=== PATIENT | male | born 1965 | race Caucasian/White ===

== ENCOUNTER 2019-03-13 02:05 | Outpatient (CLI) | payer MEDICAID, SELFPAY ==
--- NOTE | 2019-03-13 11:55 | DI.NM_ITS ---
APPROVED REPORT Exam: Exercise Treadmill Patient Location: Out-Patient Room/Bed: Stress Nurse: Lamar Mesa RN BMI: 29.53 Baseline Rhythm: Sinus Rhythm Indications: In January 2018 patient had an episode of ???sharp??? midsternal chest pain that radiat ed to left neck and palpitations. He reports he has had ???a lot of palpitations??? and SOB over the last year. Medical History Medical History: Atrial Fibrillation, Paroxysmal Atrial Fibrillation, Dyspnea on Exertion, Sleep Apne a, Cardiomyopathy, GERD, Carcinoid tumor of lung. Cardiac Medications: Atorvastatin, Apixaban, Toprol XL, Allergies: No known drug allergies Cardiac Risk Factors: FHX of CAD, HTN, Hyperlipidemia, COPD Previous Cardiac Procedures: None Pretest Chest Pain Characteristics: None Exercise History: Sedentary Physical Disabilities: Currently being treated for Right foot Cellulitis pain Lung Sounds: Clear to auscultation and Diminished Heart Sounds: Regular Stress Test Details Test: Exercise stress converted to pharmacologic stress due to failure to obtain a diagnostic stress test. Reason for pharmacologic stress test: physical limitation. Nuclear Acquisition: Rest Tc-99m/Stress Tc-99m 1 day Rest Isotope: Tc-99m Sestamibi. Dose: 12.0 Date: 03/13/2019 Injection Time: 1045 Stress Isotope: Tc-99m Sestamibi. Dose: 37.1 Date: 03/13/2019 Injection Time: 1310 HR Max Heart Rate (APMHR): 165 bpm Resting HR Supine: 66 bpm Target HR (85% APMHR): 140 bpm Resting HR Standin bpm Max HR Achieved: 104 bpm % of APMHR: 63 HR response to stress: Normal HR response to stress BP Resting BP Supine: 128/88 mmHg Resting BP Standin/82 mmHg Max BP: 148/82 mmHg BP response to stress: Normal blood pressure response to stress. ECG Resting ECG: Sinus Rhythm Clinical Reason for Termination: Right Foot Pain Stress Symptoms: None Exercise duration: 2 min40 sec Highest Stage Achieved: Stage 1: 1.7 mph at 10% grade. Stress ECG Conclusion 1. This was an exercise stress test converted to pharmacological stress test due to right foot pain. 2. There was no evidence of ischemia on the ECG portion of this exam. Protocol Used: Eduardo Protocol Stress Test Summary STAGE Time (mins) Speed (mph) Grade (%) HR BP SYMPTOMS METS Supine 66 128/88 Standing 67 124/82 1 3 1.7 10 102 148/82 4.6 2 6 2.5 12 7 3 9 3.4 14 10.2 4 12 4.2 16 12.9 5 15 5.0 18 17.2 1 Minute Post Lexiscan Injection 83 140/70 3 Minute Post Lexiscan Injection 78 128/84 6 Minute Post Lexiscan Injection 74 130/90 MPI Conclusion Patient's ejection fraction augmented normally without any wall motion abnormalities. There is no evidence of ischemia on the imaging portion of this exam This represents a normal SPECT stress test. Radiologist Interpretation Radiologist Interpretation by: Juan Carlos Madden MD Interpretation Date/Time: 03/14/2019 13:08:44
[2019-03-13] MEDS: Regadenoson 0.4 MG/5 ML SYR IVP (13:06)
== END 2019-03-13 02:25 ==
PROVIDERS: PCP Family Medicine; Visit Provider Internal Medicine Interventional Cardiology
DX: R07.9 Chest pain, unspecified (principal); R06.02 Shortness of breath; R00.2 Palpitations; I48.91 Unspecified atrial fibrillation; I42.9 Cardiomyopathy, unspecified; K21.9 Gastro-esophageal reflux disease without esophagitis; Z82.49 Family history of ischemic heart disease and other diseases of the circulatory system
CPT/HCPCS: 78452; 93017; J2785

== ENCOUNTER 2019-11-11 05:21 | Outpatient (CLI) | payer OTHER, SELFPAY | END 2019-11-11 05:41 | PROVIDERS: PCP Family Medicine; Visit Provider Family Medicine | DX: J45.901 Unspecified asthma with (acute) exacerbation (principal) | CPT/HCPCS: 94618 ==

== ENCOUNTER 2020-03-13 21:15 | Observation (INO) | payer MEDICAID, SELFPAY ==
[2020-03-13] VITALS (37 sets, daily range): BP systolic 78–123; BP diastolic 56–96; PULSE 75–173; RESP 11–20; TEMP 36.6; O2SAT 90–97
--- NOTE | 2020-03-13 21:00 | RT.EKG_ITS ---
APPROVED REPORT Exam: Resting ECG Patient Location: E HR:159 bpm ECG Measurements Heart Rate 159 AXIS IN [id number] P [id number] QRSd 84 QRS 50 QT 317 T -59 QTc 517 Conclusion Atrial fibrillation...V-rate 119-179, irreg A-activity Low voltage, extremity leads...all extremity leads <0.5mV Repolarization abnormality, prob rate related...ST dep, T neg, tachycardia Prolonged QT interval...QTc >500mS I have reviewed and interpreted ECG and agree with software generated interpretation.
--- NOTE | 2020-03-13 21:15 | W.ED.GENAD ---
Discharge Plan Disposition Patient Disposition: [facility] INPATIENT Condition: Fair Discharge Details Clinical Impression: Atrial fibrillation with RVR Primary Care Provider: Frederic Espinoza ED Provider: Sanju Cole Rio Nido Meds and New Rx's Prescriptions: No Action metoprolol succinate 200 mg tablet extended release 24 hr 200 mg PO DAILY RF: 0 Eliquis 5 mg tablet 5 mg PO BID RF: 0 atorvastatin 40 mg tablet 40 mg PO DAILY RF: 0 famotidine 20 mg tablet 20 mg PO DAILY RF: 0 levalbuterol tartrate [Xopenex HFA] 45 mcg/actuation Hfa Aerosol Inhaler 2 puff INHALATION Q6H PRN PRNRF: 0 Medical Decision Making Patient presenting by ambulance with rapid A. fib. Chest pain prior but now. Recent ablation in January. Normal stress test a year ago. IV in place and he was supposed to Toprol so we will give Lopressor. We will also give his oral dose of Toprol XL. Check laboratory studies. His EKG is rapid A. fib with rate related ST changes but also prolonged QT. We will need to look at mag and potassium specifically as she admits to being a daily drinker. 22:50 -patient received 2 doses of IV Lopressor as well as his oral metoprolol. At time seen to have a pulse that was below 100 no district claims manager showed that he still had A. fib in the 150 range. Thought it was potentially related to T waves being read as QRS. Repeat EKG done. Continues to show A. fib at 150. Rate related changes have resolved. Chemistries are okay. Potassium a little low and mag low normal. These are replaced orally. He did have some hypotension with IV doses of Lopressor. Received bolus of LR. Blood pressure now normal. Will give another dose of IV Lopressor for total of 3 5 mg doses. If remains in rapid A. fib will proceed with Cardizem. 00:45 -after 3 doses of Lopressor as well as his oral dose of Toprol-XL still remains in A. fib at rate of 150 average. Patient given 15 mg of diltiazem IV push. Eventually slowed to an atrial flutter that stayed in the 80s for a short period of time but then would bounce between 90 and 120. Case discussed with hospitalist. Patient started on Cardizem drip at 5 mg/h. Repeat bolus of LR at 500 mL given. Repeat troponin being drawn. Patient admitted to ICU in hopes that with rate control he converts back into sinus rhythm. Medical Records Medical records reviewed: Yes I reviewed the patient's medical records. Lab Data Lab results reviewed: Yes I reviewed the patient's lab results. ECG Data Attestation: I personally reviewed and interpreted this ECG (s) as follows: Interpretation: see EKG HPI General Mode of arrival: EMS. Date/Time Provider Initiated Documentation: 03/13/20 21:29. Limitations to Documentation: no limitations. Information obtained by: patient, EMS, RN notes reviewed and old records reviewed. HPI Narrative: Patient brought in by ambulance for evaluation of chest pain and rapid heart rate. Patient had been pulled over by police and was found to be intoxicated. However, patient has history of atrial fibrillation. He had not taken his Toprol for day and a half. He was actually driving to his girlfriend's house to get his medication to take it. He recently underwent ablation about 2 months ago. He was seen by cardiology this month. They are waiting until the 3-month period necessary to recover from the ablation before they decide whether further intervention is required. At this point chest pain which radiated to his left jaw has resolved. His breathing is baseline, he is status post partial lobectomy in the past and has chronic dyspnea which at this point is unchanged. He denies illness. He denies fever, cough, abdominal pain, vomiting or diarrhea. He does admit to alcohol consumption on a daily basis. He was found to have heart rate from 150-170 in atrial fib on EMS monitor. IV established prior to arrival but no meds given due to short transport time. Related Data Home Medications Medication Instructions Recorded Confirmed apixaban 5 mg tablet 5 mg PO BID 03/10/20 03/13/20 atorvastatin 40 mg tablet 40 mg PO DAILY 03/10/20 03/13/20 famotidine 20 mg tablet 20 mg PO DAILY 03/10/20 03/13/20 metoprolol succinate 200 mg 200 mg PO DAILY 03/10/20 03/13/20 tablet,extended release 24 hr levalbuterol tartrate [Xopenex HFA] 2 puff INHALATION Q6H PRN PRN 03/13/20 03/13/20 Allergies Allergy/AdvReac Type Severity Reaction Status Date / Time No Known Allergies Allergy Unverified 03/13/20 22:15 Review of Systems Narrative: As documented in HPI otherwise negative as below. Const: no fever, chills, weakness Resp: no cough, pleuritic pain CV: no diaphoresis, edema, syncope GI: no abdominal pain, nausea, vomiting, diarrhea Neuro: no headache, numbness, focal weakness, confusion PFSH Medical History GERD (gastroesophageal reflux disease) Hypercholesterolemia Paroxysmal atrial fibrillation Surgical History S/P ablation of atrial fibrillation S/P cholecystectomy S/P hernia repair S/P partial lobectomy of lung Social History Smoking/Tobacco Use Status: Former Tobacco Use Smoking risk assessment performed?: Yes Alcohol Intake: current Alcohol Intake frequency: 3 or more drinks per day Alcohol type: beer and hard liquor Drug use: Occasionally Substance use type: marijuana Do you feel safe at home: Yes Do you feel safe in your relationship?: Yes Exam Narrative Exam Narrative: Const: WDWN male in NAD. HEENT: NC/AT. Normal facial exam. Eyes: Normal conjunctiva and sclera. Neck: Supple. Trachea midline. Lungs: Normal respiratory effort. Lungs are clear. Cor: Irr/Irr, tachy, without murmur. Good radial pulses. GI: Soft. NT/ND. No guarding or rebound. Neuro: A+O x 3. Normal speech, mentation, gait. Cranial nerves II - XII grossly intact. No gross motor or sensory deficit. Ext: No C/C/E. No calf tenderness. Skin: Warm and dry without rash. Critical Care Time Critical Care Time Critical Care Time: Yes Total Critical Care Time: 45 Attestation: Upon my evaluation, this patient had a high probability of imminent or life-threatening deterioration, which required my direct attention, intervention, and personal management. I have personally provided 45 minutes of critical care time exclusive of time spent on separately billable procedures. Time includes review of laboratory data, radiology results, discussion with consultants, and monitoring for potential decompensation. Interventions were performed as documented above.
[2020-03-13] MEDS: Metoprolol 5 MG/5 ML VIAL (21:33)
[2020-03-13] MEDS: Lactated Ringers 1,000 ML 1000 ML IV (21:40)
[2020-03-13 21:44] LABS: Abs Immature Grans 0.01 10^3/uL (0.0-0.06); Absolute Basophil Count 0.03 10^3/uL (0.0-0.2); Absolute Eosinophil Count 0.08 10^3/uL (0.0-0.7); Absolute Monocyte Count 0.65 10^3/uL (0.1-0.8); Absolute Neutrophil Count 2.78 10^3/uL (1.2-6.7); Basophils % 0.5; Eosinophils % 1.4; HCT 45.2 % (40.0-50.0); HGB 15.1 g/dL (13.5-17.5); Immature Grans % 0.2; Lymphocytes % 38.3; MCH 30.5 pg (27.0-33.0); MCHC 33.4 % (32.0-36.0); MCV 91.3 fL (80-95); MPV 10.5 fL (8.0-11.0); Monocytes % 11.3; Neutrophils % 48.3; Nucleated RBC 0 %; Platelet Count 178 10^3/uL (130-400); RBC 4.95 10^6/uL (4.36-5.78); RDW-SD 50.4 fL; WBC 5.75 10^3/uL (4.4-10.8)
[2020-03-13] MEDS: Metoprolol 5 MG/5 ML VIAL IVP ×2 (21:50→22:52)
[2020-03-13 21:59] LABS: ALT 76 U/L (16-63); AST 63 U/L (15-37); Albumin 3.6 g/dL (3.4-5.0); Alkaline Phosphatase 112 U/L (46-116); Anion Gap 10.6 mmol/L (3-11); BUN 4 mg/dL (7-18); Bilirubin, Total 0.4 mg/dL (0.2-1.0); CO2 27.4 mmol/L (21.0-32.0); CREATININE 0.88 mg/dL (0.70-1.30); Calcium 8.6 mg/dL (8.5-10.1); Chloride 98 mmol/L (98-107); Glucose 99 mg/dL (74-106); Magnesium 1.8 mg/dL (1.8-2.4); Potassium 3.4 mmol/L (3.5-5.1); Sodium 136 mmol/L (136-145); Total Protein 8.2 g/dL (6.4-8.2)
[2020-03-13 22:01] LABS: Troponin I < 0.05 ng/mL (<0.06)
[2020-03-13] MEDS: Metoprolol CR 100 MG TABCR 200 MG PO (22:23)
[2020-03-13] MEDS: Potassium Chloride 20 MEQ TABCR 40 MEQ PO (22:24)
[2020-03-13] MEDS: Magnesium Oxide 400 MG TAB 800 MG PO (22:24)
--- NOTE | 2020-03-13 22:30 | RT.EKG_ITS ---
APPROVED REPORT Exam: Resting ECG Patient Location: E HR:152 bpm ECG Measurements Heart Rate 152 AXIS DC [id number] P [id number] QRSd 80 QRS 33 QT 308 T -30 QTc 491 Conclusion Atrial fibrillation...? atrial activity Low voltage, extremity leads...all extremity leads <0.5mV Rate Related Changes now Resolved QT now normal
[2020-03-13] MEDS: dilTIAZem 25 MG/5 ML VIAL 15 MG IVP (23:30)
--- NOTE | 2020-03-13 23:30 | RT.EKG_ITS ---
APPROVED REPORT Exam: Resting ECG Patient Location: E HR:82 bpm ECG Measurements Heart Rate 82 AXIS VA 213 P 259 QRSd 89 QRS 40 QT 403 T 25 QTc 472 Conclusion Sinus or ectopic atrial rhythm...P axis (-45,135) Prolonged VA interval...VA >210, V-rate 50- 90 Nonspecific T abnormalities, lateral leads...T <-0.10mV, I aVL V5 V6 Rate Controlled A-flutter No Acute ST Changes
[2020-03-13] MEDS: Lactated Ringers 1,000 ML 150 ML IV (23:35)
[2020-03-14] VITALS (123 sets, daily range): BP systolic 81–148; BP diastolic 45–123; PULSE 57–171; RESP 12–33; TEMP 36.8–37.2; O2SAT 89–98
[2020-03-14] MEDS: Lactated Ringers 500 ML IV (01:10)
[2020-03-14] MEDS: dilTIAZem 125 MG in Normal Saline 100 ML IV (01:10)
[2020-03-14 01:18] LABS: Troponin I < 0.05 ng/mL (<0.06)
--- NOTE | 2020-03-14 02:28 | W.PM.HP.N ---
Date of service: 03/14/20 Time of Service: 02:28 Assessment and Plan Assessment and plan (1) Atrial fibrillation with RVR: Status: Acute Assessment and plan: S/P ablation. Cardiology f/u on 03/10/[address] Mccollum. Pt still within the 3 month blanking period where AF may continue to come and go. Admit to ICU for close monitoring Cont IV hydration; NS Electrolyte replacement. Diltiazem drip; adjust as necessary and BP permitting. Eliquis for AC. (2) Alcohol abuse: Status: Chronic Assessment and plan: CIWA protocol with prn Ativan for mild to mod scoring. Encouraged cessation. Emphasized that Etoh can destabilize electrical activity of the heart and may be interfering with resolution of his AF. (3) Hypercholesterolemia: Status: Chronic Assessment and plan: Cont atorvastatin. (4) GERD (gastroesophageal reflux disease): Status: Chronic Assessment and plan: Cont famotadine. History of Present Illness History of Present Illness Chief Complaint: rapid heart rate and chest pain Narrative: This is a 55 yo male with a PMH of paroxysmal afib s/p recent ablation, GERD, aspiration pneumonia, HLD, alcohol abuse. He had not taken his Toprol for his afib on the day of admission; the medication was at his girlfriends house. He was driving to her house to get the medication and was stopped by the police and found to be intoxicated. He endorses drinking 3-4 beers daily. He noted his heart to be racing and had sharp chest pain that radiated to the left jaw. It had resolved upon arrival. He has mild baseline dyspnea s/p partial lobectomy; no current worsening. No F/C, cough/sputum. His presenting HR was in the 150-170 range; atrial fibrillation. He was given 2 doses of 5 mg IV lopressor and his oral daily metoprolol dose. K was 3.4, magnesium 1.8. He was given oral potassium and magnesium. He received a bolus of IV lactated ringers d/t SBP down to the 80's after receiving lopressor. An additional dose of lopressor was given and he remained in afib with RVR. Diltiazem 15mg IV administered followed by a diltiazem drip at 5mg/hr. His HR did decrease and ranged between 90-120 for a period of time. He was given another 500ml bolus of LR. Upon arrival in the ICU his HR was in the 140-160's range. He had no CP. Troponin was negative x 2. Review of Systems All systems reviewed & are unremarkable except as noted in HPI and below PFSH Medical History GERD (gastroesophageal reflux disease) Hypercholesterolemia Paroxysmal atrial fibrillation Surgical History S/P ablation of atrial fibrillation S/P cholecystectomy S/P hernia repair S/P partial lobectomy of lung Social History Smoking/Tobacco Use Status: Former Tobacco Use Smoking risk assessment performed?: Yes Alcohol Intake: current Alcohol Intake frequency: 3 or more drinks per day Alcohol type: beer and hard liquor Drug use: Occasionally Substance use type: marijuana Do you feel safe at home: Yes Do you feel safe in your relationship?: Yes Meds Home Medications and Allergies Home Medications Medication Instructions Recorded Confirmed Type apixaban 5 mg tablet 5 mg PO BID 03/10/20 03/13/20 History atorvastatin 40 mg tablet 40 mg PO DAILY 03/10/20 03/13/20 History famotidine 20 mg tablet 20 mg PO DAILY 03/10/20 03/13/20 History metoprolol succinate 200 mg 200 mg PO DAILY 03/10/20 03/13/20 History tablet,extended release 24 hr levalbuterol tartrate [Xopenex HFA] 2 puff INHALATION Q6H PRN PRN 03/13/20 03/13/20 History Allergies Allergy/AdvReac Type Severity Reaction Status Date / Time No Known Allergies Allergy Unverified 03/13/20 22:15 Exam Narrative Exam Narrative: Pt lying in bed and conversant. Const General: cooperative and no acute distress Nutritional Appearance: overweight Orientation: alert and oriented x3 HENMT Head: normocephalic and atraumatic Neck Neck: full ROM and no JVD Resp Effort & Inspection: normal respiratory effort Auscultation: clear to auscultation bilaterally Cardio Other: Irreg Irreg. Tachycardia. GI Palpation: soft and nontender Auscultation: normal bowel sounds Skin General skin exam: no rashes or lesions noted Neuro General: moves all extremities and no focal motor deficits Cranial Nerves: hearing normal and sense of smell not altered Cognition: normal cognition Speech: speech normal Extrem General: no pedal edema and no calf tenderness Psych Appearance: grossly normal Speech and Movement: speech and movement normal Affect: normal affect Results Labs Result diagrams: 03/13/20 21:30 03/13/20 21:30 Labs: Laboratory Results - last 24 hr 03/13/20 03/13/20 03/14/20 21:30 21:30 00:40 WBC 5.75 RBC 4.95 Hgb 15.1 Hct 45.2 MCV 91.3 MCH 30.5 MCHC 33.4 RDW 15.0 H Plt Count 178 MPV 10.5 Immature Gran % 0.2 Neutrophils % 48.3 Lymphocytes % 38.3 Monocytes % 11.3 Eosinophils % 1.4 Basophils % 0.5 Nucleated RBC % 0 Absolute Neutrophils 2.78 Absolute Lymphocytes 2.20 Absolute Monocytes 0.65 Absolute Eosinophils 0.08 Absolute Basophils 0.03 Sodium 136 Potassium 3.4 L Chloride 98 Carbon Dioxide 27.4 Anion Gap 10.6 BUN 4 L Creatinine 0.88 Estimated GFR/1.73 m2 >= 60.00 Glucose 99 Calcium 8.6 Magnesium 1.8 Total Bilirubin 0.4 AST 63 H ALT 76 H Alkaline Phosphatase 112 Troponin I < 0.05 < 0.05 Total Protein 8.2 Albumin 3.6 Last Vital Signs Temp 36.6 C 03/13/20 21:16 Pulse 132 H 03/14/20 02:18 Resp 21 03/14/20 01:46 BP 93/68 L 03/14/20 01:46 Pulse Ox 93 03/14/20 01:46 COVID-19 Screening Have you, or household traveled for leisure in last 14 days?: No Had IN PERSON contact w/suspected or confirmed C-19 person: No
[2020-03-14] MEDS: Normal Saline 1,000 ML 150 ML IV ×2 (02:36→09:48)
[2020-03-14 07:09] LABS: Anion Gap 10.6 mmol/L (3-11); BUN 4 mg/dL (7-18); CO2 23.4 mmol/L (21.0-32.0); CREATININE 0.65 mg/dL (0.70-1.30); Calcium 8.2 mg/dL (8.5-10.1); Chloride 104 mmol/L (98-107); Glucose 73 mg/dL (74-106); Potassium 4.3 mmol/L (3.5-5.1); Sodium 138 mmol/L (136-145)
[2020-03-14] MEDS: Folic Acid 1 MG TAB PO (07:50)
[2020-03-14] MEDS: Metoprolol CR 100 MG TABCR 200 MG PO (07:50)
[2020-03-14] MEDS: Multivitamin TAB 1 TAB PO (07:51)
[2020-03-14] MEDS: Apixaban 5 MG TAB PO ×2 (07:51→19:48)
[2020-03-14] MEDS: Famotidine 20 MG TAB PO (07:51)
[2020-03-14] MEDS: Thiamine 100 MG TAB PO (07:51)
[2020-03-14] MEDS: Atorvastatin 40 MG TAB PO (07:51)
[2020-03-14] MEDS: dilTIAZem 25 MG/5 ML VIAL 10 MG IVP (09:34)
--- NOTE | 2020-03-14 10:20 | PGE_ITS ---
Date of Service Date of service: 03/14/20 Time of Service: 10:20 Assessment and Plan Assessment and plan (1) Atrial fibrillation with RVR: Status: Acute Assessment and plan: S/P ablation. Cardiology f/u on 03/10/[address] Mccollum. Pt still within the 3 month blanking period where AF may continue to come and go. Continue diltiazem drip with titration upwards to 20 mg/h. Additional IV boluses were given. Continue Toprol-XL 200 mg daily. If his blood pressure allows we may need to titrate Toprol dose upwards to as much as 400 mg a day. However I think I will add some oral diltiazem to his current dose of Toprol-XL. I will try to get copies of his last echocardiogram from [facility] otherwise if I can get these studies I will order echocardiogram for tomorrow. We will also treat his acute alcohol withdrawal with program doses of benzodiazepines including oxazepam. (2) Alcohol abuse: Status: Chronic Assessment and plan: CIWA protocol with prn Ativan for mild to mod scoring. Add program doses of oxazepam 15 mg p.o. 4 times daily Encouraged cessation. Emphasized that Etoh can destabilize electrical activity of the heart and may be interfering with resolution of his AF. Subjective Subjective Interval history since last seen: 33-year-old male with a history of alcohol abuse and paroxysmal atrial fibrillation status post ablation about a month ago who is maintained on Toprol-XL 200 mg daily along with apixaban 5 mg twice daily. Patient presented emergency department with atrial fibrillation with rapid ventricular rate after having missed his Toprol-XL dose yesterday. He received a DUI when he was picked up while driving intoxicated on his way to his girlfriend's house to get his Toprol-XL. Despite repeated doses of IV Lopressor and IV diltiazem he remained in rapid atrial fibrillation was started on it diltiazem drip. Currently he remains free of any chest pain denies any acute dyspnea fever chills cough or sputum production. He has had no known exposure to COVID-19. No loss of sense of taste or smell. He is currently on a diltiazem drip at 10 mg an hour which we just increased to 15 mg an hour as required additional IV boluses of diltiazem. He was hypokalemic at 3.4 but that is since been corrected. Troponin high levels were within normal limits x2 sets. He admits if he goes without his alcohol he will get a little anxious and shaky but has had no history of alcohol withdrawal seizures. He is currently not hallucinating or confabulating. He does have a slight tremor. Because of his use of Eliquis this precludes use of phenobarbital since phenobarbital is a strong CYP 3 A4 inducer and can lower the effects of his Eliquis. Instead I Svitlana start him on program doses of oxazepam and he can receive as needed doses of Valium as needed. Exam Narrative Exam Narrative: Middle-age male sitting up in bed in no acute distress. He has slight tremor in his hands. He is alert and oriented person place time circumstance. Lungs are clear to auscultation. Heart irregular regular but tachycardic without murmur rub Abdomen soft nontender but obese. Extremities with some tremors in both hands but no asterixis and no peripheral edema in his legs. Objective Last Vital Signs Temp 36.8 C 03/14/20 09:14 Pulse 165 H 03/14/20 09:34 Resp 18 03/14/20 09:14 BP 129/98 H 03/14/20 09:34 Pulse Ox 95 03/14/20 09:14 Laboratory Results - last 24 hr 03/13/20 03/13/20 03/14/20 21:30 21:30 00:25 WBC 5.75 RBC 4.95 Hgb 15.1 Hct 45.2 MCV 91.3 MCH 30.5 MCHC 33.4 RDW 15.0 H Plt Count 178 MPV 10.5 Immature Gran % 0.2 Neutrophils % 48.3 Lymphocytes % 38.3 Monocytes % 11.3 Eosinophils % 1.4 Basophils % 0.5 Nucleated RBC % 0 Absolute Neutrophils 2.78 Absolute Lymphocytes 2.20 Absolute Monocytes 0.65 Absolute Eosinophils 0.08 Absolute Basophils 0.03 Sodium 136 Potassium 3.4 L Chloride 98 Carbon Dioxide 27.4 Anion Gap 10.6 BUN 4 L Creatinine 0.88 Estimated GFR/1.73 m2 >= 60.00 Glucose 99 Calcium 8.6 Magnesium 1.8 Total Bilirubin 0.4 AST 63 H ALT 76 H Alkaline Phosphatase 112 Troponin I < 0.05 Total Protein 8.2 Albumin 3.6 SARS-CoV-2 (PCR) Cancelled Nasopharyn COVID-19 PCR Cancelled Ref Test Perform Site Cancelled 03/14/20 03/14/20 00:40 06:20 WBC RBC Hgb Hct MCV MCH MCHC RDW Plt Count MPV Immature Gran % Neutrophils % Lymphocytes % Monocytes % Eosinophils % Basophils % Nucleated RBC % Absolute Neutrophils Absolute Lymphocytes Absolute Monocytes Absolute Eosinophils Absolute Basophils Sodium 138 Potassium 4.3 D Chloride 104 Carbon Dioxide 23.4 Anion Gap 10.6 BUN 4 L Creatinine 0.65 L Estimated GFR/1.73 m2 >= 60.00 Glucose 73 L Calcium 8.2 L Magnesium Total Bilirubin AST ALT Alkaline Phosphatase Troponin I < 0.05 Total Protein Albumin SARS-CoV-2 (PCR) Nasopharyn COVID-19 PCR Ref Test Perform Site
--- NOTE | 2020-03-14 10:20 | PHA.REVIEW ---
Pharmacy Admission Review - Admission Clinical Review (Last Reviewed 03/14/20 @ 02:39 by Melvin Esquivel MD) Atrial fibrillation with RVR (Acute) No Known Allergies Allergy (Unverified 03/13/20 22:15) Height 5 ft 9 in Weight 89.4 kg - Renal Dosing Renal Dosing: BUN 4 mg/dL (7-18) L 03/14/20 06:20 Creatinine 0.65 mg/dL (0.70-1.30) L 03/14/20 06:20 Medications needing adjustments: Reviewed (eCrCl >100ml/min) - Anticoagulation Anticoagulation: Hgb 15.1 g/dL (13.5-17.5) 03/13/20 21:30 Hct 45.2 % (40.0-50.0) 03/13/20 21:30 Plt Count 178 10^3/uL (130-400) 03/13/20 21:30 Creatinine 0.65 mg/dL (0.70-1.30) L 03/14/20 06:20 Therapeutic Anticoagulation: Reviewed Medications: Apixaban - Opiate Usage Evaluate Pain Scale/Pains Meds: N/A - Relevant Labs Sodium 138 mmol/L (136-145) 03/14/20 06:20 Potassium 4.3 mmol/L (3.5-5.1) D 03/14/20 06:20 Chloride 104 mmol/L (98-107) 03/14/20 06:20 Magnesium 1.8 mg/dL (1.8-2.4) 03/13/20 21:30 Electrolytes, C-Reactive P, ESR: Reviewed - DM Control DM Control: Glucose 73 mg/dL (74-106) L 03/14/20 06:20 Insulin Dosing: N/A - Heart Failure/NH Heart Failure/NH: Troponin I < 0.05 ng/mL (<0.06) 03/14/20 00:40 EF%, MIGUEL's, B-Blockers, Diuretics: Reviewed - BP Control BP Control: Blood Pressure [Left Arm] 129/97 Blood Pressure [Left Arm] 129/97 Blood Pressure 129/98 Blood Pressure 99/75 Blood Pressure 82/66 Blood Pressure 90/76 Blood Pressure 107/69 Blood Pressure 148/123 Blood Pressure 129/97 Blood Pressure 93/68 Blood Pressure 87/62 Blood Pressure 97/45 Blood Pressure 87/60 Blood Pressure 81/50 Blood Pressure 90/53 Blood Pressure 81/50 Blood Pressure 89/53 Blood Pressure 95/61 Blood Pressure 96/64 Blood Pressure 89/62 Blood Pressure 78/56 Blood Pressure 88/70 Blood Pressure 88/70 Blood Pressure 90/72 Blood Pressure 88/61 Blood Pressure 111/60 Blood Pressure 111/60 Blood Pressure 123/96 If elevated: Reviewed List meds needing interventions: diltiazem gtt increased this AM, 2x boluses given and PO started - Qtc Review If Elevated: Reviewed (QTc 472 last reported in [facility] 03/13 @ 2230) - IV to PO Switch IV Medications: Reviewed - Home Meds Home Med List reviewed: Reviewed Relevent Home Meds Not ordered & why?: Trelegy Inhaler (LAMA+LABA+ICS) -- wasn't on med rec done on admission, just added; atorvastatin dose appears to be only 20mg per external rx record - Current meds Current Medication Order Review: Reviewed - Comments Comments/Follow Ups: goal is to wean off dilt gtt today, PO has been started in addition to 200mg metoprolol which also may need to be titrated up if BP allows; due to DDI with eliquis and phenobarb, BZDs were chosen for etoh withdrawal instead
[2020-03-14] MEDS: dilTIAZem 25 MG/5 ML VIAL 15 MG IVP (10:24)
--- NOTE | 2020-03-14 10:45 | RT.EKG_ITS ---
APPROVED REPORT Exam: Resting ECG Patient Location: I HR:65 bpm ECG Measurements Heart Rate 65 AXIS NH 148 P 18 QRSd 78 QRS 52 QT 391 T 58 QTc 408 Conclusion Sinus rhythm...normal P axis, V-rate 60- 99 Low voltage, extremity leads...all extremity leads <0.5mV
[2020-03-14] MEDS: dilTIAZem 30 MG TAB 60 MG PO (10:51)
[2020-03-14] MEDS: dilTIAZem 125 MG in Normal Saline 100 ML 15 MG IV (11:42)
[2020-03-14] MEDS: dilTIAZem 60 MG TAB PO ×2 (13:18→19:48)
[2020-03-14 21:07] LABS: COVID-19 RT-PCR UVMMC Result Negative (Negative)
[2020-03-15] VITALS (19 sets, daily range): BP systolic 107–147; BP diastolic 68–103; PULSE 56–147; RESP 12–26; TEMP 37.2; O2SAT 94–96
[2020-03-15] MEDS: Normal Saline Flush 10 ML SYR IVP (08:31)
[2020-03-15] MEDS: Folic Acid 1 MG TAB PO (08:32)
[2020-03-15] MEDS: Famotidine 20 MG TAB PO (08:33)
[2020-03-15] MEDS: dilTIAZem 60 MG TAB PO (08:33)
[2020-03-15] MEDS: Atorvastatin 40 MG TAB PO (08:41)
[2020-03-15] MEDS: Thiamine 100 MG TAB PO (08:41)
[2020-03-15] MEDS: Apixaban 5 MG TAB PO (08:41)
[2020-03-15] MEDS: Metoprolol CR 100 MG TABCR 200 MG PO (08:42)
[2020-03-15] MEDS: Multivitamin TAB 1 TAB PO (08:42)
[2020-03-15] MEDS: dilTIAZem 25 MG/5 ML VIAL 15 MG IVP (08:56)
[2020-03-15] MEDS: dilTIAZem 30 MG TAB PO (09:48)
--- NOTE | 2020-03-15 10:15 | RT.EKG_ITS ---
APPROVED REPORT Exam: Resting ECG Patient Location: I HR:61 bpm ECG Measurements Heart Rate 61 AXIS [place] 165 P 54 QRSd 80 QRS 49 QT 413 T 53 QTc 416 Conclusion Sinus rhythm...normal P axis, V-rate 60- 99 Normal Electrocardiogram
[2020-03-15] MEDS: Acetaminophen 325 MG TAB 650 MG PO (10:36)
--- NOTE | 2020-03-15 14:45 | PDOC.CMIN ---
- If Service Date Differs Date of service: 03/15/20 Time of Service: 15:12 Care Management Initial Assess REASON FOR HOSPITALIZATION:: Rapid Afib/Aflutter PAST MEDICAL HISTORY/PAST SURGICAL HISTORY:: GERD, hypercholesterolemia, paroxysmal afib, ablation of afib, alcohol use disorder, cholcystectomy, hernia repair, partial lobectomy of lung PREVIOUS FUNCTIONAL STATUS/SOCIAL/FAMILY SUPPORTS:: Christopher resides alone in [place], [place]. His son, Kaz resides nearby in [place]. Reportedly, he is independent at baseline, struggles with alcohol use disorder. CURRENT FUNCTIONAL STATUS:: Adamant about discharge, threatened AMA; Dr. Martines prepared discharge and secured follow up appointments. Has patient been provided with info about the portal/API?: No Did the patient sign up for the portal?: No CODE STATUS:: Full Code INSURANCE COVERAGE / FINANCIAL ISSUES:: [facility] PRIMARY CARE PHYSICIAN:: Dr. Espinoza POTENTIAL DISCHARGE NEEDS:: Follow up appointments. PATIENT/FAMILY EDUCATION NEEDS:: Review of discharge instructions, discuss Ask Me Three, patient adamant regarding discharge as soon as possible. ANTICIPATED BARRIERS TO DISCHARGE:: None identified. TRANSPORTATION:: Via private vehicle with family. PLAN:: Adamant about discharge, threatened AMA; Dr. Martines prepared discharge and secured follow up appointments.
--- NOTE | 2020-03-15 15:12 | PDOC.CMDIS ---
LACE Index Scoring Tool - Questions: Length of Stay (in days): 1 Acuity (Admit via E.D.?): Yes Comorbidities: Any Tumor E.D. Visits: 1 - Answers: Total Score: 7 Risk of Readmission: Low Risk Care Management Discharge Reason for Hospitalization: Rapid Afib/Aflutter Discharge Plan: Adamant about discharge, threatened AMA; Dr. Martines prepared discharge and secured follow up appointments. Patient/Family Education Needs: Review discharge instructions, discuss Ask Me Three.
--- NOTE | 2020-03-17 08:55 | DSE_ITS ---
Date of service: 03/15/20 Time of Service: 14:00 DS: Diagnosis Discharge Diagnosis (1) Atrial fibrillation with RVR: Status: Resolved (2) Alcohol abuse: Status: Chronic Discharge Plan Disposition Patient Disposition: HOME Condition: Improving Discharge Details Reason For Visit: RAPID A FIB/FLUTTER Admit Date/Time: 03/14/20 00:41 Admit Provider: Melvin Esquivel Attending Provider: Melvin Esquivel Primary Care Provider: Frederic Espinoza Hospital Course Hospital Course: 55-year-old male with history of paroxysmal atrial fibrillation status post ablation in January 2020 who reportedly had missed a day of his Toprol-XL. He has a history of alcohol use drinking several beers a day and actually was on his way to his girlfriend's home to shredder picker his Toprol-XL when he was pulled over by [facility] police for intoxication. He was brought to the emergency department where he was found to be in rapid atrial fibrillation with ventricular rate in the 150s to 170s. He did not respond to IV Lopressor and subsequently received boluses of IV diltiazem and was started on diltiazem drip. He was admitted to the intensive care unit where he was monitored overnight and was given increasing doses of IV of diltiazem up to 20 mg/h and he was resumed on his Toprol XL 10 mg daily. He converted to sinus rhythm and remained in normal sinus rhythm overnight. Serial troponin I levels were monitored and came back less than 0.05 within normal limits. His admission labs showed a low potassium of 3.4 which was easily corrected with oral supplementation. After he converted he was put on Cardizem 60 mg every 8 hours. On the morning of discharge however he transiently went back into a rapid atrial fibrillation in the 140s which responded to a 15 mg bolus of IV diltiazem. He was given additional 30 mg of Cardizem for a total of 90 mg of immediate acting Cardizem. Patient is threatening to leave AGAINST MEDICAL ADVICE before I could call his scientist engineer. I was able to convince the patient to wait until I spoke with Dr. Mccollum. I explained to Dr. Mcneal that I plan to put him on long-acting Cardizem CD 240 mg at night and keep him on the Toprol XL 200 mg in the day. I am also to put the patient on a Zio patch to assess maintenance of sinus rhythm as an outpatient. I did express my concerns for the patient he may be going through alcohol withdrawal but he denies that he is has ever had significant alcohol withdrawal problems. He does admit he may get some tremulousness but is never had full-blown DTs. His CIWA score is only 4 and as the patient is fully competent to make his own decisions he understands the concerns I have about his atrial fibrillation and his alcoholism but nevertheless he is insisting he is needs to leave the hospital to shredder picker his vehicle which was impounded because of his DUI I will go ahead and discharge him. Patient will continue his Eliquis 5 mg twice a day as he has been doing he was started on diltiazem XR 240 mg at night along with Toprol-XL 200 mg in the morning. Respiratory therapy met with him and applied a Zio patch and went over how to document any symptoms and how to return the patch for respiratory therapy to have the device read. He is discharged home in improved condition and remains in sinus rhythm at the time of discharge. Home Meds and New Rx's Prescriptions: New diltiazem HCl [DILT-XR] 240 mg capsule,ext.rel 24h degradable 240 mg PO DAILY Qty: 30 RF: 1 Continued metoprolol succinate 200 mg tablet extended release 24 hr 200 mg PO DAILY RF: 0 Eliquis 5 mg tablet 5 mg PO BID RF: 0 famotidine 20 mg tablet 20 mg PO DAILY RF: 0 levalbuterol tartrate [Xopenex HFA] 45 mcg/actuation Hfa Aerosol Inhaler 2 puff INHALATION Q6H PRN PRNRF: 0 sildenafil 100 mg tablet 100 mg PO PRN PRNRF: 0 Trelegy Ellipta 100-62.5-25 mcg blister with device 1 inh INHALATION DAILY RF: 0 atorvastatin 20 mg tablet 20 mg PO DAILY RF: 0 Discharge Instructions Instructions: A-fib (Atrial Fibrillation) (DC) Additional Instructions: Continue taking your Toprol-XL 200 mg in the morning and start on your diltiazem CD 240 mg beginning tonight. Referrals: Frederic Espinoza [Primary Care Provider] - (Call Dr. Espinoza's office for follow-up office visit in the next 2 weeks.) Guero Mccollum MD [ CONSULTING PHYSICIAN] - 04/07/20 1:00 pm Activity:: Activity as Tolerated Equipment/Supplies:: No Equipment Needed Diet:: Normal Diet Discharge Orders Discharge Orders: Discharge Order (Routine); Ordered 03/15/20 Ordered By: Nir Martines Other Ambulatory Orders: ELISABETH SNYDERO PATCH (Routine) Timeframe: 1 Day Facility: [facility] - Location: Respiratory Therapy Ordered By: Nir Martines Discharge Data Discharge Date/Time-TO BE ENTERED AT DEPARTURE: 03/15/20 14:10 DS: Summary Status at Discharge Functional status at discharge: independent ambulation Overall status at discharge: patient is back to baseline Mental Status: mental status grossly normal Speech and Movement: speech and movement normal Mood: irritable mood Affect: irritable affect Time Spent with Patient providing and/or coordinating discharge services: Greater than 30 minutes Specific discharge activities: Calls to the patient's scientist engineer Dr. Mccollum, arrangement of discharge medications and discharge instructions and follow-up cardiac monitoring Exam Narrative Exam Narrative: Middle-age male sitting up in bed in no acute distress. He has slight tremor in his hands. He is alert and oriented person place time circumstance. Lungs are clear to auscultation. Heart irregular regular but tachycardic without murmur rub Abdomen soft nontender but obese. Extremities with some tremors in both hands but no asterixis and no peripheral edema in his legs. Psych Mental Status: mental status grossly normal Speech and Movement: speech and movement normal Mood: irritable mood Affect: irritable affect DS: Data Vitals/I&O Vitals and I&O: Vital Signs Temperature 37.2 C 03/15/20 07:45 Temperature Source Temporal Artery Scan 03/15/20 07:45 Pulse 56 L 03/15/20 13:01 Pulse 56 L 03/15/20 13:01 Respiratory Rate 16 03/15/20 13:01 Respiratory Effort Non-Labored 03/15/20 07:45 Respiratory Depth Normal 03/15/20 07:45 Respiratory Pattern Normal 03/15/20 07:45 Blood Pressure 113/71 03/15/20 13:01 Blood Pressure Mean 81 03/15/20 13:01 Blood Pressure Position Supine 03/15/20 04:12 Pulse Oximetry 94 03/15/20 08:20 Oxygen Delivery Method Room Air 03/15/20 07:45 Oxygen Flow Rate 0 01/11/21 07:45 Pain Level 0 03/15/20 14:20 Comment 03/13/20 21:55 [facility] Medical History GERD (gastroesophageal reflux disease) Hypercholesterolemia Paroxysmal atrial fibrillation Surgical History S/P ablation of atrial fibrillation S/P cholecystectomy S/P hernia repair S/P partial lobectomy of lung Social History Smoking/Tobacco Use Status: Former Tobacco Use Smoking risk assessment performed?: Yes Alcohol Intake: current Alcohol Intake frequency: 3 or more drinks per day Alcohol type: beer and hard liquor Drug use: Occasionally Substance use type: marijuana Do you feel safe at home: Yes Do you feel safe in your relationship?: Yes
--- NOTE | 2020-03-30 15:09 | ZIOP_ITS ---
Date of service: 03/30/20 Time of Service: 15:09 14 Day Clinical Program Manager Referring Provider:: alexandra Indications:: afib Note: This is a 14-day monitor ordered for the indication of atrial fibrillation. ?The patient was in normal sinus rhythm for the majority of the recording with an average heart rate of 72 bpm. ?There were rare PACs and rare PVCs. ?There were 157 brief episodes of supraventricular tachycardia with the longest lasting 6 beats. ?There were no episodes of atrial fibrillation, no pauses greater than 3 seconds and no evidence of high degree heart block. ?There was 1 patient triggered event associated with knee pain that was normal sinus rhythm
== END 2020-03-15 14:10 | disposition home or self-care (01) ==
LOC: ER 03-14 01:55 → ICU 03-15 08:59
PROVIDERS: Registered Nurse Emergency; Admitting Provider Family Medicine; Emergency Provider Emergency Medicine; PCP Family Medicine; Visit Provider Family Medicine
DX: I48.0 Paroxysmal atrial fibrillation (principal); E87.6 Hypokalemia; F10.10 Alcohol abuse, uncomplicated; E78.00 Pure hypercholesterolemia, unspecified; K21.9 Gastro-esophageal reflux disease without esophagitis; Z90.2 Acquired absence of lung [part of]; Z79.01 Long term (current) use of anticoagulants
CPT/HCPCS: 36415; 80048; 80053; 93005; 93246; 96361; 96365; 96375; 96376; 99223; 99239; 99291; 99356; U0003; 83735; 84484; 85025; 93010; 99217; 99220; 99354; G0378

== ENCOUNTER 2022-07-24 02:38 | Outpatient (CLI) | payer MEDICARE, MEDICAID, SELFPAY ==
[2022-07-24] MEDS: Inhaler, Assist Device 1 EACH MC (14:10)
[2022-07-24] MEDS: Albuterol HFA 18 GM 200 PUFF INH IH (14:10)
--- NOTE | 2022-07-25 11:35 | W.PFT ---
Date of service: 07/24/22 Time of Service: 13:06 Pulmonary Function Test Result Indications: COPD Interpretation Spirometry: There is severe airflow limitation. There is no significant bronchodilator response. Lung Volumes: There is air trapping Diffusion Capacity: The diffusion is reduced Airway Pressure: Increased airways resistance Impression Severe aiflow obstruction with air trapping and a reduced diffusion. Note: When compared to 01/15/19, lung function is stable, if not slightly improved. Clinical Correlation therefore is recommended.
== END 2022-07-24 02:39 | disposition home or self-care (01) ==
LOC: RT 02:38
PROVIDERS: PCP Physician Assistant Medical; Visit Provider Student in an Organized Health Care Education/Training Program
DX: J44.9 Chronic obstructive pulmonary disease, unspecified (principal)
CPT/HCPCS: 94060; 94726; 94729

== ENCOUNTER 2022-08-03 03:07 | Outpatient (CLI) | payer MEDICARE, MEDICAID, SELFPAY ==
--- NOTE | 2022-08-03 13:51 | DI.CT_ITS ---
Exam(s) CT CHEST WO EXAM: CT CHEST WO CLINICAL HISTORY: S/P LOBECTOMY OF LUNG,LARGE CELL ENDOCRINE CA,Z90.2,C7A.8. TECHNIQUE: Multi planar reconstructions were performed. CONTRAST MATERIAL: None COMPARISON: CT CT CHEST LOW DOSE CA SCREENING from 06/16/2021 FINDINGS: CHEST: LUNGS: Compared to prior outside CT scan of 06/16/2021 there has decreased right hemithoracic volume again noted from lobectomy. Some scarring is again noted. However, there is a new nodular density i n the right upper lobe which measures 9 x 8 mm (series 2/image 48). In addition just below this is a nother new spiculated 7 x 6 millimeter nodular density (series 2/image 57). No other new additional lung nodules evident on the right side. There are no new left lung nodules. No infiltrates. There are no pleural effusions on either side. No new findings in the trachea and mainstem bronchi. MEDIASTINUM: No new hilar nor mediastinal adenopathy. CARDIAC: Heart size is normal. There is no pericardial effusion.Diameter of the ascending thoracic a yoni is again noted to be enlarged, measuring 4 cm. VISUALIZED UPPER ABDOMEN:Lowermost images reveal a Paddock steatosis. Cholecystectomy. Right renal calculus. No adrenal masses.. OSSEOUS: No significant osseous lesions.No acute fractures.. IMPRESSION: 1. Compared to the prior outside CT scan of June 2021 there is again noted evidence of right hemitho racic surgery/lobectomy. 2. There 2 new nodular densities in the right lung, these measuring 9 x 8 mm and 7 x 6 mm. These 2 findings are suspicious. 3. No new left lung findings. No pleural effusions. No new intrathoracic adenopathy. RADIATION DOSE DELIVERED: 81.41mGy.cm Total DLP DATA REPOSITORY: All CT scans at this facility are submitted to the National Radiology Data Registry (NRDR) Dose Index Registry (DIR) with the [employer] (ACR). RADIATION OPTIMIZATION: All CT scans at this facility use at least one of these dose optimization te chniques: automated exposure control; mA and/or kV adjustment per patient size (includes targeted exa ms where dose is matched to clinical indication); or iterative reconstruction.
== END 2022-08-03 03:27 ==
LOC: DI 03:11
PROVIDERS: PCP Physician Assistant Medical; Visit Provider Student in an Organized Health Care Education/Training Program
DX: C7A.8 Other malignant neuroendocrine tumors (principal); Z90.2 Acquired absence of lung [part of]; R91.8 Other nonspecific abnormal finding of lung field
CPT/HCPCS: 71250

== ENCOUNTER 2022-09-17 17:54 | Observation (INO) | payer MEDICARE, MEDICAID, SELFPAY ==
[2022-09-17] VITALS (49 sets, daily range): BP systolic 90–116; BP diastolic 52–78; PULSE 74–95; RESP 12–27; TEMP 37.2; O2SAT 90–98
--- NOTE | 2022-09-17 17:45 | RT.EKG_ITS ---
APPROVED REPORT Exam: Resting ECG Reason for Exam: presyncope, posterior leads please Patient Location: E HR:86 bpm ECG Measurements Heart Rate 86 AXIS MT 163 P 58 QRSd 88 QRS 78 QT 391 T 73 QTc 469 Conclusion Sinus rhythm...normal P axis, V-rate 60- 99 Low voltage, extremity leads...all extremity leads <0.5mV Nonspecific repol abnormality, diffuse leads...ST dep, T flat/neg, ant/lat/inf No change from earlier today, has lyte abnl, no CP, nl trop
--- NOTE | 2022-09-17 17:45 | RT.EKG_ITS ---
APPROVED REPORT Exam: Resting ECG Reason for Exam: dizzy Patient Location: E HR:79 bpm ECG Measurements Heart Rate [address] 162 P 73 QRSd 92 QRS 84 QT 426 T 43 QTc 489 Conclusion Sinus rhythm...normal P axis, V-rate 60- 99 ST dep anterior leads...ST <-0.10mV, V2-V4
--- NOTE | 2022-09-17 18:02 | DI.CT_ITS ---
Exam(s) CT CHEST/ABD/PEL W EXAM: CT CHEST/ABD/PEL W CLINICAL HISTORY: abdominal pain, vomiting, htn. TECHNIQUE: Imaging Protocol: Axial computed tomography images with coronal and sagittal reformatted images were created and reviewed CONTRAST MATERIAL: Intravenous: Omnipaque 350 Contrast volume:100 ml Oral: no COMPARISON: CT CT CHEST WO from 08/03/2022 FINDINGS: CHEST: Tracheobronchial tree: Patent where visualized. Pulmonary parenchyma: Status post right lower lobectomy. Facet changes. Roughly stable areas of spi culation in the right upper lobe which are noted to be spot suspicious on the prior exam. Pleura: No effusion or pneumothorax. Lymph nodes: Within normal limits. Aorta: Thoracic portion non-dilated. Heart: Normal size. No pericardial effusion. Bones: Right posterior rib deformities. Unremarkable for age. No lytic or blastic lesions.No compre ssion fractures. ABDOMEN: Liver: Severe fatty infiltration. No measurable mass. Gallbladder and biliary tract: No radiodense calculus or dilation. Status post cholecystectomy. Pancreas: Normal density, no abnormal calcifications or inflammatory process. Spleen: Normal. Kidneys: Normal size, contour and axis. Nonobstructing stone mid right kidney. Pole left renal cysts . No suspicious masses seen. Adrenal glands: No masses seen. Aorta: Abdominal portion non-dilated. Lymph nodes: Within normal limits. Soft tissues: Small fatty containing right inguinal hernia. PELVIS: Bladder: Symmetric distention, no gross wall thickening. Bowel: No obstruction or bowel wall thickening. Little stool. Appendix normal. Minimal diverticul osis. Peritoneal cavity: No ascites, collection or mesenteric inflammatory response. Bones: Unremarkable for age.. Reproductive organs: Within normal limits. IMPRESSION: Status post right lower lobectomy. Stable areas of spiculation in the right upper lobe which are doreen picious for neoplasm. No acute abnormality in the abdomen or pelvis.. RADIATION DOSE DELIVERED: 1,331.7mGy.cm Total DLP DATA REPOSITORY: All CT scans at this facility are submitted to the National Radiology Data Registry (NRDR) Dose Index Registry (DIR) with the [employer] (ACR). RADIATION OPTIMIZATION: All CT scans at this facility use at least one of these dose optimization te chniques: automated exposure control; mA and/or kV adjustment per patient size (includes targeted exa ms where dose is matched to clinical indication); or iterative reconstruction.
[2022-09-17] MEDS: Metoclopramide 10 MG/2 ML VIAL IVP (18:16)
[2022-09-17] MEDS: Lactated Ringers 1,000 ML 1000 ML IV ×3 (18:16→21:00)
[2022-09-17 18:54] LABS: Abs Immature Grans 0.05 10^3/uL (0.0-0.06); Absolute Basophil Count 0.03 10^3/uL (0.0-0.2); Absolute Eosinophil Count 0.06 10^3/uL (0.0-0.7); Absolute Lymphocyte Count 1.37 10^3/uL (1.2-3.4); Absolute Monocyte Count 1.01 10^3/uL (0.1-0.8); Absolute Neutrophil Count 4.12 10^3/uL (1.2-6.7); Basophils % 0.5; Eosinophils % 0.9; HGB 13.7 g/dL (13.5-17.5); Immature Grans % 0.8; Lymphocytes % 20.6; MCH 32.5 pg (27.0-33.0); MCHC 36.1 % (32.0-36.0); MCV 90 fL (80-95); MPV 11.2 fL (8.0-11.0); Monocytes % 15.2; Nucleated RBC 0.6 % (0.0-0.3); Platelet Count 222 10^3/uL (130-400); RBC 4.21 10^6/uL (4.36-5.78); RDW 12.7 % (11.8-14.1); RDW-SD 42.1 fL; WBC 6.64 10^3/uL (4.4-10.8)
[2022-09-17 19:09] LABS: ALT 26 U/L (16-63); AST 44 U/L (15-37); Alkaline Phosphatase 119 U/L (46-116); Anion Gap 11.3 mmol/L (3-11); BUN 6 mg/dL (7-18); Bilirubin, Total 1.2 mg/dL (0.2-1.0); CO2 26.7 mmol/L (21.0-32.0); CREATININE 0.9 mg/dL (0.70-1.30); Calcium 8.4 mg/dL (8.5-10.1); Chloride 88 mmol/L (98-107); Glucose 103 mg/dL (74-106); Magnesium 1.2 mg/dL (1.8-2.4); Sodium 126 mmol/L (136-145); Total Protein 7.8 g/dL (6.4-8.2); Troponin I < 50 ng/L (<or=60)
[2022-09-17 19:14] LABS: Lipase > 375 U/L (16-77)
[2022-09-17 19:15] LABS: Potassium 2.8 mmol/L (3.5-5.1)
--- NOTE | 2022-09-17 19:15 | DI.CT_ITS ---
Exam(s) CT HEAD WO EXAM: CT HEAD WO CLINICAL HISTORY: dizziness, hx of ca. TECHNIQUE: Imaging Protocol: Axial computed tomography images with coronal and sagittal reformatted images were created and reviewed COMPARISON: CT CT CHEST WO CONTRAST from 06/14/[address] CHEST LOW DOSE CA SCREENING from 06/16/2021 FINDINGS: Ventricles and Extra axial spaces: Normal in size and morphology for the patient's age. Hemorrhage: None. Cerebral parenchyma: Mild atrophy. No evidence of acute infarct or mass. Midline shift: None. Brainstem/Cerebellum: Normal. Calvarium: Normal. 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 S mall amount of left frontal mucous retention. Soft Tissues: Unremarkable. IMPRESSION: No acute intracranial process. RADIATION DOSE DELIVERED: 742.29mGy.cm Total DLP DATA REPOSITORY: All CT scans at this facility are submitted to the National Radiology Data Registry (NRDR) Dose Index Registry (DIR) with the [employer] (ACR). RADIATION OPTIMIZATION: All CT scans at this facility use at least one of these dose optimization te chniques: automated exposure control; mA and/or kV adjustment per patient size (includes targeted exa ms where dose is matched to clinical indication); or iterative reconstruction.
[2022-09-17] MEDS: Omnipaque 350 MG/ML 100 ML BTL IJ (19:20)
[2022-09-17] MEDS: Normal Saline - Diluent 50 ML VIAL IJ (19:21)
--- NOTE | 2022-09-17 19:36 | ED.GENADUL_ITS ---
Discharge Plan Disposition Patient Disposition: Admit to [facility] Condition: Stable Discharge Details Chief Complaint: Dizzy/Sync Clinical Impression: Pancreatitis, Acute hyponatremia, Hypomagnesemia, Acute hypokalemia Admit Date/Time: 09/17/22 21:12 Admit Provider: Frederic Ashford Attending Provider: Frederic Ashford Primary Care Provider: Delfin Patiño ED Provider: Dilcia Cabrera Medical Decision Making 49-year-old gentleman with multiple comorbidities presents with weakness Alert and oriented, poor historian, cranial nerves II through XII intact, appears weak and pale Lungs clear to auscultation, cardiac rate rhythm regular, oropharynx patent, uvula midline, moist mucous membranes No peripheral edema, mild epigastric tenderness, no rebound or guarding, no CVA tenderness Patient with acute pancreatitis, nausea vomiting, electrolyte abnormality, hypo magnesemia, hypokalemia, EKG with QTc prolongation, received IV magnesium 2 g, IV potassium 20 mEq and 40 mEq p.o. Telemetry monitoring, acutely hypotensive, given 2 L of LR, normotensive on reassessment Mentation unchanged, CT head was ordered secondary to report of dizziness, does not show evidence of acute abnormality CT chest abdomen pelvis was ordered which does not show evidence of significant acute abnormality Patient will need admission to the hospital secondary to acute pancreatitis in the presence of nausea, vomiting, electrolyte abnormality including hyponatremia Case discussed with Dr. Ashford who will admit patient HPI General Date/Time Provider Initiated Documentation: 09/17/22 17:58 . HPI Narrative: This 57-year-old male presents with 3 days of worsening lightheadedness, difficulty standing today per patient. Denies any falls or injuries. States has had nausea and vomiting. Denies any chest pain or shortness of breath. States that his symptoms have gradually worsened. Denies any urinary complaints but states he is only urinated once today. Denies any abdominal pain today but has had intermittent abdominal discomfort. When he stands feels like he might pass out per patient. Related Data Home Medications Medication Instructions Recorded Confirmed apixaban 5 mg tablet (Eliquis) 5 mg PO BID 03/10/20 09/17/22 famotidine 20 mg tablet 20 mg PO DAILY 03/10/20 09/17/22 metoprolol succinate 200 mg 200 mg PO DAILY 03/10/20 09/17/22 tablet,extended release 24 hr atorvastatin 20 mg tablet 20 mg PO DAILY 03/14/20 09/17/22 fluticasone fur. 100 mcg-umeclid 1 inh inhalation DAILY 03/14/20 09/17/22 62.5 mcg-vilant 25 mcg inhalat.powder (Trelegy Ellipta) sildenafil 100 mg tablet 100 mg PO PRN PRN 03/14/20 09/17/22 acetaminophen 500 mg tablet 1,000 mg PO Q6H PRN 02/15/21 09/17/22 (Tylenol Extra Strength) albuterol sulfate 90 mcg/actuation 2 puff inhalation Q4H PRN 02/15/21 09/17/22 aerosol inhaler (ProAir HFA) ondansetron 4 mg disintegrating 2 - 8 mg PO Q8H PRN 07/05/21 09/17/22 tablet meclizine 25 mg tablet 25 mg PO DIRECTED 04/28/22 09/17/22 azithromycin 250 mg tablet See Rx Instructions PO .COMPLEX #6 08/04/22 09/17/22 tabs prednisone 20 mg tablet 40 mg PO DAILY #10 tabs 08/04/22 09/17/22 omeprazole 40 mg capsule,delayed 40 mg PO DAILY 09/17/22 09/17/22 release Previous Rx's Medication Instructions Recorded azithromycin 250 mg tablet See Rx Instructions PO .COMPLEX #6 08/04/22 tabs prednisone 20 mg tablet 40 mg PO DAILY #10 tabs 08/04/22 Allergies Allergy/AdvReac Type Severity Reaction Status Date / Time No Known Allergies Allergy Verified 09/17/22 20:59 General Stated Complaint: Dizzy/Sync BAKARI: 2 PFSH All Active Problems (Updated 09/17/22 @ 22:45 by CL Francois) Acute hyponatremia (Acute) Hypomagnesemia (Acute) Acute hypokalemia (Acute) Pancreatitis (Chronic) Personal history of nicotine dependence (Acute) Right upper lobe pulmonary nodule (Acute) Status post lobectomy of lung (Acute) Large cell neuroendocrine carcinoma (Acute) Chronic obstructive lung disease (Chronic) Sensorineural hearing loss (SNHL) of both ears (Acute) Medical History Alcohol abuse Atrial fibrillation with RVR Atrial flutter Atypical chest pain Carcinoid tumor of lung Cellulitis Chest wall pain Contusion Cough Decreased hearing Depressive disorder Diverticulitis of sigmoid colon Elevated LFTs Emphysematous bleb of lung Foot pain GERD (gastroesophageal reflux disease) GERD without esophagitis Gout Hepatitis C antibody test positive Hypercholesterolemia Hypertensive disease Hyperuricemia Hyponatremia Impotence of organic origin Mixed hyperlipidemia Multiple joint pain Nicotine dependence Nicotine dependence, cigarettes, uncomplicated Obstructive sleep apnea Paroxysmal atrial fibrillation Pneumonia Reduced visual acuity RUQ pain Sighing respiration Supraventricular tachycardia Ventral incisional hernia Surgical History Hx of colonoscopy Hx of esophagogastroduodenoscopy S/P ablation of atrial fibrillation S/P cholecystectomy S/P hernia repair S/P partial lobectomy of lung Family History Mother Stroke Diabetes Father Cancer Social History Smoking/Tobacco Use Status: Former Tobacco Use tobacco type: cigarettes Quit Date: 03/05/14 Tobacco: How many years used: 34 Smoking risk assessment performed?: Yes Alcohol Intake: current Alcohol Intake frequency: a few times a week Alcohol type: beer and hard liquor Drug use: Occasionally Substance use type: marijuana Details: eats THC Household members: spouse Housing: house current occupation: disabled Pets and animals: Yes Pets and animals: cat(s) What is your relationship status?: Panel score (0-1 are the most socially isolated patients): 1 Do you feel safe at home: Yes Do you feel safe in your relationship?: Yes Course Vital Signs Vital signs: Vital Signs Temperature 37.2 C 09/17/22 17:50 Pulse 76 09/17/22 17:50 Respiratory Rate 16 09/17/22 17:50 Blood Pressure 100/77 09/17/22 17:50 Pulse Oximetry 97 09/17/22 17:50 Temperature 37.2 C 09/17/22 17:50 Temperature Source Tympanic 09/17/22 17:50 Pulse 86 09/17/22 19:01 Pulse 84 09/17/22 19:01 Respiratory Rate 18 09/17/22 19:01 Respiratory Effort Normal, Non-Labored 09/17/22 18:22 Respiratory Depth Normal 09/17/22 18:22 Blood Pressure 96/63 L 09/17/22 19:01 Blood Pressure Mean 70 09/17/22 19:01 Blood Pressure Position Sitting 09/17/22 17:50 Pulse Oximetry 94 09/17/22 19:01 Oxygen Delivery Method Room Air 09/17/22 17:50 Oxygen Flow Rate 0 09/17/22 17:50 Pain Level 0 09/17/22 17:50 Lab/Test Results Lab/Test Results: Laboratory Tests Range/Units 09/17/22 09/17/22 18:00 18:00 WBC (4.4-10.8) 10^3/uL 6.64 RBC (4.36-5.78) 10^6/uL 4.21 L Hgb (13.5-17.5) g/dL 13.7 Hct (40.0-50.0) % 38.0 L MCV (80-95) fL 90 MCH (27.0-33.0) pg 32.5 MCHC (32.0-36.0) % 36.1 H RDW (11.8-14.1) % 12.7 Plt Count (130-400) 10^3/uL 222 MPV (8.0-11.0) fL 11.2 H Immature Gran % 0.8 Neutrophils % 62.0 Lymphocytes % 20.6 Monocytes % 15.2 Eosinophils % 0.9 Basophils % 0.5 Nucleated RBC % (0.0-0.3) % 0.6 H Absolute Neutrophils (1.2-6.7) 10^3/uL 4.12 Absolute Lymphocytes (1.2-3.4) 10^3/uL 1.37 Absolute Monocytes (0.1-0.8) 10^3/uL 1.01 H Absolute Eosinophils (0.0-0.7) 10^3/uL 0.06 Absolute Basophils (0.0-0.2) 10^3/uL 0.03 Sodium (136-145) mmol/L 126 L Potassium (3.5-5.1) mmol/L 2.8 L* Chloride (98-107) mmol/L 88 L Carbon Dioxide (21.0-32.0) mmol/L 26.7 Anion Gap (3-11) mmol/L 11.3 H BUN (7-18) mg/dL 6 L Creatinine (0.70-1.30) mg/dL 0.9 Est GFR (CKD-EPI 2020) (mL/min/1.73m2) 99.00 Glucose (74-106) mg/dL 103 Calcium (8.5-10.1) mg/dL 8.4 L Magnesium (1.8-2.4) mg/dL 1.2 L Total Bilirubin (0.2-1.0) mg/dL 1.2 H AST (15-37) U/L 44 H ALT (16-63) U/L 26 Alkaline Phosphatase (46-116) U/L 119 H Troponin I (<or=60) ng/L < 50 Total Protein (6.4-8.2) g/dL 7.8 Albumin (3.4-5.0) g/dL 3.0 L Lipase (16-77) U/L > 375 H Critical Care Time Critical Care Time Attestation: Approximately 45 minutes of critical care time secondary to hypomagnesemia, hypokalemia, hyponatremia, acute pancreatitis, telemetry monitoring, electrolyte supplementation, IV fluid hydration secondary to hypotension, and admission to the hospital PAWSS Have you Been Recently Intoxicated or Drunk Within the Last 30 days?: No Have you Ever Experienced Previous Episodes of Alcohol Withdrawal?: No Have you ever Experienced Withdrawal Seizures?: No Have you ever Experienced Delirium Tremens(DT)s?: No Have you ever undergone Alcohol Rehabilitation Treatment (i.e, inpt ot outpatient treatment programs)?: No Have you ever Experienced Blackouts?: No Have you ever Combined Alcohol with other Downers within the last 90 days?: No Have you ever Combined Alcohol with any other Substance of Abuse during the last 90 days?: No Result: 0
[2022-09-17 19:49] LABS: Bilirubin Small (Negative); Blood Negative (Negative); Clarity Clear (Clear); Glucose Negative (Negative); Ketones 40 mg/dL (Negative); Leukocyte Esterase Negative (Negative); Nitrite Negative (Negative); pH 6.5 (5-8)
--- NOTE | 2022-09-17 19:51 | DI.VRAD_ITS ---
PROCEDURE INFORMATION: Exam: CT Head Without Contrast Exam date and time: 09/17/2022 7:27 PM Age: 57 years old Clinical indication: Patient HX: Dizziness, HX of CA TECHNIQUE: Imaging protocol: Computed tomography of the head without contrast. COMPARISON: CT CTA HEAD/NECK W/ AND/OR WO CONT 10/28/2021 2:40 PM FINDINGS: Brain: Mild volume loss No hemorrhage. Mild white matter disease. No mass effect. Cerebral ventricles: No ventriculomegaly. Paranasal sinuses: Visualized sinuses are unremarkable. No fluid levels. Mastoid air cells: Visualized mastoid air cells are well aerated. Bones/joints: Unremarkable. No acute fracture. Soft tissues: Unremarkable. IMPRESSION: No acute intracranial abnormality. Dictated and Authenticated by: Rupert Hall MD. Ordering:CONSTANTINE Ha MD
[2022-09-17] MEDS: MAGNESIUM SULFATE 2 GM/50 ML BAG IVPB (19:58)
[2022-09-17] MEDS: Potassium Chloride 20 MEQ TABCR 40 MEQ PO (19:59)
[2022-09-17] MEDS: POTASSIUM CHLORIDE 20 MEQ/100 ML BAG 50 MEQ IVPB (19:59)
--- NOTE | 2022-09-17 20:00 | DI.VRAD_ITS ---
PROCEDURE INFORMATION: Exam: CT Chest With Contrast; Diagnostic Exam date and time: 09/17/2022 7:40 PM Age: 57 years old Clinical indication: Abdominal pain; Other: Rll removal 2002; Prior surgery; Surgery date: 6+ months; Surgery type: Rll 2002, cholecystectomy, hernia repair TECHNIQUE: Imaging protocol: Diagnostic computed tomography of the chest with contrast. 3D rendering (Not supervised by radiologist): MIP and/or 3D reconstructed images were created by the technologist. COMPARISON: CT CHEST WO 08/03/2022 1:44 PM FINDINGS: Lungs: Chronic right-sided volume loss with scarring in the right upper lobe. Emphysema noted. Pulmonary nodules on the right with spiculated margin are grossly stable No consolidation. No masses. Pleural spaces: Unremarkable. No pneumothorax. No pleural effusion. Heart: Unremarkable. No cardiomegaly. No pericardial effusion. Lymph nodes: Unremarkable. No enlarged lymph nodes. Vasculature: Unremarkable. No aortic aneurysm. Bones/joints: Grossly stable. No acute fracture. Soft tissues: Unremarkable. IMPRESSION: Right lower lobe resection Grossly stable suspicious right-sided pulmonary nodules. Neoplasm not excluded PROCEDURE INFORMATION: Exam: CT Abdomen And Pelvis With Contrast Exam date and time: 09/17/2022 7:40 PM Age: 57 years old Clinical indication: Abdominal pain; Other: Rll removal 2002; Prior surgery; Surgery date: 6+ months; Surgery type: Rll 2002, cholecystectomy, hernia repair TECHNIQUE: Imaging protocol: Computed tomography of the abdomen and pelvis with contrast. 3D rendering (Not supervised by radiologist): MIP and/or 3D reconstructed images were created by the technologist. COMPARISON: CT CHEST WO 08/03/2022 1:44 PM FINDINGS: Liver: Severe fatty infiltration and mild hepatomegaly No mass. Gallbladder and bile ducts: Prior cholecystectomy. No ductal dilation. Pancreas: Normal. No ductal dilation. Spleen: Normal. No splenomegaly. Adrenal glands: Normal. No mass. Kidneys and ureters: Right renal calculi No hydronephrosis. Left renal cyst Stomach and bowel: Fluid levels versus liquid stool in the ascending and transverse colon. Colonic diverticulosis No obstruction. Question mild mucosal thickening. Appendix: No evidence of appendicitis. Intraperitoneal space: Unremarkable. No free air. No significant fluid collection. Vasculature: Unremarkable. No abdominal aortic aneurysm. Lymph nodes: Unremarkable. No enlarged lymph nodes. Urinary bladder: Unremarkable as visualized. Reproductive: Unremarkable as visualized. Bones/joints: Degenerative changes in the spine No acute fracture. Soft tissues: Unremarkable. IMPRESSION: Nonspecific nonobstructed bowel gas pattern. Correlate for mild enteritis Nonobstructing right renal calculi Dictated and Authenticated by: Rupert Hall MD. Ordering:CONSTANTINE Ha MD
--- NOTE | 2022-09-17 20:57 | HPE_ITS ---
Date of service: 09/17/22 Time of Service: 20:57 Assessment and Plan Assessment and plan (1) Pancreatitis: Status: Chronic Assessment and plan: Acute alcoholic pancreatitis ( despite absence of CT findings the clinical picture is compelling). Will leave NPO with IVF and prn analgesics and antiemetics. Alcohol: will monitor on CIWA with prn benzos K: replace and trend Mg: replace and trend PAF: continue beta shelly and DOAC GERD: coptinue PPI History of Present Illness History of Present Illness Chief Complaint: abd pain and nausea Narrative: 57 male with h/o alcohol abuse, states he drinks a half of a fifth of spirits daily; h/o cholycystectomy, GERD and PAF -- here with somewhere between 3-7 days of intermittent LUQ pain along with nausea; single episode of non-bloody vomiting. No diarrhea. Last drink yesterday. In ER findings of note for initial BP 90-100/sys and absence of fever; white count 6.3; K 2.8, Mg 1.2 and Lipase >375. CT abdomen s/p choly and no pancreatic findings, fatty liver and non- specific bowel gas pattern. Patient given Magnesium and Potassium replenishment. I was asked to evaluate for admission. Patient states he has never had issue with alcohol withdrawal save for mild tremulousness. Took his usual meds, including Lopressor, Eliquis and Prilosec this morning. States he is not having any pain at present. Review of Systems Narrative: per HPI PFSH All Active Problems (Updated 09/17/22 @ 21:08 by Frederic Ashford MD) Pancreatitis (Chronic) Personal history of nicotine dependence (Acute) Right upper lobe pulmonary nodule (Acute) Status post lobectomy of lung (Acute) Large cell neuroendocrine carcinoma (Acute) Chronic obstructive lung disease (Chronic) Sensorineural hearing loss (SNHL) of both ears (Acute) Medical History Alcohol abuse Atrial fibrillation with RVR Atrial flutter Atypical chest pain Carcinoid tumor of lung Cellulitis Chest wall pain Contusion Cough Decreased hearing Depressive disorder Diverticulitis of sigmoid colon Elevated LFTs Emphysematous bleb of lung Foot pain GERD (gastroesophageal reflux disease) GERD without esophagitis Gout Hepatitis C antibody test positive Hypercholesterolemia Hypertensive disease Hyperuricemia Hyponatremia Impotence of organic origin Mixed hyperlipidemia Multiple joint pain Nicotine dependence Nicotine dependence, cigarettes, uncomplicated Obstructive sleep apnea Paroxysmal atrial fibrillation Pneumonia Reduced visual acuity RUQ pain Sighing respiration Supraventricular tachycardia Ventral incisional hernia Surgical History Hx of colonoscopy Hx of esophagogastroduodenoscopy S/P ablation of atrial fibrillation S/P cholecystectomy S/P hernia repair S/P partial lobectomy of lung Family History Mother Stroke Diabetes Father Cancer Social History Smoking/Tobacco Use Status: Former Tobacco Use tobacco type: cigarettes Quit Date: 03/05/14 Tobacco: How many years used: 34 Smoking risk assessment performed?: Yes Alcohol Intake: current Alcohol Intake frequency: a few times a week Alcohol type: beer and hard liquor Drug use: Occasionally Substance use type: marijuana Details: eats THC Household members: spouse Housing: house current occupation: disabled Pets and animals: Yes Pets and animals: cat(s) What is your relationship status?: Panel score (0-1 are the most socially isolated patients): 1 Do you feel safe at home: Yes Do you feel safe in your relationship?: Yes Meds Allergies and Home Medications Allergies Allergy/AdvReac Type Severity Reaction Status Date / Time No Known Allergies Allergy Verified 09/17/22 20:59 Home Medications Medication Instructions Recorded Confirmed Type apixaban 5 mg tablet (Eliquis) 5 mg PO BID 03/10/20 09/17/22 History famotidine 20 mg tablet 20 mg PO DAILY 03/10/20 09/17/22 History metoprolol succinate 200 mg 200 mg PO DAILY 03/10/20 09/17/22 History tablet,extended release 24 hr atorvastatin 20 mg tablet 20 mg PO DAILY 03/14/20 09/17/22 History fluticasone fur. 100 mcg-umeclid 1 inh inhalation DAILY 03/14/20 09/17/22 History 62.5 mcg-vilant 25 mcg inhalat.powder (Trelegy Ellipta) sildenafil 100 mg tablet 100 mg PO PRN PRN 03/14/20 09/17/22 History acetaminophen 500 mg tablet 1,000 mg PO Q6H PRN 02/15/21 09/17/22 History (Tylenol Extra Strength) albuterol sulfate 90 mcg/actuation 2 puff inhalation Q4H PRN 02/15/21 09/17/22 History aerosol inhaler (ProAir HFA) ondansetron 4 mg disintegrating 2 - 8 mg PO Q8H PRN 07/05/21 09/17/22 History tablet meclizine 25 mg tablet 25 mg PO DIRECTED 04/28/22 09/17/22 History azithromycin 250 mg tablet See Rx Instructions PO .COMPLEX #6 08/04/22 09/17/22 Rx tabs prednisone 20 mg tablet 40 mg PO DAILY #10 tabs 08/04/22 09/17/22 Rx omeprazole 40 mg capsule,delayed 40 mg PO DAILY 09/17/22 09/17/22 History release Exam Narrative Exam Narrative: 96/63, 86, 37.2, 18, 94% RA. HEENT anicteric, neck supple; lungs diminished; heart distant/RRR; abdomen +BS, soft and NT; rectal deferred; extremities w/o edema; neuro Ox3, lucid, moves all 4s, minimal resting tremor Results Labs 09/17/22 18:00 09/17/22 18:00 Labs: Laboratory Results - last 24 hr 09/17/22 09/17/22 09/17/22 18:00 18:00 19:28 WBC 6.64 RBC 4.21 L Hgb 13.7 Hct 38.0 L MCV 90 MCH 32.5 MCHC 36.1 H RDW 12.7 Plt Count 222 MPV 11.2 H Immature Gran % 0.8 Neutrophils % 62.0 Lymphocytes % 20.6 Monocytes % 15.2 Eosinophils % 0.9 Basophils % 0.5 Nucleated RBC % 0.6 H Absolute Neutrophils 4.12 Absolute Lymphocytes 1.37 Absolute Monocytes 1.01 H Absolute Eosinophils 0.06 Absolute Basophils 0.03 Sodium 126 L Potassium 2.8 L* Chloride 88 L Carbon Dioxide 26.7 Anion Gap 11.3 H BUN 6 L Creatinine 0.9 Est GFR (CKD-EPI 2020) 99.00 Glucose 103 Calcium 8.4 L Magnesium 1.2 L Total Bilirubin 1.2 H AST 44 H ALT 26 Alkaline Phosphatase 119 H Troponin I < 50 Total Protein 7.8 Albumin 3.0 L Lipase > 375 H Urine Color Yellow Urine Clarity Clear Urine pH 6.5 Ur Specific [place] 1.010 Urine Protein Negative Urine Ketones 40 H Urine Blood Negative Urine Nitrite Negative Urine Bilirubin Small H Urine Urobilinogen 2.0 H Ur Leukocyte Esterase Negative Urine Glucose Negative Last Vital Signs Temp 37.2 C 09/17/22 17:50 Pulse 86 09/17/22 19:01 Resp 18 09/17/22 19:01 BP 96/63 L 09/17/22 19:01 Pulse Ox 94 09/17/22 19:01 PAWSS Have you Been Recently Intoxicated or Drunk Within the Last 30 days?: No Have you Ever Experienced Previous Episodes of Alcohol Withdrawal?: No Have you ever Experienced Withdrawal Seizures?: No Have you ever Experienced Delirium Tremens(DT)s?: No Have you ever undergone Alcohol Rehabilitation Treatment (i.e, inpt ot outpatient treatment programs)?: No Have you ever Experienced Blackouts?: No Have you ever Combined Alcohol with other Downers within the last 90 days?: No Have you ever Combined Alcohol with any other Substance of Abuse during the last 90 days?: No Result: 0 Time Spent Time spent with Patient: 40-54 minutes Time was spent: preparing to see the patient(eg.review tests), obtaining and/or reviewing separately otained hiistory, ordering medications,tests, procedures and indepentently interpreting results
[2022-09-17 21:34] LABS: Troponin I < 50 ng/L (<or=60)
[2022-09-17] MEDS: POTASSIUM CHLORIDE/0.9% NACL 1,000 ML 125 MEQ IV (22:30)
[2022-09-17 22:46] LABS: ETHANOL BLOOD < 3.0 mg/dL (<10)
[2022-09-18] MEDS: MAGNESIUM SULFATE 8.12 MEQ, MULTIVITAMIN 10 ML, THIAMINE 100 MG, FOLIC ACID 1 MG in Nor... 168.867 MG IV (00:05)
[2022-09-18] MEDS: Pantoprazole 40 MG VIAL IVP (06:34)
[2022-09-18 06:42] LABS: Anion Gap 6.3 mmol/L (3-11); BUN 3 mg/dL (7-18); CO2 26.7 mmol/L (21.0-32.0); CREATININE 0.6 mg/dL (0.70-1.30); Calcium 8.1 mg/dL (8.5-10.1); Chloride 98 mmol/L (98-107); Estimated GFR 111.89 (mL/min/1.73m2); Glucose 119 mg/dL (74-106); Magnesium 2.2 mg/dL (1.8-2.4); Potassium 3.4 mmol/L (3.5-5.1); Sodium 131 mmol/L (136-145)
[2022-09-18 07:13] VITALS: BP 92/64; PULSE 77; RESP 18; TEMP 37; O2SAT 95
[2022-09-18] MEDS: Metoprolol CR 100 MG TABCR 200 MG PO (07:49)
[2022-09-18] MEDS: Apixaban 5 MG TAB PO ×2 (07:49→19:47)
[2022-09-18] MEDS: Normal Saline Flush 10 ML SYR (07:59)
[2022-09-18] MEDS: POTASSIUM CHLORIDE/0.9% NACL 1,000 ML 125 MEQ IV (08:00)
[2022-09-18] MEDS: Potassium Chloride 10 MEQ CAPCR 20 MEQ PO ×3 (08:42→19:46)
--- NOTE | 2022-09-18 11:05 | PGE_ITS ---
Date of Service Date of service: 09/18/22 Time of Service: 11:05 Assessment and Plan Assessment and plan (1) Pancreatitis: Status: Chronic Assessment and plan: will advance his diet as tolerated. He does not require more iv fluids at this point. His sodium should correct now that he is off alcohol and we have rehydrated him w/ normal saline. (2) Acute hypokalemia: Status: Acute Assessment and plan: improved at 3.4 , up from 2.8, but not resolved. continue w/ oral replacement recheck (3) Hypomagnesemia: Status: Acute Assessment and plan: corrected to 2.2 up from 1.2; needs oral replacements, monitor (4) Acute hyponatremia: Status: Acute Assessment and plan: improving up to 131 from 126. iv saline dc'ed this morning. cont. monitor (5) Chronic obstructive lung disease: Status: Chronic Assessment and plan: asymptomatic. patient uses Trelegy, which was not reordered. He did not bring his Trelegy w/ him to the hospital. I spoke w/ pharmacist and we will put him on Symbicort and Spiriva; DuoNeb prn was already ordered but he is not bronchospastic. (6) Alcohol abuse: Assessment and plan: He states that he never goes through withdrawal. he has slight tremor, but is not diaphoretic, no hallucinations, he is not even tachycardic. I had considered prophylaxis w/ phenobarbital at the low dose 6 mg/kg for prevention of DT but he has never had DT's and phenobarbital and apixaban interact such phenobarbital will lower the AUC of his apixaban levels, this would increase his risks for embolic event. If he goes into withdrawal, I would use benzodiazepines. (7) Atrial flutter: Assessment and plan: currently in sinus rhythm. His atrial fib/atrial flutter is paroxysmal and related to his alcohol consumption nevertheless he is maintained on Torpol XL and apixaban Subjective Subjective Interval history since last seen: Mr. 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 He has been drinking up to half of a fifth of whiskey daily. He has been doing this since his August 16. Prior to that he had been only drinking socially w/ company (couple times per week). Today he is no longer nauseated, abdominal pain has improved, he has tolerated clear liquid diet. He also has PAF associated w/ his alcohol intake and he is maintained on Elquis. He also has remote DVT. Exam Narrative Exam Narrative: Christopher is sitting up in bed, alert and oriented Lungs: clear, but w/ diminsehed sounds at right base Heart: regular (telemetry demonstrates NSR) Abdomen: obes, slight distension, but soft, normal bowel sounds; nontender to palpation Extremities: No edema or cyanosis Objective Last Vital Signs Temp 37 C 09/18/22 07:13 Pulse 77 09/18/22 07:13 Resp 18 09/18/22 07:13 BP 92/64 L 09/18/22 07:13 Pulse Ox 95 09/18/22 07:13 Laboratory Results - last 24 hr 09/17/22 09/17/22 09/17/22 18:00 18:00 19:28 WBC 6.64 RBC 4.21 L Hgb 13.7 Hct 38.0 L MCV 90 MCH 32.5 MCHC 36.1 H RDW 12.7 Plt Count 222 MPV 11.2 H Immature Gran % 0.8 Neutrophils % 62.0 Lymphocytes % 20.6 Monocytes % 15.2 Eosinophils % 0.9 Basophils % 0.5 Nucleated RBC % 0.6 H Absolute Neutrophils 4.12 Absolute Lymphocytes 1.37 Absolute Monocytes 1.01 H Absolute Eosinophils 0.06 Absolute Basophils 0.03 Sodium 126 L Potassium 2.8 L* Chloride 88 L Carbon Dioxide 26.7 Anion Gap 11.3 H BUN 6 L Creatinine 0.9 Est GFR (CKD-EPI 2020) 99.00 Glucose 103 Calcium 8.4 L Magnesium 1.2 L Total Bilirubin 1.2 H AST 44 H ALT 26 Alkaline Phosphatase 119 H Troponin I < 50 Total Protein 7.8 Albumin 3.0 L Lipase > 375 H Urine Color Yellow Urine Clarity Clear Urine pH 6.5 Ur Specific Temperance 1.010 Urine Protein Negative Urine Ketones 40 H Urine Blood Negative Urine Nitrite Negative Urine Bilirubin Small H Urine Urobilinogen 2.0 H Ur Leukocyte Esterase Negative Urine Glucose Negative Ethyl Alcohol 09/17/22 09/17/22 09/18/22 21:10 21:10 06:16 WBC RBC Hgb Hct MCV MCH MCHC RDW Plt Count MPV Immature Gran % Neutrophils % Lymphocytes % Monocytes % Eosinophils % Basophils % Nucleated RBC % Absolute Neutrophils Absolute Lymphocytes Absolute Monocytes Absolute Eosinophils Absolute Basophils Sodium 131 L Potassium 3.4 L Chloride 98 Carbon Dioxide 26.7 Anion Gap 6.3 BUN 3 L Creatinine 0.6 L Est GFR (CKD-EPI 2020) 111.89 Glucose 119 H Calcium 8.1 L Magnesium 2.2 Total Bilirubin AST ALT Alkaline Phosphatase Troponin I < 50 Total Protein Albumin Lipase Urine Color Urine Clarity Urine pH Ur Specific Temperance Urine Protein Urine Ketones Urine Blood Urine Nitrite Urine Bilirubin Urine Urobilinogen Ur Leukocyte Esterase Urine Glucose Ethyl Alcohol < 3.0 PAWSS Have you Been Recently Intoxicated or Drunk Within the Last 30 days?: No Have you Ever Experienced Previous Episodes of Alcohol Withdrawal?: No Have you ever Experienced Withdrawal Seizures?: No Have you ever Experienced Delirium Tremens(DT)s?: No Have you ever undergone Alcohol Rehabilitation Treatment (i.e, inpt ot outpatient treatment programs)?: No Have you ever Experienced Blackouts?: No Have you ever Combined Alcohol with other Downers within the last 90 days?: No Have you ever Combined Alcohol with any other Substance of Abuse during the last 90 days?: No Result: 0 Time Spent with Patient Time Spent with Patient: 35-49 minutes Time was spent: preparing to see the patient(eg.review tests), obtaining and/or reviewing separately otained hiistory, ordering medications,tests, procedures, referring, communicating with other health medicare coordinator, indepentently interpreting results, counseling the patient and care coordination
[2022-09-18 11:10] VITALS: BP 107/68; PULSE 78; RESP 18; TEMP 37.7; O2SAT 97
[2022-09-18] MEDS: Magnesium Oxide 400 MG TAB PO ×2 (12:20→19:45)
[2022-09-18 12:25] LABS: Calculated LDL 42 mg/dL (<100); Cholesterol 73 mg/dL (<200); HDL Cholesterol 21 mg/dL (40-60); Triglyceride 50 mg/dL (<150)
--- NOTE | 2022-09-18 14:25 | PHA.REVIEW2 ---
Pharmacy Admission Review - Admission Clinical Review (Last Reviewed 09/17/22 @ 21:06 by Frederic Ashford MD) Acute hyponatremia (Acute) Hypomagnesemia (Acute) Acute hypokalemia (Acute) No Known Allergies Allergy (Verified 09/17/22 20:59) Resuscitation Status Full Code Height 5 ft 8 in Weight 90.718 kg - Renal Dosing Renal Dosing: BUN 3 mg/dL (7-18) L 09/18/22 06:16 Creatinine 0.6 mg/dL (0.70-1.30) L 09/18/22 06:16 Medications needing adjustments: Reviewed List of meds needing interventions: eCrCl 146 - Anticoagulation Anticoagulation: Hgb 13.7 g/dL (13.5-17.5) 09/17/22 18:00 Hct 38.0 % (40.0-50.0) L 09/17/22 18:00 Plt Count 222 10^3/uL (130-400) 09/17/22 18:00 Creatinine 0.6 mg/dL (0.70-1.30) L 09/18/22 06:16 Therapeutic Anticoagulation: Reviewed Medications: Apixaban - Opiate Usage Evaluate Pain Scale/Pains Meds: Reviewed (hydromorphone IVP prn) - Relevant Labs Sodium 131 mmol/L (136-145) L 09/18/22 06:16 Potassium 3.4 mmol/L (3.5-5.1) L 09/18/22 06:16 Chloride 98 mmol/L (98-107) 09/18/22 06:16 Magnesium 2.2 mg/dL (1.8-2.4) 09/18/22 06:16 Electrolytes, C-Reactive P, ESR: Reviewed (Mag - critically low on admission, replaced via IV and maintenance PO dose started; potassium PO ordered as well) - DM Control DM Control: Glucose 119 mg/dL (74-106) H 09/18/22 06:16 Hemoglobin A1c 6.0 % (<5.7) H 09/18/22 06:16 DM Control: N/A - Cardiac Review Cardiac Review: Troponin I < 50 ng/L (<or=60) 09/17/22 21:10 BP, HR, EF%: Reviewed - Qtc Review QTc: Reviewed (QTc 459 on admission) - IV to PO Switch IV Medications: Reviewed - Home Meds Home Med List reviewed: Reviewed Relevent Home Meds Not ordered & why?: atorvastatin, famotidine, meclizine; symbicort + spiriva ordered in place of trelegy - Current meds Current Medication Order Review: Reviewed - Comments Comments/Follow Ups: does not have a history of DTs so alcohol withdrawal protocol with phenobarbital was not ordered, does of prn lorazepam if needed for sx, if something more is needed for symptom management the provider will use benzodiazepines as phenobarb will interact with patient's apixiban
[2022-09-18 14:59] VITALS: BP 95/62; PULSE 73; RESP 16; TEMP 37.3; O2SAT 96
--- NOTE | 2022-09-18 15:34 | NUR.NOTE ---
Nursing Note: Accessed pt chart to determine the number of EKG orders. There was a duplicate and it was deleted.
--- NOTE | 2022-09-18 16:54 | INITIAL_ITS ---
Date of service: 09/18/22 Time of Service: 16:54 Care Management Initial Assmt Initial Assessment REASON FOR HOSPITALIZATION:: Pancreatitis PREVIOUS FUNCTIONAL STATUS/SOCIAL/FAMILY SUPPORTS:: Resides in [place], independent at baseline. Struggles with [place]; alcohol use. CURRENT FUNCTIONAL STATUS:: Up independently. ADVANCE DIRECTIVES:: None on file Has patient been provided with info about the portal/API?: Yes Did the patient sign up for the portal?: No CODE STATUS:: Full Code INSURANCE COVERAGE / FINANCIAL ISSUES:: P Medicare PRIMARY CARE PHYSICIAN:: Delfin Patiño POTENTIAL DISCHARGE NEEDS:: Follow up appointments PATIENT/FAMILY EDUCATION NEEDS:: Review discharge instructions, discuss Ask Me Three. ANTICIPATED BARRIERS TO DISCHARGE:: None identified at this time. TRANSPORTATION:: Via private vehicle PLAN:: Christopher will return home when ready per MD. No services anticipated at this time, CM continues to follow. PFSH All Active Problems (Updated 09/17/22 @ 22:45 by CL Francois) Acute hyponatremia (Acute) Hypomagnesemia (Acute) Acute hypokalemia (Acute) Pancreatitis (Chronic) Personal history of nicotine dependence (Acute) Right upper lobe pulmonary nodule (Acute) Status post lobectomy of lung (Acute) Large cell neuroendocrine carcinoma (Acute) Chronic obstructive lung disease (Chronic) Sensorineural hearing loss (SNHL) of both ears (Acute) Medical History Alcohol abuse Atrial fibrillation with RVR Atrial flutter Atypical chest pain Carcinoid tumor of lung Cellulitis Chest wall pain Contusion Cough Decreased hearing Depressive disorder Diverticulitis of sigmoid colon Elevated LFTs Emphysematous bleb of lung Foot pain GERD (gastroesophageal reflux disease) GERD without esophagitis Gout Hepatitis C antibody test positive Hypercholesterolemia Hypertensive disease Hyperuricemia Hyponatremia Impotence of organic origin Mixed hyperlipidemia Multiple joint pain Nicotine dependence Nicotine dependence, cigarettes, uncomplicated Obstructive sleep apnea Paroxysmal atrial fibrillation Pneumonia Reduced visual acuity RUQ pain Sighing respiration Supraventricular tachycardia Ventral incisional hernia Surgical History Hx of colonoscopy Hx of esophagogastroduodenoscopy S/P ablation of atrial fibrillation S/P cholecystectomy S/P hernia repair S/P partial lobectomy of lung Family History Mother Stroke Diabetes Father Cancer Social History Smoking/Tobacco Use Status: Former Tobacco Use tobacco type: cigarettes Quit Date: 03/05/14 Tobacco: How many years used: 34 Smoking risk assessment performed?: Yes Alcohol Intake: current Alcohol Intake frequency: a few times a week Alcohol type: beer and hard liquor Drug use: Occasionally Substance use type: marijuana Details: eats THC Household members: spouse Housing: house current occupation: disabled Pets and animals: Yes Pets and animals: cat(s) What is your relationship status?: Panel score (0-1 are the most socially isolated patients): 1 Do you feel safe at home: Yes Do you feel safe in your relationship?: Yes
[2022-09-18 19:36] VITALS: BP 91/61; PULSE 71; RESP 18; TEMP 37.3; O2SAT 96
[2022-09-18] MEDS: Budesonide/Formoterol 80/4.5 6.9 GM 60 PUFF INH IH (19:47)
[2022-09-18 22:28] VITALS: BP 100/62; PULSE 72; RESP 16; TEMP 37.6; O2SAT 96
[2022-09-19 03:13] VITALS: BP 98/62; PULSE 75; RESP 16; TEMP 36.5; O2SAT 100
[2022-09-19] MEDS: Pantoprazole 40 MG VIAL IVP (06:21)
[2022-09-19 06:22] LABS: Abs Immature Grans 0.03 10^3/uL (0.0-0.06); Absolute Basophil Count 0.03 10^3/uL (0.0-0.2); Absolute Eosinophil Count 0.13 10^3/uL (0.0-0.7); Absolute Lymphocyte Count 1.62 10^3/uL (1.2-3.4); Absolute Monocyte Count 0.84 10^3/uL (0.1-0.8); Absolute Neutrophil Count 2.95 10^3/uL (1.2-6.7); Basophils % 0.5; Eosinophils % 2.3; HCT 33.4 % (40.0-50.0); HGB 11.7 g/dL (13.5-17.5); Immature Grans % 0.5; Lymphocytes % 28.9; MCH 32.3 pg (27.0-33.0); MCV 92 fL (80-95); MPV 10.6 fL (8.0-11.0); Neutrophils % 52.8; Platelet Count 142 10^3/uL (130-400); RBC 3.62 10^6/uL (4.36-5.78); RDW 13.2 % (11.8-14.1); RDW-SD 44.5 fL
[2022-09-19 06:45] LABS: ALT 19 U/L (16-63); AST 35 U/L (15-37); Albumin 2.3 g/dL (3.4-5.0); Alkaline Phosphatase 96 U/L (46-116); Anion Gap 6.5 mmol/L (3-11); BUN 3 mg/dL (7-18); Bilirubin, Total 0.7 mg/dL (0.2-1.0); CO2 25.5 mmol/L (21.0-32.0); CREATININE 0.6 mg/dL (0.70-1.30); Calcium 8.3 mg/dL (8.5-10.1); Chloride 99 mmol/L (98-107); Estimated GFR 111.89 (mL/min/1.73m2); Glucose 97 mg/dL (74-106); Sodium 131 mmol/L (136-145); Total Protein 6.1 g/dL (6.4-8.2)
[2022-09-19 06:49] LABS: Lipase 351 U/L (16-77); Magnesium 1.6 mg/dL (1.8-2.4)
[2022-09-19] MEDS: Budesonide/Formoterol 80/4.5 6.9 GM 60 PUFF INH IH (07:46)
[2022-09-19 08:00] VITALS: BP 104/53; PULSE 75; RESP 20; TEMP 36.7; O2SAT 95
[2022-09-19] MEDS: Magnesium Oxide 400 MG TAB PO (08:03)
[2022-09-19] MEDS: Metoprolol CR 100 MG TABCR 200 MG PO (08:03)
[2022-09-19] MEDS: Apixaban 5 MG TAB PO (08:04)
[2022-09-19 08:34] LABS: Lab Add On Test DONE
[2022-09-19] MEDS: MAGNESIUM SULFATE 2 GM/50 ML BAG IVPB (09:27)
[2022-09-19] MEDS: HYDROmorphone 2 MG/ML SYR 0.5 MG IVP (09:41)
--- NOTE | 2022-09-19 11:41 | W.PM.DS.N ---
Date of service: 09/19/22 Time of Service: 11:41 DS: Diagnosis Discharge Diagnosis (1) Pancreatitis: Status: Chronic (2) Acute hypokalemia: Status: Acute (3) Hypomagnesemia: Status: Acute (4) Acute hyponatremia: Status: Acute (5) Chronic obstructive lung disease: Status: Chronic (6) Alcohol abuse: (7) Atrial flutter: Discharge Plan Disposition Patient Disposition: Home Condition: Improving Discharge Details Reason For Visit: Pancreatitis Admit Date/Time: 09/17/22 21:12 Admit Provider: Frederic Ashford Attending Provider: Frederic Ashford Primary Care Provider: Delfin Paitño Hospital Course Hospital Course: This is a 57-year-old male with a history of alcohol abuse who drinks 1/5 of alcohol daily presents to the emergency department with abdominal pain nausea and vomiting. Evaluation in the emergency department is consistent with acute pancreatitis he was admitted to the medical surgical unit for IV hydration and electrolyte replacement bowel rest and pain management. His symptoms improved with the treatment. Diet was advanced he remained hemodynamically stable. He had no sign of alcohol withdrawal while hospitalized alcohol abstinence discussed and resources provided. patient is safe for discharge to home and will be discharged with no services discharge discussed with DR Vega Home Meds and New Rx's Prescriptions: New Spiriva Respimat 2.5 mcg/actuation Mist 2 puff inhalation DAILY Qty: 4 0RF magnesium oxide 400 mg (241.3 mg magnesium) Tablet 400 mg PO BID Qty: 60 0RF Continued metoprolol succinate 200 mg tablet extended release 24 hr 200 mg PO DAILY Eliquis 5 mg tablet 5 mg PO BID acetaminophen [Tylenol Extra Strength] 500 mg tablet 1,000 mg PO Q6H PRN albuterol sulfate [ProAir HFA] 90 mcg/actuation HFA aerosol inhaler 2 puff inhalation Q4H PRN ondansetron 4 mg tablet,disintegrating 2 - 8 mg PO Q8H PRN meclizine 25 mg tablet 25 mg PO DIRECTED sildenafil 100 mg tablet 100 mg PO PRN PRN Patient Comments: Patient is no longer using. TAKE 1 TABLET BY MOUTH 30 MINUTES BEFORE SEX Trelegy Ellipta 100-62.5-25 mcg blister with device 1 inh INHALATION DAILY Patient Comments: INHALE 1 PUFF BY MOUTH ONCE DAILY atorvastatin 20 mg tablet 20 mg PO DAILY Patient Comments: TAKE 1 TABLET BY MOUTH EVERY DAY omeprazole 40 mg capsule,delayed release(DR/EC) 40 mg PO DAILY No Action famotidine 20 mg tablet 20 mg PO DAILY Patient Comments: no longer taking azithromycin 250 mg tablet See Rx Instructions PO .COMPLEX Qty: 6 0RF Patient Comments: Completed this prescription Rx Instructions: For 250 mg dose pack: take 500 mg today (day 1), then 250 mg for 4 days (days 2-5) PO prednisone 20 mg tablet 40 mg PO DAILY Qty: 10 0RF Patient Comments: no longer taking Discharge Instructions Instructions: Pancreatitis (DC) Stand Alone Forms: Nursing Discharge Form Referrals: Delfin Patiño [Primary Care Provider] - (Please call to make a follow up appointment for 1-2 weeks) Activity:: Activity as Tolerated Equipment/Supplies:: No Equipment Needed Diet:: As Tolerated Discharge Orders Discharge Orders: Discharge Order (Routine); Ordered 09/19/22 Ordered By: Korina Logan Discharge Data Discharge Date/Time-TO BE ENTERED AT DEPARTURE: 09/19/22 13:35 DS: Summary Time Spent with Patient providing and/or coordinating discharge services: Less than 30 minutes Status at Discharge Functional status at discharge: independent ambulation Overall status at discharge: patient is back to baseline Mental Status: mental status grossly normal Speech and Movement: speech and movement normal Mood: congruent mood Affect: normal affect Exam Const General: cooperative, comfortable and no acute distress Nutritional Appearance: overweight Orientation: alert, awake and oriented x3 HENMT Head: normal to inspection, normocephalic and atraumatic Mouth: oral mucosae normal Chest Chest: normal inspection of the chest Resp Effort & Inspection: normal respiratory effort Cardio Rate: regular rate Rhythm: regular rhythm GI Inspection: other (Round soft nontender) Psych Mental Status: mental status grossly normal Speech and Movement: speech and movement normal Mood: congruent mood Affect: normal affect DS: Data Vitals/I&O Vitals and I&O: Vital Signs Temperature 36.7 C 09/19/22 08:00 Temperature Source Tympanic 09/19/22 08:00 Pulse 75 09/19/22 08:00 Pulse Rhythm Regular 09/19/22 08:00 Pulse 87 09/17/22 22:05 Respiratory Rate 20 09/19/22 08:00 Respiratory Effort Normal, Non-Labored 09/19/22 08:00 Respiratory Depth Normal 09/19/22 08:00 Respiratory Pattern Normal 09/19/22 08:00 Blood Pressure 104/53 L 09/19/22 08:00 Blood Pressure Mean 71 09/17/22 22:05 Blood Pressure Position Sitting 09/17/22 17:50 Pulse Oximetry 95 09/19/22 08:00 Oxygen Delivery Method Room Air 09/19/22 08:00 Oxygen Flow Rate 0 09/19/22 08:00 Pain Level 6 09/19/22 09:41 Comment elbow pain; bp called over radio 09/18/22 14:59 Intake & Output 09/18/22 09/18/22 09/19/22 11:59 23:59 11:59 Intake Total 2475.7 / 3493.2 1017.5 / 3493.2 550 / 550 Output Total 300 / 300 Balance 2175.7 / 3193.2 1017.5 / 3193.2 550 / 550 Intake: IV 2225.7 / 2763.2 537.5 / 2763.2 70 / 70 Oral 250 / 730 480 / 730 480 / 480 Output: Urine 300 / 300 Other: Urine Color Yellow Urine Appearance Clear Clear Clear Comment pt reports he has voided at the toilet tonight. pt voided an unknown amount at toilet. Stool Size Moderate Moderate Stool Characteristics Soft Liquid Brown Brown Voiding Methods Urinal Toilet Data Completed and Pending Labs on day of discharge: Labs from last 24 hours 09/19/22 09/19/22 09/19/22 06:07 06:07 06:07 WBC 5.60 RBC 3.62 L Hgb 11.7 L D Hct 33.4 L MCV 92 MCH 32.3 MCHC 35.0 RDW 13.2 Plt Count 142 MPV 10.6 Immature Gran % 0.5 Neutrophils % 52.8 Lymphocytes % 28.9 Monocytes % 15.0 Eosinophils % 2.3 Basophils % 0.5 Nucleated RBC % 0.0 Absolute Neutrophils 2.95 Absolute Lymphocytes 1.62 Absolute Monocytes 0.84 H Absolute Eosinophils 0.13 Absolute Basophils 0.03 Sodium 131 L Potassium 4.0 Chloride 99 Carbon Dioxide 25.5 Anion Gap 6.5 BUN 3 L Creatinine 0.6 L Est GFR (CKD-EPI 2020) 111.89 Glucose 97 Hemoglobin A1c Calcium 8.3 L Magnesium 1.6 L Total Bilirubin 0.7 AST 35 ALT 19 Alkaline Phosphatase 96 Total Protein 6.1 L Albumin 2.3 L Triglycerides Total Cholesterol LDL Cholesterol, Calc HDL Cholesterol Lipase 351 H Add-On Test Request 09/18/22 09/18/22 09/18/22 06:16 06:16 06:16 WBC RBC Hgb Hct MCV MCH MCHC RDW Plt Count MPV Immature Gran % Neutrophils % Lymphocytes % Monocytes % Eosinophils % Basophils % Nucleated RBC % Absolute Neutrophils Absolute Lymphocytes Absolute Monocytes Absolute Eosinophils Absolute Basophils Sodium Potassium Chloride Carbon Dioxide Anion Gap BUN Creatinine Est GFR (CKD-EPI 2020) Glucose Hemoglobin A1c 6.0 H Calcium Magnesium Total Bilirubin AST ALT Alkaline Phosphatase Total Protein Albumin Triglycerides 50 Total Cholesterol 73 LDL Cholesterol, Calc 42 HDL Cholesterol 21 L Lipase Add-On Test Request DONE [facility] All Active Problems (Updated 09/17/22 @ 22:45 by CL Francois) Acute hyponatremia (Acute) Hypomagnesemia (Acute) Acute hypokalemia (Acute) Pancreatitis (Chronic) Personal history of nicotine dependence (Acute) Right upper lobe pulmonary nodule (Acute) Status post lobectomy of lung (Acute) Large cell neuroendocrine carcinoma (Acute) Chronic obstructive lung disease (Chronic) Sensorineural hearing loss (SNHL) of both ears (Acute) Medical History Alcohol abuse Atrial fibrillation with RVR Atrial flutter Atypical chest pain Carcinoid tumor of lung Cellulitis Chest wall pain Contusion Cough Decreased hearing Depressive disorder Diverticulitis of sigmoid colon Elevated LFTs Emphysematous bleb of lung Foot pain GERD (gastroesophageal reflux disease) GERD without esophagitis Gout Hepatitis C antibody test positive Hypercholesterolemia Hypertensive disease Hyperuricemia Hyponatremia Impotence of organic origin Mixed hyperlipidemia Multiple joint pain Nicotine dependence Nicotine dependence, cigarettes, uncomplicated Obstructive sleep apnea Paroxysmal atrial fibrillation Pneumonia Reduced visual acuity RUQ pain Sighing respiration Supraventricular tachycardia Ventral incisional hernia Surgical History Hx of colonoscopy Hx of esophagogastroduodenoscopy S/P ablation of atrial fibrillation S/P cholecystectomy S/P hernia repair S/P partial lobectomy of lung Family History Mother Stroke Diabetes Father Cancer Social History Smoking/Tobacco Use Status: Former Tobacco Use tobacco type: cigarettes Quit Date: 03/05/14 Tobacco: How many years used: 34 Smoking risk assessment performed?: Yes Alcohol Intake: current Alcohol Intake frequency: a few times a week Alcohol type: beer and hard liquor Drug use: Occasionally Substance use type: marijuana Details: eats THC Household members: spouse Housing: house current occupation: disabled Pets and animals: Yes Pets and animals: cat(s) What is your relationship status?: Panel score (0-1 are the most socially isolated patients): 1 Do you feel safe at home: Yes Do you feel safe in your relationship?: Yes Time Spent with Patient Time Spent with Patient: <45 minutes Time was spent: preparing to see the patient(eg.review tests) and counseling the patient
--- NOTE | 2022-09-19 16:05 | PDOC.CMDIS ---
Date of service: 09/19/22 Time of Service: 16:05 LACE Index Scoring Tool Questions: Length of Stay (in days): 2 Was the patient admitted via the E.D.?: Yes E.D. Visits: 0 Answers: Total Score: 5 Risk of Readmission: Low Risk Care Management Discharge Plan Reason for Hospitalization: Pancreatitis Discharge Plan: Christopher will return home when ready per MD with no new services. He will transport via private vehicle. Patient/Family Education Needs: Review discharge instructions, discuss Ask Me Three
== END 2022-09-19 13:35 | disposition home or self-care (01) ==
LOC: ER 21:25 → MS 22:12
PROVIDERS: Internal Medicine; Admitting Provider General Practice; Emergency Provider Physician Assistant; PCP Physician Assistant Medical; Visit Provider General Practice
DX: K85.20 Alcohol induced acute pancreatitis without necrosis or infection (principal); E83.42 Hypomagnesemia; E87.6 Hypokalemia; J44.9 Chronic obstructive pulmonary disease, unspecified; E87.1 Hypo-osmolality and hyponatremia; F10.10 Alcohol abuse, uncomplicated; I48.92 Unspecified atrial flutter; K21.9 Gastro-esophageal reflux disease without esophagitis; I48.0 Paroxysmal atrial fibrillation; K76.0 Fatty (change of) liver, not elsewhere classified; Z79.899 Other long term (current) drug therapy; Z79.01 Long term (current) use of anticoagulants; Z90.2 Acquired absence of lung [part of]; R91.1 Solitary pulmonary nodule; Z87.891 Personal history of nicotine dependence; E78.00 Pure hypercholesterolemia, unspecified; E78.2 Mixed hyperlipidemia; G47.33 Obstructive sleep apnea (adult) (pediatric); M10.9 Gout, unspecified; I47.1 Supraventricular tachycardia; F12.90 Cannabis use, unspecified, uncomplicated; Z85.110 Personal history of malignant carcinoid tumor of bronchus and lung; Z86.718 Personal history of other venous thrombosis and embolism
CPT/HCPCS: 36415; 74177; 80048; 80053; 80061; 83690; 93005; 94640; 96361; 96365; 96366; 96375; 99291; 70450; 71260; 80320; 81003; 83036; 83735; 84484; 85025; 93010; 94664; 99222; 99232; 99238; J1170; J2765; J3480; J3490

== ENCOUNTER → 2022-10-23 01:27 | Outpatient (CLI) | payer MEDICARE, MEDICAID, SELFPAY ==
--- NOTE | 2022-10-23 07:45 | DI.CT_ITS ---
Exam(s) CT CHEST WO EXAM: CT CHEST WO CLINICAL HISTORY: f/u newly found nodules,r91.8. TECHNIQUE: Imaging protocol: Axial computed tomography images were obtained and coronal and sagittal reformatted images were created and reviewed. COMPARISON: CT CT CHEST WO from 08/03/[address] CHEST/ABD/PEL W from 09/17/2022 FINDINGS: Tracheobronchial tree: Patent where visualized. Pulmonary parenchyma: There again seen findings of a right lobectomy. [id number] emphysematous changes are seen in the lungs. There has been no change in size of the areas of spiculation in the right lung. No new pulmonary nodules are seen. No focal consolidating infiltrates are present. Mediastinum and [place]: No dominant adenopathy or fluid collection. The esophagus is unremarkable.The l ymph nodes in the mediastinum are stable. Thyroid gland: Unremarkable. Pleura: No effusion or pneumothorax. Heart: The heart is not dilated. Mild coronary artery calcification. No pericardial effusion. Aorta: Thoracic aorta non-dilated. Atherosclerosis. Upper abdomen: Fatty infiltration of the liver. Status post cholecystectomy. Right nephrolithiasis . Lymph nodes: Within normal limits. Soft tissues: Bilateral gynecomastia. Bones:Within normal limits for the patient's age. Stable chronic right rib deformities. IMPRESSION: 1. Stable areas of spiculation seen in the right lung. Neoplasm cannot be excluded. 2. Status post right lobectomy. 3. [id number] centrilobular emphysema. RADIATION DOSE DELIVERED: 510.18mGy.cm Total DLP 510.18mGy.cm Total DLP DATA REPOSITORY: All CT scans at this facility are submitted to the National Radiology Data Registry (NRDR) Dose Index Registry (DIR) with the [employer] ([employer]). RADIATION OPTIMIZATION: All CT scans at this facility use at least one of these dose optimization te chniques: automated exposure control; mA and/or kV adjustment per patient size (includes targeted exa ms where dose is matched to clinical indication); or iterative reconstruction.
== END ==
PROVIDERS: PCP Physician Assistant Medical; Visit Provider Student in an Organized Health Care Education/Training Program
DX: R91.8 Other nonspecific abnormal finding of lung field (principal)
CPT/HCPCS: 71250

== ENCOUNTER 2022-12-02 14:39 | Inpatient (IN) | payer MEDICARE, MEDICAID, SELFPAY ==
[2022-12-02] VITALS (32 sets, daily range): BP systolic 116–127; BP diastolic 67–99; PULSE 90–131; RESP 14–22; TEMP 36.7; O2SAT 92–98
--- NOTE | 2022-12-02 16:30 | RT.EKG_ITS ---
APPROVED REPORT Exam: Resting ECG Reason for Exam: weakness Patient Location: E HR:102 bpm ECG Measurements Heart Rate 102 AXIS WI 142 P 75 QRSd 87 QRS 69 QT 368 T 222 QTc 492 Conclusion Sinus tachycardia...rate> 99 Atrial premature complex...SV complex w/ short R-R interval Sinus pause...long R-R interval, normal QRSd Repol abnrm suggests ischemia, diffuse leads...ST-T neg, ant/lat/inf sinus tachycardia, normal axis, normal intervals, anterior lateral st seg depressions and t wave inve rsions
--- NOTE | 2022-12-02 16:30 | DI.CT_ITS ---
Exam(s) CT HEAD WO EXAM: CT HEAD WO CLINICAL HISTORY: confusion. TECHNIQUE: Imaging Protocol: Axial computed tomography images with coronal and sagittal reformatted images were created and reviewed COMPARISON: CT CT HEAD WO from 09/17/2022 FINDINGS: There are no skull fractures. 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 This osteoma is again noted be c onfined to the frontal sinus and there is no intracranial extension. There is no evidence of intracranial hemorrhage, intracranial mass effect, or shift of midline struct ures. There are no extra-axial fluid collections. The ventricles are not enlarged or shifted and th ere is no blood within the ventricular system nor within the basal cisterns. Mild symmetrical atrophy noted. Also some mild periventricular hypodensity consistent with chronic s mall vessel disease. IMPRESSION: No acute intracranial findings on this noninfused CT scan of the brain. 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 RADIATION DOSE DELIVERED: 722.42mGy.cm Total DLP DATA REPOSITORY: All CT scans at this facility are submitted to the National Radiology Data Registry (NRDR) Dose Index Registry (DIR) with the [employer] ([employer]). RADIATION OPTIMIZATION: All CT scans at this facility use at least one of these dose optimization te chniques: automated exposure control; mA and/or kV adjustment per patient size (includes targeted exa ms where dose is matched to clinical indication); or iterative reconstruction.
[2022-12-02 16:57] LABS: BE (Venous) 6 mmol/L (-2-3); HCO3 (Venous) 30 mmol/L (23-28); O2 Sat (Venous) 82 %; TCO2 (Venous) 28 mmol/L (24-29); pCO2 (Venous) 42 mmHg (41-51); pH (Venous) 7.46 (7.31-7.41); pO2 (Venous) 46 mmHg
[2022-12-02 17:00] LABS: Lactate 1.9 mmol/L (0.6-1.4)
[2022-12-02 17:31] LABS: Abs Immature Grans 0.05 10^3/uL (0.0-0.06); Absolute Basophil Count 0.03 10^3/uL (0.0-0.2); Absolute Eosinophil Count 0.05 10^3/uL (0.0-0.7); Absolute Monocyte Count 1.03 10^3/uL (0.1-0.8); Absolute Neutrophil Count 5.13 10^3/uL (1.2-6.7); Basophils % 0.4; Eosinophils % 0.6; HCT 37.1 % (40.0-50.0); HGB 13.1 g/dL (13.5-17.5); Immature Grans % 0.6; Lymphocytes % 19.3; MCH 32.6 pg (27.0-33.0); MCHC 35.3 % (32.0-36.0); MCV 92 fL (80-95); MPV 10.5 fL (8.0-11.0); Monocytes % 13.2; Neutrophils % 65.9; Platelet Count 197 10^3/uL (130-400); RBC 4.02 10^6/uL (4.36-5.78); RDW 15.9 % (11.8-14.1); WBC 7.79 10^3/uL (4.4-10.8)
[2022-12-02] MEDS: LORazepam 2 MG/ML VIAL 1 MG IVP (17:39)
[2022-12-02] MEDS: Lactated Ringers 1,000 ML 1000 ML IV ×3 (17:40→21:12)
[2022-12-02 17:42] LABS: Ammonia 15 umol/L (11-32)
[2022-12-02 17:44] LABS: PHOSPHORUS 4.2 mg/dL (2.6-4.7)
[2022-12-02 17:46] LABS: ALT 19 U/L (16-63); AST 29 U/L (15-37); Albumin 3.1 g/dL (3.4-5.0); Alkaline Phosphatase 104 U/L (46-116); Anion Gap 12.5 mmol/L (3-11); BUN 8 mg/dL (7-18); Bilirubin, Total 0.8 mg/dL (0.2-1.0); CO2 28.5 mmol/L (21.0-32.0); CREATININE 0.8 mg/dL (0.70-1.30); Calcium 9.4 mg/dL (8.5-10.1); Chloride 92 mmol/L (98-107); Estimated GFR 102.58 (mL/min/1.73m2); Glucose 121 mg/dL (74-106); Sodium 133 mmol/L (136-145); Total Protein 7.8 g/dL (6.4-8.2)
[2022-12-02 17:48] LABS: Potassium 2.7 mmol/L (3.5-5.1)
[2022-12-02 17:55] LABS: Lipase 87 U/L (16-77); Magnesium 1.2 mg/dL (1.8-2.4); TSH (W/Ref FT4) 1.47 uIU/mL (0.36-3.74); Troponin I < 50 ng/L (<or=60)
[2022-12-02 17:56] LABS: ETHANOL BLOOD < 3.0 mg/dL (<10)
--- NOTE | 2022-12-02 18:20 | DI.RAD_ITS ---
Exam(s) XR CHEST 1V IN DI DEPT EXAM: XR CHEST 1V IN DI DEPT CLINICAL HISTORY: weakness. TECHNIQUE: 2D digital imaging was performed. COMPARISON: CT CT CHEST WO from 08/03/2022 FINDINGS: Single AP portable view. Heart size is upper normal. The mediastinum is not widened. No new left lung infiltrates nor pleural effusions subsegmental platelike atelectasis in the lateral left lung base is unchanged from CT scan of 08/03/2022. There is a nodular density in the right lung apex region. This was evident on CT scan. IMPRESSION: Platelike atelectasis in left lung base. Nodular infiltrate in the right lung apex. No pleural effusions evident. DATA REPOSITORY: RADIATION DOSE DELIVERED:
--- NOTE | 2022-12-02 18:35 | DI.VRAD_ITS ---
PROCEDURE INFORMATION: Exam: CT Head Without Contrast Exam date and time: 12/02/2022 6:05 PM Age: 57 years old Clinical indication: Altered mental status/memory loss TECHNIQUE: Imaging protocol: Computed tomography of the head without contrast. COMPARISON: CT HEAD WO 09/17/2022 7:27 PM FINDINGS: Brain: Prominence of cerebral sulci reflects cerebral atrophy. A few poorly marginated hypodensities scattered throughout the deep and periventricular white matter of both cerebral hemispheres suggest mild underlying microvascular ischemic changes. Brainstem and cerebellum are unremarkable and there is no evidence of acute transcortical infarction or recent intracranial hemorrhage. Cerebral ventricles: Dilatation of the 3rd and lateral ventricles is commensurate with the degree of cerebral atrophy. Paranasal sinuses: A 25 mm densely calcified mass is again seen in the medial left frontal sinus and mucosal disease is also again seen along the lateral margin of the left frontal sinus contiguous with presumed osteoma. Mastoid air cells: Grossly clear bilaterally. Bones/joints: Bony calvarium and skull base are intact and no acute fractures are detected. Soft tissues: Unremarkable. IMPRESSION: Cerebral atrophy and probable mild underlying microvascular ischemic changes with no evidence of acute transcortical infarction, recent intracranial hemorrhage or hydrocephalus. No acute intracranial process is detected. Dictated and Authenticated by: Jay Jay Humphrey MD. Ordering:CONSTANTINE Ha MD
--- NOTE | 2022-12-02 18:38 | DI.VRAD_ITS ---
PROCEDURE INFORMATION: Exam: XR Chest Exam date and time: 12/02/2022 6:13 PM Age: 57 years old Clinical indication: Other: Weakness TECHNIQUE: Imaging protocol: Radiologic exam of the chest. Views: 1 view. COMPARISON: CT CHEST WO 10/23/2022 1:08 PM FINDINGS: Lungs: Spiculated parenchymal densities are again seen in the right apex with no other mass or consolidation detected. Pleural spaces: Mild blunting of the right lateral costophrenic angle could represent minimal effusion versus pleural thickening with no left-sided pleural effusion detected. No evidence of pneumothorax. Heart/Mediastinum: Heart size is normal and vessel margins are sharply defined. Bones/joints: No acute osseous lesions are detected. IMPRESSION: Stable appearance of spiculated parenchymal densities seen near the right apex with no new parenchymal mass or consolidation detected. Dictated and Authenticated by: Jay Jay Humphrey MD. Ordering:CONSTANTINE Ha MD
--- NOTE | 2022-12-02 19:58 | W.PM.HP.N ---
Date of service: 12/02/22 Time of Service: 19:58 Assessment and Plan Assessment and plan (1) Altered mental status: Status: Acute Assessment and plan: -Serum alcohol negative. -Last drink was at 1AM the AM of admission date -he and his sister state he had been cutting back his intake significantly; trying to be good he stated. -CT head w/o acute findings. -Wernicke's encephalopathy? -Thiamine 500mg IV Q8h for 9 doses. -Banana bag initiated in the ED. (2) Alcohol use disorder: Status: Acute Assessment and plan: -Chronic, heavy use. -Serum Etoh negative. -Monitor for withdrawal with CIWA protocol. -phenobarbitol withdrawal protocol -Received a dose of lorazepam in ED for tongue faciculations and hallucinations that were reported by family the night before presentation. He has a chronic fine tremor. -otherwise, as above. (3) Hypomagnesemia: Status: Acute Assessment and plan: -Family reports poor food intake. -mg of 1.2 -iv and oral replacement -monitor. (4) Acute hypokalemia: Status: Acute Assessment and plan: -Poor po intake over the last appx 2 weeks per his family along with emesis. -K of 2.7 (similar to level at time of admission to [facility] in September 2022) -IV and oral replacement. (5) Pancreatitis: Status: Chronic Assessment and plan: -Mild lipase elevation -OK to try clear liquids. (6) Chronic obstructive lung disease: Status: Chronic Assessment and plan: -Cont home meds: Trelegy and Spiriva -prn albuterol nebs. 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 (8) S/P ablation of atrial fibrillation: Assessment and plan: Now in sinus rhythm Cont apixiban and metoprolol. (9) Status post lobectomy of lung: Status: Acute Assessment and plan: -As above (10) Personal history of nicotine dependence: Status: Acute Assessment and plan: -Nicoderm patch if desires. (11) GERD without esophagitis: Assessment and plan: -Cont PPI (12) Mixed hyperlipidemia: Assessment and plan: -Cont atorvastatin (13) Discharge planning issues: Status: Acute Assessment and plan: Full code Community resources for alcohol use disorder will be again provided. History of Present Illness History of Present Illness Chief Complaint: Nausea and vomiting, confusion Narrative: This is a 57 yo male with alcohol use disorder, h/o pancreatitis, COPD, large cell neuroendocrine carcioma of lung s/p lobectomy, sensoneural hearing loss. He presented with family who endorsed that he has not been eating or drinking well for appx 2 weeks and he has had intermittent nausea and vomiting. He has been drinking less alcohol per his and families report. In the ED his vital signs showed mild tachycardia, no fever, normotensive BP, RA saturations in the upper 90's. WBC coiunt normal. Hgb 13.1. platelets 197. Na 133. K 2.7. BUN 8. Creatinine 0.8. Mg 1.2. Neg troponin. CXR: Stable appearance of spiculated parenchymal densities seen near the right apex with no new parenchymal mass or consolidation detected. CT head: Cerebral atrophy and probable mild underlying microvascular ischemic changes with no evidence of acute transcortical infarction, recent intracranial hemorrhage or hydrocephalus. No acute intracranial process is detected. A banana bag was initiated. He was given 1 mg of ativan. Admitted for CIWA monitoring and treatment of likely early alcohol withdrawal , electrolyte replacements and high dose thiamin administration Review of Systems All systems reviewed & are unremarkable except as noted in HPI and below PFSH All Active Problems Discharge planning issues (Acute) Altered mental status (Acute) Alcohol use disorder (Acute) Acute hyponatremia (Acute) Hypomagnesemia (Acute) Acute hypokalemia (Acute) Pancreatitis (Chronic) Personal history of nicotine dependence (Acute) Right upper lobe pulmonary nodule (Acute) Status post lobectomy of lung (Acute) Large cell neuroendocrine carcinoma (Acute) Chronic obstructive lung disease (Chronic) Sensorineural hearing loss (SNHL) of both ears (Acute) Medical History Alcohol abuse Atrial fibrillation with RVR Atrial flutter Atypical chest pain Carcinoid tumor of lung Cellulitis Chest wall pain Contusion Cough Decreased hearing Depressive disorder Diverticulitis of sigmoid colon Elevated LFTs Emphysematous bleb of lung Foot pain GERD (gastroesophageal reflux disease) GERD without esophagitis Gout Hepatitis C antibody test positive Hypercholesterolemia Hypertensive disease Hyperuricemia Hyponatremia Impotence of organic origin Mixed hyperlipidemia Multiple joint pain Nicotine dependence Nicotine dependence, cigarettes, uncomplicated Obstructive sleep apnea Paroxysmal atrial fibrillation Pneumonia Reduced visual acuity RUQ pain Sighing respiration Supraventricular tachycardia Ventral incisional hernia Surgical History Hx of colonoscopy Hx of esophagogastroduodenoscopy S/P ablation of atrial fibrillation S/P cholecystectomy S/P hernia repair S/P partial lobectomy of lung Family History Mother Stroke Diabetes Father Cancer Social History Smoking/Tobacco Use Status: Former Tobacco Use tobacco type: cigarettes Quit Date: 03/05/14 Tobacco: How many years used: 34 Smoking risk assessment performed?: Yes Alcohol Intake: current Alcohol Intake frequency: a few times a week Alcohol type: beer and hard liquor Drug use: Occasionally Substance use type: marijuana Details: eats THC Household members: spouse Housing: house current occupation: disabled Pets and animals: Yes Pets and animals: cat(s) What is your relationship status?: Panel score (0-1 are the most socially isolated patients): 1 Do you feel safe at home: Yes Do you feel safe in your relationship?: Yes Meds Allergies and Home Medications Allergies Allergy/AdvReac Type Severity Reaction Status Date / Time No Known Allergies Allergy Verified 09/17/22 20:59 Home Medications Medication Instructions Recorded Confirmed Type apixaban 5 mg tablet (Eliquis) 5 mg PO BID 03/10/20 09/17/22 History famotidine 20 mg tablet 20 mg PO DAILY 03/10/20 09/17/22 History metoprolol succinate 200 mg 200 mg PO DAILY 03/10/20 09/17/22 History tablet,extended release 24 hr atorvastatin 20 mg tablet 20 mg PO DAILY 03/14/20 09/17/22 History fluticasone fur. 100 mcg-umeclid 1 inh inhalation DAILY 03/14/20 09/17/22 History 62.5 mcg-vilant 25 mcg inhalat.powder (Trelegy Ellipta) sildenafil 100 mg tablet 100 mg PO PRN PRN 03/14/20 09/17/22 History acetaminophen 500 mg tablet 1,000 mg PO Q6H PRN 02/15/21 09/17/22 History (Tylenol Extra Strength) albuterol sulfate 90 mcg/actuation 2 puff inhalation Q4H PRN 02/15/21 09/17/22 History aerosol inhaler (ProAir HFA) ondansetron 4 mg disintegrating 2 - 8 mg PO Q8H PRN 07/05/21 09/17/22 History tablet meclizine 25 mg tablet 25 mg PO DIRECTED 04/28/22 09/17/22 History azithromycin 250 mg tablet See Rx Instructions PO .COMPLEX #6 08/04/22 09/17/22 Rx tabs prednisone 20 mg tablet 40 mg PO DAILY #10 tabs 08/04/22 09/17/22 Rx omeprazole 40 mg capsule,delayed 40 mg PO DAILY 09/17/22 09/17/22 History release magnesium oxide 400 mg (241.3 mg 400 mg PO BID #60 tabs 09/19/22 Rx magnesium) tablet tiotropium bromide 2.5 2 puff inhalation DAILY #4 grams 09/19/22 Rx mcg/actuation mist for inhalation (Spiriva Respimat) Exam Narrative Exam Narrative: Lying supine in bed. Sister is present. Const General: cooperative, comfortable and no acute distress Orientation: alert and confused HENDC Head: normocephalic and atraumatic Mouth: oral mucosae normal Eyes General: appearance normal, both eyes and all related structures Sclera: sclerae normal Chest Chest: normal inspection of the chest Resp Effort & Inspection: normal respiratory effort Auscultation: clear to auscultation bilaterally and diminished lung sounds Cardio Rate: tachycardic (90's) Rhythm: regular rhythm GI Inspection: other (Round soft nontender) Palpation: nontender Auscultation: normal bowel sounds Skin Trauma: abrasion (shins, w/o overlying scabs or drainage. ) Neuro General: patient awake and no focal motor deficits Cranial Nerves: facial strength normal Cognition: abnormal cognition (confused. ) Extrem General: no pedal edema and no calf tenderness Psych Mood: congruent mood Affect: normal affect Thought Content: suicidality Insight: poor Judgment: poor Results Labs 12/02/22 17:22 12/02/22 17:22 Labs: Laboratory Results - last 24 hr 12/02/22 12/02/22 12/02/22 16:48 16:48 16:48 WBC Cancelled RBC Cancelled Hgb Cancelled Hct Cancelled MCV Cancelled MCH Cancelled MCHC Cancelled RDW Cancelled Plt Count Cancelled MPV Cancelled Immature Gran % Cancelled Neutrophils % Cancelled Band Neutrophils % Cancelled Lymphocytes % Cancelled Atypical Lymphs % Cancelled Monocytes % Cancelled Eosinophils % Cancelled Basophils % Cancelled Metamyelocytes % Cancelled Myelocytes % Cancelled Promyelocytes % Cancelled Other Cells % Cancelled Nucleated RBC % Cancelled Absolute Neutrophils Cancelled Absolute Lymphocytes Cancelled Absolute Monocytes Cancelled Absolute Eosinophils Cancelled Absolute Basophils Cancelled RBC Morphology Cancelled Polychromasia Cancelled Hypochromasia Cancelled Poikilocytosis Cancelled Basophilic Stippling Cancelled Anisocytosis Cancelled Microcytosis Cancelled Macrocytosis Cancelled Spherocytes Cancelled Tear Drop Cells Cancelled Ovalocytes Cancelled Stomatocytes Cancelled Harvey-Ottosen Bodies Cancelled Antione Cells/Echinocytes Cancelled Acanthocytes (Spur) Cancelled Schistocytes Cancelled VBG pH VBG pCO2 VBG pO2 VBG HCO3 VBG Total CO2 VBG O2 Saturation VBG Base Excess VBG Lactate 1.9 H Sodium Cancelled Potassium Cancelled Chloride Cancelled Carbon Dioxide Cancelled Anion Gap Cancelled BUN Cancelled Creatinine Cancelled Est GFR (CKD-EPI 2020) Cancelled Glucose Cancelled Calcium Cancelled Phosphorus Magnesium Total Bilirubin Cancelled AST Cancelled ALT Cancelled Alkaline Phosphatase Cancelled Ammonia Troponin I Total Protein Cancelled Albumin Cancelled Lipase TSH Ethyl Alcohol 12/02/22 12/02/22 12/02/22 16:48 17:22 17:22 WBC RBC Hgb Hct MCV MCH MCHC RDW Plt Count MPV Immature Gran % Neutrophils % Band Neutrophils % Lymphocytes % Atypical Lymphs % Monocytes % Eosinophils % Basophils % Metamyelocytes % Myelocytes % Promyelocytes % Other Cells % Nucleated RBC % Absolute Neutrophils Absolute Lymphocytes Absolute Monocytes Absolute Eosinophils Absolute Basophils RBC Morphology Polychromasia Hypochromasia Poikilocytosis Basophilic Stippling Anisocytosis Microcytosis Macrocytosis Spherocytes Tear Drop Cells Ovalocytes Stomatocytes Harvey-Ott[place] Bodies [place]oy Cells/Echinocytes Acanthocytes (Spur) Schistocytes VBG pH 7.46 H VBG pCO2 42 VBG pO2 46 VBG HCO3 30 H VBG Total CO2 28 VBG O2 Saturation 82 VBG Base Excess 6 H VBG Lactate Sodium Potassium Chloride Carbon Dioxide Anion Gap BUN Creatinine Est GFR (CKD-EPI 2020) Glucose Calcium Phosphorus Magnesium 1.2 L Total Bilirubin AST ALT Alkaline Phosphatase Ammonia 15 Troponin I < 50 Total Protein Albumin Lipase 87 H TSH 1.47 Ethyl Alcohol < 3.0 12/02/22 12/02/22 12/02/22 17:22 17:22 17:22 WBC 7.79 RBC 4.02 L Hgb 13.1 L Hct 37.1 L MCV 92 MCH 32.6 MCHC 35.3 RDW 15.9 H Plt Count 197 MPV 10.5 Immature Gran % 0.6 Neutrophils % 65.9 Band Neutrophils % Lymphocytes % 19.3 Atypical Lymphs % Monocytes % 13.2 Eosinophils % 0.6 Basophils % 0.4 Metamyelocytes % Myelocytes % Promyelocytes % Other Cells % Nucleated RBC % 0.0 Absolute Neutrophils 5.13 Absolute Lymphocytes 1.50 Absolute Monocytes 1.03 H Absolute Eosinophils 0.05 Absolute Basophils 0.03 RBC Morphology Polychromasia Hypochromasia Poikilocytosis Basophilic Stippling Anisocytosis Microcytosis Macrocytosis Spherocytes Tear Drop Cells Ovalocytes Stomatocytes Harvey-Ottosen Bodies Antione Cells/Echinocytes Acanthocytes (Spur) Schistocytes VBG pH VBG pCO2 VBG pO2 VBG HCO3 VBG Total CO2 VBG O2 Saturation VBG Base Excess VBG Lactate Sodium 133 L Potassium 2.7 L* Chloride 92 L Carbon Dioxide 28.5 Anion Gap 12.5 H BUN 8 Creatinine 0.8 Est GFR (CKD-EPI 2020) 102.58 Glucose 121 H Calcium 9.4 Phosphorus 4.2 Magnesium Total Bilirubin 0.8 AST 29 ALT 19 Alkaline Phosphatase 104 Ammonia Troponin I Total Protein 7.8 Albumin 3.1 L Lipase TSH Ethyl Alcohol Last Vital Signs Temp 36.7 C 12/02/22 14:49 Pulse 116 H 12/02/22 14:49 Resp 20 12/02/22 14:49 BP 117/67 12/02/22 14:49 Pulse Ox 97 12/02/22 14:49 PAWSS Have you Been Recently Intoxicated or Drunk Within the Last 30 days?: Yes Have you Ever Experienced Previous Episodes of Alcohol Withdrawal?: Yes Have you ever Experienced Withdrawal Seizures?: No Have you ever Experienced Delirium Tremens(DT)s?: No Have you ever undergone Alcohol Rehabilitation Treatment (i.e, inpt ot outpatient treatment programs)?: No Have you ever Experienced Blackouts?: Yes Have you ever Combined Alcohol with other Downers within the last 90 days?: No Have you ever Combined Alcohol with any other Substance of Abuse during the last 90 days?: No Positive Blood Alcohol level on Presentation? [PCS.BAL]: No Evidence of Increased Autonomic Activity (i.e. HR>120, tremor, sweating, agitation, nausea)?: No Result: 3 Time Spent Time spent with Patient: 40-54 minutes Time was spent: preparing to see the patient(eg.review tests), obtaining and/or reviewing separately otained hiistory, ordering medications,tests, procedures, referring, communicating with other health respiratory care assistant, indepentently interpreting results, counseling the patient and care coordination
[2022-12-02] MEDS: Potassium Chloride 20 MEQ TABCR 40 MEQ PO (20:02)
[2022-12-02 20:04] LABS: Troponin I < 50 ng/L (<or=60)
[2022-12-02 20:09] LABS: Source Nasal/Nares
[2022-12-02] MEDS: MAGNESIUM SULFATE 2 GM/50 ML BAG IVPB ×2 (20:17→22:57)
[2022-12-02] MEDS: POTASSIUM CHLORIDE 20 MEQ/100 ML BAG 50 MEQ IVPB (20:17)
[2022-12-02 20:38] LABS: COVID-19 PCR Negative (Negative)
--- NOTE | 2022-12-02 21:00 | NUR.NOTE ---
Nursing Note: This RN took over care of patient. Orders completed late d/t nurse not being available. PA aware of this at this time
[2022-12-02 21:01] LABS: Bilirubin Moderate (Negative); Blood Negative (Negative); Clarity Clear (Clear); Glucose Negative (Negative); Ketones 15 mg/dL (Negative); Leukocyte Esterase Negative (Negative); Nitrite Negative (Negative)
[2022-12-02 21:13] LABS: *AMPHETAMINES SCREEN URINE Negative (Negative); *BARBITURATES SCREEN URINE Negative (Negative); *BENZODIAZEPINES SCREEN URINE Negative (Negative); Cannabinoids THC Negative (Negative); Cocaine Screen,Urine Negative (Negative); METHADONE URINE SCREEN Negative (Negative); OPIATES URINE SCREEN Negative (Negative)
[2022-12-02 21:14] LABS: Tricyclic Antidepressants Negative (Negative)
[2022-12-02 21:15] LABS: Bacteria Negative HPF (Negative); C & S Indicated? No; Casts Negative LPF (Negative); Crystals Negative HPF (Negative); Epithelial Cells Rare HPF (Negative); Mucus Trace (Negative); RBC 0-2 HPF (0-2); WBC 0-2 HPF (0-5)
--- NOTE | 2022-12-02 22:31 | ED.GENADUL_ITS ---
Discharge Plan Disposition Patient Disposition: Admit to [facility] Condition: Serious Discharge Details Clinical Impression: Acute hypokalemia, Acute hyponatremia, Altered mental status, Alcohol use disorder Admit Date/Time: 12/02/22 19:42 Admit Provider: Melvin Esquviel Attending Provider: Melvin Esquivel Primary Care Provider: Frederic Espinoza ED Provider: Dilcia Cabrera Medical Decision Making This 57-year-old male with history of alcoholism, large cell neuroendocrine carcinoma, COPD, presents with weakness and confusion On exam he is alert and oriented x2, he is unaware of the year There is no visible sign of trauma, cranial nerves II through XII are intact, negative pronator drift, negative [id number], negative heel hedrick Nontender abdominal exam, no meningismus, no obvious rashes or lesions CBC does not show evidence of acute abnormality potassium of 2.7, sodium 133, mag of 1.2 glucose 121, lipase 87, urinalysis does not show evidence of significant acute abnormality, alcohol less than 3 Patient is a curious presentation, his CIWA score is an 8 but he is not agitated, hypertensive, he has very minimal tachycardia in the 10 2-1 08, he is not anxious, he is not having active hallucinations, the last hallucination was last evening, he is not exhibiting obvious evidence of delirium tremens, I wonder if this presentation is Warnicke's encephalopathy, CT head does not show evidence of acute abnormality per radiology interpretation my review, EKG is unchanged from prior, troponin is negative Magnesium IV was initiated 2 g secondary to 1.2, QTc is prolonged, will need telemetry monitoring, potassium is 2.7, IV potassium 20 mEq and p.o. 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 Lange, patient will need admission for acute encephalopathy and further evaluation and observation, chest x-ray per radiology interpretation and my review does not show evidence of acute abnormality HPI General Date/Time Provider Initiated Documentation: 12/02/22 16:12 . HPI Narrative: This 57-year-old male presents with family for weakness, past medical history of atrial fibrillation, alcoholism, chronic anticoagulation, neuroendocrine tumor. Reports some intermittent confusion and hallucinations. Patient states he has had some intermittent difficulty swallowing with nausea and vomiting but this is improved this week. He drinks alcohol daily, approximately 6 beers which is decreased from 12 beers daily over the course of the several months. He states he drink his normal amount of alcohol yesterday. He denies any known falls or injuries. His sister reportedly was concerned as his speech was slow and he seemed confused and was having hallucinations which has never happened before which is why they brought him here for evaluation. Patient denies any pain complaints. He states he feels generally weak. She denies any suicidal ideation or attempts to harm self. He denies any new medications. He denies fever or chills. Related Data Home Medications Medication Instructions Recorded Confirmed apixaban 5 mg tablet (Eliquis) 5 mg PO BID 03/10/20 12/02/22 famotidine 20 mg tablet 20 mg PO DAILY 03/10/20 09/17/22 metoprolol succinate 200 mg 200 mg PO DAILY 03/10/20 12/02/22 tablet,extended release 24 hr atorvastatin 20 mg tablet 20 mg PO DAILY 03/14/20 12/02/22 fluticasone fur. 100 mcg-umeclid 1 inh inhalation DAILY 03/14/20 09/17/22 62.5 mcg-vilant 25 mcg inhalat.powder (Trelegy Ellipta) sildenafil 100 mg tablet 100 mg PO PRN PRN 03/14/20 09/17/22 acetaminophen 500 mg tablet 1,000 mg PO Q6H PRN 02/15/21 12/02/22 (Tylenol Extra Strength) albuterol sulfate 90 mcg/actuation 2 puff inhalation Q4H PRN 02/15/21 12/02/22 aerosol inhaler (ProAir HFA) ondansetron 4 mg disintegrating 2 - 8 mg PO Q8H PRN 07/05/21 12/02/22 tablet meclizine 25 mg tablet 25 mg PO TID PRN 04/28/22 12/02/22 omeprazole 40 mg capsule,delayed 40 mg PO DAILY 09/17/22 12/02/22 release magnesium oxide 400 mg (241.3 mg 400 mg PO BID #60 tabs 09/19/22 12/02/22 magnesium) tablet tiotropium bromide 2.5 2 puff inhalation DAILY #4 grams 09/19/22 mcg/actuation mist for inhalation (Spiriva Respimat) Previous Rx's Medication Instructions Recorded magnesium oxide 400 mg (241.3 mg 400 mg PO BID #60 tabs 09/19/22 magnesium) tablet tiotropium bromide 2.5 2 puff inhalation DAILY #4 grams 09/19/22 mcg/actuation mist for inhalation (Spiriva Respimat) Allergies Allergy/AdvReac Type Severity Reaction Status Date / Time No Known Allergies Allergy Verified 09/17/22 20:59 General Stated Complaint: GenMedical BAKARI: 3 PFSH All Active Problems (Updated 12/02/22 @ 23:07 by CL Francois) Discharge planning issues (Acute) Altered mental status (Acute) Alcohol use disorder (Acute) Acute hyponatremia (Acute) Hypomagnesemia (Acute) Acute hypokalemia (Acute) Pancreatitis (Chronic) Personal history of nicotine dependence (Acute) Right upper lobe pulmonary nodule (Acute) Status post lobectomy of lung (Acute) Large cell neuroendocrine carcinoma (Acute) Chronic obstructive lung disease (Chronic) Sensorineural hearing loss (SNHL) of both ears (Acute) Medical History Alcohol abuse Atrial fibrillation with RVR Atrial flutter Atypical chest pain Carcinoid tumor of lung Cellulitis Chest wall pain Contusion Cough Decreased hearing Depressive disorder Diverticulitis of sigmoid colon Elevated LFTs Emphysematous bleb of lung Foot pain GERD (gastroesophageal reflux disease) GERD without esophagitis Gout Hepatitis C antibody test positive Hypercholesterolemia Hypertensive disease Hyperuricemia Hyponatremia Impotence of organic origin Mixed hyperlipidemia Multiple joint pain Nicotine dependence Nicotine dependence, cigarettes, uncomplicated Obstructive sleep apnea Paroxysmal atrial fibrillation Pneumonia Reduced visual acuity RUQ pain Sighing respiration Supraventricular tachycardia Ventral incisional hernia Surgical History Hx of colonoscopy Hx of esophagogastroduodenoscopy S/P ablation of atrial fibrillation S/P cholecystectomy S/P hernia repair S/P partial lobectomy of lung Family History Mother Stroke Diabetes Father Cancer Social History Smoking/Tobacco Use Status: Former Tobacco Use tobacco type: cigarettes Quit Date: 03/05/14 Tobacco: How many years used: 34 Smoking risk assessment performed?: Yes Alcohol Intake: current Alcohol Intake frequency: a few times a week Alcohol type: beer and hard liquor Drug use: Occasionally Substance use type: marijuana Details: eats THC Household members: spouse Housing: house current occupation: disabled Pets and animals: Yes Pets and animals: cat(s) What is your relationship status?: Panel score (0-1 are the most socially isolated patients): 1 Do you feel safe at home: Yes Do you feel safe in your relationship?: Yes Course Vital Signs Vital signs: Vital Signs Temperature 36.7 C 12/02/22 14:49 Pulse 116 H 12/02/22 14:49 Respiratory Rate 20 12/02/22 14:49 Blood Pressure 117/67 12/02/22 14:49 Pulse Oximetry 97 12/02/22 14:49 Temperature 36.7 C 12/02/22 21:45 Temperature Source Temporal Artery Scan 12/02/22 14:49 Pulse 100 H 12/02/22 21:45 Pulse Rhythm Regular 12/02/22 21:45 Pulse 102 H 12/02/22 21:10 Respiratory Rate 20 12/02/22 21:45 Respiratory Effort Normal 12/02/22 21:45 Respiratory Depth Normal 12/02/22 21:45 Respiratory Pattern Normal 12/02/22 21:45 Blood Pressure 127/85 12/02/22 21:45 Blood Pressure Mean 103 12/02/22 21:01 Blood Pressure Position Sitting 12/02/22 14:49 Pulse Oximetry 98 12/02/22 21:45 Oxygen Delivery Method Room Air 12/02/22 21:45 Oxygen Flow Rate 0 12/02/22 21:45 Pain Level 0 12/02/22 21:45 Lab/Test Results Lab/Test Results: Laboratory Tests Range/Units 12/02/22 12/02/22 12/02/22 16:48 16:48 16:48 WBC Cancelled RBC Cancelled Hgb Cancelled Hct Cancelled MCV Cancelled MCH Cancelled MCHC Cancelled RDW Cancelled Plt Count Cancelled MPV Cancelled Immature Gran % Cancelled Neutrophils % Cancelled Band Neutrophils % Cancelled Lymphocytes % Cancelled Atypical Lymphs % Cancelled Monocytes % Cancelled Eosinophils % Cancelled Basophils % Cancelled Metamyelocytes % Cancelled Myelocytes % Cancelled Promyelocytes % Cancelled Other Cells % Cancelled Nucleated RBC % Cancelled Absolute Neutrophils Cancelled Absolute Lymphocytes Cancelled Absolute Monocytes Cancelled Absolute Eosinophils Cancelled Absolute Basophils Cancelled RBC Morphology Cancelled Polychromasia Cancelled Hypochromasia Cancelled Poikilocytosis Cancelled Basophilic Stippling Cancelled Anisocytosis Cancelled Microcytosis Cancelled Macrocytosis Cancelled Spherocytes Cancelled Tear Drop Cells Cancelled Ovalocytes Cancelled Stomatocytes Cancelled [place] Bodies Cancelled Antione Cells/Echinocytes Cancelled Acanthocytes (Spur) Cancelled Schistocytes Cancelled VBG pH (7.31-7.41) VBG pCO2 (41-51) mmHg VBG pO2 mmHg VBG HCO3 (23-28) mmol/L VBG Total CO2 (24-29) mmol/L VBG O2 Saturation % VBG Base Excess (-2-3) mmol/L VBG Lactate (0.6-1.4) mmol/L 1.9 H Sodium Cancelled Potassium Cancelled Chloride Cancelled Carbon Dioxide Cancelled Anion Gap Cancelled BUN Cancelled Creatinine Cancelled Est GFR (CKD-EPI 2020) Cancelled Glucose Cancelled Calcium Cancelled Phosphorus (2.6-4.7) mg/dL Magnesium (1.8-2.4) mg/dL Total Bilirubin Cancelled AST Cancelled ALT Cancelled Alkaline Phosphatase Cancelled Ammonia (11-32) umol/L Troponin I (<or=60) ng/L Total Protein Cancelled Albumin Cancelled Lipase (16-77) U/L TSH (0.36-3.74) uIU/mL Ethyl Alcohol (<10) mg/dL Range/Units 12/02/22 12/02/22 12/02/22 16:48 17:22 17:22 WBC RBC Hgb Hct MCV MCH MCHC RDW Plt Count MPV Immature Gran % Neutrophils % Band Neutrophils % Lymphocytes % Atypical Lymphs % Monocytes % Eosinophils % Basophils % Metamyelocytes % Myelocytes % Promyelocytes % Other Cells % Nucleated RBC % Absolute Neutrophils Absolute Lymphocytes Absolute Monocytes Absolute Eosinophils Absolute Basophils RBC Morphology Polychromasia Hypochromasia Poikilocytosis Basophilic Stippling Anisocytosis Microcytosis Macrocytosis Spherocytes Tear Drop Cells Ovalocytes Stomatocytes [place] Bodies Antione Cells/Echinocytes Acanthocytes (Spur) Schistocytes VBG pH (7.31-7.41) 7.46 H VBG pCO2 (41-51) mmHg 42 VBG pO2 mmHg 46 VBG HCO3 (23-28) mmol/L 30 H VBG Total CO2 (24-29) mmol/L 28 VBG O2 Saturation % 82 VBG Base Excess (-2-3) mmol/L 6 H VBG Lactate (0.6-1.4) mmol/L Sodium Potassium Chloride Carbon Dioxide Anion Gap BUN Creatinine Est GFR (CKD-EPI 2020) Glucose Calcium Phosphorus (2.6-4.7) mg/dL Magnesium (1.8-2.4) mg/dL 1.2 L Total Bilirubin AST ALT Alkaline Phosphatase Ammonia (11-32) umol/L 15 Troponin I (<or=60) ng/L < 50 Total Protein Albumin Lipase (16-77) U/L 87 H TSH (0.36-3.74) uIU/mL 1.47 Ethyl Alcohol (<10) mg/dL < 3.0 Range/Units 12/02/22 12/02/22 12/02/22 17:22 17:22 17:22 WBC 7.79 RBC 4.02 L Hgb 13.1 L Hct 37.1 L MCV 92 MCH 32.6 MCHC 35.3 RDW 15.9 H Plt Count 197 MPV 10.5 Immature Gran % 0.6 Neutrophils % 65.9 Band Neutrophils % Lymphocytes % 19.3 Atypical Lymphs % Monocytes % 13.2 Eosinophils % 0.6 Basophils % 0.4 Metamyelocytes % Myelocytes % Promyelocytes % Other Cells % Nucleated RBC % 0.0 Absolute Neutrophils 5.13 Absolute Lymphocytes 1.50 Absolute Monocytes 1.03 H Absolute Eosinophils 0.05 Absolute Basophils 0.03 RBC Morphology Polychromasia Hypochromasia Poikilocytosis Basophilic Stippling Anisocytosis Microcytosis Macrocytosis Spherocytes Tear Drop Cells Ovalocytes Stomatocytes [place] Bodies Antione Cells/Echinocytes Acanthocytes (Spur) Schistocytes VBG pH (7.31-7.41) VBG pCO2 (41-51) mmHg VBG pO2 mmHg VBG HCO3 (23-28) mmol/L VBG Total CO2 (24-29) mmol/L VBG O2 Saturation % VBG Base Excess (-2-3) mmol/L VBG Lactate (0.6-1.4) mmol/L Sodium 133 L Potassium 2.7 L* Chloride 92 L Carbon Dioxide 28.5 Anion Gap 12.5 H BUN 8 Creatinine 0.8 Est GFR (CKD-EPI 2020) 102.58 Glucose 121 H Calcium 9.4 Phosphorus (2.6-4.7) mg/dL 4.2 Magnesium (1.8-2.4) mg/dL Total Bilirubin 0.8 AST 29 ALT 19 Alkaline Phosphatase 104 Ammonia (11-32) umol/L Troponin I (<or=60) ng/L Total Protein 7.8 Albumin 3.1 L Lipase (16-77) U/L TSH (0.36-3.74) uIU/mL Ethyl Alcohol (<10) mg/dL Range/Units 12/02/22 19:40 WBC RBC Hgb Hct MCV MCH MCHC RDW Plt Count MPV Immature Gran % Neutrophils % Band Neutrophils % Lymphocytes % Atypical Lymphs % Monocytes % Eosinophils % Basophils % Metamyelocytes % Myelocytes % Promyelocytes % Other Cells % Nucleated RBC % Absolute Neutrophils Absolute Lymphocytes Absolute Monocytes Absolute Eosinophils Absolute Basophils RBC Morphology Polychromasia Hypochromasia Poikilocytosis Basophilic Stippling Anisocytosis Microcytosis Macrocytosis Spherocytes Tear Drop Cells Ovalocytes Stomatocytes [place] Bodies [place] Cells/Echinocytes Acanthocytes (Spur) Schistocytes VBG pH (7.31-7.41) VBG pCO2 (41-51) mmHg VBG pO2 mmHg VBG HCO3 (23-28) mmol/L VBG Total CO2 (24-29) mmol/L VBG O2 Saturation % VBG Base Excess (-2-3) mmol/L VBG Lactate (0.6-1.4) mmol/L Sodium Potassium Chloride Carbon Dioxide Anion Gap BUN Creatinine Est GFR (CKD-EPI 2020) Glucose Calcium Phosphorus (2.6-4.7) mg/dL Magnesium (1.8-2.4) mg/dL Total Bilirubin AST ALT Alkaline Phosphatase Ammonia (11-32) umol/L Troponin I (<or=60) ng/L < 50 Total Protein Albumin Lipase (16-77) U/L TSH (0.36-3.74) uIU/mL Ethyl Alcohol (<10) mg/dL Critical Care Time Critical Care Time Attestation: Approximately 45 minutes of critical care time secondary to acute encephalop athy, hyperkalemia, hypomagnesemia, with IV supplementation, admission to the hospital, PAWSS Have you Been Recently Intoxicated or Drunk Within the Last 30 days?: Yes Have you Ever Experienced Previous Episodes of Alcohol Withdrawal?: Yes Have you ever Experienced Withdrawal Seizures?: No Have you ever Experienced Delirium Tremens(DT)s?: No Have you ever undergone Alcohol Rehabilitation Treatment (i.e, inpt ot outpatient treatment programs)?: No Have you ever Experienced Blackouts?: Yes Have you ever Combined Alcohol with other Downers within the last 90 days?: No Have you ever Combined Alcohol with any other Substance of Abuse during the last 90 days?: No Positive Blood Alcohol level on Presentation? [PCS.BAL]: No Evidence of Increased Autonomic Activity (i.e. HR>120, tremor, sweating, agitation, nausea)?: No Result: 3
--- NOTE | 2022-12-02 22:31 | TELEP.MEDR_ITS ---
Date of service: 12/02/22 [facility] All[facility] Allergies: No Known Allergies Allergy (Verified 09/17/22 20:59) Interview Person Interviewed: * Medication bottles used to complete interview Quality Quality of Interview/Accuracy of Medication List: Poor Sources Sources used to compile medication list: [facility] Medication List, SureScripts and Other Changes made to Home Medication List: ADDITIONS: * None DELETIONS: * Azithromycin (old Rx and no bottle) * Prednisone (old RX and no bottle) * Colchicine (empty bottle) CHANGES: * Meclizine 25mg po tid prn (changed to as prescribed directions) Additional Notes Additional Notes: * Patient usually takes care of own medications at home. Patient currently unable to help with med rec. Spoke with two family members about home meds, neither could assist other than providing prescription medication bottles for reference. Patients sister Aileen believes the patient has not had medications on 12/02/22 at home. * Medications listed that had a current prescription fill history: Famotidine 20mg prescribed as twice daily and Trelegy Ellipta inhaler inhale 1 puff daily. Medications listed without a current prescription fill history: Sildenafil and Spiriva respimat. Recommended Changes Recommended Changes(reason for recommendation): * None Attestation: The home medication list is now updated to the best of my knowledge and is ready to be reconciled by the provider. Please contact the [facility] Medication Reconciliation Pharmacist at for any questions.
--- NOTE | 2022-12-02 22:31 | TELEP.MEDREC ---
Date of service: 12/02/22 [facility]: [facility] Allergies Allergies: No Known Allergies Allergy (Verified 09/17/22 20:59) Interview Person Interviewed: Medication bottles used to complete interview Quality Quality of Interview/Accuracy of Medication List: Poor Sources Sources used to compile medication list: [facility] Medication List, SureScripts and Other Changes made to Home Medication List: ADDITIONS: None DELETIONS: Azithromycin (old Rx and no bottle) Prednisone (old RX and no bottle) Colchicine (empty bottle) CHANGES: Meclizine 25mg po tid prn (changed to as prescribed directions) Additional Notes Additional Notes: Patient usually takes care of own medications at home. Patient currently unable to help with med rec. Spoke with two family members about home meds, neither could assist other than providing prescription medication bottles for reference. Patients sister Aileen believes the patient has not had medications on 12/02/22 at home. Medications listed that had a current prescription fill history: Famotidine 20mg prescribed as twice daily and Trelegy Ellipta inhaler inhale 1 puff daily. Medications listed without a current prescription fill history: Sildenafil and Spiriva respimat. Recommended Changes Recommended Changes(reason for recommendation): None Attestation: The home medication list is now updated to the best of my knowledge and is ready to be reconciled by the provider. Please contact the [facility] Medication Reconciliation Pharmacist at for any questions.
[2022-12-02] MEDS: MAGNESIUM SULFATE 8.12 MEQ, MULTIVITAMIN 10 ML, THIAMINE 100 MG, FOLIC ACID 1 MG in Nor... 168.867 MG IV (22:57)
--- NOTE | 2022-12-02 23:38 | NUR.NOTE ---
Addendum entered by Tato Alan RN 12/02/22 23:59: pt refusing to put wallet in safe, risks explain by this rn, and per pt request was placed in his rancho pocket in this belongings bag instead. Original Note: Nursing Note: pt arrived to floor in stable condition, extremely confused. pt unable to answer questions appropriately. oriented x1. family,juliano, at bedside and able to answer some questions. Pt unable to tell me last drink. family stated less than 24 hours ago. Pt family also insisted on delivering pts wallet to pt, this wallet will be placed in the safe behind the desk per watermelon harvesting supervisor. pt is stable at this time, monitering ongoing.
[2022-12-03] VITALS (7 sets, daily range): BP systolic 96–107; BP diastolic 66–71; PULSE 87–106; RESP 18; TEMP 36.1–36.8; O2SAT 96–98
[2022-12-03] MEDS: THIAMINE 500 MG in Normal Saline 100 ML 200 MG IVPB ×4 (00:39→21:00)
[2022-12-03] MEDS: Magnesium Oxide 400 MG TAB PO ×3 (00:40→21:03)
[2022-12-03] MEDS: Apixaban 5 MG TAB PO ×2 (00:40→08:01)
--- NOTE | 2022-12-03 00:51 | NUR.NOTE ---
Nursing Note: patient is starting to get agitated, asking the same questions repeatedly, acting suspicious. This rn explained situation and what was going on and assured pt of their safety. Pt stated that he is unhappy with this and needs to leave now.
[2022-12-03] MEDS: PHENobarbital 130 MG in Normal Saline 50 ML 100 MG IVPB ×2 (02:04→05:33)
[2022-12-03 07:01] LABS: HCT 32.8 % (40.0-50.0); HGB 11.4 g/dL (13.5-17.5); MCH 32.5 pg (27.0-33.0); MCHC 34.8 % (32.0-36.0); MCV 93 fL (80-95); MPV 10.7 fL (8.0-11.0); Platelet Count 175 10^3/uL (130-400); RBC 3.51 10^6/uL (4.36-5.78); RDW 16.1 % (11.8-14.1); RDW-SD 54.8 fL; WBC 7.73 10^3/uL (4.4-10.8)
[2022-12-03 07:15] LABS: Anion Gap 9.7 mmol/L (3-11); BUN 6 mg/dL (7-18); CO2 26.3 mmol/L (21.0-32.0); CREATININE 0.5 mg/dL (0.70-1.30); Calcium 8.5 mg/dL (8.5-10.1); Chloride 101 mmol/L (98-107); Estimated GFR 118.23 (mL/min/1.73m2); Glucose 119 mg/dL (74-106); Magnesium 1.9 mg/dL (1.8-2.4); Sodium 137 mmol/L (136-145)
[2022-12-03 07:21] LABS: Potassium 2.9 mmol/L (3.5-5.1)
[2022-12-03] MEDS: Nicotine 14 MG/24 HR PATCH TD (08:01)
[2022-12-03] MEDS: Atorvastatin 20 MG TAB PO (08:01)
[2022-12-03] MEDS: Omeprazole 20 MG CAPCR 40 MG PO (08:02)
[2022-12-03] MEDS: Budesonide/Formoterol 160/4.5 6 GM 60 PUFF INH IH (08:17)
[2022-12-03] MEDS: Tiotropium Bromide-Respimat 10 PUFF INH 2 PUFF IH (08:18)
[2022-12-03] MEDS: Potassium Chloride 20 MEQ TABCR 40 MEQ PO (08:31)
[2022-12-03] MEDS: POTASSIUM CHLORIDE 20 MEQ/100 ML BAG 50 MEQ IVPB ×2 (08:31→10:56)
[2022-12-03] MEDS: PHENobarbital 130 MG/ML VIAL IVP ×3 (09:36→21:00)
--- NOTE | 2022-12-03 13:06 | PDOC.CMIN ---
Date of service: 12/03/22 Time of Service: 13:06 Care Management Initial Assmt Initial Assessment REASON FOR HOSPITALIZATION:: Acute Confusion, Alcohol use disorder PREVIOUS FUNCTIONAL STATUS/SOCIAL/FAMILY SUPPORTS:: Pt is unable to participate in this interview, per chart review Christopher resides alone in [place], [place]. His son, Kaz resides nearby in [place]. Reportedly, he is independent at baseline, struggles with alcohol use disorder. CURRENT FUNCTIONAL STATUS:: Christopher is being closely monitored and treated. He is currently being treated with PRN medications per [facility] protocol. ADVANCE DIRECTIVES:: None on file, CM will review with patient once cognition returns to baseline. Has patient been provided with info about the portal/API?: Yes Did the patient sign up for the portal?: No CODE STATUS:: Full Code INSURANCE COVERAGE / FINANCIAL ISSUES:: [employer] Medicare Replacement Medicaid of [place] CURRENT HOME/COMMUNITY SERVICES/EQUIPMENT:: N/A PRIMARY CARE PHYSICIAN:: Dr. Espinoza POTENTIAL DISCHARGE NEEDS:: Follow up appointments, discharge plan of care, ETOH treatment, Referral to [facility] recovery PATIENT/FAMILY EDUCATION NEEDS:: Review discharge instructions, limitations, medications and plan to follow up with community providers. Discuss ask me three and goals of self care. ANTICIPATED BARRIERS TO DISCHARGE:: None identified at this time TRANSPORTATION:: to be discussed PLAN:: Discharge plan is undetermined at this time. Patient is being closely monitored and treated per [facility] protocol. CM will follow. PFSH All Active Problems (Updated 12/02/22 @ 23:07 by CL Francois) Discharge planning issues (Acute) Altered mental status (Acute) Alcohol use disorder (Acute) Acute hyponatremia (Acute) Hypomagnesemia (Acute) Acute hypokalemia (Acute) Pancreatitis (Chronic) Personal history of nicotine dependence (Acute) Right upper lobe pulmonary nodule (Acute) Status post lobectomy of lung (Acute) Large cell neuroendocrine carcinoma (Acute) Chronic obstructive lung disease (Chronic) Sensorineural hearing loss (SNHL) of both ears (Acute) Medical History Alcohol abuse Atrial fibrillation with RVR Atrial flutter Atypical chest pain Carcinoid tumor of lung Cellulitis Chest wall pain Contusion Cough Decreased hearing Depressive disorder Diverticulitis of sigmoid colon Elevated LFTs Emphysematous bleb of lung Foot pain GERD (gastroesophageal reflux disease) GERD without esophagitis Gout Hepatitis C antibody test positive Hypercholesterolemia Hypertensive disease Hyperuricemia Hyponatremia Impotence of organic origin Mixed hyperlipidemia Multiple joint pain Nicotine dependence Nicotine dependence, cigarettes, uncomplicated Obstructive sleep apnea Paroxysmal atrial fibrillation Pneumonia Reduced visual acuity RUQ pain Sighing respiration Supraventricular tachycardia Ventral incisional hernia Surgical History Hx of colonoscopy Hx of esophagogastroduodenoscopy S/P ablation of atrial fibrillation S/P cholecystectomy S/P hernia repair S/P partial lobectomy of lung Family History Mother Stroke Diabetes Father Cancer Social History Smoking/Tobacco Use Status: Former Tobacco Use tobacco type: cigarettes Quit Date: 03/05/14 Tobacco: How many years used: 34 Smoking risk assessment performed?: Yes Alcohol Intake: current Alcohol Intake frequency: a few times a week Alcohol type: beer and hard liquor Drug use: Occasionally Substance use type: marijuana Details: eats THC Household members: spouse Housing: house current occupation: disabled Pets and animals: Yes Pets and animals: cat(s) What is your relationship status?: Panel score (0-1 are the most socially isolated patients): 1 Do you feel safe at home: Yes Do you feel safe in your relationship?: Yes
--- NOTE | 2022-12-03 15:53 | PGE_ITS ---
Date of Service Date of service: 12/03/22 Time of Service: 15:53 Assessment and Plan Assessment and plan (1) Alcohol withdrawal delirium: Status: Acute Assessment and plan: Continue monitoring on CIWA w/ prn phenobarbital, IV thiamine. Check B12/folate. Replete MVI. Check ammonia. (2) Pancreatitis: Status: Chronic Assessment and plan: Chronic pancreatitis. No sx currently: no abdominal pain/n/v. WIll trial soft bland diet tonight. (3) Alcohol use disorder: Status: Acute Assessment and plan: As above (4) Hypomagnesemia: Status: Resolved Assessment and plan: Recheck in am (5) Acute hypokalemia: Status: Acute Assessment and plan: Replete; recheck in am (6) Chronic obstructive lung disease: Status: Chronic Assessment and plan: Not in acute exacerbtion. Continue home Trelegy and Spiriva with prn albuterol nebs. 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 F/u as outpatient. (8) S/P ablation of atrial fibrillation: Assessment and plan: REmains in NSR. Continue apixiban and metoprolol. (9) Status post lobectomy of lung: Status: Chronic Assessment and plan: As above (10) Personal history of nicotine dependence: Status: Acute Assessment and plan: Continue nicotine replacement (11) GERD without esophagitis: Assessment and plan: Continue omeprazole (12) Mixed hyperlipidemia: Assessment and plan: Continue atorvastatin (13) Discharge planning issues: Status: Acute Assessment and plan: Full code Providing sobriety resources Not yet ready for discharge (14) DVT prophylaxis: Status: Acute Assessment and plan: On therapeutic apixaban Subjective Subjective Interval history since last seen: Mr Rodriguez states that he is hearing things that he didn't realize were happening to him. He is not giving me a clear answer as to what that means - if he is hallucinating or not. Denies visual hallucinations. Denies dizziness, CP, SOB, n/v. Would like to have more substantial food. Agrees to try soft foods. He is not sure where his teeth are. His mother is looking for them. Exam Narrative Exam Narrative: General: Pleasant middle-aged male, tremulous, A&Ox2, NAD, appears mildly anxious HEENT: EOMI, MMM Heart: RRR, mildly tachycardic Lungs: CTAB Abdomen: soft, nontender, nondisteded Extremities: +1 edema at B ankles Objective Last Vital Signs Temp 36.3 C L 12/03/22 15:23 Pulse 104 H 12/03/22 15:23 Resp 18 12/03/22 15:23 BP 96/66 L 12/03/22 15:23 Pulse Ox 96 12/03/22 15:23 Laboratory Results - last 24 hr 12/02/22 12/02/22 12/02/22 16:48 16:48 16:48 WBC Cancelled RBC Cancelled Hgb Cancelled Hct Cancelled MCV Cancelled MCH Cancelled MCHC Cancelled RDW Cancelled Plt Count Cancelled MPV Cancelled Immature Gran % Cancelled Neutrophils % Cancelled Band Neutrophils % Cancelled Lymphocytes % Cancelled Atypical Lymphs % Cancelled Monocytes % Cancelled Eosinophils % Cancelled Basophils % Cancelled Metamyelocytes % Cancelled Myelocytes % Cancelled Promyelocytes % Cancelled Other Cells % Cancelled Nucleated RBC % Cancelled Absolute Neutrophils Cancelled Absolute Lymphocytes Cancelled Absolute Monocytes Cancelled Absolute Eosinophils Cancelled Absolute Basophils Cancelled RBC Morphology Cancelled Polychromasia Cancelled Hypochromasia Cancelled Poikilocytosis Cancelled Basophilic Stippling Cancelled Anisocytosis Cancelled Microcytosis Cancelled Macrocytosis Cancelled Spherocytes Cancelled Tear Drop Cells Cancelled Ovalocytes Cancelled Stomatocytes Cancelled [place] Bodies Cancelled Antione Cells/Echinocytes Cancelled Acanthocytes (Spur) Cancelled Schistocytes Cancelled VBG pH VBG pCO2 VBG pO2 VBG HCO3 VBG Total CO2 VBG O2 Saturation VBG Base Excess VBG Lactate 1.9 H Sodium Cancelled Potassium Cancelled Chloride Cancelled Carbon Dioxide Cancelled Anion Gap Cancelled BUN Cancelled Creatinine Cancelled Est GFR (CKD-EPI 2020) Cancelled Glucose Cancelled Calcium Cancelled Phosphorus Magnesium Total Bilirubin Cancelled AST Cancelled ALT Cancelled Alkaline Phosphatase Cancelled Ammonia Troponin I Total Protein Cancelled Albumin Cancelled Lipase TSH Urine Color Urine Clarity Urine pH Ur Specific [place] Urine Protein Urine Ketones Urine Blood Urine Nitrite Urine Bilirubin Urine Urobilinogen Ur Leukocyte Esterase Urine RBC Urine WBC Ur Epithelial Cells Urine Crystals Urine Bacteria Urine Casts Urine Mucus Ur Culture Indicated? Urine Glucose Urine Opiates Screen Urine Methadone Screen Ur Barbiturates Screen Ur Tricyclics Screen Ur Amphetamines Screen U Benzodiazepines Scrn Urine Cocaine Screen Ur THC Screen Ethyl Alcohol COVID-19 Source SARS-CoV-2 (PCR) Add-On Test Request 12/02/22 12/02/22 12/02/22 16:48 17:22 17:22 WBC RBC Hgb Hct MCV MCH MCHC RDW Plt Count MPV Immature Gran % Neutrophils % Band Neutrophils % Lymphocytes % Atypical Lymphs % Monocytes % Eosinophils % Basophils % Metamyelocytes % Myelocytes % Promyelocytes % Other Cells % Nucleated RBC % Absolute Neutrophils Absolute Lymphocytes Absolute Monocytes Absolute Eosinophils Absolute Basophils RBC Morphology Polychromasia Hypochromasia Poikilocytosis Basophilic Stippling Anisocytosis Microcytosis Macrocytosis Spherocytes Tear Drop Cells Ovalocytes Stomatocytes [place] Bodies [place] Cells/Echinocytes Acanthocytes (Spur) Schistocytes VBG pH 7.46 H VBG pCO2 42 VBG pO2 46 VBG HCO3 30 H VBG Total CO2 28 VBG O2 Saturation 82 VBG Base Excess 6 H VBG Lactate Sodium Potassium Chloride Carbon Dioxide Anion Gap BUN Creatinine Est GFR (CKD-EPI 2020) Glucose Calcium Phosphorus Magnesium 1.2 L Total Bilirubin AST ALT Alkaline Phosphatase Ammonia 15 Troponin I < 50 Total Protein Albumin Lipase 87 H TSH 1.47 Urine Color Urine Clarity Urine pH Ur Specific [place] Urine Protein Urine Ketones Urine Blood Urine Nitrite Urine Bilirubin Urine Urobilinogen Ur Leukocyte Esterase Urine RBC Urine WBC Ur Epithelial Cells Urine Crystals Urine Bacteria Urine Casts Urine Mucus Ur Culture Indicated? Urine Glucose Urine Opiates Screen Urine Methadone Screen Ur Barbiturates Screen Ur Tricyclics Screen Ur Amphetamines Screen U Benzodiazepines Scrn Urine Cocaine Screen Ur THC Screen Ethyl Alcohol < 3.0 COVID-19 Source SARS-CoV-2 (PCR) Add-On Test Request 12/02/22 12/02/22 12/02/22 17:22 17:22 17:22 WBC 7.79 RBC 4.02 L Hgb 13.1 L Hct 37.1 L MCV 92 MCH 32.6 MCHC 35.3 RDW 15.9 H Plt Count 197 MPV 10.5 Immature Gran % 0.6 Neutrophils % 65.9 Band Neutrophils % Lymphocytes % 19.3 Atypical Lymphs % Monocytes % 13.2 Eosinophils % 0.6 Basophils % 0.4 Metamyelocytes % Myelocytes % Promyelocytes % Other Cells % Nucleated RBC % 0.0 Absolute Neutrophils 5.13 Absolute Lymphocytes 1.50 Absolute Monocytes 1.03 H Absolute Eosinophils 0.05 Absolute Basophils 0.03 RBC Morphology Polychromasia Hypochromasia Poikilocytosis Basophilic Stippling Anisocytosis Microcytosis Macrocytosis Spherocytes Tear Drop Cells Ovalocytes Stomatocytes [place] Bodies Antione Cells/Echinocytes Acanthocytes (Spur) Schistocytes VBG pH VBG pCO2 VBG pO2 VBG HCO3 VBG Total CO2 VBG O2 Saturation VBG Base Excess VBG Lactate Sodium 133 L Potassium 2.7 L* Chloride 92 L Carbon Dioxide 28.5 Anion Gap 12.5 H BUN 8 Creatinine 0.8 Est GFR (CKD-EPI 2020) 102.58 Glucose 121 H Calcium 9.4 Phosphorus 4.2 Magnesium Total Bilirubin 0.8 AST 29 ALT 19 Alkaline Phosphatase 104 Ammonia Troponin I Total Protein 7.8 Albumin 3.1 L Lipase TSH Urine Color Urine Clarity Urine pH Ur Specific [place] Urine Protein Urine Ketones Urine Blood Urine Nitrite Urine Bilirubin Urine Urobilinogen Ur Leukocyte Esterase Urine RBC Urine WBC Ur Epithelial Cells Urine Crystals Urine Bacteria Urine Casts Urine Mucus Ur Culture Indicated? Urine Glucose Urine Opiates Screen Urine Methadone Screen Ur Barbiturates Screen Ur Tricyclics Screen Ur Amphetamines Screen U Benzodiazepines Scrn Urine Cocaine Screen Ur THC Screen Ethyl Alcohol COVID-19 Source SARS-CoV-2 (PCR) Add-On Test Request 12/02/22 12/02/22 12/02/22 19:40 20:00 20:54 WBC RBC Hgb Hct MCV MCH MCHC RDW Plt Count MPV Immature Gran % Neutrophils % Band Neutrophils % Lymphocytes % Atypical Lymphs % Monocytes % Eosinophils % Basophils % Metamyelocytes % Myelocytes % Promyelocytes % Other Cells % Nucleated RBC % Absolute Neutrophils Absolute Lymphocytes Absolute Monocytes Absolute Eosinophils Absolute Basophils RBC Morphology Polychromasia Hypochromasia Poikilocytosis Basophilic Stippling Anisocytosis Microcytosis Macrocytosis Spherocytes Tear Drop Cells Ovalocytes Stomatocytes [place] Bodies [place] Cells/Echinocytes Acanthocytes (Spur) Schistocytes VBG pH VBG pCO2 VBG pO2 VBG HCO3 VBG Total CO2 VBG O2 Saturation VBG Base Excess VBG Lactate Sodium Potassium Chloride Carbon Dioxide Anion Gap BUN Creatinine Est GFR (CKD-EPI 2020) Glucose Calcium Phosphorus Magnesium Total Bilirubin AST ALT Alkaline Phosphatase Ammonia Troponin I < 50 Total Protein Albumin Lipase TSH Urine Color Urine Clarity Urine pH Ur Specific [place] Urine Protein Urine Ketones Urine Blood Urine Nitrite Urine Bilirubin Urine Urobilinogen Ur Leukocyte Esterase Urine RBC Urine WBC Ur Epithelial Cells Urine Crystals Urine Bacteria Urine Casts Urine Mucus Ur Culture Indicated? Urine Glucose Urine Opiates Screen Negative Urine Methadone Screen Negative Ur Barbiturates Screen Negative Ur Tricyclics Screen Negative Ur Amphetamines Screen Negative U Benzodiazepines Scrn Negative Urine Cocaine Screen Negative Ur THC Screen Negative Ethyl Alcohol COVID-19 Source Nasal/Nares SARS-CoV-2 (PCR) Negative Add-On Test Request 12/02/22 12/02/22 12/02/22 20:54 21:14 Unknown WBC RBC Hgb Hct MCV MCH MCHC RDW Plt Count MPV Immature Gran % Neutrophils % Band Neutrophils % Lymphocytes % Atypical Lymphs % Monocytes % Eosinophils % Basophils % Metamyelocytes % Myelocytes % Promyelocytes % Other Cells % Nucleated RBC % Absolute Neutrophils Absolute Lymphocytes Absolute Monocytes Absolute Eosinophils Absolute Basophils RBC Morphology Polychromasia Hypochromasia Poikilocytosis Basophilic Stippling Anisocytosis Microcytosis Macrocytosis Spherocytes Tear Drop Cells Ovalocytes Stomatocytes [place] Bodies [place] Cells/Echinocytes Acanthocytes (Spur) Schistocytes VBG pH VBG pCO2 VBG pO2 VBG HCO3 VBG Total CO2 VBG O2 Saturation VBG Base Excess VBG Lactate Sodium Potassium Chloride Carbon Dioxide Anion Gap BUN Creatinine Est GFR (CKD-EPI 2020) Glucose Calcium Phosphorus Magnesium Total Bilirubin AST ALT Alkaline Phosphatase Ammonia Troponin I Total Protein Albumin Lipase TSH Urine Color Yellow Urine Clarity Clear Urine pH 7.0 Ur Specific [place] 1.020 Urine Protein Trace H Urine Ketones 15 H Urine Blood Negative Urine Nitrite Negative Urine Bilirubin Moderate H Urine Urobilinogen 1.0 H Ur Leukocyte Esterase Negative Urine RBC 0-2 Urine WBC 0-2 Ur Epithelial Cells Rare Urine Crystals Negative Urine Bacteria Negative Urine Casts Negative Urine Mucus Trace Ur Culture Indicated? No Urine Glucose Negative Urine Opiates Screen Urine Methadone Screen Ur Barbiturates Screen Ur Tricyclics Screen Ur Amphetamines Screen U Benzodiazepines Scrn Urine Cocaine Screen Ur THC Screen Ethyl Alcohol COVID-19 Source Cancelled SARS-CoV-2 (PCR) Cancelled Add-On Test Request Cancelled 12/03/22 12/03/22 06:46 06:46 WBC 7.73 RBC 3.51 L Hgb 11.4 L Hct 32.8 L MCV 93 MCH 32.5 MCHC 34.8 RDW 16.1 H Plt Count 175 MPV 10.7 Immature Gran % Neutrophils % Band Neutrophils % Lymphocytes % Atypical Lymphs % Monocytes % Eosinophils % Basophils % Metamyelocytes % Myelocytes % Promyelocytes % Other Cells % Nucleated RBC % Absolute Neutrophils Absolute Lymphocytes Absolute Monocytes Absolute Eosinophils Absolute Basophils RBC Morphology Polychromasia Hypochromasia Poikilocytosis Basophilic Stippling Anisocytosis Microcytosis Macrocytosis Spherocytes Tear Drop Cells Ovalocytes Stomatocytes [place] Bodies Antione Cells/Echinocytes Acanthocytes (Spur) Schistocytes VBG pH VBG pCO2 VBG pO2 VBG HCO3 VBG Total CO2 VBG O2 Saturation VBG Base Excess VBG Lactate Sodium 137 Potassium 2.9 L Chloride 101 Carbon Dioxide 26.3 Anion Gap 9.7 BUN 6 L Creatinine 0.5 L Est GFR (CKD-EPI 2020) 118.23 Glucose 119 H Calcium 8.5 Phosphorus Magnesium 1.9 Total Bilirubin AST ALT Alkaline Phosphatase Ammonia Troponin I Total Protein Albumin Lipase TSH Urine Color Urine Clarity Urine pH Ur Specific [place] Urine Protein Urine Ketones Urine Blood Urine Nitrite Urine Bilirubin Urine Urobilinogen Ur Leukocyte Esterase Urine RBC Urine WBC Ur Epithelial Cells Urine Crystals Urine Bacteria Urine Casts Urine Mucus Ur Culture Indicated? Urine Glucose Urine Opiates Screen Urine Methadone Screen Ur Barbiturates Screen Ur Tricyclics Screen Ur Amphetamines Screen U Benzodiazepines Scrn Urine Cocaine Screen Ur THC Screen Ethyl Alcohol COVID-19 Source SARS-CoV-2 (PCR) Add-On Test Request PAWSS Have you Been Recently Intoxicated or Drunk Within the Last 30 days?: Unable to Obtain Have you Ever Experienced Previous Episodes of Alcohol Withdrawal?: Unable to Obtain Have you ever Experienced Withdrawal Seizures?: Unable to Obtain Have you ever Experienced Delirium Tremens(DT)s?: Unable to Obtain Have you ever undergone Alcohol Rehabilitation Treatment (i.e, inpt ot outpatient treatment programs)?: Unable to Obtain Have you ever Experienced Blackouts?: Unable to Obtain Have you ever Combined Alcohol with other Downers within the last 90 days?: Unable to Obtain Have you ever Combined Alcohol with any other Substance of Abuse during the last 90 days?: Unable to Obtain Positive Blood Alcohol level on Presentation? [PCS.BAL]: Unable to Obtain Evidence of Increased Autonomic Activity (i.e. HR>120, tremor, sweating, agitation, nausea)?: Unable to Obtain Time Spent with Patient Time Spent with Patient: 25-34 minutes Time was spent: preparing to see the patient(eg.review tests), obtaining and/or reviewing separately otained hiistory, ordering medications,tests, procedures, referring, communicating with other health youth care specialist, indepentently interpreting results, counseling the patient and care coordination
--- NOTE | 2022-12-03 16:02 | NUR.NOTE ---
Nursing Note: This automatic typewriter inspector was notified that the was requesting a dose of phenobarbital for pt in room 225. This nurse has been scoring the pt between 3 and 4 on the CIWA scale throughout the shift. The pt stated early in the shift that the medication was making him feel weird and that he did not like it. due to low CIWA scoring and soft BP of 96/66 this medication had only been administered once during the shift. when asked if the pt felt he wanted the medication, he states I will have it if the says I should. This nurse advises against a PRN dose of phenobartital at this time, but will administer due to request of pt. This nurse expressed to the pt his rights to accept or refuse medication.
[2022-12-04 04:00] VITALS: BP 108/71; PULSE 84; RESP 18; TEMP 36.6; O2SAT 96
[2022-12-04] MEDS: THIAMINE 500 MG in Normal Saline 100 ML 200 MG IVPB ×3 (05:55→20:24)
[2022-12-04 07:16] LABS: Abs Immature Grans 0.04 10^3/uL (0.0-0.06); Absolute Basophil Count 0.04 10^3/uL (0.0-0.2); Absolute Eosinophil Count 0.14 10^3/uL (0.0-0.7); Absolute Lymphocyte Count 2.12 10^3/uL (1.2-3.4); Absolute Monocyte Count 0.79 10^3/uL (0.1-0.8); Absolute Neutrophil Count 4.42 10^3/uL (1.2-6.7); Basophils % 0.5; Eosinophils % 1.9; HCT 31.6 % (40.0-50.0); HGB 11.1 g/dL (13.5-17.5); Immature Grans % 0.5; Lymphocytes % 28.1; MCH 33.7 pg (27.0-33.0); MCHC 35.1 % (32.0-36.0); MCV 96 fL (80-95); Monocytes % 10.5; Neutrophils % 58.5; RBC 3.29 10^6/uL (4.36-5.78); RDW 16.1 % (11.8-14.1); RDW-SD 57.1 fL; WBC 7.55 10^3/uL (4.4-10.8)
[2022-12-04 07:31] LABS: Ammonia 39 umol/L (11-32)
[2022-12-04 07:42] LABS: Diff Comment PLT Morph Reviewed; RBC Morphology Normal
[2022-12-04 07:52] LABS: Anion Gap 8.7 mmol/L (3-11); BUN 4 mg/dL (7-18); CO2 24.3 mmol/L (21.0-32.0); CREATININE 0.6 mg/dL (0.70-1.30); Calcium 8.3 mg/dL (8.5-10.1); Chloride 100 mmol/L (98-107); Estimated GFR 111.89 (mL/min/1.73m2); Glucose 91 mg/dL (74-106); Magnesium 1.5 mg/dL (1.8-2.4); Potassium 3.4 mmol/L (3.5-5.1); Sodium 133 mmol/L (136-145)
[2022-12-04] MEDS: Folic Acid 1 MG TAB PO (07:55)
[2022-12-04] MEDS: Omeprazole 20 MG CAPCR 40 MG PO (07:55)
[2022-12-04] MEDS: Multivitamin TAB 1 TAB PO (07:55)
[2022-12-04] MEDS: Atorvastatin 20 MG TAB PO (07:55)
[2022-12-04] MEDS: Nicotine 14 MG/24 HR PATCH TD (07:55)
[2022-12-04] MEDS: Magnesium Oxide 400 MG TAB PO (07:55)
[2022-12-04] MEDS: Metoprolol CR 100 MG TABCR 200 MG PO (07:55)
[2022-12-04] MEDS: Apixaban 5 MG TAB PO ×2 (07:56→20:20)
[2022-12-04 07:58] VITALS: BP 109/67; PULSE 98; RESP 18; TEMP 36.5; O2SAT 98
[2022-12-04] MEDS: Budesonide/Formoterol 160/4.5 6 GM 60 PUFF INH IH ×2 (08:01→19:59)
[2022-12-04] MEDS: Tiotropium Bromide-Respimat 10 PUFF INH 2 PUFF IH (08:02)
[2022-12-04 08:25] LABS: Folate 2.3 ng/mL (8.6-20.0); Vitamin B12 434 pg/mL (193-986)
[2022-12-04] MEDS: Potassium Chloride 20 MEQ TABCR 40 MEQ PO ×2 (09:11→20:20)
[2022-12-04] MEDS: MAGNESIUM SULFATE 4 GM/100 ML BAG IVPB (09:12)
--- NOTE | 2022-12-04 09:53 | PGE_ITS ---
Date of Service Date of service: 12/04/22 Time of Service: 09:53 Assessment and Plan Assessment and plan (1) Alcohol withdrawal delirium: Status: Acute Assessment and plan: The patient scoring minimally on the CIWA scale; will continue phenobarbital We will Continue monitoring on CIWA w/ prn phenobarbital, IV thiamine. Folate level is 2.3; will continue folic acid MVI was repleted Amonia level 39 this AM. Patient is not presenting signs and symptoms of encephalopathy no lactulose at this time (2) Alcohol use disorder: Status: Acute Assessment and plan: Continue as above (3) Pancreatitis: Status: Chronic Assessment and plan: The patient has a history of chronic pancreatitis, no asymptoms, no abdominal pain, nausea, vomiting or diarrhea. Diet is well tolerated and we will continue. (4) Hypomagnesemia: Status: Resolved Assessment and plan: Magnesium repleted We will recheck in AM (5) Acute hypokalemia: Status: Acute Assessment and plan: K repleted BMP in AM (6) Chronic obstructive lung disease: Status: Chronic Assessment and plan: No exacerbation noticed. We will continue home Trelegy and Spiriva with prn albuterol nebs. (7) Large cell neuroendocrine carcinoma: Status: Resolved Assessment and plan: History of lobectomy. F/u as outpatient. (8) Status post lobectomy of lung: Status: Chronic Assessment and plan: As above (9) S/P ablation of atrial fibrillation: Assessment and plan: Remains in NSR , on telemetry We will continue apixiban and metoprolol. (10) Personal history of nicotine dependence: Status: Acute Assessment and plan: Nicotine replacement ordered (11) GERD without esophagitis: Assessment and plan: Omeprazole ordered (12) Mixed hyperlipidemia: Assessment and plan: We will continue Atorvastatin (13) DVT prophylaxis: Status: Acute Assessment and plan: We will continue therapeutic Apixaban (14) Discharge planning issues: Status: Acute Assessment and plan: Full code CM is aware that the patient is not ready for discharge. He remains confused in time and has additional confusion in space; will be providing sobriety resources when ready. Plan discussed with Dr. Vega Subjective Subjective Patient reports: no new complaints, tolerating liquids well, tolerating a regular diet, voiding w/o difficulty and bowel movement; denies diarrhea, nausea, vomiting, shortness of breath or afebrile Interval history since last seen: The patient reports sleeping well and being pain free. Exam Const General: cooperative and no acute distress Nutritional Appearance: average body habitus Orientation: alert, awake, oriented to person, oriented to place and confused HENMT Head: normal to inspection and normocephalic Eyes General: appearance normal, both eyes and all related structures Neck Neck: normal visual inspection Resp Effort & Inspection: normal respiratory effort and able to speak in complete sentences Auscultation: clear to auscultation bilaterally Cardio Jugular venous pressure: no JVD Heart Sounds: S1 normal and S2 normal Pulses: brachial pulses present and dorsalis pedis present Other: S3 heard GI Inspection: normal to inspection and no abdominal wall ecchymosis Palpation: soft Auscultation: normal bowel sounds General: No CVA tenderness Skin General skin exam: no rashes or lesions noted Lesions: no lesions Neuro General: patient alert, patient awake and oriented Patient Orientation: Person Cognition: normal cognition Speech: speech normal Motor: muscle tone normal throughout Sensory Exam: no sensory deficits noted Extrem General: normal to inspection Psych Appearance: disheveled Speech and Movement: speech and movement normal Mood: congruent mood and anxious mood Attitude: cooperative Insight: poor Judgment: poor Objective Last Vital Signs Temp 36.5 C 12/04/22 07:58 Pulse 98 H 12/04/22 07:58 Resp 18 12/04/22 07:58 BP 109/67 12/04/22 07:58 Pulse Ox 98 12/04/22 07:58 Laboratory Results - last 24 hr 12/02/22 12/04/22 12/04/22 21:14 07:05 07:05 WBC 7.55 RBC 3.29 L Hgb 11.1 L Hct 31.6 L MCV 96 H MCH 33.7 H MCHC 35.1 RDW 16.1 H Plt Count MPV Immature Gran % 0.5 Neutrophils % 58.5 Lymphocytes % 28.1 Monocytes % 10.5 Eosinophils % 1.9 Basophils % 0.5 Nucleated RBC % 0.0 Absolute Neutrophils 4.42 Absolute Lymphocytes 2.12 Absolute Monocytes 0.79 Absolute Eosinophils 0.14 Absolute Basophils 0.04 RBC Morphology Normal Sodium 133 L Potassium 3.4 L Chloride 100 Carbon Dioxide 24.3 Anion Gap 8.7 BUN 4 L Creatinine 0.6 L Est GFR (CKD-EPI 2020) 111.89 Glucose 91 Calcium 8.3 L Magnesium 1.5 L Ammonia Vitamin B12 Folate COVID-19 Source Cancelled SARS-CoV-2 (PCR) Cancelled 12/04/22 12/04/22 07:05 07:05 WBC RBC Hgb Hct MCV MCH MCHC RDW Plt Count MPV Immature Gran % Neutrophils % Lymphocytes % Monocytes % Eosinophils % Basophils % Nucleated RBC % Absolute Neutrophils Absolute Lymphocytes Absolute Monocytes Absolute Eosinophils Absolute Basophils RBC Morphology Sodium Potassium Chloride Carbon Dioxide Anion Gap BUN Creatinine Est GFR (CKD-EPI 2020) Glucose Calcium Magnesium Ammonia 39 H Vitamin B12 434 Folate 2.3 L COVID-19 Source SARS-CoV-2 (PCR) PAWSS Have you Been Recently Intoxicated or Drunk Within the Last 30 days?: Unable to Obtain Have you Ever Experienced Previous Episodes of Alcohol Withdrawal?: Unable to Obtain Have you ever Experienced Withdrawal Seizures?: Unable to Obtain Have you ever Experienced Delirium Tremens(DT)s?: Unable to Obtain Have you ever undergone Alcohol Rehabilitation Treatment (i.e, inpt ot ou tpatient treatment programs)?: Unable to Obtain Have you ever Experienced Blackouts?: Unable to Obtain Have you ever Combined Alcohol with other Downers within the last 90 days?: Unable to Obtain Have you ever Combined Alcohol with any other Substance of Abuse during the last 90 days?: Unable to Obtain Positive Blood Alcohol level on Presentation? [PCS.BAL]: Unable to Obtain Evidence of Increased Autonomic Activity (i.e. HR>120, tremor, sweating, agitation, nausea)?: Unable to Obtain Time Spent with Patient Time Spent with Patient: >50 minutes Time was spent: preparing to see the patient(eg.review tests), obtaining and/or reviewing separately otained hiistory, ordering medications,tests, procedures, referring, communicating with other health healthcare applications analyst, indepentently interpreting results, counseling the patient and care coordination
[2022-12-04 11:42] VITALS: BP 94/64; PULSE 72; RESP 17; TEMP 36.4; O2SAT 97
[2022-12-04] MEDS: Magnesium Chloride 64 MG TABCR PO ×2 (14:20→20:20)
--- NOTE | 2022-12-04 15:06 | PDOC.CMPRO ---
Date of service: 12/04/22 Time of Service: 15:06 Care Management Progress Note Progress Note Text Progress Note Text: S/O: Christopher continue to requires hospitalization, he is covid + and on precautions. CM spoke with him via phone and he is planning on going home when he is medically ready for discharge. He has a vehicle in the parking lot and is planning to drive himself. Christopher shares that he frequents the local food shelves and has food benefits. He lives with his and has stable housing, a car and denies any community needs at this time. Christopher shares that he has cut down on his ETOH use but would be agreeable to talking with someone from [facility]. He is still scoring on CIWA, CM will outreach to [facility] tomorrow, he has covid so he is planning on talking with someone via phone. A: 57 year old male admitted to [facility] on P: Christopher is planning to discharge home when he is medically ready. He has a vehicle in the parking lot and planning to drive himself. He will follow up with community providers and his discharge plan of care as instructed. No new services are anticipated at this time. CM will follow.
[2022-12-04 15:43] VITALS: BP 96/65; PULSE 71; RESP 18; TEMP 36; O2SAT 99
[2022-12-04] MEDS: PHENobarbital 130 MG/ML VIAL IVP (20:21)
[2022-12-04 23:07] VITALS: BP 95/69; PULSE 68; RESP 18; TEMP 36.6; O2SAT 98
[2022-12-05] MEDS: PHENobarbital 130 MG/ML VIAL IVP (01:17)
[2022-12-05] MEDS: THIAMINE 500 MG in Normal Saline 100 ML 200 MG IVPB ×2 (05:33→14:07)
[2022-12-05 06:41] LABS: Abs Immature Grans 0.03 10^3/uL (0.0-0.06); Absolute Basophil Count 0.03 10^3/uL (0.0-0.2); Absolute Eosinophil Count 0.19 10^3/uL (0.0-0.7); Absolute Lymphocyte Count 2.16 10^3/uL (1.2-3.4); Absolute Monocyte Count 0.86 10^3/uL (0.1-0.8); Absolute Neutrophil Count 5.02 10^3/uL (1.2-6.7); Basophils % 0.4; Eosinophils % 2.3; HCT 36.2 % (40.0-50.0); HGB 12.2 g/dL (13.5-17.5); Immature Grans % 0.4; Lymphocytes % 26.1; MCH 33.2 pg (27.0-33.0); MCHC 33.7 % (32.0-36.0); MCV 98 fL (80-95); Monocytes % 10.4; Neutrophils % 60.4; Nucleated RBC 0.2 % (0.0-0.3); RBC 3.68 10^6/uL (4.36-5.78); RDW 16.2 % (11.8-14.1); RDW-SD 59.1 fL; WBC 8.29 10^3/uL (4.4-10.8)
[2022-12-05 06:42] LABS: Ammonia 34 umol/L (11-32)
[2022-12-05 07:11] LABS: Anion Gap 5.9 mmol/L (3-11); BUN 3 mg/dL (7-18); CO2 26.1 mmol/L (21.0-32.0); CREATININE 0.7 mg/dL (0.70-1.30); Calcium 8.9 mg/dL (8.5-10.1); Chloride 101 mmol/L (98-107); Glucose 83 mg/dL (74-106); Sodium 133 mmol/L (136-145)
[2022-12-05 07:12] LABS: Potassium 4.9 mmol/L (3.5-5.1)
[2022-12-05 07:16] LABS: Diff Comment Diff Reviewed; RBC Morphology Normal
[2022-12-05] MEDS: Budesonide/Formoterol 160/4.5 6 GM 60 PUFF INH IH ×2 (07:51→19:10)
[2022-12-05] MEDS: Tiotropium Bromide-Respimat 10 PUFF INH 2 PUFF IH (07:51)
[2022-12-05] MEDS: Folic Acid 1 MG TAB PO (08:05)
[2022-12-05] MEDS: Metoprolol CR 100 MG TABCR 200 MG PO (08:05)
[2022-12-05] MEDS: Magnesium Chloride 64 MG TABCR PO ×2 (08:05→20:30)
[2022-12-05] MEDS: Potassium Chloride 20 MEQ TABCR 40 MEQ PO (08:06)
[2022-12-05] MEDS: Nicotine 14 MG/24 HR PATCH TD (08:06)
[2022-12-05] MEDS: Atorvastatin 20 MG TAB PO (08:06)
[2022-12-05] MEDS: Omeprazole 20 MG CAPCR 40 MG PO (08:06)
[2022-12-05] MEDS: Multivitamin TAB 1 TAB PO (08:06)
[2022-12-05] MEDS: Apixaban 5 MG TAB PO ×2 (08:06→20:31)
[2022-12-05 08:35] VITALS: BP 103/71; PULSE 73; RESP 18; TEMP 36.2; O2SAT 97
--- NOTE | 2022-12-05 09:30 | PGE_ITS ---
Date of Service Date of service: 12/05/22 Time of Service: 09:30 Assessment and Plan Assessment and plan (1) Alcohol withdrawal delirium: Status: Acute Assessment and plan: The score on the CIWA scale has increase to 7, overnight, it was up to 16. Pharmacy consulted on phenobarbital soft limit vs hard limit. We will continue phenobarbital as ordered while carefully monitoring the hard limit; the level is around 18. We will Continue monitoring on CIWA w/ prn phenobarbital, IV thiamine done UA was ordered and was negative. Folate level is 2.3; will continue folic acid; pharmacy consulted on increasing dosage- it does not seem necessary MVI was repleted earlier during the stay Amonia level 34 this AM. Patient is confused and agitated, will start lactulose This PM BP 84/66 reported by RN,LR 250 ml bolus ordered. BP rechecked 95/62, HR 69, prior to bolus. Lactate ordered is 2.6, will recheck in 3 hours from prior( 21:00). Considering more intravenous fluid. (2) Alcohol use disorder: Status: Acute Assessment and plan: Continue as above (3) Pancreatitis: Status: Chronic Assessment and plan: The patient has a history of chronic pancreatitis.He remains asymptomatic without n abdominal pain, nausea, vomiting or diarrhea. Diet is well tolerated and we will continue, will encourage a variety of oral fluids. (4) Hypomagnesemia: Status: Resolved Assessment and plan: Magnesium 2.0 We will recheck in AM if potassium is low (5) Acute hypokalemia: Status: Resolved Assessment and plan: K was 4.9 BMP in AM (6) Chronic obstructive lung disease: Status: Chronic Assessment and plan: No exacerbation noticed, the patient remains stable. We will continue current regimen: home Trelegy and Spiriva with prn albuterol nebs. (7) Large cell neuroendocrine carcinoma: Status: Resolved Assessment and plan: History of lobectomy. F/u as outpatient. 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 (10) Personal history of nicotine dependence: Status: Acute Assessment and plan: Nicotine replacement ordered (11) GERD without esophagitis: Assessment and plan: Omeprazole ordered (12) Mixed hyperlipidemia: Assessment and plan: We will continue Atorvastatin (13) Discharge planning issues: Status: Acute Assessment and plan: Full code CM is aware that the patient is not ready for discharge. He remains confused in time and has additional confusion in space; will be providing sobriety resources when ready.Family discussion with son Kaz regarding transfer to [facility].We discuss plan and medical necessity for transfer. They were expressing doubt about the fact that the patient was going through alcohol withdrawal. They agree to wait for the clinical picture on day 6 from admission, on the 12/06/2022. Consideration given to repeat head CT and neurology consult. (14) DVT prophylaxis: Status: Acute Assessment and plan: We will continue therapeutic Apixaban Subjective Subjective Patient reports: tolerating liquids well, tolerating a regular diet, voiding w/o difficulty, bowel movement and other (The patient is less cooperative this morning during the interview. No new complaints, but increased resistance and confusion seen.); denies diarrhea, nausea, vomiting, shortness of breath or afebrile Interval history since last seen: The patient reports sleeping well and being pain free. Exam Const General: uncooperative and no acute distress HENMT Head: normal to inspection Neck Neck: normal visual inspection Resp Effort & Inspection: normal respiratory effort, able to speak in complete sentences, no audible wheezes and no cough Auscultation: clear to auscultation bilaterally Cardio Jugular venous pressure: no JVD Rhythm: regular rhythm Heart Sounds: S1 normal and S2 normal Pulses: brachial pulses present and dorsalis pedis present GI Inspection: no abdominal wall ecchymosis, no edema and distended Palpation: soft and nontender Auscultation: normal bowel sounds General: No CVA tenderness Skin General skin exam: no rashes or lesions noted Neuro General: patient alert, patient awake and oriented Patient Orientation: Person and Confused Speech: speech normal Motor: muscle tone normal throughout (Refused part of the exam) and No asterixis Extrem General: normal to inspection and no pedal edema Right lower extremity: normal to inspection Psych Appearance: disheveled Mental Status: other (increased confusion) Mood: other (increased confusion) Affect: labile affect Attitude: not cooperative Thought Process: abnormal Thought Content: compulsions Insight: poor Objective Last Vital Signs Temp 36.2 C L 12/05/22 08:35 Pulse 73 12/05/22 08:35 Resp 18 12/05/22 08:35 BP 103/71 12/05/22 08:35 Pulse Ox 97 12/05/22 08:35 Laboratory Results - last 24 hr 12/05/22 12/05/22 12/05/22 06:23 06:23 06:23 WBC 8.29 RBC 3.68 L Hgb 12.2 L Hct 36.2 L MCV 98 H MCH 33.2 H MCHC 33.7 RDW 16.2 H Plt Count MPV Immature Gran % 0.4 Neutrophils % 60.4 Lymphocytes % 26.1 Monocytes % 10.4 Eosinophils % 2.3 Basophils % 0.4 Nucleated RBC % 0.2 Absolute Neutrophils 5.02 Absolute Lymphocytes 2.16 Absolute Monocytes 0.86 H Absolute Eosinophils 0.19 Absolute Basophils 0.03 RBC Morphology Normal Sodium 133 L Potassium 4.9 D Chloride 101 Carbon Dioxide 26.1 Anion Gap 5.9 BUN 3 L Creatinine 0.7 Est GFR (CKD-EPI 2020) 106.80 Glucose 83 Calcium 8.9 Magnesium 2.0 Ammonia 34 H PAWSS Have you Been Recently Intoxicated or Drunk Within the Last 30 days?: Unable to Obtain Have you Ever Experienced Previous Episodes of Alcohol Withdrawal?: Unable to Obtain Have you ever Experienced Withdrawal Seizures?: Unable to Obtain Have you ever Experienced Delirium Tremens(DT)s?: Unable to Obtain Have you ever undergone Alcohol Rehabilitation Treatment (i.e, inpt ot outpatient treatment programs)?: Unable to Obtain Have you ever Experienced Blackouts?: Unable to Obtain Have you ever Combined Alcohol with other Downers within the last 90 days?: Unable to Obtain Have you ever Combined Alcohol with any other Substance of Abuse during the last 90 days?: Unable to Obtain Positive Blood Alcohol level on Presentation? [PCS.BAL]: Unable to Obtain Evidence of Increased Autonomic Activity (i.e. HR>120, tremor, sweating, agitation, nausea)?: Unable to Obtain Time Spent with Patient Time Spent with Patient: 35-49 minutes Time was spent: preparing to see the patient(eg.review tests), obtaining and/or reviewing separately otained hiistory, ordering medications,tests, procedures, referring, communicating with other health career services director, indepentently interpreting results, counseling the patient and care coordination
[2022-12-05 11:27] LABS: BE (Venous) 0 mmol/L (-2-3); HCO3 (Venous) 25 mmol/L (23-28); O2 Sat (Venous) 76 %; TCO2 (Venous) 23 mmol/L (24-29); pCO2 (Venous) 43 mmHg (41-51); pH (Venous) 7.38 (7.31-7.41); pO2 (Venous) 42 mmHg
[2022-12-05 11:45] LABS: PHENOBARBITAL 18.7 ug/mL (15.0-40.0)
[2022-12-05 14:07] LABS: Bilirubin Negative (Negative); Blood Negative (Negative); Clarity Sl Cloudy (Clear); Glucose Negative (Negative); Ketones Negative (Negative); Leukocyte Esterase Negative (Negative); Nitrite Negative (Negative); Urobilinogen 0.2 mg/dL (Up to 0.2)
[2022-12-05 16:23] VITALS: BP 84/66; PULSE 68; RESP 18; TEMP 36.4; O2SAT 99
[2022-12-05 17:16] VITALS: BP 95/62; PULSE 69
[2022-12-05] MEDS: Lactated Ringers 250 ML IV (17:21)
--- NOTE | 2022-12-05 17:30 | CMPROGNOTE_ITS ---
Date of service: 12/05/22 Time of Service: 17:31 Care Management Progress Note Progress Note Text Progress Note Text: S/O: Christopher continues to be confused and per nursing staff is at times aggressive. He remains on CIWA protocol. Christopher will meet with a [facility] Calender Let Off Operator when his mental status has improved. Christopher is eating lunch when CM comes to meet with him. His son, Kaz, is present in the room and he asks to meet with CM individually. Kaz reports his father has been drinking alcohol in excess for 25+ years but states he has never known him to be confused like he is. He says his dad has been living in [place] in a house that he shared with his now , Penelope (dod August 16, 2022). He reportedly was found on the floor by family members and brought to the hospital due to altered mental status. A: Christopher is a 57 year old male admitted to [facility] on 12/02/22 for Altered mental status, Alcohol use disorder, Hyponatremia. P: Christopher will likely discharge home with no services when medically ready per medical provider. He will follow up with his PCP and plan of care as instructed. He will be transported home by family via private vehicle when ready. CM will continue to follow.
[2022-12-05 17:56] LABS: Lactate 2.3 mmol/L (0.6-1.4)
[2022-12-05 18:25] VITALS: BP 104/70; PULSE 69
[2022-12-05 19:59] VITALS: BP 107/76; PULSE 70; RESP 18; TEMP 36.6; O2SAT 96
[2022-12-05] MEDS: Lactulose 20 GM/30 ML CUP PO (20:31)
[2022-12-05 21:17] LABS: Lactate 2.2 mmol/L (0.6-1.4)
[2022-12-05 23:45] VITALS: BP 102/70; PULSE 73; RESP 18; TEMP 36.4; O2SAT 96
[2022-12-06] VITALS (7 sets, daily range): BP systolic 88–110; BP diastolic 55–82; PULSE 66–82; RESP 16–20; TEMP 36–36.8; O2SAT 94–100
--- NOTE | 2022-12-06 | DI.US_ITS ---
Exam(s) US ABDOMEN LIMITED EXAM: US ABDOMEN LIMITED CLINICAL HISTORY: heapatic encephalopathy TECHNIQUE: Ultrasound abdomen performed using standard protocol. COMPARISON: CT CT CHEST/ABD/PEL W from 09/17/2022 FINDINGS: There is no ascites evident. LIVER: Liver is hyperechoic consistent with steatosis, seen on prior CT scan. There are no discrete focal hepatic lesions. Liver size is upper normal. GALLBLADDER/BILIARY: Gallbladder is surgically absent. The common hepatic duct isnot dilated, measuring 4-5mm at the level of matilda hepatis. PANCREAS: There is no evidence of pancreatic mass nor dilatation of the pancreatic duct. RIGHT KIDNEY:No evidence of solid mass, calculus, nor hydronephrosis. No cortical cysts evident. IMPRESSION: 1. Gallbladder surgically absent. The biliary tree is not dilated. 2. Hepatic steatosis noted. No discrete focal hepatic lesions. 3. No other right upper quadrant ultrasound findings and there is no ascites evident. DATA REPOSITORY:
[2022-12-06 07:34] LABS: HCT 33.4 % (40.0-50.0); HGB 11.5 g/dL (13.5-17.5); MCH 32.8 pg (27.0-33.0); MCHC 34.4 % (32.0-36.0); MCV 95 fL (80-95); MPV 11.2 fL (8.0-11.0); Platelet Count 240 10^3/uL (130-400); RBC 3.51 10^6/uL (4.36-5.78); RDW 16.5 % (11.8-14.1); WBC 8.02 10^3/uL (4.4-10.8)
[2022-12-06 07:47] LABS: PTT Activated 28.3 sec (21.5-31.9); Prothrombin Time 10.4 sec (9.3-11.0)
[2022-12-06 07:51] LABS: Anion Gap 8.3 mmol/L (3-11); BUN 4 mg/dL (7-18); CO2 23.7 mmol/L (21.0-32.0); CREATININE 0.6 mg/dL (0.70-1.30); Calcium 9.6 mg/dL (8.5-10.1); Chloride 100 mmol/L (98-107); Estimated GFR 111.89 (mL/min/1.73m2); Glucose 99 mg/dL (74-106); Potassium 4.4 mmol/L (3.5-5.1); Sodium 132 mmol/L (136-145)
[2022-12-06 07:59] LABS: ALT 17 U/L (16-63); AST 24 U/L (15-37); Albumin 2.7 g/dL (3.4-5.0); Alkaline Phosphatase 97 U/L (46-116); Bilirubin, Direct 0.2 mg/dL (0.0-0.2); Bilirubin, Total 0.4 mg/dL (0.2-1.0); Total Protein 6.9 g/dL (6.4-8.2)
[2022-12-06 08:11] LABS: Ammonia 21 umol/L (11-32)
[2022-12-06] MEDS: Nicotine 14 MG/24 HR PATCH TD (08:21)
[2022-12-06] MEDS: Magnesium Chloride 64 MG TABCR PO ×2 (08:21→19:37)
[2022-12-06] MEDS: Omeprazole 20 MG CAPCR 40 MG PO (08:22)
[2022-12-06] MEDS: Apixaban 5 MG TAB PO ×2 (08:22→19:37)
[2022-12-06] MEDS: Atorvastatin 20 MG TAB PO (08:22)
[2022-12-06] MEDS: Lactulose 20 GM/30 ML CUP PO ×2 (08:22→19:37)
[2022-12-06] MEDS: Multivitamin TAB 1 TAB PO (08:22)
[2022-12-06] MEDS: Folic Acid 1 MG TAB PO (08:22)
[2022-12-06 08:23] LABS: Lab Add On Test DONE
[2022-12-06] MEDS: Budesonide/Formoterol 160/4.5 6 GM 60 PUFF INH IH ×2 (08:53→19:10)
[2022-12-06] MEDS: Tiotropium Bromide-Respimat 10 PUFF INH 2 PUFF IH (08:53)
[2022-12-06 08:55] LABS: Procalcitonin < 0.1 ng/mL
--- NOTE | 2022-12-06 10:16 | W.PM.PROGNOT ---
Date of Service Date of service: 12/06/22 Time of Service: 10:16 Assessment and Plan Assessment and plan (1) Alcohol withdrawal delirium: Status: Acute Assessment and plan: The patient scoring on the CIWA scale score 4-5.The patient is calmer and display less confusion. Spoke to pharmacy consulted on phenobarbital soft limit vs hard limit' remains the same as 12/05 AM as patient has not received the medicine yesterday We will continue phenobarbital as ordered while carefully monitoring the hard limit; the level was 18.7 on 12/05 We will continue monitoring on CIWA w/ prn phenobarbital, High dose IV thiamine completed , additional doses of 250 mg IV for 5 days for Wernicke concerns Folate level is 2.3; will continue folic acid; pharmacy consultedon 12/05 about need to increase dosage- it did not seem necessary MVI was repleted earlier during the stay. Dr. Vega ordered vitamin B12 therapy on 12/06 for level of 434 Amonia level 24 this AM from 39 and 34. Lessened confusion as per exam and subjective data, oral lactulose still in progress Lactate ordered on 12/05 in the context of BP 84/66 to 95/62 ( LR 250 ml bolus ordered at the time), level was 2.6, rechecked after 3 hours and level was 2.2. Vital signs are stable today. Consideration for additional fluid discussed with Dr. Vega. (2) Alcohol use disorder: Status: Acute Assessment and plan: Continue as above (3) Pancreatitis: Status: Chronic Assessment and plan: The patient has a history of chronic pancreatitis.He remains asymptomatic without n abdominal pain, nausea, vomiting or diarrhea. Diet is well tolerated and we will continue, will encourage a variety of oral fluids. (4) Hypomagnesemia: Status: Resolved Assessment and plan: Magnesium 1.5, repletion completed. We will recheck in AM (5) Acute hypokalemia: Status: Acute Assessment and plan: K was 4.0 will keep monitoring BMP in AM (6) Chronic obstructive lung disease: Status: Chronic Assessment and plan: No exacerbation signs and symptoms noticed, the patient remains stable We will continue current regimen: home Trelegy and Spiriva with prn albuterol nebs. 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 (9) Personal history of nicotine dependence: Status: Acute Assessment and plan: Nicotine replacement in progress (10) GERD without esophagitis: Assessment and plan: Continue Omeprazole (11) Mixed hyperlipidemia: Assessment and plan: We will continue Atorvastatin (12) Discharge planning issues: Status: Acute Assessment and plan: Full code CM is aware that the patient is not ready for discharge. He remains confused in time and has additional confusion in space; will be providing sobriety resources when ready.Family discussion with chemo Mccurdy today again this AM with Dr. Vega leading the discussion on improved CIWA scores, thiamine IV therapy. Consideration given for further investigation and neurology consult if symptoms of confusion which are most likely due to ETOH were not resolving but the patient is improving today. Plan discussed with Dr. Vega (13) DVT prophylaxis: Status: Acute Assessment and plan: We will continue therapeutic Apixaban Subjective Subjective Interval history since last seen: Discussion with the son Kaz Rodriguez at 10AM wit Dr. Vega.Discussed CIWA at 4-5 was maxed at 16 on 12/05 around 1AM, Wernickke treatment with thiamine, on going.Sister met in patient's room, and requested private conversation in which she explained that the patient's spouse had recently and that the body had to remain in his possession for 48 hours due to financial constraints and that the patient has blocked memory that pertains to this period. Sister reassured that the CM teams would ensure the necessary mental helath follow-up when the patient is medically cleared. When the patient was seen, no chest pain, headache, nausea, vomiting or diarrhea or dysuria were reported. The patient mentioned leaving with his BUTTING SAW OPERATOR but became almost tearful when stating that he had not seen her for a couple of days He denies chills, nightsweats and reports sleeping poorly due to spontaneous awakening and nursing care.The patient reports tiredness, and feet pain and weakness when ambulating. Exam Const General: cooperative, comfortable and no acute distress Nutritional Appearance: average body habitus Orientation: alert, awake, oriented to person, oriented to place, oriented to time (Knows it is December 2022, no exact date) and other (Uncertain about how he came to not see his recently ) HENME Head: normal to inspection, no palpable skull fracture and normocephalic Mouth: oral mucosae normal and moist mucous membranes Eyes Alignment and Position: alignment normal and position normal Neck Neck: normal visual inspection and no lymphadenopathy Resp Effort & Inspection: normal respiratory effort, able to speak in complete sentences, no audible wheezes and no cough Auscultation: clear to auscultation bilaterally Cardio Jugular venous pressure: no JVD Rhythm: regular rhythm Heart Sounds: S1 normal, S2 normal and other (telemetry SR 75 at 14:30) Pulses: brachial pulses present and dorsalis pedis present GI Inspection: no abdominal wall ecchymosis, no edema and non-distended Palpation: soft and nontender Auscultation: normal bowel sounds General: No CVA tenderness Skin General skin exam: no rashes or lesions noted Lesions: no lesions Other: skin turgor adequate Neuro General: patient alert, patient awake and oriented Patient Orientation: Person and Confused Speech: speech normal Motor: muscle tone normal throughout and abnormal movements noted Extrem General: normal to inspection and no pedal edema Right lower extremity: edema (foot trace) Details: pitting Left lower extremity: edema (foot and lower leg) Details: pitting and 1+ Psych Appearance: grossly normal Mental Status: mental status grossly normal Speech and Movement: speech and movement normal (minimally delayed) Affect: labile affect Attitude: not cooperative Thought Process: abnormal Thought Content: compulsions Insight: poor Objective Last Vital Signs Temp 36.5 C 12/06/22 08:20 Pulse 66 12/06/22 08:20 Resp 18 12/06/22 08:20 BP 107/82 12/06/22 08:20 Pulse Ox 95 12/06/22 08:20 Laboratory Results - last 24 hr 12/05/22 12/05/22 12/05/22 11:20 11:20 13:45 WBC RBC Hgb Hct MCV MCH MCHC RDW Plt Count MPV PT INR APTT VBG pH 7.38 VBG pCO2 43 VBG pO2 42 VBG HCO3 25 VBG Total CO2 23 L VBG O2 Saturation 76 VBG Base Excess 0 VBG Lactate Sodium Potassium Chloride Carbon Dioxide Anion Gap BUN Creatinine Est GFR (CKD-EPI 2020) Glucose Calcium Total Bilirubin Conjugated Bilirubin AST ALT Alkaline Phosphatase Ammonia Total Protein Albumin Procalcitonin Urine Color Yellow Urine Clarity Sl Cloudy Urine pH 7.0 Ur Specific [place] 1.020 Urine Protein Negative Urine Ketones Negative Urine Blood Negative Urine Nitrite Negative Urine Bilirubin Negative Urine Urobilinogen 0.2 Ur Leukocyte Esterase Negative Urine Glucose Negative Phenobarbital 18.7 Add-On Test Request 12/05/22 12/05/22 12/06/22 17:42 21:08 07:10 WBC RBC Hgb Hct MCV MCH MCHC RDW Plt Count MPV PT INR APTT VBG pH VBG pCO2 VBG pO2 VBG HCO3 VBG Total CO2 VBG O2 Saturation VBG Base Excess VBG Lactate 2.3 H* 2.2 H* Sodium 132 L Potassium 4.4 Chloride 100 Carbon Dioxide 23.7 Anion Gap 8.3 BUN 4 L Creatinine 0.6 L Est GFR (CKD-EPI 2020) 111.89 Glucose 99 Calcium 9.6 Total Bilirubin Conjugated Bilirubin AST ALT Alkaline Phosphatase Ammonia Total Protein Albumin Procalcitonin Urine Color Urine Clarity Urine pH Ur Specific [place] Urine Protein Urine Ketones Urine Blood Urine Nitrite Urine Bilirubin Urine Urobilinogen Ur Leukocyte Esterase Urine Glucose Phenobarbital Add-On Test Request 12/06/22 12/06/22 12/06/22 07:10 07:10 07:10 WBC 8.02 RBC 3.51 L Hgb 11.5 L Hct 33.4 L MCV 95 MCH 32.8 MCHC 34.4 RDW 16.5 H Plt Count 240 MPV 11.2 H PT INR APTT VBG pH VBG pCO2 VBG pO2 VBG HCO3 VBG Total CO2 VBG O2 Saturation VBG Base Excess VBG Lactate Sodium Potassium Chloride Carbon Dioxide Anion Gap BUN Creatinine Est GFR (CKD-EPI 2020) Glucose Calcium Total Bilirubin 0.4 Conjugated Bilirubin 0.2 AST 24 ALT 17 Alkaline Phosphatase 97 Ammonia 21 Total Protein 6.9 Albumin 2.7 L Procalcitonin Urine Color Urine Clarity Urine pH Ur Specific [place] Urine Protein Urine Ketones Urine Blood Urine Nitrite Urine Bilirubin Urine Urobilinogen Ur Leukocyte Esterase Urine Glucose Phenobarbital Add-On Test Request 12/06/22 12/06/22 12/06/22 07:10 07:10 07:10 WBC RBC Hgb Hct MCV MCH MCHC RDW Plt Count MPV PT 10.4 INR 1.0 APTT 28.3 VBG pH VBG pCO2 VBG pO2 VBG HCO3 VBG Total CO2 VBG O2 Saturation VBG Base Excess VBG Lactate Sodium Potassium Chloride Carbon Dioxide Anion Gap BUN Creatinine Est GFR (CKD-EPI 2020) Glucose Calcium Total Bilirubin Conjugated Bilirubin AST ALT Alkaline Phosphatase Ammonia Total Protein Albumin Procalcitonin < 0.1 Urine Color Urine Clarity Urine pH Ur Specific [place] Urine Protein Urine Ketones Urine Blood Urine Nitrite Urine Bilirubin Urine Urobilinogen Ur Leukocyte Esterase Urine Glucose Phenobarbital Add-On Test Request DONE PAWSS Have you Been Recently Intoxicated or Drunk Within the Last 30 days?: Unable to Obtain Have you Ever Experienced Previous Episodes of Alcohol Withdrawal?: Unable to Obtain Have you ever Experienced Withdrawal Seizures?: Unable to Obtain Have you ever Experienced Delirium Tremens(DT)s?: Unable to Obtain Have you ever undergone Alcohol Rehabilitation Treatment (i.e, inpt ot outpatient treatment programs)?: Unable to Obtain Have you ever Experienced Blackouts?: Unable to Obtain Have you ever Combined Alcohol with other Downers within the last 90 days?: Unable to Obtain Have you ever Combined Alcohol with any other Substance of Abuse during the last 90 days?: Unable to Obtain Positive Blood Alcohol level on Presentation? [PCS.BAL]: Unable to Obtain Evidence of Increased Autonomic Activity (i.e. HR>120, tremor, sweating, agitation, nausea)?: Unable to Obtain Time Spent with Patient Time Spent with Patient: >50 minutes Time was spent: preparing to see the patient(eg.review tests), obtaining and/or reviewing separately otained hiistory, ordering medications,tests, procedures, referring, communicating with other health patient care secretary, indepentently interpreting results, counseling the patient and care coordination
[2022-12-06 11:01] LABS: Magnesium 1.7 mg/dL (1.8-2.4)
[2022-12-06] MEDS: Normal Saline Flush 10 ML SYR (11:21)
--- NOTE | 2022-12-06 16:23 | CMPROGNOTE_ITS ---
Date of service: 12/06/22 Time of Service: 16:23 Care Management Progress Note Progress Note Text Progress Note Text: S/O:? Christopher continues to be confused and per provider is calmer and less confused today. He remains on CIWA protocol.? Christopher will meet with a [facility] Solar Applications Development Engineer when his mental status has improved.? His sister Aileen visited today and feels that his mental status is a little better, but she is still concerned with his ability to recover. CM spoke with Aileen alone and she reports that Christopher's Penelope of a heart attack, in their home, a few months ago. Since then he hasn't been taking care of himself or his house.Aileen shared that this event was especially traumatic for Christopher because EMS came and didn't take her body. They did help him put her in the back of his truck where she remained for a few days until he could figure out what to do about the burial and come up with $4000. Aileen shares that she has a good relationship with Christopher and her is his best friend. They live in [place], [place] and don't see him frequently. Aileen is willing to let Christopher come stay with her after discharge, if needed. CM will follow. A:? Christopher is a 57 year old male admitted to [facility] on? 12/02/22 for Altered mental status, Alcohol use disorder, Hyponatremia. P: ? Christopher will likely discharge home with no services when medically ready per medical provider.? He will follow up with his PCP and plan of care as instruct ed.? He will be transported home by family via private vehicle when ready.? CM will continue to follow.
[2022-12-06] MEDS: MAGNESIUM SULFATE 4 GM/100 ML BAG IVPB (17:10)
[2022-12-07] VITALS (7 sets, daily range): BP systolic 98–116; BP diastolic 60–82; PULSE 72–97; RESP 16–20; TEMP 36.4–37.4; O2SAT 93–98
[2022-12-07 06:59] LABS: Abs Immature Grans 0.04 10^3/uL (0.0-0.06); Absolute Basophil Count 0.03 10^3/uL (0.0-0.2); Absolute Eosinophil Count 0.12 10^3/uL (0.0-0.7); Absolute Lymphocyte Count 1.86 10^3/uL (1.2-3.4); Absolute Monocyte Count 0.63 10^3/uL (0.1-0.8); Absolute Neutrophil Count 4.94 10^3/uL (1.2-6.7); Basophils % 0.4; Eosinophils % 1.6; HCT 32.8 % (40.0-50.0); Immature Grans % 0.5; Lymphocytes % 24.4; MCH 32.3 pg (27.0-33.0); MCHC 33.5 % (32.0-36.0); MCV 96 fL (80-95); Monocytes % 8.3; Neutrophils % 64.8; Platelet Count 237 10^3/uL (130-400); RBC 3.41 10^6/uL (4.36-5.78); RDW 16.7 % (11.8-14.1); WBC 7.62 10^3/uL (4.4-10.8)
[2022-12-07 07:10] LABS: Ammonia 24 umol/L (11-32)
[2022-12-07 07:16] LABS: ALT 17 U/L (16-63); AST 24 U/L (15-37); Albumin 2.6 g/dL (3.4-5.0); Alkaline Phosphatase 100 U/L (46-116); Anion Gap 9.3 mmol/L (3-11); BUN 2 mg/dL (7-18); Bilirubin, Direct 0.1 mg/dL (0.0-0.2); Bilirubin, Total 0.3 mg/dL (0.2-1.0); CO2 24.7 mmol/L (21.0-32.0); CREATININE 0.6 mg/dL (0.70-1.30); Calcium 8.9 mg/dL (8.5-10.1); Chloride 98 mmol/L (98-107); Estimated GFR 111.89 (mL/min/1.73m2); Glucose 97 mg/dL (74-106); Magnesium 2.2 mg/dL (1.8-2.4); Sodium 132 mmol/L (136-145); Total Protein 6.7 g/dL (6.4-8.2)
[2022-12-07] MEDS: Tiotropium Bromide-Respimat 10 PUFF INH 2 PUFF IH (07:55)
[2022-12-07] MEDS: Budesonide/Formoterol 160/4.5 6 GM 60 PUFF INH IH ×2 (07:56→19:14)
[2022-12-07] MEDS: Apixaban 5 MG TAB PO ×2 (09:36→20:47)
[2022-12-07] MEDS: Atorvastatin 20 MG TAB PO (09:36)
[2022-12-07] MEDS: Nicotine 14 MG/24 HR PATCH TD (09:36)
[2022-12-07] MEDS: Cyanocobalamin 500 MCG TAB 1000 MCG PO (09:36)
[2022-12-07] MEDS: Folic Acid 1 MG TAB PO (09:37)
[2022-12-07] MEDS: Lactulose 20 GM/30 ML CUP PO ×2 (09:37→20:47)
[2022-12-07] MEDS: Multivitamin TAB 1 TAB PO (09:38)
[2022-12-07] MEDS: Omeprazole 20 MG CAPCR 40 MG PO (09:38)
[2022-12-07] MEDS: Magnesium Chloride 64 MG TABCR PO ×2 (09:38→20:47)
[2022-12-07] MEDS: Metoprolol CR 100 MG TABCR 200 MG PO (09:46)
--- NOTE | 2022-12-07 09:57 | PGE_ITS ---
Date of Service Date of service: 12/07/22 Time of Service: 09:57 Assessment and Plan Assessment and plan (1) Alcohol withdrawal delirium: Status: Acute Assessment and plan: The patient scoring on the CIWA scale score 3-5.The patient is calmer and display less confusion. Phenobarbital soft limit vs hard limit' remains the same as of 12/05 AM, no other dose received We will continue phenobarbital as ordered while carefully monitoring the hard limit; the level was 18.7 on 12/05 We will continue monitoring on CIWA w/ prn phenobarbital, IV thiamine for additional doses of 250 mg IV 4 days left Folate level is 2.3; will continue folic acid supplementation; pharmacy consulted on 12/05 about need to increase dosage- it did not seem necessary MVI was repleted earlier during the stay. Dr. Vega ordered vitamin B12 therapy on 12/06 for level of 434, on oral supplementation daily Amonia level 24 on 12/06 from 39 and 34. Lessened confusion as per exam and subjective data, oral lactulose still in progress Lactate ordered on 12/05 in the context of BP 84/66 to 95/62 ( LR 250 ml bolus ordered at the time), level was 2.6, rechecked after 3 hours and level was 2.2. Vital signs are stable today. Consideration for additional fluid discussed with Dr. Vega. (2) Alcohol use disorder: Status: Acute Assessment and plan: Continue as above (3) Pancreatitis: Status: Chronic Assessment and plan: The patient has a history of chronic pancreatitis.He remains asymptomatic without n abdominal pain, nausea, vomiting or diarrhea. Diet is well tolerated and we will continue, will encourage a variety of oral fluids. (4) Hypomagnesemia: Status: Resolved Assessment and plan: Magnesium 1.5, repletion completed. We will recheck in AM (5) Acute hypokalemia: Status: Acute Assessment and plan: K was 4.0 will keep monitoring BMP in AM (6) Chronic obstructive lung disease: Status: Chronic Assessment and plan: No exacerbation signs and symptoms noticed, the patient remains stable We will continue current regimen: home Trelegy and Spiriva with prn albuterol nebs. (7) Status post lobectomy of lung: Status: Chronic Assessment and plan: As above (8) S/P ablation of atrial fibrillation: Assessment and plan: Remains in NSR hr 72 this afternoon on telemetry We will continue apixaban and metoprolol. Due to BPs in the mid 80's to low 100's at times and patient not receiving toprol XL, the total daily dose will be divided in 4 doses to be given with SBP>=90 and HR>60 The patient also had an episode of a short burst of SVT and increased PVC's rate when Toprol held for SBP 88 (9) Personal history of nicotine dependence: Status: Acute Assessment and plan: Nicotine replacement in progress (10) GERD without esophagitis: Assessment and plan: Continue Omeprazole (11) Mixed hyperlipidemia: Assessment and plan: We will continue Atorvastatin (12) Discharge planning issues: Status: Acute Assessment and plan: Full code CM is aware that the patient is not ready for discharge, and will proceed in starting mechanic recovery process and other mental health tools needed as the patient could not verbalize that his had . Plan discussed with Dr. Vega (13) DVT prophylaxis: Status: Acute Assessment and plan: We will continue therapeutic Apixaban Subjective Subjective Patient reports: no new complaints, feels better, tolerating liquids well, tolerating a regular diet, voiding w/o difficulty, bowel movement and other (feet are sore with ambulation); denies diarrhea, nausea, vomiting, shortness of breath, afebrile or fever Exam Const General: cooperative and no acute distress Nutritional Appearance: average body habitus Orientation: alert, oriented x3, oriented to person, oriented to place and oriented to time (December 2022) [facility] Head: normal to inspection and normocephalic Eyes General: appearance normal, both eyes and all related structures Neck Neck: normal visual inspection and no lymphadenopathy Resp Effort & Inspection: normal respiratory effort and able to speak in complete sentences Auscultation: clear to auscultation bilaterally and diminished lung sounds bilaterally (clear) Cardio Jugular venous pressure: no JVD Rate: regular rate Heart Sounds: S1 normal and S2 normal GI Inspection: normal to inspection and no edema Palpation: soft and nontender General: No CVA tenderness Skin General skin exam: no rashes or lesions noted Neuro General: patient alert, patient oriented x3, oriented Patient Orientation: Person, Place and Time (December 2022) and no focal motor deficits Extrem General: normal to inspection and full ROM Objective Last Vital Signs Temp 36.4 C L 12/07/22 07:20 Pulse 97 H 12/07/22 07:20 Resp 16 12/07/22 07:20 BP 104/68 12/07/22 07:20 Pulse Ox 95 12/07/22 07:20 Laboratory Results - last 24 hr 12/06/22 12/06/22 12/07/22 07:10 07:10 06:45 WBC RBC Hgb Hct MCV MCH MCHC RDW Plt Count MPV Immature Gran % Neutrophils % Lymphocytes % Monocytes % Eosinophils % Basophils % Nucleated RBC % Absolute Neutrophils Absolute Lymphocytes Absolute Monocytes Absolute Eosinophils Absolute Basophils Sodium 132 L Potassium 4.0 Chloride 98 Carbon Dioxide 24.7 Anion Gap 9.3 BUN 2 L Creatinine 0.6 L Est GFR (CKD-EPI 2020) 111.89 Glucose 97 Calcium 8.9 Magnesium 1.7 L 2.2 Total Bilirubin 0.3 Conjugated Bilirubin 0.1 AST 24 ALT 17 Alkaline Phosphatase 100 Ammonia C-Reactive Protein 0.90 H Total Protein 6.7 Albumin 2.6 L Add-On Test Request DONE-SEE COMMENT 12/07/22 12/07/22 06:45 06:45 WBC 7.62 RBC 3.41 L Hgb 11.0 L Hct 32.8 L MCV 96 H MCH 32.3 MCHC 33.5 RDW 16.7 H Plt Count 237 MPV 11.0 Immature Gran % 0.5 Neutrophils % 64.8 Lymphocytes % 24.4 Monocytes % 8.3 Eosinophils % 1.6 Basophils % 0.4 Nucleated RBC % 0.0 Absolute Neutrophils 4.94 Absolute Lymphocytes 1.86 Absolute Monocytes 0.63 Absolute Eosinophils 0.12 Absolute Basophils 0.03 Sodium Potassium Chloride Carbon Dioxide Anion Gap BUN Creatinine Est GFR (CKD-EPI 2020) Glucose Calcium Magnesium Total Bilirubin Conjugated Bilirubin AST ALT Alkaline Phosphatase Ammonia 24 C-Reactive Protein Total Protein Albumin Add-On Test Request PAWSS Have you Been Recently Intoxicated or Drunk Within the Last 30 days?: Unable to Obtain Have you Ever Experienced Previous Episodes of Alcohol Withdrawal?: Unable to Obtain Have you ever Experienced Withdrawal Seizures?: Unable to Obtain Have you ever Experienced Delirium Tremens(DT)s?: Unable to Obtain Have you ever undergone Alcohol Rehabilitation Treatment (i.e, inpt ot outpatient treatment programs)?: Unable to Obtain Have you ever Experienced Blackouts?: Unable to Obtain Have you ever Combined Alcohol with other Downers within the last 90 days?: Unable to Obtain Have you ever Combined Alcohol with any other Substance of Abuse during the last 90 days?: Unable to Obtain Positive Blood Alcohol level on Presentation? [PCS.BAL]: Unable to Obtain Evidence of Increased Autonomic Activity (i.e. HR>120, tremor, sweating, agitation, nausea)?: Unable to Obtain Time Spent with Patient Time Spent with Patient: 35-49 minutes Time was spent: preparing to see the patient(eg.review tests), obtaining and/or reviewing separately otained hiistory, ordering medications,tests, procedures, referring, communicating with other health technical healthcare consultant, indepentently interpreting results, counseling the patient and care coordination
[2022-12-07 11:43] LABS: Source Nasal/Nares
[2022-12-07 12:15] LABS: COVID-19 PCR Negative (Negative)
--- NOTE | 2022-12-07 14:34 | CMPROGNOTE_ITS ---
Date of service: 12/07/22 Time of Service: 14:34 Care Management Progress Note Progress Note Text Progress Note Text: S/O:? Christopher was sleeping and did not awake easily to meet with ROCÍO. His labs are being closely monitored and he remains on CIWA, per protocol. Today, he is scoring 3-5 on CIWA and cleared by provider to meet with a sobriety assistant basketball coach. CM contacted [facility] and a assistant basketball coach will see patient this afternoon. CM had a nice conversation with pts sister yesterday and learned that she is concerned about Christopher and traumatic events after his 's . She lives in [place], [place] and is willing to let Christopher come stay with her after discharge, i f needed. CM will follow. A:? Christopher is a 57 year old male admitted to [facility] on? 12/02/22 for Altered mental status, Alcohol use disorder, Hyponatremia. P: ? Christopher will likely discharge home with no services when medically ready per medical provider.?Recommend outpatient follow up with [facility]. He will follow up with his PCP and plan of care as instructed.? He will be transported home by family via private vehicle when ready.? CM will continue to follow.
[2022-12-08] VITALS (7 sets, daily range): BP systolic 84–106; BP diastolic 56–78; PULSE 68–74; RESP 16–18; TEMP 36–37.2; O2SAT 92–98
[2022-12-08 06:35] LABS: HCT 32.4 % (40.0-50.0); HGB 11.1 g/dL (13.5-17.5); MCH 33.2 pg (27.0-33.0); MCHC 34.3 % (32.0-36.0); MCV 97 fL (80-95); MPV 12.1 fL (8.0-11.0); Platelet Count 256 10^3/uL (130-400); RBC 3.34 10^6/uL (4.36-5.78); RDW-SD 59.9 fL; WBC 8.03 10^3/uL (4.4-10.8)
[2022-12-08 06:59] LABS: Anion Gap 8.6 mmol/L (3-11); BUN 7 mg/dL (7-18); C-Reactive Protein 0.93 mg/dL (0.0-0.3); CO2 24.4 mmol/L (21.0-32.0); CREATININE 0.6 mg/dL (0.70-1.30); Calcium 9.2 mg/dL (8.5-10.1); Chloride 99 mmol/L (98-107); Estimated GFR 111.89 (mL/min/1.73m2); Glucose 92 mg/dL (74-106); Sodium 132 mmol/L (136-145)
[2022-12-08] MEDS: Lactulose 20 GM/30 ML CUP PO ×2 (07:51→20:03)
[2022-12-08] MEDS: Nicotine 14 MG/24 HR PATCH TD (07:51)
[2022-12-08] MEDS: Cyanocobalamin 500 MCG TAB 1000 MCG PO (07:52)
[2022-12-08] MEDS: Omeprazole 20 MG CAPCR 40 MG PO (07:54)
[2022-12-08] MEDS: Multivitamin TAB 1 TAB PO (07:55)
[2022-12-08] MEDS: Apixaban 5 MG TAB PO ×2 (07:56→20:03)
[2022-12-08] MEDS: Atorvastatin 20 MG TAB PO (07:56)
[2022-12-08] MEDS: Folic Acid 1 MG TAB PO (07:57)
[2022-12-08] MEDS: Magnesium Chloride 64 MG TABCR PO ×2 (07:59→20:03)
[2022-12-08] MEDS: Tiotropium Bromide-Respimat 10 PUFF INH 2 PUFF IH (08:25)
[2022-12-08] MEDS: Budesonide/Formoterol 160/4.5 6 GM 60 PUFF INH IH ×2 (08:25→19:47)
--- NOTE | 2022-12-08 09:47 | IN_ITS ---
PT Notes Visit Reasons: acute confusional state, alcohol use disorder, leslie Inpatient Physical Therapy Evaluation Date: 12/08/22 Referring Doctor: Frederic Espinoza PT Orders: PT CONSULT: safety consult for D/C Precautions: fall, standard Patient Profile/Admitting Diagnosis: Patient admitted 12/02/22 for medical management of alcohol withdrawal and pancreatitis. Has been on CIDC protocol. PT consult requested for evaluation of mobility prior to discharge. Social History/Home Situation: Patient lives alone in a private split level home, with several steps to enter. He uses a single loftstrand crtuch at baseline due to right knee pain and instability. Denies history of falls. Equipment Owned/DME: single loftstrand crutch Subjective: Christopher is just returning to bed from washing up with nursing. He states that walking to the bathroom was quite tiring. Admits to feeling weaker than usual. Agreeable to PT consult. Objective: General Observation: Seated at EOB on initiation of session. No lines. Mental Status: Alert throughout session. Initially reports no use of AD historically, and when questioned about loftstrand crutch in his room, he reports that he uses that for all ambulation. Pain: denies ROM: Right Upper Extremity: Shoulder flexion 150*. Elbow and wrist motion WFL. Left Upper Extremity: Shoulder flexion 150*. Elbow and wrist motion WFL. Right Lower Extremity: Grossly WFL Left Lower Extremity: Grossly WFL Strength: Right Upper Extremity: Shoulder flexion 4/5. Biceps 4/5. Triceps 4-/5. Shoulder IR 4/5. Shoulder ER 3+/5. Left Upper Extremity: Shoulder flexion 4/5. Biceps 4/5. Triceps 4-/5. Shoulder IR 4/5. Shoulder ER 3+/5. Right Lower Extremity: Hip flexion 4-/5. Quads 4-/5. Ankle DF 5/5 Left Lower Extremity: Hip flexion 4+/5. Quads 4+/5. Ankle DF 5/5 Bed Mobility/Transfers: Bed mobility not assessed. Patient reports ability to get in/out of bed unassisted. Sit-stand: SBA Stand-sit: SBA Gait: Ambulates 25' with FWW, CGA. Walker height adjusted for improved posturing during ambulation. Balance: Static Sitting: Normal Dynamic Sitting: Normal Static Standing: Good Dynamic Standing: Fair 4-Position Balance Test: Small EFFIE: 10 seconds Partial Tandem: 10 seconds Full Tandem: 0 seconds Single Leg Stance: 0 seconds Special Tests: Mobility Limitations Standardized Measure [facility] [place] AM-PAC 6 clicks Basic Mobility Inpatient Short Form: Raw Score: 21 CMS Score: 29% impairment Informed Consent/Education: Patient instructed in purpose of PT consult and plan of care. Assessment: Patient is a 57 year old male referred to physical therapy services for safety consult prior to discharge. Patient presents with acute on chronic mobility impairments, and requires use of AD for ambulation during today's bobbi luation. He does use loftstrand crutch at baseline to address right knee pain and instability. Requires PT intervention to address strength and balance impairment and allow for anticipated transition back to use of crutch. If discharge is imminent, will require FWW issued for safe mobility, with recommendation of HH PT for further strengthening and balance retraining. Will continue PT intervention in acute care setting to maximize safety and mobility prior to discharge. He currently demonstrates the following impairment level findings: 1. decreased RLE strength 2. decreased alance 3. gait impairments 4. decreased activity tolerance Impairments are contributing to the following functional limitations: 1. Requires use of FWW for household distance ambulation 2. increased fall risk due to strength and balance impairment Patient is assessed as Moderate [id number] complexity based on the following: History: Patient is a 57 year old male evaluated in acute care setting. Presenting with acute on chronic mobility impairments, with evolving medical status. Examination: functional limitations as noted above Presentation: evolving Decision Making: moderate complexity Goals: Goals X1 week 1. Supine-Sit : supervision 2. Sit-Supine : supervision 3. Sit-Stand : supervision 4. Stand-Sit : supervision 5. Bed-Chair : supervision with single crutch 6. Chair-Bed : supervision with single crutch 7. Gait : supervision with single crutch x 50' 8. Stairs : SBA with crutch and unilateral rail Plan of Care/Treatment Plan: 1-2x/day, 7 days/week x 1 week. Plan of care has been reviewed with the QA SOFTWARE TEST ENGINEER providing the service under Physical Therapy direction. Initiate Physical Therapy intervention for strengthening, bed mobility, transfers, gait, stairs, balance training, use of assistive device. DISCHARGE RECOMMENDATIONS: Home with services : PT TREATMENT CODE/TIME: [id number] ([id number]) Rachel Melgoza, PT, DPT [facility] All Active Problems (Updated 12/03/22 @ 16:02 by Selena Vega MD) DVT prophylaxis (Acute) Alcohol withdrawal delirium (Acute) Discharge planning issues (Acute) Altered mental status (Acute) Alcohol use disorder (Acute) Acute hyponatremia (Acute) Acute hypokalemia (Acute) Pancreatitis (Chronic) Personal history of nicotine dependence (Acute) Right upper lobe pulmonary nodule (Acute) Status post lobectomy of lung (Chronic) Chronic obstructive lung disease (Chronic) Sensorineural hearing loss (SNHL) of both ears (Acute) Medical History Alcohol abuse Atrial fibrillation with RVR Atrial flutter Atypical chest pain Carcinoid tumor of lung Cellulitis Chest wall pain Contusion Cough Decreased hearing Depressive disorder Diverticulitis of sigmoid colon Elevated LFTs Emphysematous bleb of lung Foot pain GERD (gastroesophageal reflux disease) GERD without esophagitis Gout Hepatitis C antibody test positive Hypercholesterolemia Hypertensive disease Hyperuricemia Hyponatremia Impotence of organic origin Mixed hyperlipidemia Multiple joint pain Nicotine dependence Nicotine dependence, cigarettes, uncomplicated Obstructive sleep apnea Paroxysmal atrial fibrillation Pneumonia Reduced visual acuity RUQ pain Sighing respiration Supraventricular tachycardia Ventral incisional hernia Surgical History Hx of colonoscopy Hx of esophagogastroduodenoscopy S/P ablation of atrial fibrillation S/P cholecystectomy S/P hernia repair S/P partial lobectomy of lung
--- NOTE | 2022-12-08 10:09 | W.PM.PROGNOT ---
Date of Service Date of service: 12/08/22 Time of Service: 10:09 Assessment and Plan Assessment and plan (1) Alcohol withdrawal delirium: Status: Acute Assessment and plan: The patient scoring on the CIWA scale scores remain 3-5, less confusion. Phenobarbital soft limit vs hard limit' remains the same as of 12/05 AM, no other dose received. We will continue phenobarbital as ordered while carefully monitoring the hard limit; the level was 18.7 on 12/05 We will continue monitoring on CIWA w/ prn phenobarbital, IV thiamine for additional doses of 250 mg IV 3 days left Folate level was 2.3 initially; will continue folic acid supplementation; pharmacy consulted on 12/05 about need to increase dosage- it did not seem necessary MVI was repleted earlier during the stay. Dr. Vega ordered vitamin B12 therapy on 12/06 for level of 434, on oral supplementation daily Lactate ordered on 12/05 in the context of BP 84/66 to 95/62 ( LR 250 ml bolus ordered at the time), level was 2.6, rechecked after 3 hours and level was 2.2. UA negative on 12/05. Consideration for additional fluid discussed with Dr. Vega, and LR one liter over 10 hours ordered, as fluid balance was -2000 on 12/07 and remains negative at this time. (2) Alcohol use disorder: Status: Acute Assessment and plan: Continue as above (3) Hepatic encephalopathy: Status: Acute Assessment and plan: Amonia level 24 on 12/06 from 39 and 34. Lessened confusion as per exam and subjective data, oral lactulose still in progress Amonia was 24 no further trending unless clinical picture for hepatic encephalopathy worsens Liver US is showing:Hepatic steatosis noted.? No discrete focal hepatic lesions. (4) Pancreatitis: Status: Chronic Assessment and plan: The patient has a history of chronic pancreatitis.He remains asymptomatic without abdominal pain, nausea, vomiting or diarrhea. Diet is well tolerated and we will continue, will encourage a variety of oral fluids. (5) Hypomagnesemia: Status: Resolved Assessment and plan: Magnesium 2.0 We will recheck in AM (6) Acute hypokalemia: Status: Acute Assessment and plan: K was 4.0 will keep monitoring BMP in AM (7) Chronic obstructive lung disease: Status: Chronic Assessment and plan: No exacerbation signs and symptoms noticed, the patient remains stable We will continue current regimen: home Trelegy and Spiriva with prn albuterol nebs. (8) Status post lobectomy of lung: Status: Chronic Assessment and plan: As above (9) S/P ablation of atrial fibrillation: Assessment and plan: Remains in NSR HR 71 this AM on telemetry We will continue apixaban and metoprolol. BPs 84/56 to 102/64; metoprolol tartrate withheld at 6AM The patient was not receiving toprol XL, the total daily dose divided in 4 doses on 12/07 to be given with SBP>=90 and HR>60 We will reduce the dose to metoprolol tartrate 37.5 mg oral every 6 hours The patient also had an episode of a short burst of SVT and increased PVC's rate when Toprol held for SBP 88 on 12/06-12/07 night.No further arrhythmias reported (10) Personal history of nicotine dependence: Status: Acute Assessment and plan: Nicotine replacement in progress (11) GERD without esophagitis: Assessment and plan: Continue Omeprazole (12) Mixed hyperlipidemia: Assessment and plan: We will continue Atorvastatin (13) Discharge planning issues: Status: Acute Assessment and plan: Full code CM is aware that the patient is not ready for discharge, and will proceed in starting oil recovery operator process and other mental health tools needed as the patient could not verbalize that his had . The patient' sister mentioned taking the patient at discharge time to allow for better recovery. She resides in [place], [place]. Questions regarding [facility] at discharge forwarded to CM, as patient would benefit from counseling due too recent of spouse and ETOH withdrawal. Plan discussed with Dr. Vega (14) DVT prophylaxis: Status: Acute Assessment and plan: We will continue therapeutic Apixaban Subjective Subjective Patient reports: no new complaints, feels better, still having pain (feet/ soles pain with ambulation), tolerating liquids well, tolerating a regular diet, voiding w/o difficulty, bowel movement and other (feet are sore with ambulation); denies diarrhea, nausea, vomiting, shortness of breath, afebrile or fever Objective Last Vital Signs Temp 37.2 C 12/08/22 07:40 Pulse 72 12/08/22 07:40 Resp 18 12/08/22 07:40 BP 84/56 L 12/08/22 07:40 Pulse Ox 92 12/08/22 07:40 Laboratory Results - last 24 hr 12/07/22 12/08/22 12/08/22 11:35 05:35 05:35 WBC 8.03 RBC 3.34 L Hgb 11.1 L Hct 32.4 L MCV 97 H MCH 33.2 H MCHC 34.3 RDW 17.0 H Plt Count 256 MPV 12.1 H Sodium 132 L Potassium 4.0 Chloride 99 Carbon Dioxide 24.4 Anion Gap 8.6 BUN 7 Creatinine 0.6 L Est GFR (CKD-EPI 2020) 111.89 Glucose 92 Calcium 9.2 Magnesium 2.0 C-Reactive Protein 0.93 H COVID-19 Source Nasal/Nares SARS-CoV-2 (PCR) Negative PAWSS Have you Been Recently Intoxicated or Drunk Within the Last 30 days?: Unable to Obtain Have you Ever Experienced Previous Episodes of Alcohol Withdrawal?: Unable to Obtain Have you ever Experienced Withdrawal Seizures?: Unable to Obtain Have you ever Experienced Delirium Tremens(DT)s?: Unable to Obtain Have you ever undergone Alcohol Rehabilitation Treatment (i.e, inpt ot outpatient treatment programs)?: Unable to Obtain Have you ever Experienced Blackouts?: Unable to Obtain Have you ever Combined Alcohol with other Downers within the last 90 days?: Unable to Obtain Have you ever Combined Alcohol with any other Substance of Abuse during the last 90 days?: Unable to Obtain Positive Blood Alcohol level on Presentation? [PCS.BAL]: Unable to Obtain Evidence of Increased Autonomic Activity (i.e. HR>120, tremor, sweating, agitation, nausea)?: Unable to Obtain Time Spent with Patient Time Spent with Patient: >50 minutes Time was spent: preparing to see the patient(eg.review tests), ordering medications,tests, procedures, referring, communicating with other health patient care secretary, indepentently interpreting results, counseling the patient and care coordination
[2022-12-08] MEDS: Metoprolol 50 MG TAB PO (12:14)
--- NOTE | 2022-12-08 12:43 | PDOC.CMPRO ---
Date of service: 12/08/22 Time of Service: 12:43 Care Management Progress Note Progress Note Text Progress Note Text: S/O:? Christopher is sitting on the edge of his bed, face timing his brother. His Mother, sister and aunt are in his room. He is pleasant and easy to engage in conversation. Per provider, he is still scoring on CIWA, mentation is improved, not back to baseline. PT recommendation: HH PT on discharge. Christopher was evaluated by [facility] Prasad yesterday afternoon, community follow up is recommended. Christopher will either discharge home with New PT services or to his sister's home in [place], [place]. Her Ulises is his best friend, and she feels Christopher could use extra support due to the passing of his a few months ago and because his home is in disarray. Christopher is willing to discharge to his sisters home but has not formally made a decision. CM will follow. A:? Christopher is a 57 year old male admitted to [facility] on? 12/02/22 for Altered mental status, Alcohol use disorder, Hyponatremia. P: Christopher will either discharge home with New PT services or to his sister's home in [place], [place]. His sister is willing to transport him to outpatient PT if he decides to stay with her in [place]. ?[facility] referral on discharge is recommended. Christopher will follow up with his PCP and plan of care as instructed.? He will be transported via private vehicle when ready.? CM will continue to follow.
[2022-12-08] MEDS: Acetaminophen 325 MG TAB PO (13:42)
[2022-12-08] MEDS: Lactated Ringers 1,000 ML 100 ML IV (13:42)
--- NOTE | 2022-12-08 14:17 | PT.INTREAT ---
Date of service: 12/08/22 Time of Service: 13:31 PT Notes Visit Reasons: acute confusional state, alcohol use disorder, leslie Inpatient Physical Therapy Treatment Note [facility] Date: 12/08/22 PRECAUTIONS: Fall, standard, activity as tolerated SUBJECTIVE: Patient reports pain in feet. HERNANDO Byrne aware. OBJECTIVE: Patient seated EOB with 3 family members visiting. Agreeable to therapy. ? PAIN: Yes, substantial in both feet. VITALS: monitored by nursing staff. ? ? ? BED MOBILITY/TRANSFERS? Rolling L/R: not assessed Supine-sit: not assessed ? Sit-supine: not assessed ? Sit-stand: CGA ? Stand-sit: CGA ? Bed-Chair: CGA ? Chair-bed: CGA Gait Training ([id number]): Direct one-on-one instruction and skilled instruction in: [x] employing an assistive device [] modified weight-bearing status [] movement sequencing [] turning and movement with proper form [x] Provided verbal cues for equipment management and technique [] Provided instruction in gait pattern [] Patient education regarding pacing and breathing techniques to maximize activity tolerance? GAIT? Assistive Device: Single forearm crutch? Weight bearing: WBAT Assist: CGA initially out of an abundance of caution, SBA after approximately 20 feet? Distance:? 50 feet ? Deviation: patient demonstrates very slow susan, extremely short step length, reduced step height, antalgic gait pattern. Patient is bent forward significantly. This therapist raises patient's crutch height 3, after which patient stands much straighter and reports feeling more comfortable. Patient's balance with crutch is reasonably good. Patient reports feeling more comfortable with crutch vs FWW.? ASSESSMENT:? Patient tolerates therapy well despite foot pain, which patient reports does not increase with ambulation but rather stays about the same. HERNANDO Byrne is present at the end of therapy with tylenol. PLAN: Continue global strengthening per plan of care until patient is medically cleared for discharge. TREATMENT CODE/TIME: 15 minutes beginning at 13:31
[2022-12-08] MEDS: Metoprolol 25 MG TAB 37.5 MG PO (18:04)
[2022-12-09] VITALS (9 sets, daily range): BP systolic 97–107; BP diastolic 60–78; PULSE 65–78; RESP 14–18; TEMP 36.3–37; O2SAT 94–98
[2022-12-09] MEDS: Metoprolol 25 MG TAB 37.5 MG PO ×3 (00:23→12:25)
[2022-12-09] MEDS: Acetaminophen 325 MG TAB PO ×3 (02:25→16:43)
[2022-12-09 06:38] LABS: HCT 31.2 % (40.0-50.0); HGB 10.4 g/dL (13.5-17.5); MCH 32.4 pg (27.0-33.0); MCHC 33.3 % (32.0-36.0); MCV 97 fL (80-95); MPV 11.9 fL (8.0-11.0); Platelet Count 251 10^3/uL (130-400); RBC 3.21 10^6/uL (4.36-5.78); RDW 16.3 % (11.8-14.1); RDW-SD 58.3 fL
[2022-12-09 06:57] LABS: Anion Gap 7.2 mmol/L (3-11); BUN 6 mg/dL (7-18); CO2 24.8 mmol/L (21.0-32.0); CREATININE 0.6 mg/dL (0.70-1.30); Calcium 9.1 mg/dL (8.5-10.1); Chloride 100 mmol/L (98-107); Estimated GFR 111.89 (mL/min/1.73m2); Glucose 86 mg/dL (74-106); Potassium 3.7 mmol/L (3.5-5.1); Sodium 132 mmol/L (136-145)
[2022-12-09 06:59] LABS: Magnesium 1.7 mg/dL (1.8-2.4)
[2022-12-09] MEDS: Omeprazole 20 MG CAPCR 40 MG PO (07:29)
[2022-12-09] MEDS: Multivitamin TAB 1 TAB PO (07:29)
[2022-12-09] MEDS: Apixaban 5 MG TAB PO ×2 (07:29→21:02)
[2022-12-09] MEDS: Magnesium Chloride 64 MG TABCR PO ×2 (07:29→21:03)
[2022-12-09] MEDS: Folic Acid 1 MG TAB PO (07:30)
[2022-12-09] MEDS: Atorvastatin 20 MG TAB PO (07:30)
[2022-12-09] MEDS: Cyanocobalamin 500 MCG TAB 1000 MCG PO (07:30)
[2022-12-09] MEDS: Nicotine 14 MG/24 HR PATCH TD (07:30)
[2022-12-09] MEDS: Lactulose 20 GM/30 ML CUP PO ×2 (07:31→21:03)
[2022-12-09] MEDS: Budesonide/Formoterol 160/4.5 6 GM 60 PUFF INH IH ×2 (08:03→19:55)
[2022-12-09] MEDS: Tiotropium Bromide-Respimat 10 PUFF INH 2 PUFF IH (08:03)
--- NOTE | 2022-12-09 09:49 | W.PM.PROGNOT ---
Date of Service Date of service: 12/09/22 Time of Service: 09:50 Assessment and Plan Assessment and plan (1) Alcohol withdrawal delirium: Status: Acute Assessment and plan: The patient scoring on the CIWA scale scores remain 3-5, less confusion. Phenobarbital soft limit vs hard limit' remains the same as of 12/05 AM, no other dose received. We will continue phenobarbital as ordered while carefully monitoring the hard limit; the level was 18.7 on 12/05 We will continue monitoring on CIWA w/ prn phenobarbital, IV thiamine for additional doses of 250 mg IV 3 days left Folate level was 2.3 initially; will continue folic acid supplementation MVI was repleted, vitamin B12 therapy on 12/06 for level of 434, on oral supplementation daily Lactate ordered on 12/05 in the context of BP 84/66 to 95/62 ( LR 250 ml bolus ordered at the time), level was 2.6, rechecked after 3 hours and level was 2.2. UA negative on 12/05. Consideration for additional fluid discussed with Dr. Vega, and LR one liter over 10 hours ordered, as fluid balance was -2000 on 12/07 and remains negative at this time. Vital signs are stable today, patient is tolerating PO hydration well. (2) Alcohol use disorder: Status: Acute Assessment and plan: Continue as above (3) Hepatic encephalopathy: Status: Acute Assessment and plan: Amonia level 24 on 12/06 from 39 and 34. Lessened confusion as per exam and subjective data, oral lactulose still in progress Amonia was 24 no further trending unless clinical picture for hepatic encephalopathy worsens Liver US is showing:Hepatic steatosis noted.? No discrete focal hepatic lesions. Albumin was 2.6; oral protein replacement added to regimen (4) Pancreatitis: Status: Chronic Assessment and plan: The patient has a history of chronic pancreatitis.He remains asymptomatic without abdominal pain, nausea, vomiting or diarrhea. Diet is well tolerated and we will continue, will encourage a variety of oral fluids. (5) Hypomagnesemia: Status: Resolved Assessment and plan: Magnesium 1.7, repleted We will recheck in AM (6) Acute hypokalemia: Status: Acute Assessment and plan: K was 3.7 will keep monitoring BMP in AM (7) Chronic obstructive lung disease: Status: Chronic Assessment and plan: No exacerbation signs and symptoms noticed, the patient remains stable We will continue current regimen: home Trelegy and Spiriva with prn albuterol nebs. 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 BPs 98/65 to 105/70; metoprolol tartrate withheld at 6AM The patient was not receiving toprol XL, the total daily dose divided in 4 doses on 12/07 to be given with SBP>=90 and HR>60 We will maintain the reduced the dose to metoprolol tartrate 37.5 mg oral every 6 hours today if the patient tolerates will convert to 150 of oral metoprolol succinate daily. The patient also had an episode of a short burst of SVT and increased PVC's rate when Toprol held for SBP 88 on 12/06-12/07 night.No further arrhythmias reported today. (10) Personal history of nicotine dependence: Status: Acute Assessment and plan: Nicotine replacement in progress (11) GERD without esophagitis: Assessment and plan: Continue Omeprazole (12) Mixed hyperlipidemia: Assessment and plan: We will continue Atorvastatin (13) Discharge planning issues: Status: Acute Assessment and plan: Full code CM is aware that the patient is not ready for discharge, and will proceed in starting gymnastics coach or instructor process and other mental health tools needed as the patient could not verbalize that his had . The patient' sister mentioned taking the patient at discharge time to allow for better recovery. She resides in [place], [place]. Questions regarding [facility] at discharge forwarded to CM, as patient would benefit from counseling due too recent of spouse and ETOH withdrawal. Plan discussed with Dr. Martines. (14) DVT prophylaxis: Status: Acute Assessment and plan: We will continue therapeutic Apixaban Subjective Subjective Patient reports: no new complaints, feels better, still having pain (feet/ soles pain with ambulation), pain is less, tolerating liquids well, tolerating a regular diet, voiding w/o difficulty, bowel movement, afebrile and other (Reports that his life partner Penelope is alive and they just ); denies diarrhea, nausea, vomiting, shortness of breath or fever Exam Const General: cooperative, comfortable and no acute distress Nutritional Appearance: average body habitus [facility] Head: normal to inspection Eyes General: appearance normal, both eyes and all related structures Neck Neck: normal visual inspection Resp Effort & Inspection: normal respiratory effort, able to speak in complete sentences and not labored Auscultation: diminished lung sounds on the right in the lower lung tovar Cardio Rhythm: regular rhythm and other (SR 70 this AM on telemetry) Heart Sounds: S1 normal and S2 normal GI Inspection: normal to inspection and no edema Palpation: soft and nontender Auscultation: normal bowel sounds General: No CVA tenderness Skin General skin exam: no rashes or lesions noted Neuro General: patient alert, oriented Patient Orientation: Person, Place and Time (December, in days by> 2, no year), no meningeal signs and no focal motor deficits Extrem General: normal to inspection Right lower extremity: foot (dry skin) Details: tenderness (sole when ambulating) Left lower extremity: foot (dry skin) Details: tenderness (sole with ambulation) Psych Appearance: grossly normal Mental Status: mental status grossly normal Speech and Movement: speech and movement normal Mood: congruent mood (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) Affect: sad Attitude: cooperative Thought Process: circumstantial Thought Content: no hallucinations and suicidality Insight: fair Judgment: fair Objective Last Vital Signs Temp 36.6 C 12/09/22 07:22 Pulse 68 12/09/22 07:22 Resp 16 12/09/22 07:22 BP 102/78 12/09/22 07:22 Pulse Ox 96 12/09/22 07:22 Laboratory Results - last 24 hr 12/09/22 12/09/22 12/09/22 05:34 05:34 05:34 WBC 7.80 RBC 3.21 L Hgb 10.4 L Hct 31.2 L MCV 97 H MCH 32.4 MCHC 33.3 RDW 16.3 H Plt Count 251 MPV 11.9 H Sodium 132 L Potassium 3.7 Chloride 100 Carbon Dioxide 24.8 Anion Gap 7.2 BUN 6 L Creatinine 0.6 L Est GFR (CKD-EPI 2020) 111.89 Glucose 86 Calcium 9.1 Magnesium 1.7 L PAWSS Have you Been Recently Intoxicated or Drunk Within the Last 30 days?: Unable to Obtain Have you Ever Experienced Previous Episodes of Alcohol Withdrawal?: Unable to Obtain Have you ever Experienced Withdrawal Seizures?: Unable to Obtain Have you ever Experienced Delirium Tremens(DT)s?: Unable to Obtain Have you ever undergone Alcohol Rehabilitation Treatment (i.e, inpt ot outpatient treatment programs)?: Unable to Obtain Have you ever Experienced Blackouts?: Unable to Obtain Have you ever Combined Alcohol with other Downers within the last 90 days?: Unable to Obtain Have you ever Combined Alcohol with any other Substance of Abuse during the last 90 days?: Unable to Obtain Positive Blood Alcohol level on Presentation? [PCS.BAL]: Unable to Obtain Evidence of Increased Autonomic Activity (i.e. HR>120, tremor, sweating, agitation, nausea)?: Unable to Obtain Time Spent with Patient Time Spent with Patient: 35-49 minutes Time was spent: preparing to see the patient(eg.review tests), ordering medications,tests, procedures, referring, communicating with other health career developer, indepentently interpreting results, counseling the patient and care coordination
[2022-12-09] MEDS: MAGNESIUM SULFATE 2 GM/50 ML BAG IVPB (11:26)
--- NOTE | 2022-12-09 11:31 | PT.INTREAT ---
Date of service: 12/09/22 Time of Service: 09:05 PT Notes Visit Reasons: acute confusional state, alcohol use disorder, leslie Inpatient Physical Therapy Treatment Note [facility] Date: 12/09/2022 PRECAUTIONS: Fall, standard, activity as tolerated SUBJECTIVE: Reports continued pain in feet. Was to be given Tylenol after session as per discussion with nursing. Indicated the pain is not intensified with walking. ?OBJECTIVE: ?PAIN: Continued pain in both feet. ?VITALS: PRECAUTIONS: Fall, standard, activity as tolerated ??OBJECTIVE:? Therapeutic Activities ([id number])? ?Direct one-on-one instruction in dynamic activities to improve functional performance. ?? ?BED MOBILITY/TRANSFERS?Up walking back to bed with nursing when I arrived to room.?Sit-stand: CGA ?Stand-sit: CGA ?Bed-Chair: CGA ?Chair-bed: CGA ? GAIT?Assistive Device: Single forearm crutch?Weight bearing: WBAT ?Assist: SBA and verbal cueing for safety ?Distance:? 50ft x 2 ?Deviation: Very slow susan, extremely short step length, reduced step height, antalgic gait pattern. Patient is bent forward significantly. ?Stairs: Able to go up / down 3 - 4 inch and 2 - 6 inch steps with CGA of one, utilizing 1 handrail and forearm crutch. Indicated he does have several steps in his split level home that he has to go up and down. Stairs do have 2 handrails. ASSESSMENT:? Patient tolerates therapy, well despite foot pain. Plan: Continue to focus on improved functional mobility for improved ADLs and return to home setting. ?TREATMENT CODE/TIME: [id number], 9:05 to 9:30 am
--- NOTE | 2022-12-09 12:03 | PT.INTREAT ---
PT Notes Visit Reasons: acute confusional state, alcohol use disorder, leslie Inpatient Physical Therapy Treatment Note [facility] Date: [] PRECAUTIONS:[] SUBJECTIVE: [] OBJECTIVE: []? PAIN: [] VITALS: ? Pre-Treatment: [] ? Post-Treatment: []? Therapeutic Activities ([id number][]): Direct one-on-one instruction in dynamic activities to improve functional performance. ? BED MOBILITY/TRANSFERS? Rolling L/R: [] Supine-sit: []? Sit-supine: [] ? Sit-stand: []? Stand-sit: [] ? Bed-Chair: [] ? Chair-bed: [] Provided skilled cues and instruction on performance and technique throughout. Gait Training ([id number][]): Direct one-on-one instruction and skilled instruction in: [] employing an assistive device [] modified weight-bearing status [] movement sequencing [] turning and movement with proper form [] Provided verbal cues for equipment management and technique [] Provided instruction in gait pattern [] Patient education regarding pacing and breathing techniques to maximize activity tolerance? GAIT? Assistive Device: []? Weight bearing: [] Assist: [] ? Distance:? [] ? Deviation: [] ? STAIRS:[] ? Therapeutic Exercises ([id number][]): Direct one-on-one instruction in therapeutic exercises to develop strength, endurance, range of motion and flexibility. ? Exercises [] ?Ambulation ? Assistive Device: []? Weight bearing: [] Assist: [] ? Distance:? [] ? Deviation: [] ? Provided skilled instruction in proper exercise performance Provided skilled manual cues to facilitate proper muscle recruitment and/or form: [] Neuromuscular Re-education ([id number][]): Activities that facilitate re-education of movement balance, posture, coordination, and proprioception or kinesthetic sense, requiring skilled tactile and verbal cues ? Exercises/techniques: [] ASSESSMENT:? [] PLAN: [] TREATMENT CODE/TIME: []
[2022-12-09] MEDS: Protein Nutritional Supplement 16 GM 1 OUNCE PACKET PO (21:03)
[2022-12-10 00:43] VITALS: BP 98/76
[2022-12-10] MEDS: Acetaminophen 325 MG TAB PO ×4 (01:08→22:58)
[2022-12-10 05:58] VITALS: BP 100/72
[2022-12-10 07:30] VITALS: BP 115/74; PULSE 96; RESP 18; TEMP 37; O2SAT 100
[2022-12-10] MEDS: Apixaban 5 MG TAB PO ×2 (07:43→20:10)
[2022-12-10] MEDS: Lactulose 20 GM/30 ML CUP PO ×2 (07:43→20:18)
[2022-12-10] MEDS: Atorvastatin 20 MG TAB PO (07:44)
[2022-12-10] MEDS: Folic Acid 1 MG TAB PO (07:44)
[2022-12-10] MEDS: Omeprazole 20 MG CAPCR 40 MG PO (07:44)
[2022-12-10] MEDS: Magnesium Chloride 64 MG TABCR PO ×2 (07:45→20:10)
[2022-12-10] MEDS: Multivitamin TAB 1 TAB PO (07:46)
[2022-12-10] MEDS: Protein Nutritional Supplement 16 GM 1 OUNCE PACKET PO ×3 (07:47→20:19)
[2022-12-10] MEDS: Nicotine 14 MG/24 HR PATCH TD (07:47)
[2022-12-10] MEDS: Tiotropium Bromide-Respimat 10 PUFF INH 2 PUFF IH (07:53)
[2022-12-10] MEDS: Budesonide/Formoterol 160/4.5 6 GM 60 PUFF INH IH ×2 (07:54→19:11)
[2022-12-10] MEDS: Cyanocobalamin 500 MCG TAB 1000 MCG PO (07:57)
[2022-12-10 08:07] LABS: HCT 37.6 % (40.0-50.0); HGB 12.5 g/dL (13.5-17.5); MCH 32.5 pg (27.0-33.0); MCHC 33.2 % (32.0-36.0); MCV 98 fL (80-95); MPV 10.9 fL (8.0-11.0); Platelet Count 277 10^3/uL (130-400); RBC 3.85 10^6/uL (4.36-5.78); RDW 16.2 % (11.8-14.1); RDW-SD 58.4 fL; WBC 7.37 10^3/uL (4.4-10.8)
[2022-12-10 08:24] LABS: Anion Gap 10.3 mmol/L (3-11); BUN 8 mg/dL (7-18); CO2 24.7 mmol/L (21.0-32.0); CREATININE 0.7 mg/dL (0.70-1.30); Calcium 9.6 mg/dL (8.5-10.1); Chloride 101 mmol/L (98-107); Glucose 93 mg/dL (74-106); Potassium 3.9 mmol/L (3.5-5.1); Sodium 136 mmol/L (136-145)
--- NOTE | 2022-12-10 09:50 | W.PM.PROGNOT ---
Date of Service Date of service: 12/10/22 Time of Service: 09:50 Assessment and Plan Assessment and plan (1) Alcohol withdrawal delirium: Status: Acute Assessment and plan: The patient scoring on the CIWA scale scores remain 3-5, less confusion. Phenobarbital soft limit vs hard limit' remains the same as of 12/05 AM, no other dose received. We will continue phenobarbital as ordered while carefully monitoring the hard limit; the level was 18.7 on 12/05 We will continue monitoring on CIWA w/ prn phenobarbital, IV thiamine for additional doses of 250 mg IV 2 days left Folate level was 2.3 initially; will continue folic acid supplementation MVI was repleted, vitamin B12 therapy on 12/06 for level of 434, on oral supplementation daily Lactate ordered on 12/05 in the context of BP 84/66 to 95/62 ( LR 250 ml bolus ordered at the time), level was 2.6, rechecked after 3 hours and level was 2.2. UA negative on 12/05. Consideration for additional fluid discussed with Dr. Vega, and LR one liter over 10 hours ordered, as fluid balance was -2000 on 12/07 and remains negative at this time. Vital signs are stable today, patient is tolerating PO hydration well and will encourage. (2) Alcohol use disorder: Status: Acute Assessment and plan: Continue as above (3) Hepatic encephalopathy: Status: Acute Assessment and plan: Ammonia level 24 on 12/06 from 39 and 34. Lessened confusion as per exam and subjective data, oral lactulose still in progress Ammonia level in AM Liver US is showing:Hepatic steatosis noted.? No discrete focal hepatic lesions. Albumin was 2.6; oral protein replacement added to regimen (4) Pancreatitis: Status: Chronic Assessment and plan: The patient has a history of chronic pancreatitis.He remains asymptomatic without abdominal pain, nausea, vomiting or diarrhea. Diet is well tolerated and we will continue, will encourage a variety of oral fluids. (5) Hypomagnesemia: Status: Resolved Assessment and plan: Magnesium 2.0 We will recheck in AM (6) Pain: Status: Acute Assessment and plan: Complaints of pain to bottom of the feet and toes when ambulating Aqua-K warm emigdio therapy started on 12/09, PRN Acetaminophen will be converted to scheduled doses, to be evaluated in AM Residual pain to toes while in bed seems to be relieved by ROM. patient will not initiated on his own, counseling and education provided Diclofenac gel also ordered today Uric acid level ordered (7) Skin rash: Status: Acute Assessment and plan: Skin rash to mid face around the nose, describe as pruritic, no new medicine ordered. We will order hydrocortisone cream Uric acid level ordered (8) Acute hypokalemia: Status: Acute Assessment and plan: K was within normal limits will keep monitoring BMP in AM (9) Chronic obstructive lung disease: Status: Chronic Assessment and plan: No exacerbation signs and symptoms noticed, the patient remains stable We will continue current regimen: home Trelegy and Spiriva with prn albuterol nebs. (10) Status post lobectomy of lung: Status: Chronic Assessment and plan: As above (11) S/P ablation of atrial fibrillation: Assessment and plan: Remains in NSR HR 88 this AM on telemetry We will continue apixaban and metoprolol. BP is table this morning; metoprolol tartrate withheld at midnight and 6AM for BP respectively ( 100/72 and 98/76 w HR 96) As we want to prevent arrhythmias parameters were set for for SBP>90 and HR > 60 on 12/09. Toprol parameters will be set for SBP =>95 and HR> 55 Reduction in metoprolol tartrate was well tolerated and we will convert to toprol XL 150 mg oral daily starting today. The patient also had an episode of a short burst of SVT and increased PVC's rate when Toprol held for SBP 88 on 12/06-12/07 night.No further arrhythmias reported as of 12/10 We will continue telemetry and discontinue in AM if stable. (12) Personal history of nicotine dependence: Status: Acute Assessment and plan: Nicotine replacement in progress (13) GERD without esophagitis: Assessment and plan: Continue Omeprazole (14) DVT prophylaxis: Status: Acute Assessment and plan: We will continue therapeutic Apixaban (15) Mixed hyperlipidemia: Assessment and plan: We will continue Atorvastatin (16) Discharge planning issues: Status: Acute Assessment and plan: Full code CM is aware that the patient is not ready for discharge, and will proceed in starting manager recovery process and other mental health tools needed as the patient could not verbalize that his had . The patient' sister mentioned taking the patient at discharge time to allow for better recovery. She resides in [place], [place]. Questions regarding [facility] at discharge forwarded to CM, as patient would benefit from counseling due too recent of spouse and ETOH withdrawal. Patient could go home as soon as 12/11 with community care as per arrangements. Plan discussed with Dr. Martines. Subjective Subjective Patient reports: no new complaints (except for face around nose being itchy), feels better (but c/o bilateral toes, heat therapy in place, pain relieved by ROM with toes.), still having pain (toes both feet), pain is less (mild pain to toes lessened by passive ROM), tolerating liquids well, tolerating a regular diet, voiding w/o difficulty, bowel movement, afebrile and other (Reports that he might have been to [place] beside Alessia and Chrissy but uncertain. Reports no life partner.); denies diarrhea, nausea, vomiting, shortness of breath or fever Exam Const General: cooperative, no acute distress and other (pain to toes on both feet, eased with ROM) Nutritional Appearance: average body habitus Orientation: alert, oriented to person, oriented to place and confused (Wavering time orientation, not new, no year or day, remembers it is December) [facility] Head: normal to inspection Face and sinus: erythema bilaterally (around the nose, skin is flushed, pruritic , flaky) forehead Eyes General: appearance normal, both eyes and all related structures Neck Neck: normal visual inspection and no lymphadenopathy Resp Effort & Inspection: normal respiratory effort, able to speak in complete sentences and not labored Auscultation: clear to auscultation bilaterally Cardio Jugular venous pressure: no JVD Rhythm: regular rhythm and other (SR this AM on telemetry) Heart Sounds: S1 normal and S2 normal Pulses: radial pulses present and dorsalis pedis present GI Inspection: normal to inspection and no edema Palpation: soft and nontender Auscultation: normal bowel sounds General: No CVA tenderness Skin Lesions: no lesions Rashes: rashes noted (mid face , karla nasal area) Neuro General: patient alert, oriented Patient Orientation: Person, Place and Time (December, off in days by> 2, no year), no meningeal signs and no focal motor deficits Extrem General: normal to inspection Right lower extremity: foot (dry skin) Details: tenderness (sole when ambulating) Left lower extremity: foot (dry skin) Details: tenderness (sole with ambulation) Psych Appearance: grossly normal Mental Status: mental status grossly normal (But anxious when not remembering details) Speech and Movement: speech and movement normal Mood: congruent mood (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) Affect: sad (But increased interactions during discussion ) Attitude: cooperative Thought Process: circumstantial Thought Content: no compulsions, no hallucinations, suicidality and other (lapse in memory persist to a lesser extent) Insight: fair Judgment: fair Objective Last Vital Signs Temp 37 C 12/10/22 07:30 Pulse 96 H 12/10/22 07:30 Resp 18 12/10/22 07:30 BP 115/74 12/10/22 07:30 Pulse Ox 100 12/10/22 07:30 Laboratory Results - last 24 hr 12/10/22 12/10/22 07:46 07:46 WBC 7.37 RBC 3.85 L Hgb 12.5 L D Hct 37.6 L MCV 98 H MCH 32.5 MCHC 33.2 RDW 16.2 H Plt Count 277 MPV 10.9 Sodium 136 Potassium 3.9 Chloride 101 Carbon Dioxide 24.7 Anion Gap 10.3 BUN 8 Creatinine 0.7 Est GFR (CKD-EPI 2020) 106.80 Glucose 93 Calcium 9.6 Magnesium 2.0 PAWSS Have you Been Recently Intoxicated or Drunk Within the Last 30 days?: Unable to Obtain Have you Ever Experienced Previous Episodes of Alcohol Withdrawal?: Unable to Obtain Have you ever Experienced Withdrawal Seizures?: Unable to Obtain Have you ever Experienced Delirium Tremens(DT)s?: Unable to Obtain Have you ever undergone Alcohol Rehabilitation Treatment (i.e, inpt ot outpatient treatment programs)?: Unable to Obtain Have you ever Experienced Blackouts?: Unable to Obtain Have you ever Combined Alcohol with other Downers within the last 90 days?: Unable to Obtain Have you ever Combined Alcohol with any other Substance of Abuse during the last 90 days?: Unable to Obtain Positive Blood Alcohol level on Presentation? [PCS.BAL]: Unable to Obtain Evidence of Increased Autonomic Activity (i.e. HR>120, tremor, sweating, agitation, nausea)?: Unable to Obtain Time Spent with Patient Time Spent with Patient: 25-34 minutes Time was spent: preparing to see the patient(eg.review tests), ordering medications,tests, procedures, referring, communicating with other health healthcare economics manager, indepentently interpreting results, counseling the patient and care coordination
[2022-12-10 11:27] LABS: Lab Add On Test COMPLETED
[2022-12-10 11:36] LABS: Uric Acid 5.7 mg/dL (3.5-7.2)
[2022-12-10] MEDS: Diclofenac 1% Gel 100 GM TUBE TP ×2 (11:59→16:10)
[2022-12-10 12:00] VITALS: BP 100/73; PULSE 94; RESP 18; TEMP 37; O2SAT 95
[2022-12-10] MEDS: Metoprolol CR 50 MG TABCR 150 MG PO (12:06)
--- NOTE | 2022-12-10 14:06 | PT.INTREAT ---
Date of service: 12/10/22 Time of Service: 11:10 PT Notes Visit Reasons: acute confusional state, alcohol use disorder, leslie Inpatient Physical Therapy Treatment Note [facility] Date: 12/10/2022 PRECAUTIONS: Fall, standard, activity as tolerated SUBJECTIVE: Upon entering room today patient was complaining his toes hurting while in bed. Indicated it was extreme pain. Did speak to patient's sister and brother in-law regarding Christopher's activity with PT and difficulty with ambulation today due to increased pain. Informed them that Christopher had walked to/from PT dept and up/ down 5 steps yesterday. They would like services for hygiene purposes upon discharge. They did express interest in getting Christopher to out patient PT when ready to work on increasing strength and mobility. Indicated they would make sure he gets to PT office. OBJECTIVE: ? PAIN: Extreme pain in toes and plantar surface of feet, reporting 8 out of 10 pain. Upon examination was not noted to have increased redness or and open sores. ?? Therapeutic Activities ([id number] - 10 minutes): Direct one-on-one instruction in dynamic activities to improve functional performance. ? BED MOBILITY/TRANSFERS? Rolling L/R: Able to roll to right with SBA Supine-sit: SBA? Sit-stand: SBA? Stand-sit: SBA? Provided skilled cues and instruction on performance and technique throughout. ? GAIT? Assistive Device: FWW ? Weight bearing: Full Assist: CGA due to complaints of feet being too sore to walk on today ? Distance:? Only ambulated in room for 15ft due to foot pain complaints ? Deviation: Forward flexed with significant weight on bilateral arms.? STAIRS:Held on stairs today due to increased foot pain.? Therapeutic Exercises ([id number]): Direct one-on-one instruction in therapeutic exercises to develop strength, endurance, range of motion and flexibility. ? Exercises: Ankle pumps x 10 reps Seated marching x 10 reps LAQs x 10 reps Attempted gentle active calf stretching x 3 reps while in sitting, pulling toes up toward face, due to complaints of calfs feeling really tight. ? Provided skilled instruction in proper exercise performance Provided skilled manual cues to facilitate proper muscle recruitment and/or form ASSESSMENT:? Tolerated ambulated poorly due to complaints of increased pain in bilateral feet. PLAN: Continue to work on functional mobility for return to home, focus on ambulation on flat surfaces / stairs and strengthening. TREATMENT CODE/TIME: [id number] x 1, 11:10 to 11:30 (20')
[2022-12-10] MEDS: Folic Acid 1 MG TAB 4 MG PO (14:25)
[2022-12-10 18:20] VITALS: BP 125/71; PULSE 70; RESP 18; TEMP 36.8; O2SAT 100
[2022-12-10 22:58] VITALS: BP 113/76; PULSE 68; RESP 18; TEMP 36.7; O2SAT 96
[2022-12-10] MEDS: Gabapentin 300 MG CAP PO (22:58)
[2022-12-11] MEDS: Acetaminophen 325 MG TAB PO ×3 (03:45→15:39)
[2022-12-11 05:57] VITALS: BP 99/64; PULSE 66; RESP 17; TEMP 36.4; O2SAT 93
[2022-12-11 07:24] LABS: Abs Immature Grans 0.03 10^3/uL (0.0-0.06); Absolute Basophil Count 0.04 10^3/uL (0.0-0.2); Absolute Eosinophil Count 0.13 10^3/uL (0.0-0.7); Absolute Lymphocyte Count 1.86 10^3/uL (1.2-3.4); Absolute Monocyte Count 0.58 10^3/uL (0.1-0.8); Absolute Neutrophil Count 3.14 10^3/uL (1.2-6.7); Basophils % 0.7; Eosinophils % 2.2; HCT 31.8 % (40.0-50.0); HGB 10.6 g/dL (13.5-17.5); Immature Grans % 0.5; Lymphocytes % 32.2; MCH 32.2 pg (27.0-33.0); MCHC 33.3 % (32.0-36.0); MCV 97 fL (80-95); MPV 10.9 fL (8.0-11.0); Neutrophils % 54.4; Platelet Count 253 10^3/uL (130-400); RBC 3.29 10^6/uL (4.36-5.78); RDW 16.2 % (11.8-14.1); WBC 5.78 10^3/uL (4.4-10.8)
[2022-12-11 07:29] VITALS: BP 97/64; PULSE 68; RESP 16; TEMP 36.5; O2SAT 93
[2022-12-11 07:32] LABS: Ammonia 17 umol/L (11-32)
[2022-12-11 07:38] LABS: BUN 9 mg/dL (7-18); CREATININE 0.5 mg/dL (0.70-1.30); Calcium 9.2 mg/dL (8.5-10.1); Chloride 102 mmol/L (98-107); Estimated GFR 118.23 (mL/min/1.73m2); Glucose 92 mg/dL (74-106); Potassium 3.7 mmol/L (3.5-5.1); Sodium 134 mmol/L (136-145)
[2022-12-11] MEDS: Omeprazole 20 MG CAPCR 40 MG PO (08:07)
[2022-12-11] MEDS: Magnesium Chloride 64 MG TABCR PO ×2 (08:08→20:52)
[2022-12-11] MEDS: Multivitamin TAB 1 TAB PO (08:08)
[2022-12-11] MEDS: Atorvastatin 20 MG TAB PO (08:08)
[2022-12-11] MEDS: Apixaban 5 MG TAB PO ×2 (08:10→20:51)
[2022-12-11] MEDS: Folic Acid 1 MG TAB 5 MG PO (08:10)
[2022-12-11] MEDS: Cyanocobalamin 500 MCG TAB 1000 MCG PO (08:10)
[2022-12-11] MEDS: Lactulose 20 GM/30 ML CUP PO ×2 (08:13→20:51)
[2022-12-11] MEDS: Nicotine 14 MG/24 HR PATCH TD (08:13)
[2022-12-11 08:52] LABS: Magnesium 1.8 mg/dL (1.8-2.4)
[2022-12-11] MEDS: Budesonide/Formoterol 160/4.5 6 GM 60 PUFF INH IH ×2 (08:55→19:22)
[2022-12-11] MEDS: Tiotropium Bromide-Respimat 10 PUFF INH 2 PUFF IH (08:58)
--- NOTE | 2022-12-11 09:08 | OTIE_ITS ---
Occupational Therapy Notes Inpatient Occupational Therapy Evaluation Date: 12/11/22 Referring Doctor:Deana Inman OT Orders: Non Urgent Precautions: Fall, Standard, Full PATIENT PROFILE/ADMITTING DIAGNOSIS: Pt is a 57 year old male who presented to the ED on 12/02/22 wt a clinical impression of ?Acute hypokalemia, Acute hyponatremia, Altered mental status, Alcohol use disorder. He was admitted to [facility] for further observation. Past Medical History: All Active Problems? Discharge planning issues (Acute) Altered mental status (Acute) Alcohol use disorder (Acute) Acute hyponatremia (Acute) Hypomagnesemia (Acute) Acute hypokalemia (Acute) Pancreatitis (Chronic) Personal history of nicotine dependence (Acute) Right upper lobe pulmonary nodule (Acute) Status post lobectomy of lung (Acute) Large cell neuroendocrine carcinoma (Acute) Chronic obstructive lung disease (Chronic) Sensorineural hearing loss (SNHL) of both ears (Acute) Medical History? Alcohol abuse Atrial fibrillation with RVR Atrial flutter Atypical chest pain Carcinoid tumor of lung Cellulitis Chest wall pain Contusion Cough Decreased hearing Depressive disorder Diverticulitis of sigmoid colon Elevated LFTs Emphysematous bleb of lung Foot pain GERD (gastroesophageal reflux disease) GERD without esophagitis Gout Hepatitis C antibody test positive Hypercholesterolemia Hypertensive disease Hyperuricemia Hyponatremia Impotence of organic origin Mixed hyperlipidemia Multiple joint pain Nicotine dependence Nicotine dependence, cigarettes, uncomplicated Obstructive sleep apnea Paroxysmal atrial fibrillation Pneumonia Reduced visual acuity RUQ pain Sighing respiration Supraventricular tachycardia Ventral incisional hernia Surgical History? Hx of colonoscopy Hx of esophagogastroduodenoscopy S/P ablation of atrial fibrillation S/P cholecystectomy S/P hernia repair S/P partial lobectomy of lung Social History/Home Situation: Pt states that he lives alone in a private home in [facility]. He notes that he has 4 steps to enter his home and ~10 steps inside. He was (I) with his ADL/IADL routines. He has difficulty at times with donning and doffing his socks. He notes that he can perform his eating demands and bathing routines with increased (I). He does have a tub shower which he states he has difficulty with transferring in and out of. Functionally he states that his balance comes and goes. Equipment owned/DME: Cane, grab bar SUBJECTIVE: Pt was sitting in chair when OT arrived. He is agreeable to consult and reports that he does not live locally but that he lives in [facility]. He is planning to return to there when he is medically cleared per MD. OBJECTIVE: General Observation: Pleasant, IV in (L) UE Mental Status: A&Ox3 Pain: c/o pain in (B) LE ROM: RUE AROM WFL L UE AROM WFL STRENGTH: RUE 4+/5 throughout LUE 5/5 throughout FUNCTIONAL MOBILITY/ADLS: EATING seated in chair (I) with hand to mouth, forward sitting position with rounded shoulders, no issues with chewing or swallowing. BALANCE: Static sitting Normal Dynamic Sitting Normal SPECIAL TESTS: Daily Activity Limitations Standardized Measure [facility] AM -PAC ?6 clicks? Daily Activity Inpatient Short Form: Raw score: 22 Standardized score: 47.10 CMS score: 25.80% INFORMED CONSENT/EDUCATION: Pt instructed in purpose of OT Consult and plan of care. ASSESSMENT: Patient is a 57-year-old male referred to occupational therapy services with diagnosis of skin rash, pain, hepatic encephalopathy, alcohol widthdrawal delirium, altered mental status, acute hyponatremia, hypomagnesemia, acute hypokalemia, pancreatitis. Patient presents with clinical signs and symptoms consistent with dx, as demonstrated by the following impairment level findings/functional limitations: Impairments in ADL/IADL And leisure activities, decreased functional activity tolerance, decreased standing mobility, decreased functional mobility required for ADL performance. AMPA score 22 Patient is assessed as a Low 83862 complexity based on the following: History: see above Examination: see functional limitations as noted above Presentation: evolving Decision Making: AMPA score 22 GOALS Goals x1 week 1. Transfers with cane (I) to bathroom to stand at sink 2. Dressing seated in chair (I) UE and mod (I) LE 3. Bathing standing at sink (I) face, and (B) UE, seated (I) LE 4. Toileting on toilet (I) 5. Eating seated in chair (I) PLAN OF CARE/TREATMENT PLAN: 1x/day, 3-5 days/ week x 1week Initiate Occupational Therapy Services for bathing, dressing, grooming, toileting, eating, transfer training. DISCHARGE RECOMMENDATIONS PT/OT TREATMENT TIME/MINUTES/CODES 79480, 12997, 20 minutes Jojo Munguia OTR/[facility] [place], [place]
--- NOTE | 2022-12-11 09:32 | PGE_ITS ---
Date of Service Date of service: 12/11/22 Time of Service: 09:15 Assessment and Plan Assessment and plan (1) Alcohol withdrawal delirium: Status: Acute Assessment and plan: The patient scoring on the CIWA scale scores remain 3-5, less confusion. Phenobarbital soft limit vs hard limit' remains the same as of 12/05 AM, no other dose received. We will continue phenobarbital as ordered while carefully monitoring the hard limit; the level was 18.7 on 12/05 We will continue monitoring on CIWA w/ prn phenobarbital, The patient had received high dose thiamine Wernicke treatment had been initiated with IV thiamine. IV thiamine 250 mg TID added, will end on 12/12 then the patient will receive thiamine oral 100mg TID for another 7 days and then daily. Consideration given to the development of Korsakoff encephalopathy with continuous alcohol drinking while experiencing Wernicke encephalopathy; Considering nurology consult and or diagnositic MRI if needed as per consult Folate level was 2.3 initially; will continue folic acid supplementation but a dose increased to 5 mg oral daily MVI was repleted, vitamin B12 therapy on 12/06 for level of 434 with history of chronic pancreatitis and ETOH abuse, on oral supplementation daily Lactate ordered on 12/05 in the context of BP 84/66 to 95/62 ( LR 250 ml bolus ordered at the time), level was 2.6, rechecked after 3 hours and level was 2.2. UA negative on 12/05. Consideration for additional fluid discussed with Dr. Vega, and LR one liter over 10 hours ordered, as fluid balance was -2000 on 12/07 and remains negative at this time. The patient is tolerating PO hydration well and will encourage. (2) Alcohol use disorder: Status: Acute Assessment and plan: Continue as above (3) Hepatic encephalopathy: Status: Acute Assessment and plan: Ammonia level 24 on 12/06 from 39 and 34. Lessened confusion as per exam and subjective data, oral lactulose still in progress Ammonia level in AM Liver US is showing:Hepatic steatosis noted.? No discrete focal hepatic lesions. Albumin was 2.6; We will continue oral protein replacement (4) Pancreatitis: Status: Chronic Assessment and plan: The patient has a history of chronic pancreatitis.He still remains asymptomatic without abdominal pain, nausea, vomiting or diarrhea. Diet is well tolerated and we will continue, will encourage a variety of oral fluids. (5) Hypomagnesemia: Status: Resolved Assessment and plan: Magnesium 1.8 We will recheck in AM (6) Pain: Status: Acute Assessment and plan: Complaints of pain to bottom of the feet and mostly toes most likely rising from neuropathy We will continue the Aqua-K warm emigdio therapy started on 12/09, Will continue scheduled Acetaminophen Residual pain to toes while in bed seems to be relieved by ROM. patient will not initiated on his own, counseling and education provided today again We will continue Diclofenac gel application Uric acid level ordered and was normal Neurontin X 1 dose added to regimen by night hospitalist. Discussion regarding the need for LFT's when considering the addtion of Lyrica (FDA approved for neuropathy)to the regimen if pain management was not achieved started with Dr. Martines on 12/10. We will also consider the addition of duloxetine 20-30 mg daily versus pregabalin versus gabapentin. Gabapentin would be most likely to be used in the context of ETOH neuropathy and combination with duloxetine is not excluded in cases of DM neuropathy. We will order Gabapentin 100mg PO TID to start after consulting with pharmacist [place]. LFT's added to AM labs resulted in normal values (7) Skin rash: Status: Acute Assessment and plan: Skin rash to mid face around the nose, describe as pruritic, no new medicine ordered. We will continue hydrocortisone cream, improving rash; Thiamine IV in progress Uric acid level is normal (8) Acute hypokalemia: Status: Acute Assessment and plan: K was within normal limits will keep monitoring BMP in AM (9) Chronic obstructive lung disease: Status: Chronic Assessment and plan: No exacerbation signs and symptoms noticed, the patient remains stable We will continue current regimen: home Trelegy and Spiriva with prn albuterol nebs. (10) Status post lobectomy of lung: Status: Chronic Assessment and plan: As above (11) S/P ablation of atrial fibrillation: Assessment and plan: Remains in NSR HR 88 this AM on telemetry We will continue apixaban and metoprolol. BP is table this morning; metoprolol tartrate withheld at midnight and 6AM for BP respectively ( 100/72 and 98/76 w HR 96) As we want to prevent arrhythmias parameters were set for for SBP>90 and HR > 60 on 12/09. Toprol parameters will be set for SBP =>95 and HR> 55 Reduction in metoprolol tartrate was well tolerated and we will convert to toprol XL 150 mg oral daily, will continue, BP 102/69 HR 99 at 0915 today, Rx was held for SBP 97, will be administered The patient also had an episode of a short burst of SVT and increased PVC's rate when Toprol held for SBP 88 on 12/06-12/07 night.No further arrhythmias reported as of 12/10 Telemetry discontinued. (12) Personal history of nicotine dependence: Status: Acute Assessment and plan: Nicotine replacement in progress (13) GERD without esophagitis: Assessment and plan: Continue Omeprazole (14) DVT prophylaxis: Status: Acute Assessment and plan: We will continue therapeutic Apixaban (15) Mixed hyperlipidemia: Assessment and plan: We will continue Atorvastatin (16) Discharge planning issues: Status: Acute Assessment and plan: Full code CM is aware that the patient is not ready for discharge, and will proceed in starting academic coach process and other mental health tools needed as the patient could not verbalize that his had . The patient' sister mentioned taking the patient at discharge time to allow for better recovery. She resides in [place], [place]. Questions regarding [facility] at discharge forwarded to CM, as patient would benefit from counseling due too recent of spouse and ETOH withdrawal.Family requesting in house psychiatrist, informed that this was not a possibility. Delay in discharge due to sustained confusion.The patient is not progressing as well as anticipated will consult neurology. When medically clear the patient will be discharged (sister or home) with community care as per CM arrangements. Plan discussed with Dr. Martines. Subjective Subjective Patient reports: no new complaints, feels better, still having pain (toes both feet 4/10 while sitting in chair ), pain is less (mild pain to toes lessened by passive ROM), tolerating liquids well, tolerating a regular diet, voiding w/o difficulty, bowel movement (12/10), afebrile and other; denies diarrhea, nausea, vomiting, shortness of breath or fever Exam Const General: cooperative, no acute distress and other (knows is age and day with the year, but unable to state current year) Nutritional Appearance: average body habitus Orientation: alert, oriented to person, oriented to place (Knows it is the hospital in [facility], no name) and confused Limitations: other limitations (Still exhibit difficulty remembering details, PROJECT MANAGEMENT DIRECTOR leaving situation) HENMT Head: normal to inspection Face and sinus: erythema (to face: decreased) Eyes General: appearance normal, both eyes and all related structures Neck Neck: normal visual inspection and no lymphadenopathy Resp Effort & Inspection: normal respiratory effort, able to speak in complete sentences and not labored Auscultation: clear to auscultation bilaterally Cardio Jugular venous pressure: no JVD Rhythm: regular rhythm Heart Sounds: S1 normal and S2 normal Pulses: radial pulses present and dorsalis pedis present GI Inspection: normal to inspection and distended Palpation: soft and nontender Auscultation: normal bowel sounds and hyperactive bowel sounds General: No CVA tenderness Skin Lesions: no lesions Rashes: rashes noted (resolving; w/o pruritus) Neuro General: patient alert, oriented Patient Orientation: Person, Place and Time (December, off by 1 day, no year), no meningeal signs and no focal motor deficits Cranial Nerves: sense of smell intact, PERRL, accommodation normal, EOM intact bilaterally, no nystagmus, facial strength normal, tongue midline, gag reflex normal, able to rotate head bilaterally and able to elevate shoulders bilaterally Speech: speech normal Gait: not ataxic Extrem General: normal to inspection Right lower extremity: foot (ROM intact) Details: tenderness (cap refill<3 sec) Left lower extremity: foot (ROM intact ) Details: tenderness (cap refill < 3sec) Psych Appearance: grossly normal Mental Status: mental status grossly normal (But anxious when not remembering details) Speech and Movement: speech and movement normal Mood: congruent mood (becomes anxious when taking about his life PROJECT MANAGEMENT DIRECTOR) Affect: sad (But increased interactions during discussion ) Attitude: cooperative Thought Process: circumstantial Thought Content: no compulsions, no hallucinations, suicidality and other (lapse in memory persist to a lesser extent) Insight: fair Judgment: fair Objective Last Vital Signs Temp 36.5 C 12/11/22 07:29 Pulse 68 12/11/22 07:29 Resp 16 12/11/22 07:29 BP 97/64 L 12/11/22 07:29 Pulse Ox 93 12/11/22 07:29 Laboratory Results - last 24 hr 12/10/22 12/10/22 12/11/22 07:46 07:46 07:05 WBC RBC Hgb Hct MCV MCH MCHC RDW Plt Count MPV Immature Gran % Neutrophils % Lymphocytes % Monocytes % Eosinophils % Basophils % Nucleated RBC % Absolute Neutrophils Absolute Lymphocytes Absolute Monocytes Absolute Eosinophils Absolute Basophils Sodium 134 L Potassium 3.7 Chloride 102 Carbon Dioxide 24.0 Anion Gap 8.0 BUN 9 Creatinine 0.5 L Est GFR (CKD-EPI 2020) 118.23 Glucose 92 Uric Acid 5.7 Calcium 9.2 Magnesium Ammonia Add-On Test Request COMPLETED 12/11/22 12/11/22 12/11/22 07:05 07:05 07:05 WBC 5.78 RBC 3.29 L Hgb 10.6 L Hct 31.8 L MCV 97 H MCH 32.2 MCHC 33.3 RDW 16.2 H Plt Count 253 MPV 10.9 Immature Gran % 0.5 Neutrophils % 54.4 Lymphocytes % 32.2 Monocytes % 10.0 Eosinophils % 2.2 Basophils % 0.7 Nucleated RBC % 0.0 Absolute Neutrophils 3.14 Absolute Lymphocytes 1.86 Absolute Monocytes 0.58 Absolute Eosinophils 0.13 Absolute Basophils 0.04 Sodium Potassium Chloride Carbon Dioxide Anion Gap BUN Creatinine Est GFR (CKD-EPI 2020) Glucose Uric Acid Calcium Magnesium 1.8 Ammonia 17 Add-On Test Request PAWSS Have you Been Recently Intoxicated or Drunk Within the Last 30 days?: Unable to Obtain Have you Ever Experienced Previous Episodes of Alcohol Withdrawal?: Unable to Obtain Have you ever Experienced Withdrawal Seizures?: Unable to Obtain Have you ever Experienced Delirium Tremens(DT)s?: Unable to Obtain Have you ever undergone Alcohol Rehabilitation Treatment (i.e, inpt ot outpati ent treatment programs)?: Unable to Obtain Have you ever Experienced Blackouts?: Unable to Obtain Have you ever Combined Alcohol with other Downers within the last 90 days?: Unable to Obtain Have you ever Combined Alcohol with any other Substance of Abuse during the last 90 days?: Unable to Obtain Positive Blood Alcohol level on Presentation? [PCS.BAL]: Unable to Obtain Evidence of Increased Autonomic Activity (i.e. HR>120, tremor, sweating, agitation, nausea)?: Unable to Obtain Time Spent with Patient Time Spent with Patient: >50 minutes Time was spent: preparing to see the patient(eg.review tests), ordering medications,tests, procedures, referring, communicating with other health primary care physician, indepentently interpreting results, counseling the patient and care coordination
[2022-12-11 09:58] LABS: Lab Add On Test DONE
[2022-12-11 10:20] LABS: ALT 18 U/L (16-63); AST 24 U/L (15-37); Albumin 2.6 g/dL (3.4-5.0); Alkaline Phosphatase 100 U/L (46-116); Bilirubin, Direct 0.1 mg/dL (0.0-0.2); Bilirubin, Total 0.3 mg/dL (0.2-1.0); Total Protein 6.7 g/dL (6.4-8.2)
--- NOTE | 2022-12-11 10:53 | CMPROGNOTE_ITS ---
Date of service: 12/11/22 Time of Service: 10:53 Care Management Progress Note Progress Note Text Progress Note Text: S/O:? Christopher is sitting in a chair,? talking with his sister via phone. Christopher will either discharge home with New PT services or to his sister's home in [place], [place]. Her Ulises is his best friend, and she feels Christopher could use extra support due to the passing of his a few months ago and because his home is in disarray. Christopher is agreeable to staying at his sister's home but has not formally made a decision. Neurology consult is being concidered. CM will follow. A:? Christopher is a 57 year old male admitted to [facility] on? 12/02/22 for Altered mental status, Alcohol use disorder, Hyponatremia. P:? Christopher will either discharge home with New PT services or to his sister's home in [place], [place]. His sister is willing to transport him to outpatient PT if he decides to stay with her in [place]. ?[facility] referral on discharge is recommended. Christopher will follow up with his PCP and plan of care as instructed.? He will be transported via private vehicle when ready.? CM will continue to follow.
[2022-12-11] MEDS: Diclofenac 1% Gel 100 GM TUBE TP ×4 (11:11→20:51)
[2022-12-11] MEDS: Hydrocortisone 1% CR 30 GM TUBE TP ×2 (11:13→20:51)
--- NOTE | 2022-12-11 11:21 | PT.INTREAT ---
Date of service: 12/11/22 Time of Service: 10:55 PT Notes Visit Reasons: acute confusional state, alcohol use disorder, leslie Inpatient Physical Therapy Treatment Note [facility] Date: 12/11/22 PRECAUTIONS: Fall, standard, activity as tolerated. SUBJECTIVE: Patient c/o pain in bilateral feet. TECHNICAL SUPPORT INTERN Deana present, states that patient has neuropathy. AFTERNOON: Patient states his feet are killing him. HERNANDO Corado present, states patient already received voltaren gel and it should work immediately. OBJECTIVE: Patient supine in bed, agreeable to therapy. Reports that his bed is wet, possibly due to IV leaking. HERNANDO Corado confirms IV is leaking, detaches IV for remainder of therapy. HERNANDO Corado applies voltaren gel to bilateral feet. AFTERNOON: patient sitting up in recliner, agreeable to therapy but asks to not go walking. ? PAIN: Yes, bilateral feet. VITALS: monitored by nursing staff. ? ? BED MOBILITY/TRANSFERS? Rolling L/R: SBA Supine-sit: modified independent with slightly elevated HOB (<30 degrees) and side rails.? Sit-supine: not assessed ? Sit-stand: SBA ? Stand-sit: SBA? Bed-Chair: CGA? Chair-bed: CGA ?Therapeutic Exercises ([id number]): Direct one-on-one instruction in therapeutic exercises to develop strength, endurance, range of motion and flexibility. ? Exercises: 2x10 seated marching 2x10 LAQ's 2x10 toe raises 2x10 hip ab/adduction 1x10 over/unders Provided skilled instruction in proper exercise performance. Provided skilled manual cues to facilitate proper muscle recruitment and/or form. Gait Training ([id number]): Direct one-on-one instruction and skilled instruction in: [x] employing an assistive device [] modified weight-bearing status [x] movement sequencing [x] turning and movement with proper form [x] Provided verbal cues for equipment management and technique [x] Provided instruction in gait pattern [] Patient education regarding pacing and breathing techniques to maximize activity tolerance? GAIT? Assistive Device: Starts out with forearm crutch in left hand, however is attempting to cruise furniture and wall, so recommended switching to FWW. Patient was agreeable. ?Weight bearing: full Assist: CGA ? Distance:? 225 feet ? Deviation: Patient is leaning heavily on walker. Gait symmetrical with good foot clearance. Balance unremarkable once switched to FWW. Balance with forearm crutch was questionable due to needing support with contralateral hand, which patient did not need on Sunday or Sunday. ? ASSESSMENT:? Patient appears to be in more pain today than this therapist saw on Sunday. Tolerates therapy well despite increased pain. Patient opted to sit up in bedside chair at end of therapy, HERNANDO Corado promises to bring in a recliner for increased patient comfort. AFTERNOON: Patient tolerates therapy well, although still c/o bilateral pain in feet PLAN: Continue global strengthening per plan of care until patient is medically cleared for discharge. TREATMENT CODE/TIME: 21 minutes beginning at 10:55 and 19 minutes beginning at 15:49 for a total of 40 minutes.
[2022-12-11 11:23] VITALS: BP 103/72; PULSE 80; RESP 18; TEMP 36.6; O2SAT 97
[2022-12-11] MEDS: Metoprolol CR 50 MG TABCR 150 MG PO (12:28)
[2022-12-11] MEDS: Normal Saline Flush 10 ML SYR IVP (12:47)
[2022-12-11 15:14] VITALS: BP 98/72; PULSE 78; RESP 18; TEMP 36.9; O2SAT 98
[2022-12-11] MEDS: Gabapentin 100 MG CAP PO ×2 (15:39→20:51)
[2022-12-11] MEDS: Protein Nutritional Supplement 16 GM 1 OUNCE PACKET PO (15:50)
[2022-12-11 19:43] VITALS: BP 98/63; PULSE 67; RESP 16; TEMP 36.1; O2SAT 98
[2022-12-11 23:35] VITALS: BP 104/70; PULSE 68; RESP 18; TEMP 36.8; O2SAT 94
--- NOTE | 2022-12-12 | DI.MRI_ITS ---
Exam(s) MR BRAIN WO EXAM: MR BRAIN WO CLINICAL HISTORY: altered mental status TECHNIQUE: Multiplanar multisequence MRI of the brain was performed. COMPARISON: CT CT HEAD WO from 12/02/2022 FINDINGS: The examination is limited due to patient motion artifact. VENTRICLES AND EXTRA AXIAL SPACES: Normal in size and morphology for the patient's age. MIDLINE SHIFT: None. CEREBRAL PARENCHYMA: No focus of restricted diffusion to suggest acute infarct. No space-occupying le luis identified. There are few scattered hyperintense foci in the white matter on the FLAIR and T2 we ighted images likely reflecting early small vessel ischemic disease. HEMORRHAGE: None. BRAINSTEM/CEREBELLUM: Normal. CALVARIUM: Normal. VISUALIZED PARANASAL SINUSES/MASTOIDS:Clear. ANIAK OF ABDULLAHI: Normal flow void. PITUITARY GLAND: Unremarkable. OTHER FINDINGS: None. IMPRESSION: 1. No evidence of an acute infarct. 2. No acute intracranial process. DATA REPOSITORY:
[2022-12-12 02:57] VITALS: BP 105/70; PULSE 73; RESP 18; TEMP 37.3; O2SAT 97
[2022-12-12 07:07] LABS: Abs Immature Grans 0.02 10^3/uL (0.0-0.06); Absolute Basophil Count 0.03 10^3/uL (0.0-0.2); Absolute Eosinophil Count 0.12 10^3/uL (0.0-0.7); Absolute Lymphocyte Count 1.87 10^3/uL (1.2-3.4); Absolute Monocyte Count 0.65 10^3/uL (0.1-0.8); Basophils % 0.4; Eosinophils % 1.6; HCT 32.1 % (40.0-50.0); HGB 10.9 g/dL (13.5-17.5); Immature Grans % 0.3; Lymphocytes % 24.6; MCH 33.2 pg (27.0-33.0); MCV 98 fL (80-95); MPV 11.6 fL (8.0-11.0); Monocytes % 8.6; Neutrophils % 64.5; Platelet Count 265 10^3/uL (130-400); RBC 3.28 10^6/uL (4.36-5.78); RDW 16.3 % (11.8-14.1); RDW-SD 58.4 fL; WBC 7.59 10^3/uL (4.4-10.8)
[2022-12-12 07:24] LABS: Anion Gap 10.1 mmol/L (3-11); BUN 10 mg/dL (7-18); CO2 23.9 mmol/L (21.0-32.0); CREATININE 0.5 mg/dL (0.70-1.30); Calcium 9.2 mg/dL (8.5-10.1); Chloride 103 mmol/L (98-107); Estimated GFR 118.23 (mL/min/1.73m2); Glucose 97 mg/dL (74-106); Magnesium 1.7 mg/dL (1.8-2.4); Potassium 3.6 mmol/L (3.5-5.1); Sodium 137 mmol/L (136-145)
[2022-12-12 07:31] VITALS: BP 104/78; PULSE 77; RESP 18; TEMP 37.5; O2SAT 94
[2022-12-12] MEDS: Magnesium Chloride 64 MG TABCR PO ×2 (07:47→21:04)
[2022-12-12] MEDS: Gabapentin 100 MG CAP PO ×3 (07:47→21:04)
[2022-12-12] MEDS: Multivitamin TAB 1 TAB PO (07:48)
[2022-12-12] MEDS: Atorvastatin 20 MG TAB PO (07:48)
[2022-12-12] MEDS: Omeprazole 20 MG CAPCR 40 MG PO (07:48)
[2022-12-12] MEDS: Cyanocobalamin 500 MCG TAB 1000 MCG PO (07:49)
[2022-12-12] MEDS: Apixaban 5 MG TAB PO ×2 (07:49→21:03)
[2022-12-12] MEDS: Folic Acid 1 MG TAB 5 MG PO (07:49)
[2022-12-12] MEDS: Thiamine 100 MG TAB PO ×3 (07:50→21:03)
[2022-12-12] MEDS: Lactulose 20 GM/30 ML CUP PO ×2 (07:50→21:03)
[2022-12-12] MEDS: Metoprolol CR 50 MG TABCR 150 MG PO (07:50)
[2022-12-12] MEDS: Protein Nutritional Supplement 16 GM 1 OUNCE PACKET PO ×3 (07:50→21:04)
[2022-12-12] MEDS: Hydrocortisone 1% CR 30 GM TUBE TP ×2 (07:51→21:04)
[2022-12-12] MEDS: Nicotine 14 MG/24 HR PATCH TD (07:51)
[2022-12-12] MEDS: Diclofenac 1% Gel 100 GM TUBE TP ×4 (07:52→21:04)
[2022-12-12] MEDS: Budesonide/Formoterol 160/4.5 6 GM 60 PUFF INH IH ×2 (08:02→19:09)
[2022-12-12] MEDS: Tiotropium Bromide-Respimat 10 PUFF INH 2 PUFF IH (08:02)
--- NOTE | 2022-12-12 09:38 | PDOC.CMPRO ---
Date of service: 12/12/22 Time of Service: 09:39 Care Management Progress Note Progress Note Text Progress Note Text: S/O:? Christopher A:? Christopher is a 57 year old male admitted to [facility] on? 12/02/22 for Altered mental status, Alcohol use disorder, Hyponatremia. P:? Christopher will either discharge home with New PT services or to his sister's home in [place], [place]. His sister is willing to transport him to outpatient PT if he decides to stay with her in [place]. ?[facility] referral on discharge is recommended. Christopher will follow up with his PCP and plan of care as instructed.? He will be transported via private vehicle when ready.? CM will continue to follow.
[2022-12-12] MEDS: Acetaminophen 325 MG TAB PO ×3 (10:12→21:03)
[2022-12-12 11:10] VITALS: BP 102/69; PULSE 73; RESP 18; TEMP 37; O2SAT 98
[2022-12-12] MEDS: diazePAM 5 MG TAB PO (13:00)
--- NOTE | 2022-12-12 13:45 | W.PM.PROGNOT ---
Date of Service Date of service: 12/12/22 Time of Service: 13:45 Assessment and Plan Assessment and plan (1) Alcohol withdrawal delirium: Status: Acute Assessment and plan: no further withdrawal but remains delirious and not at baseline. neurology consult pending on TID thiamine dosing MRI brain pending. (2) Alcohol use disorder: Status: Acute Assessment and plan: Continue as above (3) Hepatic encephalopathy: Status: Acute Assessment and plan: continue oral lactulose, ammonia stable. Liver US is showing:Hepatic steatosis noted.? No discrete focal hepatic lesions. Albumin was 2.6; We will continue oral protein replacement (4) Pain: Status: Acute Assessment and plan: Complaints of pain to bottom of the feet and mostly toes most likely rising from neuropathy We will continue the Aqua-K warm emigdio therapy started on 12/09, Will continue scheduled Acetaminophen Residual pain to toes while in bed seems to be relieved by ROM. patient will not initiated on his own, counseling and education provided today again We will continue Diclofenac gel application Uric acid level ordered and was normal Neurontin X 1 dose added to regimen by night hospitalist. Discussion regarding the need for LFT's when considering the addtion of Lyrica (FDA approved for neuropathy)to the regimen if pain management was not achieved started with Dr. Martines on 12/10. We will also consider the addition of duloxetine 20-30 mg daily versus pregabalin versus gabapentin. Gabapentin would be most likely to be used in the context of ETOH neuropathy and combination with duloxetine is not excluded in cases of DM neuropathy. We will order Gabapentin 100mg PO TID to start after consulting with pharmacist Crystal Plata. LFT's added to AM labs resulted in normal values (5) Skin rash: Status: Acute Assessment and plan: Skin rash to mid face around the nose, describe as pruritic, no new medicine ordered. We will continue hydrocortisone cream, improving rash; Thiamine IV in progress Uric acid level is normal (6) Acute hypokalemia: Status: Resolved Assessment and plan: K normalized BMP in AM (7) Chronic obstructive lung disease: Status: Chronic Assessment and plan: No exacerbation signs and symptoms noticed, the patient remains stable We will continue current regimen: home Trelegy and Spiriva with prn albuterol nebs. (8) Status post lobectomy of lung: Status: Chronic Assessment and plan: As above (9) S/P ablation of atrial fibrillation: Assessment and plan: rate remains controlled continue apixaban and metoprolol. (10) Personal history of nicotine dependence: Status: Acute Assessment and plan: Nicotine replacement in progress (11) GERD without esophagitis: Assessment and plan: Continue Omeprazole (12) DVT prophylaxis: Status: Acute Assessment and plan: We will continue therapeutic Apixaban (13) Mixed hyperlipidemia: Assessment and plan: We will continue Atorvastatin (14) Discharge planning issues: Status: Acute Assessment and plan: Full code case management following for discharge planning. may benefit from counseling due too recent of spouse and ETOH abuse. When medically clear the patient will be discharged (sister or home) with community care as per arrangements. Plan discussed with Dr. Martines. Subjective Subjective Patient reports: no new complaints Objective Last Vital Signs Temp 37 C 12/12/22 11:10 Pulse 73 12/12/22 11:10 Resp 18 12/12/22 11:10 BP 102/69 12/12/22 11:10 Pulse Ox 98 12/12/22 11:10 Laboratory Results - last 24 hr 12/12/22 12/12/22 06:20 06:20 WBC 7.59 RBC 3.28 L Hgb 10.9 L Hct 32.1 L MCV 98 H MCH 33.2 H MCHC 34.0 RDW 16.3 H Plt Count 265 MPV 11.6 H Immature Gran % 0.3 Neutrophils % 64.5 Lymphocytes % 24.6 Monocytes % 8.6 Eosinophils % 1.6 Basophils % 0.4 Nucleated RBC % 0.0 Absolute Neutrophils 4.90 Absolute Lymphocytes 1.87 Absolute Monocytes 0.65 Absolute Eosinophils 0.12 Absolute Basophils 0.03 Sodium 137 Potassium 3.6 Chloride 103 Carbon Dioxide 23.9 Anion Gap 10.1 BUN 10 Creatinine 0.5 L Est GFR (CKD-EPI 2020) 118.23 Glucose 97 Calcium 9.2 Magnesium 1.7 L PAWSS Have you Been Recently Intoxicated or Drunk Within the Last 30 days?: Unable to Obtain Have you Ever Experienced Previous Episodes of Alcohol Withdrawal?: Unable to Obtain Have you ever Experienced Withdrawal Seizures?: Unable to Obtain Have you ever Experienced Delirium Tremens(DT)s?: Unable to Obtain Have you ever undergone Alcohol Rehabilitation Treatment (i.e, inpt ot outpatient treatment programs)?: Unable to Obtain Have you ever Experienced Blackouts?: Unable to Obtain Have you ever Combined Alcohol with other Downers within the last 90 days?: Unable to Obtain Have you ever Combined Alcohol with any other Substance of Abuse during the last 90 days?: Unable to Obtain Positive Blood Alcohol level on Presentation? [PCS.BAL]: Unable to Obtain Evidence of Increased Autonomic Activity (i.e. HR>120, tremor, sweating, agitation, nausea)?: Unable to Obtain Time Spent with Patient Time Spent with Patient: 25-34 minutes Time was spent: preparing to see the patient(eg.review tests), obtaining and/or reviewing separately otained hiistory, ordering medications,tests, procedures, referring, communicating with other health rn progressive care unit, indepentently interpreting results, counseling the patient (with sister) and care coordination
--- NOTE | 2022-12-12 15:18 | PDOC.CMPRO ---
Date of service: 12/12/22 Time of Service: 15:19 Care Management Progress Note Progress Note Text Progress Note Text: S/O:? Christopher was sitting in a chair when CM met with him. He stated he was groggy as he had not slept well last night. He informed CM that it is very noisy in the hospital at night. CM asked Christopher if his plan was to go and stay with his sister when discharged. He stated he thought he would be doing so. CM commented on the fact that he is good friends with her and he observed that he is good friends with his sister too. Christopher's room was quiet as the TV was not on and he was not using any electronic devices. He explained to CM that he likes it quiet. CM offered Christopher a word search puzzle book which he accepted.Clinically Christopher is doing better. His CIWA scores have been between 3-4 and his vital signs and bloodwork are WNL. Christopher also had an MRI of the brain today which failed to reveal any abnormalities. A:? Christopher is a 57 year old male admitted to [facility] on? 12/02/22 for Altered mental status, Alcohol use disorder, Hyponatremia. P:? Christopher will either discharge home with New PT services or to his sister's home in [place], [place]. His sister is willing to transport him to outpatient PT if he decides to stay with her in [place]. ?[facility] referral on discharge is recommended. Christopher will follow up with his PCP and plan of care as instructed.? He will be transported via private vehicle when ready.? CM will continue to follow and support discharge planning concerns..
--- NOTE | 2022-12-12 16:09 | PTTR_ITS ---
Date of service: 12/12/22 Time of Service: 15:50 PT Notes Visit Reasons: acute confusional state, alcohol use disorder, leslie Inpatient Physical Therapy Treatment Note [facility] Date: 12/12/22 PRECAUTIONS: Fall, standard, activity as tolerated SUBJECTIVE: Patient reports his feet are killing him. This therapist asks if he enjoyed his visit this morning (patient was unavailable this a.m. per INFORMATION TECHNOLOGY ARCHITECT Mac due to having visitors that drove several hours to see him) but patient responds with paranoia about staff giving him medicine to knock him out and then sending him for academic testing. States that he thinks this therapist is going to see the head manasa to get him kicked out of the facility. OBJECTIVE: Patient sitting up in recliner with feet down, slippers on, agreeable to therapy. Requests to use the walker. ? PAIN: Yes, significant, bilateral feet. VITALS: monitored by nursing staff ?? ? BED MOBILITY/TRANSFERS? Rolling L/R: not assessed Supine-sit: not assessed ? Sit-supine: not assessed ? Sit-stand: SBA ? Stand-sit: SBA ? Bed-Chair: SBA ? Chair-bed: SBA Provided skilled cues and instruction on performance and technique throughout. ? Therapeutic Exercises ([id number]): Direct one-on-one instruction in therapeutic exercises to develop strength, endurance, range of motion and flexibility. ?Ambulation ? Assistive Device: FWW ? Weight bearing: full Assist: SBA ? Distance:? 220 feet ? Deviation: Patient is much slower today than yesterday, wide EFFIE, stooped forward posture. ? Provided skilled instruction in proper exercise performance Provided skilled manual cues to facilitate proper muscle recruitment and/or form. ASSESSMENT:? Patient is confused and agitated at end of treatment. Patient has decided that this therapist is going to try to get him kicked out of facility due to not even getting dressed (patient is wearing a hospital gown). PLAN: Continue global strengthening per plan of care until patient is medically cleared for discharge. TREATMENT CODE/TIME: 15 minutes beginning at 14:54
[2022-12-12] MEDS: Normal Saline Flush 10 ML SYR IVP (16:19)
--- NOTE | 2022-12-12 16:22 | W.NEUROCONSU ---
Date of service: 12/12/22 Time of Service: 16:22 Assessment and Plan Assessment and plan (1) Altered mental status: Status: Acute (2) Wernicke-Korsakoff syndrome: Status: Acute Assessment and plan: Mr. Rodriguez presents with ongoing AMS s/p ETOH withdrawal with prominent confabulation along with perseveration, impulsiveness, and some disinhibition. 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 I discussed this with his sister. He should continue thiamine supplementation as well as abstaining from ETOH use. Agree with placement/long-term care. Recommend ST for cognitive rehab as an outpatient. He should follow-up in neurology clinic post-dishcarge. History of Present Illness History of Present Illness Chief Complaint: AMS Narrative: Handedness: right. HPI: Mr. 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 Mr. Rodriguez was admitted on 12/02/22 for weakness and confusion of unclear duration complicated by ?ETOH withdrawal for which he was placed on CIWA protocol. His last dose of PHB was on 12/05/22 and despite no longer having withdrawal symptoms, he continues to have altered mental status. On my interview with him today, he is noted to be somewhat disinhibited and impulsive. He confabulates at times and has trouble with perseveration. I was able to speak with his sister Aileen on the phone. 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 It seems that he re- at that time. That had an adult son who lived live them off and on. Unfortunately, Mr. Rodriguez's suddenly in August 2022. It's really a terrible story such that despite EMS responding, her body was left with him for 2 days after which he loaded her in his truck to take her to the home??? Family report no memory issues prior to the week before admission, but I wonder if he was having issues at that time already given unusual and seemingly traumatic circumstances for which he did not seek help. After his 's passing he was subsequently living alone. In September 2022, Mr. Rodriguez was admitted to [facility] for pancreatitis. Following that stay, his mother visited him but he apparently would not let her into his house. It's not clear what has happened over the next 2-3 months until admission but 1 week prior he reported to family he was feeling ill, difficulty keeping water and PO down. Aileen notes that she visited his house after admission and found it covered in trash with empty ETOH bottles and other trash on the floors and everywhere. This is quite atypical for him. Mr. Rodriguez has 1 grown son, Kaz, who is currently busy building a house, recently . He is involved in [employer] life. Mr. Rodriguez today could not tell me where he lived. Eventually told me he lived in [place] but his address in the system says [place]. He did know he was in a hospital and was able to identify he was at [facility] after reading it on the board. 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 Kept asking the FAMILY AND DIVORCE LEGAL ASSISTANT in the room who he worked for and when I asked him why he was asking her - he reported that she worked at the same place as him. He could not recall that he was / and when I asked him about his wedding ring, he told me that he was x 3months and that he hadn't taken his ring off as he can't let go. He reported that he has 3 kids as of now. But couldn't clarify what he meant on this. He has undergone the work-up as below. He was treated with IV thiamine 500mg TID x 3 days, 250mg TID x 3 days, and then recently switched to PO 100mg TID. He has also marilia started on folate 5mg daily, B12 1000mcg daily, and MVI. He otherwise has been complaining of bilateral foot pain. He notes pain present x 3 days in the balls of his feet, described as sharp, and worse when sitting/resting. Though he has been declining PT.ambulation due to pain. PCP notes indicate chronic pain secondary to prior gout attack. Nursing also reporting diagnosis of plantar fasciitis??? He has been started on gabapentin 100mg TID and Volataren gel prn. Work-up: -CTH (12/02/22): cerebral atrophy. I reviewed these images personally and this is my personal interpretation. -MRI brain w/o (12/12/22): No acute findings. Generalized atrophy more than expected for age. I reviewed these images personally and this is my personal interpretation. -B12 (12/04/22): 434 -TSH (12/02/22): 1.47 -Ammonia (12/11/22): 17 (peaked at 39) -Na (12/11/22): 134 -folate (12/04/22): 2.3 -PHB (12/05/22): 18.7 Review of Systems Unobtainable due to mental status PFSH All Active Problems (Updated 12/12/22 @ 21:28 by Lolita Rogers MD) Wernicke-Korsakoff syndrome (Acute) Skin rash (Acute) Pain (Acute) Hepatic encephalopathy (Acute) DVT prophylaxis (Acute) Alcohol withdrawal delirium (Acute) Discharge planning issues (Acute) Altered mental status (Acute) Alcohol use disorder (Acute) Acute hyponatremia (Acute) Pancreatitis (Chronic) Personal history of nicotine dependence (Acute) Right upper lobe pulmonary nodule (Acute) Status post lobectomy of lung (Chronic) Chronic obstructive lung disease (Chronic) Sensorineural hearing loss (SNHL) of both ears (Acute) Medical History Alcohol abuse Atrial fibrillation with RVR Atrial flutter Atypical chest pain Carcinoid tumor of lung Cellulitis Chest wall pain Contusion Cough Decreased hearing Depressive disorder Diverticulitis of sigmoid colon Elevated LFTs Emphysematous bleb of lung Foot pain GERD (gastroesophageal reflux disease) GERD without esophagitis Gout Hepatitis C antibody test positive Hypercholesterolemia Hypertensive disease Hyperuricemia Hyponatremia Impotence of organic origin Mixed hyperlipidemia Multiple joint pain Nicotine dependence Nicotine dependence, cigarettes, uncomplicated Obstructive sleep apnea Paroxysmal atrial fibrillation Pneumonia Reduced visual acuity RUQ pain Sighing respiration Supraventricular tachycardia Ventral incisional hernia Surgical History Hx of colonoscopy Hx of esophagogastroduodenoscopy S/P ablation of atrial fibrillation S/P cholecystectomy S/P hernia repair S/P partial lobectomy of lung Family History Mother Stroke Diabetes Father Cancer Social History Smoking/Tobacco Use Status: Former Tobacco Use tobacco type: cigarettes Quit Date: 03/05/14 Tobacco: How many years used: 34 Smoking risk assessment performed?: Yes Alcohol Intake: current Alcohol Intake frequency: a few times a week Alcohol type: beer and hard liquor Drug use: Occasionally Substance use type: marijuana Details: eats THC Household members: spouse Housing: house current occupation: disabled Pets and animals: Yes Pets and animals: cat(s) What is your relationship status?: Panel score (0-1 are the most socially isolated patients): 1 Do you feel safe at home: Yes Do you feel safe in your relationship?: Yes Visit Medication and Allergies Active Medications Generic Name Dose Route Start Last Admin Trade Name Freq PRN Reason Stop Dose Admin Acetaminophen 0 mg 12/10/22 16:00 12/12/22 16:14 Acetaminophen 325 Mg Tab PO 325 mg Q6H CASSIE Administration Albuterol Sulfate 2.5 mg 12/02/22 19:54 Albuterol 2.5 Mg/3 Ml Inh Soln Vial UPD Q4H PRN PRN Apixaban 5 mg 12/02/22 20:00 12/12/22 07:49 Apixaban 5 Mg Tab PO 5 mg BID CASSIE Administration Atorvastatin Calcium 20 mg 12/03/22 08:30 12/12/22 07:48 Atorvastatin 20 Mg Tab PO 20 mg DAILY CASSIE Administration Budesonide/Formoterol Fumarate 2 puff 12/03/22 08:30 12/12/22 08:02 Budesonide/Formoterol 160/4.5 6 Gm 60 Puff Inh IH 2 puffs BID CASSIE Administration Cyanocobalamin 1,000 mcg 12/07/22 08:30 12/12/22 07:49 Cyanocobalamin 500 Mcg Tab PO 1,000 mcg DAILY CASSIE Administration Diazepam 5 mg 12/12/22 09:14 12/12/22 13:00 Diazepam 5 Mg Tab PO 12/12/22 23:59 5 mg ONCE PRN Administration pest control chemical technician to MRI scan Diclofenac Sodium 100 gm 12/10/22 12:00 12/12/22 16:15 Diclofenac 1% Gel 100 Gm Tube TP 1 applic QID CASSIE Administration Folic Acid 5 mg 12/11/22 08:30 12/12/22 07:49 Folic Acid 1 Mg Tab PO 5 mg DAILY CASSIE Administration Gabapentin 100 mg 12/11/22 14:00 12/12/22 14:18 Gabapentin 100 Mg Cap PO 100 mg TID CASSIE Administration Hydrocortisone 30 gm 12/10/22 20:00 12/12/22 07:51 Hydrocortisone 1% Cr 30 Gm Tube TP 1 applic BID CASSIE Administration Lactulose 20 gm 12/05/22 20:00 12/12/22 07:50 Lactulose 20 Gm/30 Ml Cup PO 20 gm BID CASSIE Administration Magnesium Chloride 64 mg 12/04/22 08:30 12/12/22 07:47 Magnesium Chloride 64 Mg Tabcr PO 64 mg BID CASSIE Administration Magnesium Hydroxide 30 ml 12/02/22 19:42 Milk Of Magnesia 30 Ml Cup PO DAILY PRN PRN Metoprolol Succinate 150 mg 12/11/22 08:30 12/12/22 07:50 Metoprolol Cr 50 Mg Tabcr PO 150 mg DAILY CASSIE Administration Multi-Ingredient Supplement 1 ounce 12/09/22 20:00 12/12/22 14:18 Protein Nutritional Supplement 16 Gm 1 Ounce Packet PO 1 ounce TID CASSIE Administration Multivitamins 1 tab 12/04/22 08:30 12/12/22 07:48 Multivitamin Tab PO 1 tab DAILY CASSIE Administration Nicotine 14 mg 12/03/22 08:30 12/12/22 07:51 Nicotine 14 Mg/24 Hr Patch TD 14 mg DAILY CASSIE Administration Omeprazole 40 mg 12/03/22 07:30 12/12/22 07:48 Omeprazole 20 Mg Capcr PO 40 mg DAILY@0730 CASSIE Administration Polyethylene Glycol 17 gm 12/02/22 19:42 Polyethylene Glycol 3350 17 Gm Packet PO DAILY PRN PRN Constipation Prochlorperazine Edisylate 5 mg 12/02/22 20:04 Prochlorperazine 10 Mg/2 Ml Vial IVP Q4H PRN PRN Sodium Chloride 0 ml 12/11/22 11:43 12/12/22 16:19 Normal Saline Flush 10 Ml Syr IVP 10 ml PRN PRN Administration Thiamine HCl 100 mg 12/12/22 08:30 12/12/22 14:18 Thiamine 100 Mg Tab PO 12/19/22 00:00 100 mg TID CASSIE Administration Tiotropium [place] 2 puff 12/03/22 08:30 12/12/22 08:02 Tiotropium [place]-Respimat 10 Puff Inh IH 2 puffs DAILY CASSIE Administration Allergies No Known Allergies Allergy (Verified 09/17/22 20:59) Exam Narrative Exam Narrative: Physical Exam: Gen: Patient of apparent stated age, NAD Head and face: no facial or cranial abnormalities Neck: Supple, no meningismus, no occipital tenderness CV: + S1, S2, RRR, no murmur Resp: CTA B/L Abd: soft, nontender, nondistended Ext: No edema. No clubbing or cyanosis. No bony deformity. Neuro Exam: Language: fluency, naming, repetition, and comprehension intact; Mental Status: AAOxself only, current events and fund of knowledge very limited; exhibits conflabulation as well as perseveration, as well as some impulsivity and disinhibition Speech: no dysarthria Cranial nerves: Funduscopy: not performed CN II: visual tovar intact CN III, IV, : extraocular movements intact, no nystagmus, pupils symmetric and reactive to light CN V: face sensation intact to PP CN VII: no facial asymmetry noted CN VIII: hearing intact bilaterally CN IX, X: palate rises symmetrically CN XI: trapezius/SCM 5/5 bilaterally CN XII: protrudes tongue symmetrically Sensory: intact to PP, vibration, and joint position in all extremities Motor: bulk and tone intact. Fine motor movements intact bilaterally. No pronator drift. Strength 4+/5 throughout including the deltoids, biceps, triceps, wrist extensors, hip flexors, knee flexors, knee extensors, ankle flexors, and ankle extensors. Reflexes: hyporeflexic throughout at the biceps, triceps, brachioradialis, patella, and achilles tendons bilaterally; toes neutral bilaterally; Coordination: FTN and HTS intact bilaterally Gait: slightly wide base, bent at the waist Results Last Vital Signs Temp 98.6 F 12/12/22 11:10 Pulse 73 12/12/22 11:10 Resp 18 12/12/22 11:10 BP 102/69 12/12/22 11:10 Pulse Ox 98 12/12/22 11:10 Labs 12/12/22 06:20 12/12/22 06:20 Labs: Laboratory Results - last 24 hr 12/12/22 12/12/22 06:20 06:20 WBC 7.59 RBC 3.28 L Hgb 10.9 L Hct 32.1 L MCV 98 H MCH 33.2 H MCHC 34.0 RDW 16.3 H Plt Count 265 MPV 11.6 H Immature Gran % 0.3 Neutrophils % 64.5 Lymphocytes % 24.6 Monocytes % 8.6 Eosinophils % 1.6 Basophils % 0.4 Nucleated RBC % 0.0 Absolute Neutrophils 4.90 Absolute Lymphocytes 1.87 Absolute Monocytes 0.65 Absolute Eosinophils 0.12 Absolute Basophils 0.03 Sodium 137 Potassium 3.6 Chloride 103 Carbon Dioxide 23.9 Anion Gap 10.1 BUN 10 Creatinine 0.5 L Est GFR (CKD-EPI 2020) 118.23 Glucose 97 Calcium 9.2 Magnesium 1.7 L
[2022-12-12 19:29] VITALS: BP 100/68; PULSE 75; RESP 18; TEMP 37.2; O2SAT 98
[2022-12-12 22:39] VITALS: BP 110/72; PULSE 72; RESP 18; TEMP 37; O2SAT 97
[2022-12-13] VITALS (7 sets, daily range): BP systolic 91–147; BP diastolic 60–74; PULSE 57–81; RESP 14–18; TEMP 36.4–36.8; O2SAT 94–98
[2022-12-13] MEDS: Acetaminophen 325 MG TAB PO ×3 (03:08→15:51)
[2022-12-13] MEDS: Omeprazole 20 MG CAPCR 40 MG PO (07:11)
[2022-12-13] MEDS: Tiotropium Bromide-Respimat 10 PUFF INH 2 PUFF IH (07:29)
[2022-12-13] MEDS: Budesonide/Formoterol 160/4.5 6 GM 60 PUFF INH IH ×2 (07:30→19:36)
[2022-12-13] MEDS: Hydrocortisone 1% CR 30 GM TUBE TP ×2 (08:26→19:43)
[2022-12-13] MEDS: Protein Nutritional Supplement 16 GM 1 OUNCE PACKET PO ×3 (08:26→19:44)
[2022-12-13] MEDS: Lactulose 20 GM/30 ML CUP PO ×2 (08:27→19:43)
[2022-12-13] MEDS: Nicotine 14 MG/24 HR PATCH TD (08:27)
[2022-12-13] MEDS: Folic Acid 1 MG TAB 5 MG PO (08:29)
[2022-12-13] MEDS: Metoprolol CR 50 MG TABCR 150 MG PO (08:29)
[2022-12-13] MEDS: Cyanocobalamin 500 MCG TAB 1000 MCG PO (08:30)
[2022-12-13] MEDS: Gabapentin 100 MG CAP PO ×3 (08:30→19:43)
[2022-12-13] MEDS: Multivitamin TAB 1 TAB PO (08:30)
[2022-12-13] MEDS: Thiamine 100 MG TAB PO ×3 (08:30→19:43)
[2022-12-13] MEDS: Magnesium Chloride 64 MG TABCR PO ×2 (08:30→19:43)
[2022-12-13] MEDS: Atorvastatin 20 MG TAB PO (08:30)
[2022-12-13] MEDS: Apixaban 5 MG TAB PO ×2 (08:31→19:43)
[2022-12-13] MEDS: Diclofenac 1% Gel 100 GM TUBE TP ×4 (08:31→19:43)
--- NOTE | 2022-12-13 09:15 | CMPROGNOTE_ITS ---
Date of service: 12/13/22 Time of Service: 09:15 Care Management Progress Note Progress Note Text Progress Note Text: S/O: Christopher was sitting in his chair when CM met with him. He shares with CM that he is doing ok but is having trouble remembering things. CM met with his sister Aileen today and she expresses concerns related to Christopher's readiness to discharge and was expecting Christopher to stay at the hospital for another 1-2 weeks, per her conversation with Neurology. A huddle is coordinated with Korina Gallagher,[facility] and CM. Aileen was advised by the hospitalist that Christopher has no acute medical reason to stay admitted to the hospital. Aileen is willing to take Christopher home to live with her, however she feels strongly that he would benefit from more time and rehab. CM made referral's to facilities in [place] and [place] (See Rachel's list). In addition, Aileen is waiting for a return call from Dr. Leon to clarify her recommendations and needs a little time to talk things over with her , who unfortunately had a Heart Attack 2 weeks ago. CM will follow. A:? Christopher is a 57 year old male admitted to [facility] on? 12/02/22 for Altered mental status, Alcohol use disorder, Hyponatremia. P:?Anticipate Christopher will discharge to SNF for STR prior to discharging to his sister's home in [place], [place] or back to his home, if able. SNF referrals are pending. Transportation will be dependent on disposition. Christopher will follow up with his PCP and plan of care as instructed. CM will continue to follow and support discharge planning concerns..
--- NOTE | 2022-12-13 10:44 | PTTR_ITS ---
Date of service: 12/13/22 Time of Service: 10:30 PT Notes Visit Reasons: acute confusional state, alcohol use disorder, leslie Inpatient Physical Therapy Treatment Note [facility] Date: 12/13/22 PRECAUTIONS: Fall, standard, activity as tolerated SUBJECTIVE: Patient reports that his sister is coming to visit. Initially hesitant to participate in therapy, but agrees after this therapist reassures him that we won't go far and we won't miss seeing her, even if she arrives before we return to his room. AFTERNOON: Patient reports feeling ok, asks if this therapist has seen his truck outside. Sister reminds him that his truck is at home and she has his keys. OBJECTIVE: Patient seated EOB, dressed in t-shirt, jeans and suspenders. Agreeable to therapy. AFTERNOON: Sitting up in recliner with feet down. Sister visiting. Agreeable to therapy. ? PAIN: Reports feet are hurting a little. This does seem to worsen with ambulation. AFTERNOON: Reports feet are throbbing, especially in the big toes. VITALS: monitored by nursing staff? BED MOBILITY/TRANSFERS? Rolling L/R: independent Supine-sit: independent ? Sit-supine: independent ? Sit-stand: SBA ? Stand-sit: SBA ? Bed-Chair: SBA ? Chair-bed: SBA Gait Training ([id number]): Direct one-on-one instruction and skilled instruction in: [] employing an assistive device [] modified weight-bearing status [x] movement sequencing [] turning and movement with proper form [x] Provided verbal cues for equipment management and technique [x] Provided instruction in gait pattern [] Patient education regarding pacing and breathing techniques to maximize activity tolerance? GAIT?Assistive Device: FWW ?Weight bearing: full ?Assist: SBA?Distance:? 220 feet?Deviation: tends to push walker too far ahead, stooped posture, symmetrical gait pattern, decreased step height STAIRS: Patient ascends and descends 6 six inch stairs with CGA and bilateral h andrails. Could have done a few more. Sister has 7 stairs to enter her house. ? Therapeutic Exercises ([id number]): Direct one-on-one instruction in therapeutic exercises to develop strength, endurance, range of motion and flexibility. ?Ambulation ? Assistive Device: FWW ? Weight bearing: full Assist: SBA ? Distance:? 200 feet ? Deviation: stooped posture. FWW too far out in front - corrected with verbal cue, requires min reminders to keep walker close. ? Provided skilled instruction in proper exercise performance Provided skilled manual cues to facilitate proper muscle recruitment and/or form. ASSESSMENT:? Patient tolerates therapy well, although upon returning to his room he does not recognize it as his, becomes agitated trying to figure out where his phone is. Finds a phone, insists that his is not blue, but is able to unlock the blue phone and confirm that the contact list is his. AFTERNOON: Patient tolerates therapy well, no SOB. Reports that feet are throbbing, this was true before therapy as well. PLAN: Continue global strengthening per plan of care until patient is medically cleared for discharge and achieves a safe discharge plan. TREATMENT CODE/TIME: 14 minutes beginning at 10:30 and 11 minutes beginning at 15:28 for a total of 25 minutes today
--- NOTE | 2022-12-13 13:35 | PGE_ITS ---
Date of Service Date of service: 12/13/22 Time of Service: 13:36 Assessment and Plan Assessment and plan (1) Alcohol withdrawal delirium: Status: Acute Assessment and plan: no further withdrawal but remains not at baseline per sister, most consistent with wernicke-korsakoff, received high dose thiamine and is on taper neurology consulted, currently on oral TID thiamine dosing MRI brain shows no acute findings.? Generalized atrophy more than expected for age. (2) Alcohol use disorder: Status: Acute Assessment and plan: Continue as above (3) Hepatic encephalopathy: Status: Resolved Assessment and plan: continue oral lactulose, ammonia stable. Liver US is showing:Hepatic steatosis noted.? No discrete focal hepatic lesions. Albumin was 2.6; We will continue oral protein replacement (4) Pain: Status: Acute Assessment and plan: Complaints of pain to bottom of the feet and mostly toes most likely rising from neuropathy We will continue the Aqua-K warm emigdio therapy started on 12/09, Will continue scheduled Acetaminophen and neurontin, which he states is helping Uric acid level was normal and pain is bilateral so doubt gout (5) Skin rash: Status: Acute Assessment and plan: Skin rash to mid face around the nose, describe as pruritic, no new medicine ordered. We will continue hydrocortisone cream, improving rash; Thiamine IV in progress Uric acid level is normal (6) Chronic obstructive lung disease: Status: Chronic Assessment and plan: No exacerbation signs and symptoms noticed, the patient remains stable We will continue current regimen: home Trelegy and Spiriva with prn albuterol nebs. 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 (9) Personal history of nicotine dependence: Status: Acute Assessment and plan: Nicotine replacement in progress (10) GERD without esophagitis: Assessment and plan: Continue Omeprazole (11) DVT prophylaxis: Status: Acute Assessment and plan: We will continue therapeutic Apixaban (12) Mixed hyperlipidemia: Assessment and plan: We will continue Atorvastatin (13) Discharge planning issues: Status: Acute Assessment and plan: Full code case management following for discharge planning. may benefit from counseling due too recent of spouse and ETOH abuse. When medically clear the patient will be discharged (sister or home) with community care as per arrangements. Plan discussed with Dr. Martines. Subjective Subjective Patient reports: no new complaints, tolerating liquids well, tolerating a regular diet and afebrile Interval history since last seen: medically remains stable. no behavioral issues Exam Const General: cooperative and no acute distress Nutritional Appearance: average body habitus Orientation: alert, oriented to person and confused Limitations: other limitations (Still exhibit difficulty remembering details, BUTTON GRADER leaving situation) HENMT Head: normal to inspection Eyes General: appearance normal, both eyes and all related structures Neck Neck: normal visual inspection Resp Effort & Inspection: normal respiratory effort, able to speak in complete sentences and not labored Auscultation: clear to auscultation bilaterally Cardio Jugular venous pressure: no JVD Rhythm: regular rhythm GI Inspection: normal to inspection and distended Palpation: soft and nontender Auscultation: normal bowel sounds and hyperactive bowel sounds General: No CVA tenderness Skin Lesions: no lesions Rashes: rashes noted (resolving; w/o pruritus) Neuro General: patient alert and no focal motor deficits Cranial Nerves: EOM intact bilaterally Extrem General: normal to inspection Psych Appearance: grossly normal Mental Status: mental status grossly normal (But anxious when not remembering details) Speech and Movement: speech and movement normal Attitude: cooperative Thought Process: circumstantial Thought Content: no hallucinations Insight: poor Judgment: poor Objective Last Vital Signs Temp 36.8 C 12/13/22 11:19 Pulse 66 12/13/22 11:19 Resp 18 12/13/22 11:19 BP 91/63 L 12/13/22 11:19 Pulse Ox 98 12/13/22 11:19 PAWSS Have you Been Recently Intoxicated or Drunk Within the Last 30 days?: Unable to Obtain Have you Ever Experienced Previous Episodes of Alcohol Withdrawal?: Unable to Obtain Have you ever Experienced Withdrawal Seizures?: Unable to Obtain Have you ever Experienced Delirium Tremens(DT)s?: Unable to Obtain Have you ever undergone Alcohol Rehabilitation Treatment (i.e, inpt ot outpatient treatment programs)?: Unable to Obtain Have you ever Experienced Blackouts?: Unable to Obtain Have you ever Combined Alcohol with other Downers within the last 90 days?: Unable to Obtain Have you ever Combined Alcohol with any other Substance of Abuse during the last 90 days?: Unable to Obtain Positive Blood Alcohol level on Presentation? [PCS.BAL]: Unable to Obtain Evidence of Increased Autonomic Activity (i.e. HR>120, tremor, sweating, agitation, nausea)?: Unable to Obtain Time Spent with Patient Time Spent with Patient: 35-49 minutes Time was spent: preparing to see the patient(eg.review tests), obtaining and/or reviewing separately otained hiistory, ordering medications,tests, procedures, referring, communicating with other health career development coordinator/teacher, indepentently interpreting results, counseling the patient and care coordination
--- NOTE | 2022-12-13 16:36 | PGE_ITS ---
Date of Service Date of service: 12/13/22 Time of Service: 16:36 Assessment and Plan Assessment and plan (1) Altered mental status: Status: Acute (2) Wernicke-Korsakoff syndrome: Status: Acute Assessment and plan: Mr. Rodriguez presents with ongoing AMS s/p ETOH withdrawal with prominent confabulation along with perseveration, impulsiveness, and some disinhibition. 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 He should continue thiamine supplementation (ok to reduce to PO 100mg daily at d/c) as well as abstaining from ETOH use. Agree with placement/long-term care. Recommend ST for cognitive rehab as an outpatient. He should not drive and sister is requesting this be writtent down for patient at d/c. He should follow-up in neurology clinic post-discharge. Subjective Subjective Interval history since last seen: Mr. Rodriguez is doing well today. When I walked in he told me that there were angry people in this room. A few minutes later I asked him again about this and he did not recall having angry people in his room or telling me about it. I talked to sister Aileen after the visit. She is worried about when they bring him home, what they should tell him when he asks to talk to his recently de ceased , if he wants to drive etc. Discussed online resources and rec'd the 36hr day book (written for AD patient families but applicable here). Exam Narrative Exam Narrative: Physical Exam: Constitutional: Patient of apparent stated age, well nourished, well developed, no acute distress Neuro: MS/Language/Speech: Alert, oriented to self and place, clear language (fluency and comprehension), no dysarthria Motor: Normal bulk and tone. FMM intact, no pronator drift. Coordination: Finger to nose performed without dysmetria Objective Last Vital Signs Temp 98.2 F 12/13/22 15:44 Pulse 75 12/13/22 15:44 Resp 16 12/13/22 15:44 BP 97/65 L 12/13/22 15:44 Pulse Ox 96 12/13/22 15:44 PAWSS Have you Been Recently Intoxicated or Drunk Within the Last 30 days?: Unable to Obtain Have you Ever Experienced Previous Episodes of Alcohol Withdrawal?: Unable to Obtain Have you ever Experienced Withdrawal Seizures?: Unable to Obtain Have you ever Experienced Delirium Tremens(DT)s?: Unable to Obtain Have you ever undergone Alcohol Rehabilitation Treatment (i.e, inpt ot outpatient treatment programs)?: Unable to Obtain Have you ever Experienced Blackouts?: Unable to Obtain Have you ever Combined Alcohol with other Downers within the last 90 days?: Unable to Obtain Have you ever Combined Alcohol with any other Substance of Abuse during the last 90 days?: Unable to Obtain Positive Blood Alcohol level on Presentation? [PCS.BAL]: Unable to Obtain Evidence of Increased Autonomic Activity (i.e. HR>120, tremor, sweating, agitation, nausea)?: Unable to Obtain Time Spent with Patient Time Spent with Patient: 35-49 minutes Time was spent: preparing to see the patient(eg.review tests), obtaining and/or reviewing separately otained hiistory, referring, communicating with other health manager career, counseling the patient and care coordination
--- NOTE | 2022-12-13 16:54 | CHAPLAIN ---
Christopher was sitting in the chair when I visited. He was dressed in his own clothes. When I asked how things were going today, he said he is confused. He told me that his mother had visited earlier, and his son also. He responded to questions and continued to say he was confused. He thought maybe he was in the wrong room and needed to go to the second floor. I assured him he was on the second floor and the WAREHOUSE CHECKER had just dropped off some of his laundered clothes, so this must be his room. His nurse has mentioned to me that his this past summer. When I asked if he lived alone, Christopher told me he did, but that he'd recently been in touch with his exwife but wasn't sure if they'd stay in touch. I didn't ask about his 's . I will continue to visit.
[2022-12-14 03:17] VITALS: BP 108/67; PULSE 93; RESP 16; TEMP 36.3; O2SAT 94
[2022-12-14 09:24] VITALS: BP 98/67; PULSE 94; RESP 19; TEMP 37; O2SAT 94
[2022-12-14] MEDS: Tiotropium Bromide-Respimat 10 PUFF INH 2 PUFF IH (09:28)
[2022-12-14] MEDS: Budesonide/Formoterol 160/4.5 6 GM 60 PUFF INH IH ×2 (09:29→19:36)
[2022-12-14] MEDS: Diclofenac 1% Gel 100 GM TUBE TP ×4 (09:35→19:57)
[2022-12-14] MEDS: Hydrocortisone 1% CR 30 GM TUBE TP ×2 (09:36→19:56)
[2022-12-14] MEDS: Magnesium Chloride 64 MG TABCR PO ×2 (09:36→19:57)
[2022-12-14] MEDS: Thiamine 100 MG TAB PO ×3 (09:36→19:57)
[2022-12-14] MEDS: Cyanocobalamin 500 MCG TAB 1000 MCG PO (09:36)
[2022-12-14] MEDS: Omeprazole 20 MG CAPCR 40 MG PO (09:36)
[2022-12-14] MEDS: Folic Acid 1 MG TAB 5 MG PO (09:36)
[2022-12-14] MEDS: Apixaban 5 MG TAB PO ×2 (09:37→19:57)
[2022-12-14] MEDS: Nicotine 14 MG/24 HR PATCH TD (09:37)
[2022-12-14] MEDS: Atorvastatin 20 MG TAB PO (09:37)
[2022-12-14] MEDS: Gabapentin 100 MG CAP PO ×3 (09:37→19:57)
[2022-12-14] MEDS: Multivitamin TAB 1 TAB PO (09:37)
[2022-12-14] MEDS: Metoprolol CR 50 MG TABCR 150 MG PO (09:37)
[2022-12-14] MEDS: Protein Nutritional Supplement 16 GM 1 OUNCE PACKET PO ×3 (09:38→19:57)
[2022-12-14] MEDS: Lactulose 20 GM/30 ML CUP PO ×2 (09:39→19:57)
[2022-12-14] MEDS: Acetaminophen 325 MG TAB PO ×2 (11:28→16:04)
[2022-12-14 11:30] VITALS: BP 91/61; PULSE 74; RESP 19; TEMP 36.9; O2SAT 95
--- NOTE | 2022-12-14 14:48 | PGE_ITS ---
Date of Service Date of service: 12/14/22 Time of Service: 14:48 Assessment and Plan Assessment and plan (1) Alcohol withdrawal delirium: Status: Acute Assessment and plan: Thank you with general reasons all and altered mental status most consistent with wernicke-korsakoff, received high dose thiamine and is on taper neurology consulted, currently on oral TID thiamine dosing MRI brain shows no acute findings.? Generalized atrophy more than expected for age. (2) Alcohol use disorder: Status: Acute Assessment and plan: Continue as above (3) Hepatic encephalopathy: Status: Resolved Assessment and plan: continue oral lactulose, ammonia stable. Liver US is showing:Hepatic steatosis noted.? No discrete focal hepatic lesions. Albumin was 2.6; We will continue oral protein replacement (4) Pain: Status: Acute Assessment and plan: Complaints of pain to bottom of the feet and mostly toes most likely rising from neuropathy We will continue the Aqua-K warm emigdio therapy started on 12/09, Will continue scheduled Acetaminophen and neurontin, which he states is helping Uric acid level was normal and pain is bilateral so doubt gout (5) Skin rash: Status: Acute Assessment and plan: Skin rash to mid face around the nose, describe as pruritic, no new medicine ordered. We will continue hydrocortisone cream, improving rash; Thiamine IV in progress Uric acid level is normal (6) Chronic obstructive lung disease: Status: Chronic Assessment and plan: No exacerbation signs and symptoms noticed, the patient remains stable We will continue current regimen: home Trelegy and Spiriva with prn albuterol nebs. 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 (9) Personal history of nicotine dependence: Status: Acute Assessment and plan: Nicotine replacement in progress (10) GERD without esophagitis: Assessment and plan: Continue Omeprazole (11) DVT prophylaxis: Status: Acute Assessment and plan: We will continue therapeutic Apixaban (12) Mixed hyperlipidemia: Assessment and plan: We will continue Atorvastatin (13) Discharge planning issues: Status: Acute Assessment and plan: Full code case management following for discharge planning. may benefit from counseling due too recent of spouse and ETOH abuse. Patient is medically clear and referrals have been sent for possible inpatient physical therapy or will be discharged (sister or home) with community care Plan discussed with Dr. Martines. Subjective Subjective Patient reports: no new complaints, tolerating liquids well, tolerating a regular diet and afebrile Interval history since last seen: patient remains medically stable and awaiting discharge, no behavioral issues Exam Const General: cooperative and no acute distress Nutritional Appearance: average body habitus Orientation: alert and oriented to person HENMT Head: normal to inspection Eyes General: appearance normal, both eyes and all related structures Neck Neck: normal visual inspection Resp Effort & Inspection: normal respiratory effort and able to speak in complete sentences Auscultation: clear to auscultation bilaterally Cardio Rhythm: regular rhythm GI Inspection: normal to inspection Palpation: soft and nontender Skin Lesions: no lesions Rashes: rashes noted (resolving; w/o pruritus) Neuro General: patient alert and no focal motor deficits Cranial Nerves: EOM intact bilaterally Extrem General: normal to inspection Psych Appearance: grossly normal Mental Status: mental status grossly normal (But anxious when not remembering details) Speech and Movement: speech and movement normal Attitude: cooperative Thought Process: circumstantial Thought Content: no hallucinations Insight: poor Judgment: poor Objective Last Vital Signs Temp 36.9 C 12/14/22 11:30 Pulse 74 12/14/22 11:30 Resp 19 12/14/22 11:30 BP 91/61 L 12/14/22 11:30 Pulse Ox 95 12/14/22 11:30 PAWSS Have you Been Recently Intoxicated or Drunk Within the Last 30 days?: Unable to Obtain Have you Ever Experienced Previous Episodes of Alcohol Withdrawal?: Unable to Obtain Have you ever Experienced Withdrawal Seizures?: Unable to Obtain Have you ever Experienced Delirium Tremens(DT)s?: Unable to Obtain Have you ever undergone Alcohol Rehabilitation Treatment (i.e, inpt ot outpatient treatment programs)?: Unable to Obtain Have you ever Experienced Blackouts?: Unable to Obtain Have you ever Combined Alcohol with other Downers within the last 90 days?: Unable to Obtain Have you ever Combined Alcohol with any other Substance of Abuse during the last 90 days?: Unable to Obtain Positive Blood Alcohol level on Presentation? [PCS.BAL]: Unable to Obtain Evidence of Increased Autonomic Activity (i.e. HR>120, tremor, sweating, agitation, nausea)?: Unable to Obtain Time Spent with Patient Time Spent with Patient: 25-34 minutes Time was spent: preparing to see the patient(eg.review tests), ordering medications,tests, procedures, referring, communicating with other health wound care physician and care coordination
--- NOTE | 2022-12-14 14:49 | PT.INTREAT ---
PT Notes Visit Reasons: acute confusional state, alcohol use disorder, leslie Inpatient Physical Therapy Treatment Note [facility] ?Date: 12/14/22 ?PRECAUTIONS: Fall, standard, activity as tolerated ?SUBJECTIVE: Patient reports feeling ok, except for the pain in his feet ?OBJECTIVE: Sitting up in chair, agreeable to therapy. ?ANA PAULA alarm in place and active in bed and chair. ?PAIN: Yes, bilateral feet, but not bad ?VITALS: monitored by nursing staff ?BED MOBILITY/TRANSFERS? Rolling L/R: independent Supine-sit: independent ? Sit-supine: independent ? Sit-stand: SBA ? Stand-sit: SBA ? Bed-Chair: SBA ? Chair-bed: SBA] Gait Training ([id number]): Direct one-on-one instruction and skilled instruction in: [] employing an assistive device [] modified weight-bearing status [] movement sequencing [x] turning and movement with proper form [x] Provided verbal cues for equipment management and technique [] Provided instruction in gait pattern [] Patient education regarding pacing and breathing techniques to maximize activity tolerance? GAIT?Assistive Device: Fww ?Weight bearing: full ?Assist: SBA ?Distance:? 220 feet ?Deviation: stooped posture, tends to push walker too far in front. Able to correct with verbal cue, but working memory is poor, unable to maintain. ? ASSESSMENT:? Patient tolerated therapy well. ANA PAULA/bed alarm reactivated. PLAN: Continue global strengthening, especially of balance and posture muscles, until patient achieves safe discharge plan. TREATMENT CODE/TIME: 12 minutes beginning at 15:53
--- NOTE | 2022-12-14 15:01 | PDOC.CMPRO ---
Date of service: 12/14/22 Time of Service: 15:01 Care Management Progress Note Progress Note Text Progress Note Text: SNF referrals pending. Transport dependent on disposition. Christopher will follow up with his PCP and plan of care as instructed. CM will continue to follow and support discharge planning concerns.
[2022-12-14 15:53] VITALS: BP 98/63; PULSE 76; RESP 18; TEMP 36.7; O2SAT 100
[2022-12-14 23:33] VITALS: BP 104/70; PULSE 85; RESP 18; TEMP 37.2; O2SAT 95
[2022-12-15] MEDS: Omeprazole 20 MG CAPCR 40 MG PO (07:12)
[2022-12-15] MEDS: Magnesium Chloride 64 MG TABCR PO ×2 (08:07→19:50)
[2022-12-15] MEDS: Metoprolol CR 50 MG TABCR 150 MG PO (08:07)
[2022-12-15] MEDS: Folic Acid 1 MG TAB 5 MG PO (08:07)
[2022-12-15] MEDS: Gabapentin 100 MG CAP PO ×3 (08:08→19:50)
[2022-12-15] MEDS: Cyanocobalamin 500 MCG TAB 1000 MCG PO (08:08)
[2022-12-15] MEDS: Thiamine 100 MG TAB PO ×3 (08:08→19:50)
[2022-12-15] MEDS: Nicotine 14 MG/24 HR PATCH TD (08:08)
[2022-12-15] MEDS: Protein Nutritional Supplement 16 GM 1 OUNCE PACKET PO ×3 (08:08→19:50)
[2022-12-15] MEDS: Multivitamin TAB 1 TAB PO (08:08)
[2022-12-15] MEDS: Atorvastatin 20 MG TAB PO (08:08)
[2022-12-15] MEDS: Apixaban 5 MG TAB PO ×2 (08:08→19:50)
[2022-12-15] MEDS: Diclofenac 1% Gel 100 GM TUBE TP ×3 (08:09→21:34)
[2022-12-15] MEDS: Lactulose 20 GM/30 ML CUP PO ×2 (08:09→19:50)
[2022-12-15] MEDS: Hydrocortisone 1% CR 30 GM TUBE TP (08:09)
[2022-12-15 08:10] VITALS: BP 105/71; PULSE 75; RESP 17; TEMP 36.8; O2SAT 96
[2022-12-15] MEDS: Budesonide/Formoterol 160/4.5 6 GM 60 PUFF INH IH ×2 (08:20→19:57)
[2022-12-15] MEDS: Tiotropium Bromide-Respimat 10 PUFF INH 2 PUFF IH (08:20)
[2022-12-15] MEDS: Acetaminophen 325 MG TAB PO ×3 (10:21→21:29)
[2022-12-15 12:22] VITALS: BP 111/74; PULSE 76; RESP 18; TEMP 36.3; O2SAT 97
--- NOTE | 2022-12-15 13:45 | INDS_ITS ---
Date of service: 12/15/22 Time of Service: 13:45 PT Notes Visit Reasons: acute confusional state, alcohol use disorder, leslie Inpatient Physical Therapy Progress Notes Date: 12/15/22 Dates of Service: 12/08/2022 through 12/15/2022 Referring Doctor: Frederic Espinoza PT Orders: PT CONSULT: safety consult for D/C Precautions: fall, standard Patient Profile/Admitting Diagnosis: Patient admitted 12/02/22 for medical management of alcohol withdrawal and pancreatitis, hepatic encephalopathy, pain in B feet, S/P loectomy of lung, S/P ablation of AF, Wernicke-Korsakoff syndrome. Social History/Home Situation: Patient lives alone in a private split level home, with several steps to enter. He uses a single loftstrand crtuch at baseline due to right knee pain and instability. Denies history of falls. Equipment Owned/DME: single Loftstrand crutch Subjective: Reported chronic pain in B feet. Agreed when PT pointed out that wearing comfortable sneakers he has on helps with pain. Appeared withdrawn, not maintaining eye contact. Somewhat disappointed about the possiblity of losing his house. He does not know what the plan is and feels anxious about everything. Agreeable to walking after persuasion by PT that as long as he keeps his mobility level, he should do well where ever he goes--home or in a facility for short-term stay. Prefers to use the FWW as it helps releive B feet pain. Objective: General Observation: Seated on bedside chair, talking on the phone with mom Jacek. Mental Status: Alert throughout session. Able to follow commands. Pain: Pain in B feet that has been chronic ROM: Right Upper Extremity: Shoulder flexion 150*. Elbow and wrist motion WFL. Left Upper Extremity: Shoulder flexion 150*. Elbow and wrist motion WFL. Right Lower Extremity: Grossly WFL Left Lower Extremity: Grossly WFL Strength: Right Upper Extremity: Shoulder flexion 4/5. Biceps 4/5. Triceps 4-/5. Shoulder IR 4/5. Shoulder ER 3+/5. Left Upper Extremity: Shoulder flexion 4/5. Biceps 4/5. Triceps 4-/5. Shoulder IR 4/5. Shoulder ER 3+/5. Right Lower Extremity: Hip flexion 4-/5. Quads 4-/5. Ankle DF 5/5 Left Lower Extremity: Hip flexion 4+/5. Quads 4+/5. Ankle DF 5/5 Bed Mobility/Transfers: Sit-stand: SBA Stand-sit: SBA Gait: Moderate cueing provided to increase trunk extension and to come closer to walker throughout the walk around [facility] hallway of about 350 feet. DF in B feet reduced. Gait speed decreased. Stand by assist only. Balance: Static Sitting: Normal Dynamic Sitting: Normal Static Standing: Good Dynamic Standing: Fair 4-Position Balance Test: Small EFFIE: 10 seconds Partial Tandem: 10 seconds Full Tandem: 0 seconds Single Leg Stance: 0 seconds Special Tests: Mobility Limitations Standardized Measure [facility] AM-PAC 6 clicks Basic Mobility Inpatient Short Form: Raw Score: 21 CMS Score: 29% impairment Informed Consent/Education: Patient instructed in purpose of PT consult and plan of care. Assessment: Christopher demonstrates improvement in functional mobility level requiring only stand by assist for all mobility ADL performance. Verbalized much improved pain relief with FWW than with Lofstrand crutches. He currently demonstrates the following impairment level findings: 1. decreased B UE/LE strength 2. decreased balance 3. gait impairments 4. decreased activity tolerance Impairments are contributing to the following functional limitations: 1. Requires use of FWW for household distance ambulation 2. Increased fall risk due to strength and balance impairment Patient is assessed as Moderate 11467 complexity based on the following: History: Patient is a 57 year old male evaluated in acute care setting. Presenting with acute on chronic mobility impairments, with evolving medical status. Examination: functional limitations as noted above Presentation: evolving Decision Making: moderate complexity Goals: Goals X1 week 1. Supine-Sit : supervision NOT MET, CONTINUE 2. Sit-Supine : supervision NOT MET, CONTINUE 3. Sit-Stand : supervision NOT MET, CONTINUE 4. Stand-Sit : supervision NOT MET, CONTINUE 5. Bed-Chair : supervision with single crutch NOT MET, CONTINUE 6. Chair-Bed : supervision with single crutch NOT MET, CONTINUE 7. Gait : supervision with single crutch x 50' NOT MET, CONTINUE 8. Stairs : SBA with crutch and unilateral rail NOT MET, CONTINUE Plan of Care/Treatment Plan: 1-2x/day, 7 days/week x 1 week. Plan of care has been reviewed with the [employer] providing the service under Physical Therapy direction. Initiate Physical Therapy intervention for strengthening, bed mobility, transfers, gait, stairs, balance training, use of assistive device. DISCHARGE RECOMMENDATIONS: HH PT vs short-term rehab based on progress towards goals and availability of community/caregiver supports TREATMENT CODE/TIME: 00503 x 23 minutes beginnig at 13:45 PM [facility] All Active Problems (Updated 12/03/22 @ 16:02 by Selena Vega MD) DVT prophylaxis (Acute) Alcohol withdrawal delirium (Acute) Discharge planning issues (Acute) Altered mental status (Acute) Alcohol use disorder (Acute) Acute hyponatremia (Acute) Acute hypokalemia (Acute) Pancreatitis (Chronic) Personal history of nicotine dependence (Acute) Right upper lobe pulmonary nodule (Acute) Status post lobectomy of lung (Chronic) Chronic obstructive lung disease (Chronic) Sensorineural hearing loss (SNHL) of both ears (Acute) Medical History Alcohol abuse Atrial fibrillation with RVR Atrial flutter Atypical chest pain Carcinoid tumor of lung Cellulitis Chest wall pain Contusion Cough Decreased hearing Depressive disorder Diverticulitis of sigmoid colon Elevated LFTs Emphysematous bleb of lung Foot pain GERD (gastroesophageal reflux disease) GERD without esophagitis Gout Hepatitis C antibody test positive Hypercholesterolemia Hypertensive disease Hyperuricemia Hyponatremia Impotence of organic origin Mixed hyperlipidemia Multiple joint pain Nicotine dependence Nicotine dependence, cigarettes, uncomplicated Obstructive sleep apnea Paroxysmal atrial fibrillation Pneumonia Reduced visual acuity RUQ pain Sighing respiration Supraventricular tachycardia Ventral incisional hernia Surgical History Hx of colonoscopy Hx of esophagogastroduodenoscopy S/P ablation of atrial fibrillation S/P cholecystectomy S/P hernia repair S/P partial lobectomy of lung
--- NOTE | 2022-12-15 13:57 | PT.INTREAT ---
PT Notes Visit Reasons: acute confusional state, alcohol use disorder, leslie Inpatient Physical Therapy Treatment Note [facility] Date: 12/15/22 PRECAUTIONS: Fall, standard, activity as tolerated ?SUBJECTIVE: Patient confused, doesn't understand why he is here. Reports that nobody wants to tell him anything, they're all playing games and [he] is the one in here paying the chu. OBJECTIVE: Sitting up in chair, agreeable to therapy, expects to go walk over there, across the street to that apartment building to straighten a few things out and get some answers. Rozina contreras active in patient's chair. ? PAIN: yes, bilateral feet, although it seems to be bothering him much less today than in the past. ?VITALS: monitored by nursing staff Therapeutic Activities (20950d1): Direct one-on-one instruction in dynamic activities to improve functional performance. ?? BED MOBILITY/TRANSFERS? Rolling L/R: independent Supine-sit: independent ? Sit-supine: independent ? Sit-stand: independent ? Stand-sit: independent ? Bed-Chair: SBA ? Chair-bed: SBA Provided skilled cues and instruction on performance and technique throughout. Patient dons pants, socks, shoes independently seated, doffs hospital gown and dons shirt independently standing. Patient sits on 3 different chairs and his bed during the course of therapy, is able to get up from all various surfaces without use of his arms. Demonstrates good balance throughout. Uses no AD today, ambulates ~25 feet between seats with frequent turns. ASSESSMENT:? Patient tolerated therapy well, no SOB, no LOB. ROZINA/bed alarm reactivated. PLAN: Continue global strengthening per plan of care until patient is medically cleared for discharge and obtains safe discharge plan. TREATMENT CODE/TIME: 25 minutes beginning at 11:31
--- NOTE | 2022-12-15 14:02 | CMPROGNOTE_ITS ---
Date of service: 12/15/22 Time of Service: 14:02 Care Management Progress Note Progress Note Text Progress Note Text: S/O: CM spoke with Aileen; SNF search ongoing. Anticipate if bed offer is not secured by Sunday, Christopher may require SWB1. CM continues to follow. A: 57 year old admitted to [facility] 12/02/22 for acute confusional state P: Christopher remains at [facility]; per PT he still requires SNF support upon discharge at this time. SNF-vs SWB1 anticipated on Sunday. CM continues to follow.
[2022-12-15 14:55] VITALS: BP 109/73; PULSE 76; RESP 18; TEMP 36.5; O2SAT 98
--- NOTE | 2022-12-15 15:22 | PGE_ITS ---
Date of Service Date of service: 12/15/22 Time of Service: 15:22 Assessment and Plan Assessment and plan (1) Alcohol withdrawal delirium: Status: Acute Assessment and plan: altered mental status most consistent with wernicke-korsakoff, received high dose thiamine and is on taper neurology consulted, currently on oral TID thiamine dosing MRI brain shows no acute findings.? Generalized atrophy more than expected for age. (2) Alcohol use disorder: Status: Acute Assessment and plan: Continue as above (3) Hepatic encephalopathy: Status: Resolved Assessment and plan: continue oral lactulose, ammonia stable. Liver US is showing:Hepatic steatosis noted.? No discrete focal hepatic lesions. Albumin was 2.6; We will continue oral protein replacement (4) Pain: Status: Acute Assessment and plan: Complaints of pain to bottom of the feet and mostly toes most likely rising from neuropathy We will continue the Aqua-K warm emigdio therapy started on 12/09, Will continue scheduled Acetaminophen and neurontin, which he states is helping Uric acid level was normal and pain is bilateral so doubt gout (5) Skin rash: Status: Acute Assessment and plan: Skin rash to mid face around the nose, describe as pruritic, no new medicine ordered. We will continue hydrocortisone cream, improving rash; Thiamine IV in progress Uric acid level is normal (6) Chronic obstructive lung disease: Status: Chronic Assessment and plan: No exacerbation signs and symptoms noticed, the patient remains stable We will continue current regimen: home Trelegy and Spiriva with prn albuterol nebs. 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 (9) Personal history of nicotine dependence: Status: Acute Assessment and plan: Nicotine replacement in progress (10) GERD without esophagitis: Assessment and plan: Continue Omeprazole (11) DVT prophylaxis: Status: Acute Assessment and plan: We will continue therapeutic Apixaban (12) Mixed hyperlipidemia: Assessment and plan: We will continue Atorvastatin (13) Discharge planning issues: Status: Acute Assessment and plan: Full code case management following for discharge planning. may benefit from counseling due too recent of spouse and ETOH abuse. Patient is medically clear and referrals have been sent for possible inpatient physical therapy or will be discharged (sister or home) with community care Plan discussed with Dr. Esquivel Subjective Subjective Patient reports: no new complaints, tolerating liquids well, tolerating a regular diet and afebrile; denies shortness of breath Exam Const General: cooperative and no acute distress Nutritional Appearance: average body habitus Orientation: alert and oriented to person HENID Head: normal to inspection Eyes General: appearance normal, both eyes and all related structures Neck Neck: normal visual inspection Resp Effort & Inspection: normal respiratory effort and able to speak in complete sentences Auscultation: clear to auscultation bilaterally Cardio Rhythm: regular rhythm GI Inspection: normal to inspection Palpation: soft and nontender Skin Lesions: no lesions Rashes: rashes noted (resolving; w/o pruritus) Neuro General: patient alert and no focal motor deficits Cranial Nerves: EOM intact bilaterally Extrem General: normal to inspection Psych Appearance: grossly normal Mental Status: mental status grossly normal (But anxious when not remembering details) Speech and Movement: speech and movement normal Attitude: cooperative Thought Process: circumstantial Thought Content: no hallucinations Insight: poor Judgment: poor Objective Last Vital Signs Temp 36.5 C 12/15/22 14:55 Pulse 76 12/15/22 14:55 Resp 18 12/15/22 14:55 BP 109/73 12/15/22 14:55 Pulse Ox 98 12/15/22 14:55 PAWSS Have you Been Recently Intoxicated or Drunk Within the Last 30 days?: Unable to Obtain Have you Ever Experienced Previous Episodes of Alcohol Withdrawal?: Unable to Obtain Have you ever Experienced Withdrawal Seizures?: Unable to Obtain Have you ever Experienced Delirium Tremens(DT)s?: Unable to Obtain Have you ever undergone Alcohol Rehabilitation Treatment (i.e, inpt ot outpatient treatment programs)?: Unable to Obtain Have you ever Experienced Blackouts?: Unable to Obtain Have you ever Combined Alcohol with other Downers within the last 90 days?: Unable to Obtain Have you ever Combined Alcohol with any other Substance of Abuse during the last 90 days?: Unable to Obtain Positive Blood Alcohol level on Presentation? [PCS.BAL]: Unable to Obtain Evidence of Increased Autonomic Activity (i.e. HR>120, tremor, sweating, agitation, nausea)?: Unable to Obtain Time Spent with Patient Time Spent with Patient: 25-34 minutes Time was spent: preparing to see the patient(eg.review tests), referring, communicating with other health progressive care manager and care coordination
--- NOTE | 2022-12-15 15:51 | CHAPLAIN ---
Christopher was dressed in his own clothes, sitting in the chair when I visited. Yesterday he seemed to have several visitors and when I asked if he'd had visitors, he told me that some came and walked me around a little while ago. He told me he's concerned that most of his stuff is down in [place] and he's not sure how to get it. He said he's lived locally most recently but his things are in [place] and he said it's frustrating not being able to have access to his things. Christopher asked for help charging his phone and we got that figured out. I will continue to visit.
[2022-12-15 19:24] VITALS: BP 95/61; PULSE 76; RESP 16; TEMP 37.2; O2SAT 100
[2022-12-15 20:49] VITALS: BP 103/70; PULSE 78; RESP 16; TEMP 36.9; O2SAT 94
[2022-12-15 23:00] VITALS: BP 108/72; PULSE 76; RESP 16; TEMP 36.6; O2SAT 96
[2022-12-16 03:12] VITALS: BP 110/72; PULSE 74; RESP 16; TEMP 36.5; O2SAT 96
[2022-12-16 07:50] VITALS: BP 96/66; PULSE 91; RESP 18; TEMP 37.1; O2SAT 94
[2022-12-16] MEDS: Tiotropium Bromide-Respimat 10 PUFF INH 2 PUFF IH (08:09)
[2022-12-16] MEDS: Budesonide/Formoterol 160/4.5 6 GM 60 PUFF INH IH ×2 (08:10→20:10)
[2022-12-16] MEDS: Nicotine 14 MG/24 HR PATCH TD (08:24)
[2022-12-16] MEDS: Lactulose 20 GM/30 ML CUP PO ×2 (08:25→20:03)
[2022-12-16] MEDS: Metoprolol CR 50 MG TABCR 150 MG PO (08:25)
[2022-12-16] MEDS: Folic Acid 1 MG TAB 5 MG PO (08:25)
[2022-12-16] MEDS: Protein Nutritional Supplement 16 GM 1 OUNCE PACKET PO ×3 (08:25→20:03)
[2022-12-16] MEDS: Omeprazole 20 MG CAPCR 40 MG PO (08:26)
[2022-12-16] MEDS: Gabapentin 100 MG CAP PO (08:26)
[2022-12-16] MEDS: Atorvastatin 20 MG TAB PO (08:26)
[2022-12-16] MEDS: Acetaminophen 325 MG TAB PO ×3 (08:26→21:33)
[2022-12-16] MEDS: Apixaban 5 MG TAB PO ×2 (08:26→20:04)
[2022-12-16] MEDS: Multivitamin TAB 1 TAB PO (08:26)
[2022-12-16] MEDS: Cyanocobalamin 500 MCG TAB 1000 MCG PO (08:26)
[2022-12-16] MEDS: Thiamine 100 MG TAB PO ×3 (08:26→20:04)
[2022-12-16] MEDS: Magnesium Chloride 64 MG TABCR PO ×2 (08:26→21:33)
[2022-12-16] MEDS: Hydrocortisone 1% CR 30 GM TUBE TP ×2 (08:33→20:17)
--- NOTE | 2022-12-16 10:11 | W.PM.PROGNOT ---
Date of Service Date of service: 12/16/22 Time of Service: :11 Assessment and Plan Assessment and plan (1) Alcohol withdrawal delirium: Status: Acute Assessment and plan: altered mental status most consistent with wernicke-korsakoff, received high dose thiamine and is on taper neurology consulted, currently on oral TID thiamine dosing MRI brain shows no acute findings.? Generalized atrophy more than expected for age. (2) Alcohol use disorder: Status: Acute Assessment and plan: Continue as above , Resolved ETOH withdrawal (3) Hepatic encephalopathy: Status: Resolved Assessment and plan: continue oral lactulose, ammonia stable. Liver US is showing:Hepatic steatosis noted.? No discrete focal hepatic lesions. Albumin was 2.6, the patient is on oral protein replacement (4) Pain: Status: Acute Assessment and plan: Complaints of pain to bottom of the feet and mostly toes most likely rising from neuropathy We will continue the Aqua-K warm emigdio therapy started on 12/09, Will continue scheduled oral Acetaminophen and diclofenac topically and neurontin increased to 300 mg TID, LFT's added to AM labs Gout was ruled out as per normal uric acid levels (5) Chronic obstructive lung disease: Status: Chronic Assessment and plan: No exacerbation signs and symptoms noticed, the patient remains stable We will continue current regimen: home Trelegy and Spiriva with prn albuterol nebs. Qualifiers: COPD type: unspecified COPD Qualified Code(s): J44.9 - Chronic obstructive pulmonary disease, unspecified (6) Status post lobectomy of lung: Status: Chronic Assessment and plan: As above (7) S/P ablation of atrial fibrillation: Assessment and plan: rate mid 60's to 97 today; remains controlled Will continue apixaban and metoprolol. (8) Personal history of nicotine dependence: Status: Acute Assessment and plan: Nicotine replacement in progress (9) GERD without esophagitis: Assessment and plan: Continue Omeprazole (10) DVT prophylaxis: Status: Acute Assessment and plan: We will continue therapeutic Apixaban (11) Mixed hyperlipidemia: Assessment and plan: We will continue Atorvastatin (12) Discharge planning issues: Status: Acute Assessment and plan: Full code case management following for discharge planning. may benefit from counseling due too recent of spouse and ETOH abuse. Patient is medically clear and referrals have been sent for possible inpatient physical therapy or will be discharged (sister or home) with community care but most likely to SWB 1 then home with HH Plan discussed with Dr. Esquivel Subjective Subjective Patient reports: no new complaints, feels better (and stronger), still having pain (The patient reports mild pain to toes somewhat releived bu pain management ), tolerating liquids well, tolerating a regular diet, voiding w/o difficulty, bowel movement and afebrile; denies flatus, diarrhea, nausea, vomiting or shortness of breath Exam Narrative Exam Narrative: Constitutional The patient is sitting in chair, restless and dressing up in civilian clothing but remains cooperative during the interview. The patient is somewhat disheveled and grimacing without any further pain complaint HENMT: Head is atraumatic, normocephalic, no lymphadenopathy. Facial structures with normal appearance Eyes: Well aligned, intact ROM Neck: Normal ROM Neuro:alert and oriented to self, person,and space; knows it is December but unable to state year or day Chest:Chest is symmetrical and normal appearance Resp: Normal respiratory pattern, speaks in full sentences, unlabored breathing, clear lung bilaterally Cardio: regular rhythm, S1, S2 GI: Abdomen is not distended, soft and non tender : Back/spine/Pelvis: normal alignment Integumentary: No skin lesions or rash Extremities: strength 5/5 to bilateral lower and upper extremities Psych: RASS 1, agitated mood and labile affect. Objective Last Vital Signs Temp 37.1 C 12/16/22 07:50 Pulse 91 H 12/16/22 07:50 Resp 18 12/16/22 07:50 BP 96/66 L 12/16/22 07:50 Pulse Ox 94 12/16/22 07:50 PAWSS Have you Been Recently Intoxicated or Drunk Within the Last 30 days?: Unable to Obtain Have you Ever Experienced Previous Episodes of Alcohol Withdrawal?: Unable to Obtain Have you ever Experienced Withdrawal Seizures?: Unable to Obtain Have you ever Experienced Delirium Tremens(DT)s?: Unable to Obtain Have you ever undergone Alcohol Rehabilitation Treatment (i.e, inpt ot outpatient treatment programs)?: Unable to Obtain Have you ever Experienced Blackouts?: Unable to Obtain Have you ever Combined Alcohol with other Downers within the last 90 days?: Unable to Obtain Have you ever Combined Alcohol with any other Substance of Abuse during the last 90 days?: Unable to Obtain Positive Blood Alcohol level on Presentation? [PCS.BAL]: Unable to Obtain Evidence of Increased Autonomic Activity (i.e. HR>120, tremor, sweating, agitation, nausea)?: Unable to Obtain Time Spent with Patient Time Spent with Patient: >50 minutes Time was spent: preparing to see the patient(eg.review tests), ordering medications,tests, procedures, referring, communicating with other health health care consultant, indepentently interpreting results, counseling the patient and care coordination
[2022-12-16 10:57] VITALS: O2SAT 94
[2022-12-16 11:10] LABS: Abs Immature Grans 0.02 10^3/uL (0.0-0.06); Absolute Basophil Count 0.05 10^3/uL (0.0-0.2); Absolute Eosinophil Count 0.09 10^3/uL (0.0-0.7); Absolute Lymphocyte Count 1.45 10^3/uL (1.2-3.4); Absolute Monocyte Count 0.62 10^3/uL (0.1-0.8); Absolute Neutrophil Count 4.83 10^3/uL (1.2-6.7); Basophils % 0.7; Eosinophils % 1.3; HCT 36.5 % (40.0-50.0); Immature Grans % 0.3; Lymphocytes % 20.5; MCH 32.3 pg (27.0-33.0); MCHC 32.9 % (32.0-36.0); MCV 98 fL (80-95); MPV 10.9 fL (8.0-11.0); Monocytes % 8.8; Neutrophils % 68.4; Platelet Count 249 10^3/uL (130-400); RBC 3.72 10^6/uL (4.36-5.78); RDW 15.7 % (11.8-14.1); RDW-SD 56.4 fL; WBC 7.06 10^3/uL (4.4-10.8)
[2022-12-16 11:20] LABS: Anion Gap 8.8 mmol/L (3-11); BUN 15 mg/dL (7-18); CO2 26.2 mmol/L (21.0-32.0); CREATININE 0.6 mg/dL (0.70-1.30); Calcium 9.6 mg/dL (8.5-10.1); Chloride 104 mmol/L (98-107); Estimated GFR 111.89 (mL/min/1.73m2); Glucose 110 mg/dL (74-106); Magnesium 1.8 mg/dL (1.8-2.4); Potassium 3.3 mmol/L (3.5-5.1); Sodium 139 mmol/L (136-145)
[2022-12-16] MEDS: Diclofenac 1% Gel 100 GM TUBE TP ×2 (11:48→21:22)
--- NOTE | 2022-12-16 13:06 | PT.INTREAT ---
PT Notes Visit Reasons: acute confusional state, alcohol use disorder, leslie Inpatient Physical Therapy Treatment Note [facility] Date: 12/16/22 SUBJECTIVE: States that he is tired. C/o B foot pain with ambulation OBJECTIVE: []? Therapeutic Activities (25022f0): Direct one-on-one instruction in dynamic activities to improve functional performance. ? BED MOBILITY/TRANSFERS? Sit-stand: I ? Stand-sit:I ? Provided skilled cues and instruction on performance and technique throughout. GAIT? Assistive Device: FWW? Weight bearing: full Assist: SBA ? Distance:? approx 350'? ASSESSMENT:? tolerated session very well despite foot pain. No antalgia or LOB noted PLAN: will continue working on his functional mobility. Try sneakers with ambulation tomorrow to see if there might be any difference. TREATMENT CODE/TIME: 20 min [id number]
[2022-12-16 13:56] LABS: Lab Add On Test DONE
[2022-12-16] MEDS: Gabapentin 300 MG CAP PO ×2 (13:57→20:04)
[2022-12-16 14:09] LABS: ALT 20 U/L (16-63); AST 29 U/L (15-37); Alkaline Phosphatase 118 U/L (46-116); Bilirubin, Direct 0.1 mg/dL (0.0-0.2); Bilirubin, Total 0.3 mg/dL (0.2-1.0); Total Protein 7.7 g/dL (6.4-8.2)
[2022-12-16 19:22] VITALS: BP 96/61; PULSE 74; RESP 18; TEMP 36.9; O2SAT 95
[2022-12-16 19:45] VITALS: BP 96/72; PULSE 72
[2022-12-16] MEDS: Normal Saline Flush 10 ML SYR IVP (20:03)
[2022-12-16 23:33] VITALS: BP 96/64; PULSE 83; RESP 18; TEMP 37; O2SAT 92
[2022-12-17 02:58] VITALS: BP 107/71; PULSE 85; RESP 18; TEMP 36.5; O2SAT 96
[2022-12-17] MEDS: Acetaminophen 325 MG TAB PO ×4 (03:11→21:55)
[2022-12-17 07:07] LABS: Magnesium 1.9 mg/dL (1.8-2.4)
[2022-12-17 07:30] VITALS: BP 103/69; PULSE 73; RESP 19; TEMP 36.7; O2SAT 98
[2022-12-17] MEDS: Metoprolol CR 50 MG TABCR 150 MG PO (08:05)
[2022-12-17] MEDS: Protein Nutritional Supplement 16 GM 1 OUNCE PACKET PO ×3 (08:06→21:56)
[2022-12-17] MEDS: Nicotine 14 MG/24 HR PATCH TD (08:06)
[2022-12-17] MEDS: Folic Acid 1 MG TAB 5 MG PO (08:07)
[2022-12-17] MEDS: Diclofenac 1% Gel 100 GM TUBE TP ×4 (08:07→21:55)
[2022-12-17] MEDS: Hydrocortisone 1% CR 30 GM TUBE TP ×2 (08:07→21:55)
[2022-12-17] MEDS: Omeprazole 20 MG CAPCR 40 MG PO (08:08)
[2022-12-17] MEDS: Multivitamin TAB 1 TAB PO (08:08)
[2022-12-17] MEDS: Atorvastatin 20 MG TAB PO (08:09)
[2022-12-17] MEDS: Thiamine 100 MG TAB PO ×3 (08:09→21:55)
[2022-12-17] MEDS: Cyanocobalamin 500 MCG TAB 1000 MCG PO (08:09)
[2022-12-17] MEDS: Lactulose 20 GM/30 ML CUP PO ×2 (08:10→21:55)
[2022-12-17] MEDS: Gabapentin 300 MG CAP PO ×3 (08:10→21:55)
[2022-12-17] MEDS: Apixaban 5 MG TAB PO ×2 (08:10→21:55)
[2022-12-17] MEDS: Normal Saline Flush 10 ML SYR IVP (08:16)
[2022-12-17] MEDS: Budesonide/Formoterol 160/4.5 6 GM 60 PUFF INH IH ×2 (08:20→20:42)
[2022-12-17] MEDS: Tiotropium Bromide-Respimat 10 PUFF INH 2 PUFF IH (08:20)
[2022-12-17 10:22] LABS: Abs Immature Grans 0.02 10^3/uL (0.0-0.06); Absolute Basophil Count 0.04 10^3/uL (0.0-0.2); Absolute Eosinophil Count 0.19 10^3/uL (0.0-0.7); Absolute Lymphocyte Count 1.75 10^3/uL (1.2-3.4); Absolute Neutrophil Count 4.39 10^3/uL (1.2-6.7); Basophils % 0.6; Eosinophils % 2.8; HCT 37.2 % (40.0-50.0); HGB 12.1 g/dL (13.5-17.5); Immature Grans % 0.3; Lymphocytes % 25.4; MCHC 32.5 % (32.0-36.0); MCV 98 fL (80-95); MPV 10.8 fL (8.0-11.0); Monocytes % 7.3; Neutrophils % 63.6; Platelet Count 240 10^3/uL (130-400); RBC 3.78 10^6/uL (4.36-5.78); RDW 15.7 % (11.8-14.1); RDW-SD 56.4 fL; WBC 6.89 10^3/uL (4.4-10.8)
[2022-12-17 10:32] LABS: Anion Gap 7.9 mmol/L (3-11); BUN 14 mg/dL (7-18); CO2 26.1 mmol/L (21.0-32.0); CREATININE 0.6 mg/dL (0.70-1.30); Calcium 9.9 mg/dL (8.5-10.1); Chloride 105 mmol/L (98-107); Estimated GFR 111.89 (mL/min/1.73m2); Glucose 121 mg/dL (74-106); Magnesium 1.9 mg/dL (1.8-2.4); Potassium 3.5 mmol/L (3.5-5.1); Sodium 139 mmol/L (136-145)
--- NOTE | 2022-12-17 11:33 | PGE_ITS ---
Date of Service Date of service: 12/17/22 Time of Service: 11:33 Assessment and Plan Assessment and plan (1) Alcohol withdrawal delirium: Status: Acute Assessment and plan: altered mental status most consistent with wernicke-korsakoff, continue thiamine and is on taper neurology consulted, currently on oral TID thiamine dosing MRI brain shows no acute findings.? Generalized atrophy more than expected for age. (2) Alcohol use disorder: Status: Acute Assessment and plan: Continue as above , Resolved ETOH withdrawal (3) Hepatic encephalopathy: Status: Resolved Assessment and plan: continue oral lactulose, ammonia stable. Liver US - Hepatic steatosis noted.? No discrete focal hepatic lesions. Albumin was 3.0, continue oral protein replacement Trend LFT's (4) Pain: Status: Acute Assessment and plan: Continue the Aqua-K warm emigdio therapy Continue scheduled oral Acetaminophen and diclofenac topically Continue neurontin (5) Chronic obstructive lung disease: Status: Chronic Assessment and plan: No exacerbation signs and symptoms noticed, the patient remains stable Continue current regimen: home Trelegy and Spiriva with prn albuterol nebs. Qualifiers: COPD type: unspecified COPD Qualified Code(s): J44.9 - Chronic obstructive pulmonary disease, unspecified (6) Status post lobectomy of lung: Status: Chronic Assessment and plan: As above (7) S/P ablation of atrial fibrillation: Assessment and plan: rate mid 60's to 97 today; remains controlled Continue apixaban and metoprolol. (8) Personal history of nicotine dependence: Status: Acute Assessment and plan: NRT (9) GERD without esophagitis: Assessment and plan: Continue Omeprazole (10) DVT prophylaxis: Status: Acute Assessment and plan: On Apixaban for Afib (11) Mixed hyperlipidemia: Assessment and plan: Continue Atorvastatin (12) Discharge planning issues: Status: Acute Assessment and plan: Case management following for discharge planning. Recommend private counseling - recent of spouse and ETOH abuse. Patient is medically clear and referrals have been sent for possible inpatient physical therapy or will be discharged to home with community care but most likely to SWB 1 then home with HH sister has declined his staying with her when discharged Plan discussed with Dr. Esquivel Subjective Subjective Patient reports: no new complaints Interval history since last seen: Confused - dressed, packed and asking to go home. He is pending placement, reminded that is the plan. He has no eye contact and is not conversant - nursing reports this is usual for him. Exam Const General: cooperative and no acute distress Nutritional Appearance: average body habitus Orientation: alert and oriented to person [facility] Head: normal to inspection Eyes General: appearance normal, both eyes and all related structures Neck Neck: normal visual inspection Resp Effort & Inspection: normal respiratory effort and able to speak in complete se ntences Auscultation: clear to auscultation bilaterally Cardio Rhythm: regular rhythm GI Inspection: normal to inspection Palpation: soft and nontender Skin Lesions: no lesions Rashes: rashes noted (resolving; w/o pruritus) Neuro General: patient alert and no focal motor deficits Cranial Nerves: EOM intact bilaterally Extrem General: normal to inspection Psych Appearance: grossly normal Mental Status: mental status grossly normal (But anxious when not remembering details) Speech and Movement: speech and movement normal Attitude: cooperative Thought Process: circumstantial Thought Content: no hallucinations Insight: poor Judgment: poor Objective Last Vital Signs Temp 36.7 C 12/17/22 07:30 Pulse 73 12/17/22 07:30 Resp 19 12/17/22 07:30 BP 103/69 12/17/22 07:30 Pulse Ox 98 12/17/22 07:30 Laboratory Results - last 24 hr 12/16/22 12/17/22 12/17/22 11:03 06:10 10:05 WBC 6.89 RBC 3.78 L Hgb 12.1 L Hct 37.2 L MCV 98 H MCH 32.0 MCHC 32.5 RDW 15.7 H Plt Count 240 MPV 10.8 Immature Gran % 0.3 Neutrophils % 63.6 Lymphocytes % 25.4 Monocytes % 7.3 Eosinophils % 2.8 Basophils % 0.6 Nucleated RBC % 0.0 Absolute Neutrophils 4.39 Absolute Lymphocytes 1.75 Absolute Monocytes 0.50 Absolute Eosinophils 0.19 Absolute Basophils 0.04 Sodium 139 Potassium 3.5 Chloride 105 Carbon Dioxide 26.1 Anion Gap 7.9 BUN 14 Creatinine 0.6 L Est GFR (CKD-EPI 2020) 111.89 Glucose 121 H Calcium 9.9 Magnesium 1.9 1.9 Total Bilirubin 0.3 Conjugated Bilirubin 0.1 AST 29 ALT 20 Alkaline Phosphatase 118 H Total Protein 7.7 Albumin 3.0 L Add-On Test Request DONE PAWSS Have you Been Recently Intoxicated or Drunk Within the Last 30 days?: Unable to Obtain Have you Ever Experienced Previous Episodes of Alcohol Withdrawal?: Unable to Obtain Have you ever Experienced Withdrawal Seizures?: Unable to Obtain Have you ever Experienced Delirium Tremens(DT)s?: Unable to Obtain Have you ever undergone Alcohol Rehabilitation Treatment (i.e, inpt ot outpatient treatment programs)?: Unable to Obtain Have you ever Experienced Blackouts?: Unable to Obtain Have you ever Combined Alcohol with other Downers within the last 90 days?: Unable to Obtain Have you ever Combined Alcohol with any other Substance of Abuse during the last 90 days?: Unable to Obtain Positive Blood Alcohol level on Presentation? [PCS.BAL]: Unable to Obtain Evidence of Increased Autonomic Activity (i.e. HR>120, tremor, sweating, agitation, nausea)?: Unable to Obtain Time Spent with Patient Time Spent with Patient: 35-49 minutes Time was spent: preparing to see the patient(eg.review tests), ordering medica tions,tests, procedures, referring, communicating with other health daycare director, indepentently interpreting results, counseling the patient and care coordination
[2022-12-17] MEDS: Magnesium Chloride 64 MG TABCR PO ×2 (11:44→21:55)
[2022-12-17 12:42] VITALS: BP 100/68; PULSE 85; RESP 18; TEMP 36.9; O2SAT 96
--- NOTE | 2022-12-17 13:08 | PT.INTREAT ---
PT Notes Visit Reasons: acute confusional state, alcohol use disorder, leslie Inpatient Physical Therapy Treatment Note [facility] Date: 12/17/22 SUBJECTIVE: Christopher is very confused this am. Getting pretty agitated thinking everyone is pissed at him and holding him here for no reason. Unless there is a warrant out for my arrest I am leaving! He states that they moved him out and took all of his things. He was agreeable to going for a walk with me. OBJECTIVE: []? Therapeutic [id number][]): Direct one-on-one instruction in dynamic activities to improve functional performance. ? BED MOBILITY/TRANSFERS? pt sitting in recliner. ? Sit-stand:S ? Stand-sit: S ? Provided skilled cues and instruction on performance and technique throughout. GAIT? Assistive Device: FWW and occasionally no AD? Weight bearing:full ? Distance:? 800'+ ? Deviation:pt ambulated approx 100' without AD, as he was talking on his phone. ? ASSESSMENT:? pt quite agitated this am. He did calm down a bit during his walk. Very confused and unable to redirect him today. PLAN: will continue to work on his functional mobility. TREATMENT CODE/TIME: 25 min [id number]
[2022-12-17 15:36] VITALS: BP 104/72; PULSE 74; RESP 18; TEMP 36.7; O2SAT 97
[2022-12-17 21:12] VITALS: BP 96/62; PULSE 82; RESP 18; TEMP 37.1; O2SAT 95
[2022-12-17 22:00] VITALS: BP 105/66; PULSE 88; RESP 18; TEMP 36.9; O2SAT 97
[2022-12-18 01:31] VITALS: O2SAT 97
[2022-12-18] MEDS: Acetaminophen 325 MG TAB PO ×4 (06:14→21:17)
[2022-12-18 06:15] LABS: Abs Immature Grans 0.02 10^3/uL (0.0-0.06); Absolute Basophil Count 0.04 10^3/uL (0.0-0.2); Absolute Eosinophil Count 0.15 10^3/uL (0.0-0.7); Absolute Lymphocyte Count 1.39 10^3/uL (1.2-3.4); Absolute Monocyte Count 0.42 10^3/uL (0.1-0.8); Absolute Neutrophil Count 2.61 10^3/uL (1.2-6.7); Basophils % 0.9; Eosinophils % 3.2; HCT 39.4 % (40.0-50.0); HGB 13.1 g/dL (13.5-17.5); Immature Grans % 0.4; MCH 32.5 pg (27.0-33.0); MCHC 33.2 % (32.0-36.0); MCV 98 fL (80-95); MPV 11.5 fL (8.0-11.0); Monocytes % 9.1; Neutrophils % 56.4; Platelet Count 160 10^3/uL (130-400); RBC 4.03 10^6/uL (4.36-5.78); RDW 15.4 % (11.8-14.1); RDW-SD 55.4 fL; WBC 4.63 10^3/uL (4.4-10.8)
[2022-12-18 06:20] VITALS: BP 107/75; PULSE 74; RESP 18; TEMP 36.2; O2SAT 100
[2022-12-18 06:20] LABS: Ammonia 23 umol/L (11-32)
[2022-12-18 06:27] LABS: Anion Gap 7.8 mmol/L (3-11); BUN 14 mg/dL (7-18); CO2 24.2 mmol/L (21.0-32.0); CREATININE 0.5 mg/dL (0.70-1.30); Calcium 9.2 mg/dL (8.5-10.1); Chloride 106 mmol/L (98-107); Estimated GFR 118.23 (mL/min/1.73m2); Glucose 99 mg/dL (74-106); Magnesium 1.8 mg/dL (1.8-2.4); Potassium 3.2 mmol/L (3.5-5.1); Sodium 138 mmol/L (136-145)
[2022-12-18] MEDS: Lactulose 20 GM/30 ML CUP PO ×2 (07:56→20:18)
[2022-12-18] MEDS: Hydrocortisone 1% CR 30 GM TUBE TP ×2 (07:57→20:19)
[2022-12-18] MEDS: Cyanocobalamin 500 MCG TAB 1000 MCG PO (07:57)
[2022-12-18] MEDS: Diclofenac 1% Gel 100 GM TUBE TP ×4 (07:57→20:19)
[2022-12-18] MEDS: Apixaban 5 MG TAB PO ×2 (07:58→20:18)
[2022-12-18] MEDS: Metoprolol CR 50 MG TABCR 150 MG PO (07:58)
[2022-12-18] MEDS: Folic Acid 1 MG TAB 5 MG PO (07:58)
[2022-12-18] MEDS: Atorvastatin 20 MG TAB PO (07:58)
[2022-12-18] MEDS: Gabapentin 300 MG CAP PO ×3 (07:59→20:18)
[2022-12-18] MEDS: Thiamine 100 MG TAB PO ×3 (07:59→20:18)
[2022-12-18] MEDS: Multivitamin TAB 1 TAB PO (07:59)
[2022-12-18] MEDS: Omeprazole 20 MG CAPCR 40 MG PO (07:59)
[2022-12-18] MEDS: Protein Nutritional Supplement 16 GM 1 OUNCE PACKET PO ×3 (08:00→20:18)
--- NOTE | 2022-12-18 08:26 | OTTR_ITS ---
Occupational Therapy Notes Occupational Therapy Inpatient Treatment Note Date: 12/18/22 PRECAUTIONS: Fall, Standard, Full SUBJECTIVE: Pt was receptive to performance of his ADLs after not being available multiple times since evaluation. He notes that he is leaving today and would like to have everything ready. He is slightly confused and upset that he cannot find his money this morning. OBJECTIVE: PAIN:no c/o pain with OT FUNCTIONAL MOBILITY Sit-stand: S Stand-sit: S Bed-Chair: S Chair-bed: S BATHING: Pt denies bathing as he would like to get dressed more and work on that rather than run through his whole bathing routine. DRESSING: Upper Extremity: (I) don and doffing tshirt Lower Extremity: Min (A) don and doffing pants/socks EATING: seated in chair pt was (I) with his eating demands. He notes that he doesn't want to sit on his bed anymore and would like to transition to the chair. While in the standing position, Pt performed dynamic functional movement throughout the room including lifting objects off from various surface heights, task initiation and execution, functional lifting, carrying and pushing. PLAN: Pt reports that his plan is to discharge today. OT will continue to progress pt towards his goals at this time. TREATMENT CODES/TIME: [id number], 20 minutes DORE[facility]
[2022-12-18] MEDS: Tiotropium Bromide-Respimat 10 PUFF INH 2 PUFF IH (09:49)
[2022-12-18] MEDS: Budesonide/Formoterol 160/4.5 6 GM 60 PUFF INH IH ×2 (09:50→19:35)
[2022-12-18] MEDS: Magnesium Chloride 64 MG TABCR PO ×2 (10:04→21:17)
--- NOTE | 2022-12-18 11:31 | PT.INNT ---
PT Notes Visit Reasons: acute confusional state, alcohol use disorder, anuj Attempted to treat patient at 11:26am. He reports too much to do and has to find his truck and keys. Reports he goes out, drives around, goes to his room, etc. Informed him the truck is at home and sister has keys, but he reports does him no good and still has things to figure out. Clearly confused which is his new baseline apparently. Will attempt later, but he's adamant about not participating in PT right now.
--- NOTE | 2022-12-18 13:47 | PDOC.CMPRO ---
Date of service: 12/18/22 Time of Service: 13:48 Care Management Progress Note Progress Note Text Progress Note Text: S/O: Christopher was sitting in his chair talking with PT when CM entered the room. Christopher reports that he just go back from running all kinds of errands and politely apologizes for being to tired to work with PT today. Per PT, he is routinely declining his sessions, due to confusion. CM followed up on referrals, no offers are made. CM spoke with his sister Aileen in length today and inpatient Psych referral's are sent to [facility] and [facility]. Plan is for Christopher to discharge to [facility] tomorrow, if he remains medically stable and no bed offers are made. CM reviewed SWB program with Aileen over the phone and also discussed the benefit of Christopher getting a Guardian to help with decision making. Aileen is considering filling this role but would like to talk with his son Kaz carrillo. CM reviewed LTM process with Aileen as Christopher may benefit from a payer source, if he is unable to pay out of pocket for expenses not covered by his health insurance and/or LTC, if needed. Aileen is planning on visiting Christopher tomorrow and CM will offer forms, [facility] referral may be beneficial to support Aileen navigate insurance. Of note, Aileen reports that Christopher has been on SSDI for 2-4 years due to cardiac and pulmonary issues. Aileen advocates strongly for an [facility] referral and would like to discuss her concerns with the Hospitalist directly. Hospitalist is notified and agrees to return her call. CM continues to follow. A: 57 year old admitted to [facility] 12/02/22 for acute confusional state P: Christopher remains at [facility]; per PT he still requires SNF support upon discharge at this time. SNF-vs [facility] anticipated on Sunday. Referrals are also placed to [facility] and [facility]. CM continues to follow.
--- NOTE | 2022-12-18 15:44 | PT.INNT ---
Date of service: 12/18/22 Time of Service: 14:23 PT Notes Visit Reasons: acute confusional state, alcohol use disorder, leslie Patient refused x3. ROCÍO workman.
--- NOTE | 2022-12-18 18:22 | PGE_ITS ---
Date of Service Date of service: 12/18/22 Time of Service: 10:00 Assessment and Plan Assessment and plan (1) Alcohol withdrawal delirium: Status: Acute Assessment and plan: altered mental status most consistent with wernicke-korsakoff, continue thiamine and is on taper neurology consulted and recommends continuing thiamine, and on dc have him take 100 mg thiamine daily and abstain from drinking alcohol. Agrees with long term care placement. Patient should not drive. FU with neuro post discharge in clinic currently on oral TID thiamine dosing MRI brain shows no acute findings (2) Alcohol use disorder: Status: Acute Assessment and plan: Continue as above , Resolved ETOH withdrawal (3) Hepatic encephalopathy: Status: Resolved Assessment and plan: continue oral lactulose, ammonia 23 today Liver US - Hepatic steatosis noted.? No discrete focal hepatic lesions. Continue oral protein replacement Trend LFT's (4) Pain: Status: Acute Assessment and plan: Continue the Aqua-K warm emigdio therapy Continue scheduled oral Acetaminophen and diclofenac topically Continue neurontin (5) Chronic obstructive lung disease: Status: Chronic Assessment and plan: No exacerbation signs and symptoms noticed, the patient remains stable Continue current regimen: home Trelegy and Spiriva with prn albuterol nebs. Qualifiers: COPD type: unspecified COPD Qualified Code(s): J44.9 - Chronic obstructive pulmonary disease, unspecified (6) Status post lobectomy of lung: Status: Chronic Assessment and plan: As above (7) S/P ablation of atrial fibrillation: Assessment and plan: 70-90 HR today, remains controlled Continue apixaban and metoprolol. (8) Personal history of nicotine dependence: Status: Acute Assessment and plan: NRT (9) GERD without esophagitis: Assessment and plan: Continue Omeprazole (10) DVT prophylaxis: Status: Acute Assessment and plan: On Apixaban for Afib (11) Mixed hyperlipidemia: Assessment and plan: Continue Atorvastatin (12) Discharge planning issues: Status: Acute Assessment and plan: Case management following for discharge planning. Recommend private counseling - recent of spouse and ETOH abuse. Patient is medically clear and referrals have been sent for possible inpatient physical therapy or will be discharged to home with community care but most likely to SWB 1 then home with HH sister has declined his staying with her when discharged Referral to [facility] sent today Plan discussed with Dr. Esquivel Subjective Subjective Patient reports: no new complaints Interval history since last seen: Confused - dressed, packed and again asking to go home. He is pending placement. CM had multiple calls with his sister today - see their note. Exam Const General: cooperative and no acute distress Nutritional Appearance: average body habitus Orientation: alert and oriented to person [facility] Head: normal to inspection Eyes General: appearance normal, both eyes and all related structures Neck Neck: normal visual inspection Resp Effort & Inspection: normal respiratory effort and able to speak in complete sentences Auscultation: clear to auscultation bilaterally Cardio Rhythm: regular rhythm GI Inspection: normal to inspection Palpation: soft and nontender Skin Lesions: no lesions Rashes: rashes noted (resolving; w/o pruritus) Neuro General: patient alert and no focal motor deficits Cranial Nerves: EOM intact bilaterally Extrem General: normal to inspection Psych Appearance: grossly normal Mental Status: mental status grossly normal (But anxious when not remembering details) Speech and Movement: speech and movement normal Attitude: cooperative Thought Process: circumstantial Thought Content: no hallucinations Insight: poor Judgment: poor Objective Last Vital Signs Temp 36.2 C L 12/18/22 06:20 Pulse 74 12/18/22 06:20 Resp 18 12/18/22 06:20 BP 107/75 12/18/22 06:20 Pulse Ox 100 12/18/22 06:20 Laboratory Results - last 24 hr 12/18/22 05:55 WBC 4.63 RBC 4.03 L Hgb 13.1 L Hct 39.4 L MCV 98 H MCH 32.5 MCHC 33.2 RDW 15.4 H Plt Count 160 MPV 11.5 H Immature Gran % 0.4 Neutrophils % 56.4 Lymphocytes % 30.0 Monocytes % 9.1 Eosinophils % 3.2 Basophils % 0.9 Nucleated RBC % 0.0 Absolute Neutrophils 2.61 Absolute Lymphocytes 1.39 Absolute Monocytes 0.42 Absolute Eosinophils 0.15 Absolute Basophils 0.04 Sodium 138 Potassium 3.2 L Chloride 106 Carbon Dioxide 24.2 Anion Gap 7.8 BUN 14 Creatinine 0.5 L Est GFR (CKD-EPI 2020) 118.23 Glucose 99 Calcium 9.2 Magnesium 1.8 Ammonia 23 PAWSS Have you Been Recently Intoxicated or Drunk Within the Last 30 days?: Unable to Obtain Have you Ever Experienced Previous Episodes of Alcohol Withdrawal?: Unable to Obtain Have you ever Experienced Withdrawal Seizures?: Unable to Obtain Have you ever Experienced Delirium Tremens(DT)s?: Unable to Obtain Have you ever undergone Alcohol Rehabilitation Treatment (i.e, inpt ot outpatient treatment programs)?: Unable to Obtain Have you ever Experienced Blackouts?: Unable to Obtain Have you ever Combined Alcohol with other Downers within the last 90 days?: Unable to Obtain Have you ever Combined Alcohol with any other Substance of Abuse during the last 90 days?: Unable to Obtain Positive Blood Alcohol level on Presentation? [PCS.BAL]: Unable to Obtain Evidence of Increased Autonomic Activity (i.e. HR>120, tremor, sweating, agitation, nausea)?: Unable to Obtain Time Spent with Patient Time Spent with Patient: 35-49 minutes Time was spent: preparing to see the patient(eg.review tests), ordering medications,tests, procedures, referring, communicating with other health career guidance counselor, indepentently interpreting results and counseling the patient
[2022-12-18 19:29] VITALS: BP 96/63; PULSE 70; RESP 16; TEMP 36.6; O2SAT 98
[2022-12-18] MEDS: Potassium Chloride 20 MEQ TABCR 40 MEQ PO (20:18)
--- NOTE | 2022-12-18 20:52 | PGE_ITS ---
Date of Service Date of service: 12/18/22 Time of Service: 20:30 Subjective Subjective Interval history since last seen: I had a long conversation with Christopher's sister, Aileen. She would like the patient evaluated by [facility], I told her we did send a referral to two separate facilities that would be appropriate for him and those are being evaluated by the facilities and they will get back to us. I did ask her to consider bringing him home and possibly taking him to a larger tertiary center that has in patient psych that could evaluate him for admission and treatment. I explained we do not have psychiatry here. [facility] can evaluate him, however we still don't have the resources he needs. She explained to me his in August, he witnessed her have a massive heart attack and EMS attempt resuscitation that failed, he was then told the home would not come get her if he didn't provide them with 5,000$. He did not have that money. The EMT's, according to Aileen, placed Penelope (his ) in the back of his bead picker truck and covered her with a tarp so the animals did not eat her. Penelope remained in the bead picker for a day or two waiting for a ME to come and declare her so he could transport Penelope to the crematorium. How horrible. Christopher has now said things like I have to call Penelope and let her know where I am. He continues to be very confused. I explained with his alcohol history and this trauma, there is a lot going on and it is hard to determine what is the actual cause of his confusion, ammonia is normal, or could this be early dementia or PTSD. There is a lot more to this than we have resources for at this time. Objective Last Vital Signs Temp 36.6 C 12/18/22 19:29 Pulse 70 12/18/22 19:29 Resp 16 12/18/22 19:29 BP 96/63 L 12/18/22 19:29 Pulse Ox 98 12/18/22 19:29 Laboratory Results - last 24 hr 12/18/22 05:55 WBC 4.63 RBC 4.03 L Hgb 13.1 L Hct 39.4 L MCV 98 H MCH 32.5 MCHC 33.2 RDW 15.4 H Plt Count 160 MPV 11.5 H Immature Gran % 0.4 Neutrophils % 56.4 Lymphocytes % 30.0 Monocytes % 9.1 Eosinophils % 3.2 Basophils % 0.9 Nucleated RBC % 0.0 Absolute Neutrophils 2.61 Absolute Lymphocytes 1.39 Absolute Monocytes 0.42 Absolute Eosinophils 0.15 Absolute Basophils 0.04 Sodium 138 Potassium 3.2 L Chloride 106 Carbon Dioxide 24.2 Anion Gap 7.8 BUN 14 Creatinine 0.5 L Est GFR (CKD-EPI 2020) 118.23 Glucose 99 Calcium 9.2 Magnesium 1.8 Ammonia 23 PAWSS Have you Been Recently Intoxicated or Drunk Within the Last 30 days?: Unable to Obtain Have you Ever Experienced Previous Episodes of Alcohol Withdrawal?: Unable to Obtain Have you ever Experienced Withdrawal Seizures?: Unable to Obtain Have you ever Experienced Delirium Tremens(DT)s?: Unable to Obtain Have you ever undergone Alcohol Rehabilitation Treatment (i.e, inpt ot outpatient treatment programs)?: Unable to Obtain Have you ever Experienced Blackouts?: Unable to Obtain Have you ever Combined Alcohol with other Downers within the last 90 days?: Unable to Obtain Have you ever Combined Alcohol with any other Substance of Abuse during the last 90 days?: Unable to Obtain Positive Blood Alcohol level on Presentation? [PCS.BAL]: Unable to Obtain Evidence of Increased Autonomic Activity (i.e. HR>120, tremor, sweating, agitation, nausea)?: Unable to Obtain Time Spent with Patient Time Spent with Patient: 25-34 minutes Time was spent: care coordination
[2022-12-18 22:49] VITALS: BP 102/68; PULSE 75; RESP 16; TEMP 36.4; O2SAT 95
[2022-12-19 03:20] VITALS: BP 103/64; PULSE 69; RESP 18; TEMP 36.6; O2SAT 94
[2022-12-19] MEDS: Acetaminophen 325 MG TAB PO ×3 (03:21→15:11)
[2022-12-19 07:09] LABS: Abs Immature Grans 0.01 10^3/uL (0.0-0.06); Absolute Basophil Count 0.04 10^3/uL (0.0-0.2); Absolute Eosinophil Count 0.14 10^3/uL (0.0-0.7); Absolute Lymphocyte Count 1.63 10^3/uL (1.2-3.4); Absolute Monocyte Count 0.47 10^3/uL (0.1-0.8); Absolute Neutrophil Count 2.96 10^3/uL (1.2-6.7); Basophils % 0.8; Eosinophils % 2.7; HCT 34.5 % (40.0-50.0); HGB 11.5 g/dL (13.5-17.5); Immature Grans % 0.2; MCH 32.8 pg (27.0-33.0); MCHC 33.3 % (32.0-36.0); MCV 98 fL (80-95); MPV 11.5 fL (8.0-11.0); Neutrophils % 56.3; Platelet Count 194 10^3/uL (130-400); RBC 3.51 10^6/uL (4.36-5.78); RDW 15.3 % (11.8-14.1); RDW-SD 54.8 fL; WBC 5.25 10^3/uL (4.4-10.8)
[2022-12-19 07:28] VITALS: BP 95/64; PULSE 79; RESP 18; TEMP 36.7; O2SAT 95
[2022-12-19 07:31] LABS: Anion Gap 9.5 mmol/L (3-11); BUN 12 mg/dL (7-18); CO2 23.5 mmol/L (21.0-32.0); CREATININE 0.5 mg/dL (0.70-1.30); Calcium 9.2 mg/dL (8.5-10.1); Chloride 108 mmol/L (98-107); Estimated GFR 118.23 (mL/min/1.73m2); Glucose 93 mg/dL (74-106); Potassium 3.7 mmol/L (3.5-5.1); Sodium 141 mmol/L (136-145)
[2022-12-19] MEDS: Budesonide/Formoterol 160/4.5 6 GM 60 PUFF INH IH (08:24)
[2022-12-19] MEDS: Tiotropium Bromide-Respimat 10 PUFF INH 2 PUFF IH (08:24)
[2022-12-19] MEDS: Metoprolol CR 50 MG TABCR 150 MG PO (08:30)
[2022-12-19] MEDS: Multivitamin TAB 1 TAB PO (08:30)
[2022-12-19] MEDS: Atorvastatin 20 MG TAB PO (08:30)
[2022-12-19] MEDS: Omeprazole 20 MG CAPCR 40 MG PO (08:30)
[2022-12-19] MEDS: Folic Acid 1 MG TAB 5 MG PO (08:30)
[2022-12-19] MEDS: Gabapentin 300 MG CAP PO ×2 (08:30→15:11)
[2022-12-19] MEDS: Apixaban 5 MG TAB PO (08:31)
[2022-12-19] MEDS: Lactulose 20 GM/30 ML CUP PO (08:31)
[2022-12-19] MEDS: Cyanocobalamin 500 MCG TAB 1000 MCG PO (08:31)
[2022-12-19] MEDS: Diclofenac 1% Gel 100 GM TUBE TP ×3 (08:31→15:11)
[2022-12-19] MEDS: Protein Nutritional Supplement 16 GM 1 OUNCE PACKET PO ×2 (08:31→15:11)
[2022-12-19] MEDS: Hydrocortisone 1% CR 30 GM TUBE TP (08:32)
--- NOTE | 2022-12-19 10:15 | OT.INTREAT ---
Occupational Therapy Notes Occupational Therapy Inpatient Treatment Note Date: 12/19/22 PRECAUTIONS: Fall, Standard, Full SUBJECTIVE: Pt states that he is doing well today. He is sitting in the chair watching television when OT arrives. He notes that he, needs to go through everything because he is not used to this place. OBJECTIVE: PAIN:no c/o pain DRESSING: Lower Extremity: Pt is very distracted today and fidgety while seated in the chair. He is not receptive to bathing but is to putting on his socks. OT and pt work on leg lift and fold over for donning and doffing socks. Pt is able to perform this with mod vc throughout but has difficulty with getting the last part of his foot into the sock. OT attempts to use sock aid but this is very confusing for pt so we will hold on this for now. ASSESSMENT/PLAN: Pt is very confused and impulsive. He requires vc for task initiation and is easily distracted. Functionally he can perform his ADLs but requires supervision and (A) as needed. OT will continue to monitor this. TREATMENT CODES/TIME: [id number], 10 minutes Jojo Munguia OTR/[facility] [place], [place]
--- NOTE | 2022-12-19 10:51 | DSE_ITS ---
Date of service: 12/19/22 Time of Service: 10:52 DS: Diagnosis Discharge Diagnosis (1) Alcohol withdrawal delirium: Status: Acute (2) Alcohol use disorder: Status: Acute (3) Hepatic encephalopathy: Status: Resolved (4) Pain: Status: Acute (5) Chronic obstructive lung disease: Status: Chronic (6) Status post lobectomy of lung: Status: Chronic (7) S/P ablation of atrial fibrillation: (8) Personal history of nicotine dependence: Status: Acute (9) GERD without esophagitis: (10) DVT prophylaxis: Status: Acute (11) Mixed hyperlipidemia: (12) Discharge planning issues: Status: Acute Discharge Plan Disposition Patient Disposition: Swing Bed(Skilled,SB1) Condition: Fair Discharge Details Reason For Visit: acute confusional state, alcohol use disorder, leslie Admit Date/Time: 12/02/22 19:42 Admit Provider: Melvin Esquivel Attending Provider: Melvin Esquivel Primary Care Provider: Frederic Espinoza Hospital Course Hospital Course: This is a 57 years old male, with history of alcohol use disorder, chronic pancreatitis, atrial fibrillation, chronic obstructive pulmonary disease, 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 Family voice concerns that the patient was not eating or drinking well for appx 2 weeks. Nausea, vomiting and reduced alcohol intake were reported by the family. In the ED the patient was alert, confused and tremulous, had mild tachycardia, was afebrile and normotensive, and saturation on RA was in the high 90?s. Remarkable labs results were Na 144, K 2.7, Mg 1.2. Magnesium, potassium were replete. CXR showed stable appearance of spiculated parenchymal densities seen near the right apex with no new parenchymal mass or consolidation detected. Head CT showed cerebral atrophy and probable mild underlying microvascular ischemic changes with no evidence acute intracranial process. The patient received Lorazepam 1 mg iv for a CIWA score of 8, a banana bag was initiated. The hospitalist was contacted and the patient admitted to the medical-surgical floor with telemetry for CIWA monitoring and treatment of likely early alcohol withdrawal , electrolyte replacements and high dose thiamin administration. During the admission, the patient received phenobarbital as per CIWA scoring. High-dose thiamine IV given for the treatment of Wernicke, electrolytes corrected vitamin B12 and folate supplemented, and metoprolol succinate adjusted. The patient exhibited confusion, memory alterations well beyond the window for alcohol withdrawal. Dr. Rogers during a neurology consult, evaluated the patient as most likely having Wernicke-Korsakov due to chronic alcohol abuse. Long-term placement was recommended as well as abstention from alcohol and thiamine supplementation at discharge. The care management team sent multiple referrals without success. For safe discharge, the patient will be discharged to [facility] bed [facility] for safe discharge, while awaiting further answers. The patient will continue same medication regimen. Home Meds and New Rx's Prescriptions: Continued metoprolol succinate 200 mg tablet extended release 24 hr 200 mg PO DAILY Eliquis 5 mg tablet 5 mg PO BID famotidine 20 mg tablet 20 mg PO DAILY Patient Comments: no longer taking acetaminophen [Tylenol Extra Strength] 500 mg tablet 1,000 mg PO Q6H PRN albuterol sulfate [ProAir HFA] 90 mcg/actuation HFA aerosol inhaler 2 puff inhalation Q4H PRN ondansetron 4 mg tablet,disintegrating 2 - 8 mg PO Q8H PRN meclizine 25 mg tablet 25 mg PO TID PRN sildenafil 100 mg tablet 100 mg PO PRN PRN Patient Comments: Patient is no longer using. TAKE 1 TABLET BY MOUTH 30 MINUTES BEFORE SEX Trelegy Ellipta 100-62.5-25 mcg blister with device 1 inh INHALATION DAILY Patient Comments: INHALE 1 PUFF BY MOUTH ONCE DAILY atorvastatin 20 mg tablet 20 mg PO DAILY Patient Comments: TAKE 1 TABLET BY MOUTH EVERY DAY omeprazole 40 mg capsule,delayed release(DR/EC) 40 mg PO DAILY Spiriva Respimat 2.5 mcg/actuation Mist 2 puff inhalation DAILY Qty: 4 0RF magnesium oxide 400 mg (241.3 mg magnesium) Tablet 400 mg PO BID Qty: 60 0RF Discharge Instructions Activity:: Activity as Tolerated Equipment/Supplies:: No Equipment Needed Diet:: As Tolerated Discharge Orders Discharge Orders: Discharge Order (Routine); Ordered 12/19/22 Ordered By: Deana Inman DS: Summary Time Spent with Patient providing and/or coordinating discharge services: Greater than 30 minutes Status at Discharge Functional status at discharge: uses cane/walker Overall status at discharge: patient is not back to baseline Mental Status: mental status grossly normal Speech and Movement: speech and movement normal Mood: congruent mood Affect: normal affect Exam Narrative Exam Narrative: Constitutional The patient is sitting in chair ,cooperative during the interview. The patient is well groomed without acute distress and has average body habitus HENMT: Head is atraumatic, normocephalic, no lymphadenopathy. Facial structures with normal appearance Eyes: Well aligned, intact ROM Neck: Normal ROM, no meningeal signs Neuro:alert and oriented to self,otherwise confused except for the month. Tremors noticed with upper ext. extension. No neurological focal deficit Chest:Chest is symmetrical and normal appearance Resp: Normal respiratory pattern, speaks in full sentences, unlabored breathing, clear lung bilaterally Cardio: regular rhythm, S1, S2, no murmur, capillary refill<3 sec., bilateral radial and dorsalis pedis pulses are positive, palpable GI: Abdomen is not distended, soft and non tender, bowel sounds are present : Negative Costovertebral angle tenderness Back/spine/Pelvis: No back tenderness, normal alignment Integumentary: No skin lesions or rash, but dry skin overall Extremities: strength 5/5 to bilateral lower and upper extremities( with tremors) Psych: RASS 0, congruent mood and normal affect. Psych Mental Status: mental status grossly normal Speech and Movement: speech and movement normal Mood: congruent mood Affect: normal affect DS: Data Vitals/I&O Vitals and I&O: Vital Signs Temperature 36.7 C 12/19/22 07:28 Temperature Source Tympanic 12/19/22 07:28 Pulse 79 12/19/22 07:28 Pulse Rhythm Regular 12/18/22 21:47 Pulse 102 H 12/02/22 21:10 Respiratory Rate 18 12/19/22 07:28 Respiratory Effort Normal, Non-Labored 12/18/22 21:47 Respiratory Depth Normal 12/18/22 21:47 Respiratory Pattern Normal 12/18/22 21:47 Blood Pressure 95/64 L 12/19/22 07:28 Blood Pressure Mean 103 12/02/22 21:01 Blood Pressure Position Sitting 12/02/22 14:49 Pulse Oximetry 95 12/19/22 07:28 Oxygen Delivery Method Room Air 12/19/22 07:28 Oxygen Flow Rate 0 12/19/22 07:28 Pain Level 0 12/19/22 07:28 Comment RN Notified 12/16/22 23:33 Intake & Output 12/18/22 12/18/22 12/19/22 11:59 23:59 11:59 Intake Total 360 / 960 600 / 960 300 / 300 Balance 360 / 960 600 / 960 300 / 300 Intake: Oral 360 / 960 600 / 960 300 / 300 Other: Urine Color Yellow Urine Appearance Cloudy Urine Odor Normal Comment Pt voided independently in toilet. unmeasured void Stool Size Moderate Voiding Methods Toilet Toilet Data Completed and Pending Labs on day of discharge: Labs from last 24 hours 12/19/22 12/19/22 06:26 06:20 WBC 5.25 RBC 3.51 L Hgb 11.5 L Hct 34.5 L MCV 98 H MCH 32.8 MCHC 33.3 RDW 15.3 H Plt Count 194 MPV 11.5 H Immature Gran % 0.2 Neutrophils % 56.3 Lymphocytes % 31.0 Monocytes % 9.0 Eosinophils % 2.7 Basophils % 0.8 Nucleated RBC % 0.0 Absolute Neutrophils 2.96 Absolute Lymphocytes 1.63 Absolute Monocytes 0.47 Absolute Eosinophils 0.14 Absolute Basophils 0.04 Sodium 141 Potassium 3.7 Chloride 108 H Carbon Dioxide 23.5 Anion Gap 9.5 BUN 12 Creatinine 0.5 L Est GFR (CKD-EPI 2020) 118.23 Glucose 93 Calcium 9.2 Magnesium 2.0 PFSH All Active Problems (Updated 12/16/22 @ 14:02 by Deana Inman APRN) Wernicke-Korsakoff syndrome (Acute) Skin rash (Acute) Pain (Acute) DVT prophylaxis (Acute) Alcohol withdrawal delirium (Acute) Discharge planning issues (Acute) Altered mental status (Acute) Alcohol use disorder (Acute) Acute hyponatremia (Acute) Pancreatitis (Chronic) Personal history of nicotine dependence (Acute) Right upper lobe pulmonary nodule (Acute) Status post lobectomy of lung (Chronic) Chronic obstructive lung disease (Chronic) Sensorineural hearing loss (SNHL) of both ears (Acute) Medical History Alcohol abuse Atrial fibrillation with RVR Atrial flutter Atypical chest pain Carcinoid tumor of lung Cellulitis Chest wall pain Contusion Cough Decreased hearing Depressive disorder Diverticulitis of sigmoid colon Elevated LFTs Emphysematous bleb of lung Foot pain GERD (gastroesophageal reflux disease) GERD without esophagitis Gout Hepatitis C antibody test positive Hypercholesterolemia Hypertensive disease Hyperuricemia Hyponatremia Impotence of organic origin Mixed hyperlipidemia Multiple joint pain Nicotine dependence Nicotine dependence, cigarettes, uncomplicated Obstructive sleep apnea Paroxysmal atrial fibrillation Pneumonia Reduced visual acuity RUQ pain Sighing respiration Supraventricular tachycardia Ventral incisional hernia Surgical History Hx of colonoscopy Hx of esophagogastroduodenoscopy S/P ablation of atrial fibrillation S/P cholecystectomy S/P hernia repair S/P partial lobectomy of lung Family History Mother Stroke Diabetes Father Cancer Social History Smoking/Tobacco Use Status: Former Tobacco Use tobacco type: cigarettes Quit Da te: 03/05/14 Tobacco: How many years used: 34 Smoking risk assessment performed?: Yes Alcohol Intake: current Alcohol Intake frequency: a few times a week Alcohol type: beer and hard liquor Drug use: Occasionally Substance use type: marijuana Details: eats THC Household members: spouse Housing: house current occupation: disabled Pets and animals: Yes Pets and animals: cat(s) What is your relationship status?: Panel score (0-1 are the most socially isolated patients): 1 Do you feel safe at home: Yes Do you feel safe in your relationship?: Yes Time Spent with Patient Time Spent with Patient: >85 minutes Time was spent: preparing to see the patient(eg.review tests), ordering medications,tests, procedures, referring, communicating with other health assurance services manager health care, indepentently interpreting results, counseling the patient and care coordination
[2022-12-19] MEDS: Magnesium Chloride 64 MG TABCR PO (11:28)
[2022-12-19 15:13] VITALS: BP 92/57; PULSE 75; RESP 17; TEMP 36.8; O2SAT 98
--- NOTE | 2022-12-19 15:26 | PDOC.MHCN_ITS ---
Date of service: 12/19/22 Time of Service: 11:00 PHQ-9 Over the last 2 weeks, how often have you been bothered by any of the following problems? 1. Little interest or pleasure in doing things: not at all 2. Feeling down, depressed, or hopeless: not at all 3. Trouble falling or staying asleep, or sleeping too much: not at all 4. Feeling tired or having little energy: not at all 5. Poor appetite or overeating: not at all 6. Feeling bad about yourself - or that you are a failure or have let yourself and your family down: not at all 7. Trouble concentrating on things, such as reading the newspaper or watching television: not at all 8. Moving or speaking so slowly that other people could have noticed? - Or the opposite - being so fidgety or restless that you have been moving around a lot more than usual: not at all 9. Thoughts that you would be better off or of hurting yourself in some way: not at all Total score: 0 Source: Developed by Drs. Sanju York, Mickie Colmenares, Pratik Macedo and colleagues, with an educational adalberto from [facility]. Suicide Severity Rate CSSRS Have you wished you were or wished you could go to sleep and not wake up?: No Have you actually had any thoughts of killing yourself?: No CSSRS2 Have you been thinking about how you might do this?: No Have you had these thoughts and had some intention of acting on them?: No Have you started to work out or worked out the details of how to kill yourself? Do you intend to carry out this plan?: No CSSRS3 Have you ever done anything, started to do anything or prepared to do anything to end your life?: No CSSRS4 Was this within the past three months?: No Screening Score Total Score: 0 Screening: Negative Mental Health Emergency Note Release [facility] release signed:: No Reason for Visit mental health assessment In the last 2 weeks has the pt presented for ES prior to today?: No Client Information Well Housed: Yes Safety Risk/Harm to Self or Others Current Ideation to Harm Self or Others: No Risk: Does risk to harm exist?: No Risk: Low Risk Duty to warn indicated: No Asssessment/Mental Status Appearance: Other Attitude: Cooperative and Friendly Behavior: Unremarkable Speech: Normal Affect: Cogruent with mood Mood: Happy and Anxious Thought process: Loose associations and Poverty of content Hallucinations: No Delusions: No Attention: Wandering Perception: Not impaired Orientation: Disoriented in Situation Memory: Impaired in: Recent Insight: Poor Judgement: Poor Neurovegetative Symptoms Sleep: No change Appetitie: No change Interests: No change Energy: No change Libido: Not applicable Substance Use: ETOH dependence Drug Issues: Other Do you use nicotine?: No Have you used substances in the last 7 days?: No Additional Issues: Assaultive/Threatening Behavior: No Medical Concerns: Yes Client engaged in active self harm w/weapon: No Threatening to run away: No Child reported abuse/neglect: No Voluntarily presenting for services: Yes Domestic violence is a concern: No Extreme Psychosis or extreme behavior is present: No Impression Client is in hospital as he cannot take care of himself currently. He has suffered major loss and consumes lots of alcohol to reyna negative thoughts away. Alcohol has effective his thought process alog with tremandous trauma recently. Plan/Disposition Recommended Disposition: [facility] Services [facility] Services: Therapy, SUPERVISOR [employer]SEMBLY, Therapy and Med management. Plan: This client may be best suited for shelter substance/psychiatric treatment as an inpatient. Hospital is researching and referring this client to those places best equipped to help this gentlemen. Reports/communication Outcome discussed with: Other
--- NOTE | 2022-12-19 15:55 | CM.SBPSYCH ---
Date of service: 12/19/22 Time of Service: 15:55 SB Psychosocial/Act. [facility] Hospital Admission Admission Date: 12/19/22 Admission From:: [facility] Inpatient Diagnosis:: Wernicke Korsakoff Syndrome, Hepatic Encephlopathy, Delirium /ETOH Abuse Swing Bed Admission Swing Bed Admit Date:: 12/19/22 Swing Bed Level of Care: Level 1/SNF Social Supports PREVIOUS FUNCTIONAL STATUS/SOCIAL/FAMILY SUPPORTS:: Christopher lives in [place] with his step son. His sister Aileen lives in [place] and has been supportive throughout his hospitalization. Her Micheal is his best friend and Christopher speaks of him often. Christopher's biological son Kaz lives in [facility] and is also supportive. He has been disabled for 2-4 years due to cardiac and pulmonary issues. He functioned independently with his ADL's and within the community to an unknown extent prior to admission. Per Aileen, his 3 months ago and it was a tragic experience. Aileen is agreeable to filing for Guardianship to support Christopher with decision making. Medical History PAST MEDICAL HISTORY/PAST SURGICAL HISTORY:: GERD, hypercholesterolemia, paroxysmal afib, ablation of afib, alcohol use disorder, cholcystectomy, hernia repair, partial lobectomy of lung
--- NOTE | 2022-12-19 16:02 | PTTR_ITS ---
Date of service: 12/19/22 Time of Service: 15:35 PT Notes Visit Reasons: acute confusional state, alcohol use disorder, leslie Inpatient Physical Therapy Treatment Note [facility] Date: 12/19/22 PRECAUTIONS: Fall, standard, activity as tolerated SUBJECTIVE: Patient reports feeling pretty good, concerned about the location of his truck and his truck keys, as well as his phone fire extinguisher charger. Truck is at home, sister has keys, phone fire extinguisher charger was eventually located his patient's house coat pocket. OBJECTIVE: Sitting up in chair, agreeable to therapy. ? PAIN: none reported, including when this therapist asks patient about his feet. VITALS: monitored by nursing staff? BED MOBILITY/TRANSFERS? Rolling L/R: not assessed Supine-sit: not assessed ? Sit-supine: not assessed ? Sit-stand: independent ? Stand-sit: independent ? Bed-Chair: independent ? Chair-bed: independent Patient able to independently do hospital socks, don his own socks, pants, shirt, and shoes. Complains that his shoe brett is at home, but is able to untuck the back of the shoe independently. ? Therapeutic Exercises ([id number]): Direct one-on-one instruction in therapeutic exercises to develop strength, endurance, range of motion and flexibility. ? Exercises * Sit to stand x5 * LAQ x5 * heel toe raises x10 Ambulation ? Assistive Device: single forearm crutch in right hand ? Weight bearing: full Assist: SBA ? Distance:? 500 feet? Deviation: some abduction swing noted on left leg as patient fatigues. Arturo piper requests to raise crutch as he feels he is having to bend forward to use it - patient's posture does improve momentarily when crutch is adjusted, but returns to kyphotic posture as patient fatigues. No LOB noted, no c/o pain in feet. ? Provided skilled instruction in proper exercise performance Provided skilled manual cues to facilitate proper muscle recruitment and/or form. ASSESSMENT:? Patient tolerates therapy well, returns to his room to visit with his sister at the end of treatment session. Does report that his legs are a little tired and that he too is pretty tired. PLAN: Continue global strengthening per plan of care until patient is medically cleared for discharge and has a safe discharge plan. TREATMENT CODE/TIME: 25 minutes beginning at 15:35.
--- NOTE | 2022-12-19 16:13 | CM.SWINGPC ---
Date of service: 12/19/22 Time of Service: 16:13 Swingbed Plan of Care Activites/Discharge Plan of care: SWING BED PROGRAM ACTIVITIES/DISCHARGE PLAN OF CARE ACTIVITIES PLAN Date: 12/19/2022 Identified Need: Intervention/Plan: Initials DISCHARGE PLAN Date: Identified Need: Intervention/Plan: Initials
--- NOTE | 2022-12-19 16:21 | PDOC.CMDIS ---
Date of service: 12/19/22 Time of Service: 16:22 Care Management Discharge Plan Reason for Hospitalization: Acute Confusion, Alcohol use disorder
--- NOTE | 2022-12-19 16:27 | NUR.NOTE ---
Accessed Pt chart to verify Pt was in the ER, [facility] was calling for information The call was transferred to Medical Records
== END 2022-12-19 18:54 | disposition swing bed (61) | DRG 897 ==
LOC: ER 16:06 → MS 21:32
PROVIDERS: Internal Medicine; Nurse Practitioner Acute Care; Nurse Practitioner Family; Admitting Provider Family Medicine; Emergency Provider Physician Assistant; PCP Family Medicine; Visit Provider Family Medicine
DX: F10.131 Alcohol abuse with withdrawal delirium (principal); K86.1 Other chronic pancreatitis; F10.151 Alcohol abuse with alcohol-induced psychotic disorder with hallucinations; I67.89 Other cerebrovascular disease; E83.42 Hypomagnesemia; E87.6 Hypokalemia; J44.9 Chronic obstructive pulmonary disease, unspecified; Z79.01 Long term (current) use of anticoagulants; Z90.2 Acquired absence of lung [part of]; Z87.891 Personal history of nicotine dependence; K21.9 Gastro-esophageal reflux disease without esophagitis; E78.2 Mixed hyperlipidemia; I48.91 Unspecified atrial fibrillation; Z85.118 Personal history of other malignant neoplasm of bronchus and lung; K76.82 Hepatic encephalopathy; K76.0 Fatty (change of) liver, not elsewhere classified; G62.9 Polyneuropathy, unspecified; R21 Rash and other nonspecific skin eruption
CPT/HCPCS: 00123; 36415; 80048; 80053; 80076; 80307; 82805; 83690; 84145; 85027; 87635; 93005; 94640; 96127; 96365; 96366; 96367; 96375; 96376; 97110; 97116; 97162; 97165; 97530; 97535; 99223; 99232; 99233; 99291; 70450; 70551; 71045; 76705; 80184; 80320; 81003; 81015; 82140; 82607; 82746; 83605; 83735; 84100; 84443; 84484; 84550; 85025; 85610; 85730; 86140; 93010; 94664; 99239; J2060; J2560; J3420; J3475; J3480

== ENCOUNTER → 2022-12-12 06:54 | Outpatient (BNVA) | payer MEDICARE, MEDICAID, SELFPAY | PROVIDERS: PCP Family Medicine; Referring Provider Family Medicine; Visit Provider Psychiatry & Neurology Neurology ==

== ENCOUNTER 2022-12-19 18:44 | Inpatient (IN) | payer MEDICARE, MEDICAID, SELFPAY ==
--- NOTE | 2022-12-19 16:18 | CMSA_ITS ---
Date of service: 12/19/22 Time of Service: 16:18 SB Psychosocial/Act. [facility] Hospital Admission Admission Date: 12/19/22 Admission From:: [facility] inpatient Diagnosis:: Wernike Korsekoff Syndrome, Swing Bed Admission Swing Bed Admit Date:: 12/19/22 Swing Bed Level of Care: Level 1/SNF Social Supports PREVIOUS FUNCTIONAL STATUS/SOCIAL/FAMILY SUPPORTS:: Christopher lives in [place] with his step son. His Penelope past away 3 months ago, after having a major heart attack. Her was a tragic event for Christopher. His sister Aileen lives in [place] and has been supportive to Christopher throughout his hospitalization. Aileen's Micheal is his best friend and Christopher speaks of him often even though his memory is limited. Christopher's biological son Kaz lives in [facility]. Kaz is supportive has verbalized to that he appreciated Aileen's support during this difficult time. Christopher has been disabled for 2-4 years due to cardiac and pulmonary issues. He functioned independently with his ADL's and within the community to an unknown extent prior to admission. Aileen is agreeable to filing for Guardianship to support Christopher with decision making. Prior to Admission Living Arrangements/Environment Prior to Admission:: Christopher lives in [place] with his step son. The home is owned by his Penelope who is now . Education Highest Grade Completed:: 11th Where did you attend School:: [employer] Work History Employment Status:: Disabled Voacation:: [employer] : No [place]'s Spouse: No Benefits Financial: Social Security and Commerical ([employer]) Advance Directives for Healthcare Advance Directive Agent: None on file Community Community Supports/Involvement: NA Interests Hobbies:: hunting and fishing Present Functional Status Physical Abilities:: Limited Cognitive:: Limited Communication:: Somewhat limited by cognitive deficits. Sensory Systems: Hearing loss Behavior:: Pleasant, cooperative Medical History PAST MEDICAL HISTORY/PAST SURGICAL HISTORY:: GERD, hypercholesterolemia, paroxysmal afib, ablation of afib, alcohol use disorder, cholcystectomy, hernia repair, partial lobectomy of lung General Health:: Overall Health has been effecting by years of ETOH abuse Past Psychiatric Treatment:: NA Admission Data Reason for Swing Bed Admission:: Needs safe disposition. Discharge Plan:: Discharge options are SNF vs. community home vs. back to the community with increased services which will include 25/09 caregiver support. [employer] insurance is a barrier sister is willing to apply for guardianship and LTM, but would like time to seek legal [place]. 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 His healthcare coverage is MCR replacement, which is not commonly accepted by SNF;s and is a barrier. (His sister Aileen recognizes this and is trying to help him get Medicare since it's open enr ollment until 02/08/23 (CM placed [facility] referral to help with this process).He also has [place] Medicaid. May benefit from LTM as a payer source, family sister or son is encouraged to apply for guardianship to support Christopher with his decision making. Or First Assist Registered Nurse: Kely Cruz RN Date Assessment was completed:: 12/22/22
--- NOTE | 2022-12-19 16:18 | CM.SWINGPC ---
Date of service: 12/19/22 Time of Service: 16:18 Swingbed Plan of Care Activites/Discharge Plan of care: SWING BED PROGRAM ACTIVITIES/DISCHARGE PLAN OF CARE ACTIVITIES PLAN Date: 12/19/22 Identified Need: Activities for life enrichment during Christopher's extended hospitalization, which transitioned today to swing bed level care. Intervention/Plan: Individualized plan for life enrichment which includes phone in room, TV with remote, magazines, cards, items from the activity cart, music/pet therapy (when available), Reiki and frequent visits with family. Initials DL DISCHARGE PLAN Date: 12/19/22 Identified Need: Safe disposition: SNF vs. back to the community with increased services which will include 25/09 caregiver support. Intervention/Plan: CM will facilitate a safe admission and offer support to Christopher and his family throughout his extended hospital stay. Forms for LTM and Guardianship are provided to Aileen Clinton 12/19/22. Initials DL
[2022-12-19] MEDS: Budesonide/Formoterol 160/4.5 6 GM 60 PUFF INH IH (19:48)
[2022-12-19] MEDS: Gabapentin 300 MG CAP PO (20:17)
[2022-12-19] MEDS: Diclofenac 1% Gel 100 GM TUBE TP (20:17)
[2022-12-19] MEDS: Protein Nutritional Supplement 16 GM 1 OUNCE PACKET PO (20:17)
[2022-12-19] MEDS: Apixaban 5 MG TAB PO (20:17)
[2022-12-19] MEDS: Lactulose 20 GM/30 ML CUP PO (20:17)
[2022-12-19] MEDS: Acetaminophen 325 MG TAB PO (20:17)
[2022-12-19 20:18] VITALS: BP 94/61; PULSE 77; RESP 18; TEMP 36.6; O2SAT 96
[2022-12-19] MEDS: Hydrocortisone 1% CR 30 GM TUBE TP (20:18)
[2022-12-19] MEDS: Magnesium Chloride 64 MG TABCR PO (21:07)
--- NOTE | 2022-12-19 21:24 | HPE_ITS ---
Date of service: 12/19/22 Time of Service: 18:00 Assessment and Plan Assessment and plan (1) Alcohol withdrawal delirium: Status: Acute Assessment and plan: altered mental status most consistent with wernicke-korsakoff, continue thiamine and is on taper neurology consulted and recommends continuing thiamine, and on dc have him take 100 mg thiamine daily and abstain from drinking alcohol. Agrees with retirement care placement. Patient should not drive. FU with neuro post discharge in clinic currently on oral TID thiamine dosing, to be decreased to daily as outpatient MRI brain shows no acute findings (2) Alcohol use disorder: Status: Acute Assessment and plan: Continue as above , Resolved ETOH withdrawal (3) Hepatic encephalopathy: Status: Resolved Assessment and plan: Will continue oral lactulose Liver US - Hepatic steatosis noted.? No discrete focal hepatic lesions. Will continue oral protein replacement (4) Pain: Status: Acute Assessment and plan: Continue the Aqua-K warm emigdio therapy Continue scheduled oral Acetaminophen and diclofenac topically Continue neurontin periodically monitor LFT's (5) Chronic obstructive lung disease: Status: Chronic Assessment and plan: No exacerbation signs and symptoms noticed, the patient remains stable Continue current regimen: home Trelegy and Spiriva with prn albuterol nebs. Qualifiers: COPD type: unspecified COPD Qualified Code(s): J44.9 - Chronic obstructive pulmonary disease, unspecified (6) Status post lobectomy of lung: Status: Chronic Assessment and plan: As above (7) S/P ablation of atrial fibrillation: Assessment and plan: 70-90 HR today, remains controlled Continue apixaban and metoprolol. (8) Personal history of nicotine dependence: Status: Acute Assessment and plan: NRT (9) GERD without esophagitis: Assessment and plan: Continue Omeprazole (10) DVT prophylaxis: Status: Acute Assessment and plan: On Apixaban for Afib (11) Mixed hyperlipidemia: Assessment and plan: Continue Atorvastatin (12) Discharge planning issues: Status: Acute Assessment and plan: Case management following for discharge planning. Recommend private counseling - recent of spouse and ETOH abuse. Patient is medically clear and referrals have been sent for possible inpatient physical therapy, SWB 1 temporarly for now awaiting other referrals sister has declined his staying with her when discharged Referral to [facility] and another facility in [place] was conctated by CM today Plan discussed with Dr. 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 Family voice concerns that the patient was not eating or drinking well for appx 2 weeks. Nausea, vomiting and reduced alcohol intake were reported by the family. In the ED the patient was alert, confused and tremulous, had mild tachycardia, was afebrile and normotensive, and saturation on RA was in the high 90?s. Remarkable labs results were Na 144, K 2.7, Mg 1.2. Magnesium, potassium were replete. CXR showed stable appearance of spiculated parenchymal densities seen near the right apex with no new parenchymal mass or consolidation detected. Head CT showed cerebral atrophy and probable mild underlying microvascular ischemic changes with no evidence acute intracranial process. The patient received Lorazepam 1 mg iv for a CIWA score of 8, a banana bag was initiated. The hospitalist was contacted and the patient admitted to the medical-surgical floor with telemetry ?for CIWA monitoring and treatment of likely early alcohol withdrawal , electrolyte replacements and high dose thiamin administration. During the admission, the patient received phenobarbital as per CIWA scoring. High-dose thiamine IV given for the treatment of Wernicke, electrolytes corrected vitamin B12 and folate supplemented, and metoprolol succinate adjusted. Familiy members mentioned willingness to take the patient home with them when he would be back to baseline. The patient exhibited confusion, memory alterations well beyond the window for alcohol withdrawal. Dr. Rogers during a neurology consult, evaluated the patient as most likely having Wernicke-Korsakov due to chronic alcohol abuse. Long-term placement was recommended as well as abstention from alcohol and thiamine supplementation at discharge. Family members expressed reluctance to take the patient home as they felt more care was needed. The care management team sent multiple referrals without success. For safe discharge, the patient will be discharged to swing bed 1 for safe discharge, while awaiting further answers. The patient will continue same medication regimen. Review of Systems Narrative: The patient mentioned feeling better and acknowledge that he has difficulty remembering dates and events and plans. Denies headache, change in vision, sore throat, shortness of breath, chest pain, abdominal pain, weakness, nausea , vomiting,diarrhea or constipation. Reports sleeping well, feeling stronger, eating well, passing flatus. PFSH All Active Problems (Updated 12/16/22 @ 14:02 by Deana Inman APRN) Wernicke-Korsakoff syndrome (Acute) Skin rash (Acute) Pain (Acute) DVT prophylaxis (Acute) Alcohol withdrawal delirium (Acute) Discharge planning issues (Acute) Altered mental status (Acute) Alcohol use disorder (Acute) Acute hyponatremia (Acute) Pancreatitis (Chronic) Personal history of nicotine dependence (Acute) Right upper lobe pulmonary nodule (Acute) Status post lobectomy of lung (Chronic) Chronic obstructive lung disease (Chronic) Sensorineural hearing loss (SNHL) of both ears (Acute) Medical History Alcohol abuse Atrial fibrillation with RVR Atrial flutter Atypical chest pain Carcinoid tumor of lung Cellulitis Chest wall pain Contusion Cough Decreased hearing Depressive disorder Diverticulitis of sigmoid colon Elevated LFTs Emphysematous bleb of lung Foot pain GERD (gastroesophageal reflux disease) GERD without esophagitis Gout Hepatitis C antibody test positive Hypercholesterolemia Hypertensive disease Hyperuricemia Hyponatremia Impotence of organic origin Mixed hyperlipidemia Multiple joint pain Nicotine dependence Nicotine dependence, cigarettes, uncomplicated Obstructive sleep apnea Paroxysmal atrial fibrillation Pneumonia Reduced visual acuity RUQ pain Sighing respiration Supraventricular tachycardia Ventral incisional hernia Surgical History Hx of colonoscopy Hx of esophagogastroduodenoscopy S/P ablation of atrial fibrillation S/P cholecystectomy S/P hernia repair S/P partial lobectomy of lung Family History Mother Stroke Diabetes Father Cancer Social History Smoking/Tobacco Use Status: Former Tobacco Use tobacco type: cigarettes Quit Date: 03/05/14 Tobacco: How many years used: 34 Smoking risk assessment performed?: Yes Alcohol Intake: current Alcohol Intake frequency: a few times a week Alcohol type: beer and hard liquor Drug use: Occasionally Substance use type: marijuana Details: eats THC Household members: spouse Housing: house current occupation: disabled Pets and animals: Yes Pets and animals: cat(s) What is your relationship status?: Panel score (0-1 are the most socially isolated patients): 1 Do you feel safe at home: Yes Do you feel safe in your relationship?: Yes Meds Allergies and Home Medications Allergies Allergy/AdvReac Type Severity Reaction Status Date / Time No Known Allergies Allergy Verified 09/17/22 20:59 Home Medications Medication Instructions Recorded Confirmed Type apixaban 5 mg tablet (Eliquis) 5 mg PO BID 03/10/20 12/02/22 History famotidine 20 mg tablet 20 mg PO DAILY 03/10/20 09/17/22 History metoprolol succinate 200 mg 200 mg PO DAILY 03/10/20 12/02/22 History tablet,extended release 24 hr atorvastatin 20 mg tablet 20 mg PO DAILY 03/14/20 12/02/22 History fluticasone fur. 100 mcg-umeclid 1 inh inhalation DAILY 03/14/20 09/17/22 History 62.5 mcg-vilant 25 mcg inhalat.powder (Trelegy Ellipta) sildenafil 100 mg tablet 100 mg PO PRN PRN 03/14/20 09/17/22 History acetaminophen 500 mg tablet 1,000 mg PO Q6H PRN 02/15/21 12/02/22 History (Tylenol Extra Strength) albuterol sulfate 90 mcg/actuation 2 puff inhalation Q4H PRN 02/15/21 12/02/22 History aerosol inhaler (ProAir HFA) ondansetron 4 mg disintegrating 2 - 8 mg PO Q8H PRN 07/05/21 12/02/22 History tablet meclizine 25 mg tablet 25 mg PO TID PRN 04/28/22 12/02/22 History omeprazole 40 mg capsule,delayed 40 mg PO DAILY 09/17/22 12/02/22 History release magnesium oxide 400 mg (241.3 mg 400 mg PO BID #60 tabs 09/19/22 12/02/22 Rx magnesium) tablet tiotropium bromide 2.5 2 puff inhalation DAILY #4 grams 09/19/22 Rx mcg/actuation mist for inhalation (Spiriva Respimat) Exam Narrative Exam Narrative: Constitutional The patient is sitting in chair comfortable and cooperative The patient is without acute distress and has average body habitus HENMT: Head is atraumatic, normocephalic, no lymphadenopathy. Facial structures with normal appearance Eyes: Well aligned, intact ROM Neck: Normal ROM, no meningeal signs Neuro:alert and oriented to self, confused in time and space. No neurological focal deficit Chest:Chest is symmetrical and normal appearance Resp: Normal respiratory pattern, speaks in full sentences, unlabored breathing, clear lung bilaterally Cardio: regular rhythm, S1, S2, no murmur, capillary refill<3 sec., bilateral radial and dorsalis pedis pulses are positive, palpable GI: Abdomen is not distended, soft and non tender, bowel sounds are present : Negative Costovertebral angle tenderness, no bladder distension Back/spine/Pelvis: No back tenderness, normal alignment Integumentary: No skin lesions or rash; skin is dry Extremities: strength 5/5 to bilateral lower and upper extremities, slight tremors with arm extended Psych: RASS 0, congruent mood and normal affect. Results Last Vital Signs Temp 36.6 C 12/19/22 20:18 Pulse 77 12/19/22 20:18 Resp 18 12/19/22 20:18 BP 94/61 L 12/19/22 20:18 Pulse Ox 96 12/19/22 20:18 Time Spent Time spent with Patient: >75 minutes Time was spent: preparing to see the patient(eg.review tests), obtaining and/or reviewing separately otained hiistory, ordering medications,tests, procedures, referring, communicating with other health career developer, indepentently interpreting results, counseling the patient and care coordination
--- NOTE | 2022-12-20 07:14 | OTDS_ITS ---
Occupational Therapy Notes Occupational Therapy Inpatient Discharge Summary for Acute Level of Care Date: 12/20/22 Dates of Service: 12/11/22-12/19/22 Referring Doctor:Deana Inman OT Orders: Non Urgent Precautions: Fall, Standard, Full *This document serves as a summary of care with no skilled OT services provided on this date* PATIENT PROFILE/ADMITTING DIAGNOSIS: Pt is a 57 year old male who presented to the ED on 12/02/22 wth a clinical impression of ?Acute hypokalemia, Acute hyponatremia, Altered mental status, Alcohol use disorder. He was admitted to Med Surg for further observation. Past Medical History: All Active Problems? Discharge planning issues (Acute) Altered mental status (Acute) Alcohol use disorder (Acute) Acute hyponatremia (Acute) Hypomagnesemia (Acute) Acute hypokalemia (Acute) Pancreatitis (Chronic) Personal history of nicotine dependence (Acute) Right upper lobe pulmonary nodule (Acute) Status post lobectomy of lung (Acute) Large cell neuroendocrine carcinoma (Acute) Chronic obstructive lung disease (Chronic) Sensorineural hearing loss (SNHL) of both ears (Acute) Medical History? Alcohol abuse Atrial fibrillation with RVR Atrial flutter Atypical chest pain Carcinoid tumor of lung Cellulitis Chest wall pain Contusion Cough Decreased hearing Depressive disorder Diverticulitis of sigmoid colon Elevated LFTs Emphysematous bleb of lung Foot pain GERD (gastroesophageal reflux disease) GERD without esophagitis Gout Hepatitis C antibody test positive Hypercholesterolemia Hypertensive disease Hyperuricemia Hyponatremia Impotence of organic origin Mixed hyperlipidemia Multiple joint pain Nicotine dependence Nicotine dependence, cigarettes, uncomplicated Obstructive sleep apnea Paroxysmal atrial fibrillation Pneumonia Reduced visual acuity RUQ pain Sighing respiration Supraventricular tachycardia Ventral incisional hernia Surgical History? Hx of colonoscopy Hx of esophagogastroduodenoscopy S/P ablation of atrial fibrillation S/P cholecystectomy S/P hernia repair S/P partial lobectomy of lung Social History/Home Situation: Pt states that he lives alone in a private home in [facility]. He notes that he has 4 steps to enter his home and ~10 steps inside. He was (I) with his ADL/IADL routines. He has difficulty at times with donning and doffing his socks. He notes that he can perform his eating demands and bathing routines with increased (I). He does have a tub shower which he states he has difficulty with transferring in and out of. Functionally he states that his balance comes and goes. Equipment owned/DME: Cane, grab bar SUBJECTIVE: NT OBJECTIVE: ROM: RUE AROM WFL L UE AROM WFL STRENGTH: RUE 4+/5 throughout LUE 5/5 throughout FUNCTIONAL MOBILITY/ADLS: Eating- (I) in chair no vc required Dressing- (I) don and doffing socks with min vc Bathing- (I) with max set up and vc required throughout BALANCE: Static sitting Normal Dynamic Sitting Normal ASSESSMENT: Patient is a 57-year-old male referred to occupational therapy services with diagnosis of skin rash, pain, hepatic encephalopathy, alcohol widthdrawal delirium, altered mental status, acute hyponatremia, hypomagnesemia, acute hypokalemia, pancreatitis. Patient was seen for skilled OT services under acute level of care. He is very confused and not at his regular baseline for cognition. Based on this he does require vc for task initiation at times but is fairly (I) with his ADL/IADL routines. GOALS Goals 1. Transfers with cane (I) to bathroom to stand at sink- met 2. Dressing seated in chair (I) UE and mod (I) LE -progressing 3. Bathing standing at sink (I) face, and (B) UE, seated (I) LE - met 4. Toileting on toilet (I) - met 5. Eating seated in chair (I) - met PLAN OF CARE/TREATMENT PLAN: *Pt was transitioned to SB1 level of care at this time. Based on this, pt is being discharged from his acute level of status and if MD feels that pt is appropriate would need a new OT referral for continued services. DISCHARGE RECOMMENDATIONS PT/OT TREATMENT TIME/MINUTES/CODES N/A Jojo Munguia, OTR/L [facility] [place], [place]
[2022-12-20] MEDS: Lactulose 20 GM/30 ML CUP PO ×2 (07:55→19:46)
[2022-12-20] MEDS: Protein Nutritional Supplement 16 GM 1 OUNCE PACKET PO ×3 (07:55→19:45)
[2022-12-20] MEDS: Folic Acid 1 MG TAB 5 MG PO (07:56)
[2022-12-20] MEDS: Cyanocobalamin 500 MCG TAB 1000 MCG PO (07:56)
[2022-12-20] MEDS: Acetaminophen 325 MG TAB PO ×3 (07:57→19:46)
[2022-12-20] MEDS: Gabapentin 300 MG CAP PO ×3 (07:57→19:46)
[2022-12-20] MEDS: Omeprazole 20 MG CAPCR 40 MG PO (07:57)
[2022-12-20] MEDS: Atorvastatin 20 MG TAB PO (07:57)
[2022-12-20] MEDS: Multivitamin TAB 1 TAB PO (07:58)
[2022-12-20] MEDS: Hydrocortisone 1% CR 30 GM TUBE TP (07:58)
[2022-12-20] MEDS: Diclofenac 1% Gel 100 GM TUBE TP ×3 (07:58→15:10)
[2022-12-20] MEDS: Apixaban 5 MG TAB PO ×2 (07:58→19:46)
[2022-12-20] MEDS: Budesonide/Formoterol 160/4.5 6 GM 60 PUFF INH IH ×2 (08:44→19:42)
[2022-12-20] MEDS: Tiotropium Bromide-Respimat 10 PUFF INH 2 PUFF IH (08:45)
[2022-12-20] MEDS: Magnesium Chloride 64 MG TABCR PO ×2 (11:03→21:12)
--- NOTE | 2022-12-20 14:32 | PHA.REVIEW2 ---
Pharmacy Admission Review Admission Clinical Review Admission Pharmacy Review: (Updated 12/20/22 @ 00:06 by PILY LÓPEZ) Pain (Acute) No Known Allergies Allergy (Verified 09/17/22 20:59) Resuscitation Status Full Code Height 5 ft 9 in Weight 74.84 kg Pharmacy Admission Review Renal Dosing Medications needing adjustments: Reviewed (eCrCl >100 ml/min) List of meds needing interventions: no renal dose adjustments needed Anticoagulation Therapeutic Anticoagulation: Reviewed Medications: Apixaban Opiate Usage Evaluate Pain Scale/Pains Meds: N/A Relevant Labs Electrolytes, C-Reactive P, ESR: Reviewed (all wnl on 12/19/22) DM Control DM Control: N/A Cardiac Review BP, HR, EF%: Reviewed QTc Review QTc: N/A Home Meds Home Med List reviewed: Intervened Relevent Home Meds Not ordered & why?: confirmed med list, all ordered Current Meds Current Medication Order Review: Reviewed
--- NOTE | 2022-12-20 14:40 | PT.INIE ---
PT Notes Visit Reasons: Acute Confusion State, Alcohol Use Disorder Inpatient Physical Therapy Swing Bed Level I Initial Evaluation Date: 12/20/22 Referring Doctor: Korina Logan NP PT Orders: PT CONSULT: Eval/Treat Precautions: fall. Standard. Activity as tolerated. Patient Profile/Admitting Diagnosis: Converted to swing bed level I as of 12/19/2022 with referral for PT received today. Patient with diagnosis of EtOH withdrawal/delirium, EtOH use disorder, hepatic encephalopathy, chronic obstructive lung disease, SP lobectomy of lung, SP ablation atrial fibrillation, and mixed hyperlipidemia. PMHx: All Active Problems (Updated 12/03/22 @ 16:02 by Selena Vega MD) DVT prophylaxis (Acute) Alcohol withdrawal delirium (Acute) Discharge planning issues (Acute) Altered mental status (Acute) Alcohol use disorder (Acute) Acute hyponatremia (Acute) Acute hypokalemia (Acute) Pancreatitis (Chronic) Personal history of nicotine dependence (Acute) Right upper lobe pulmonary nodule (Acute) Status post lobectomy of lung (Chronic) Chronic obstructive lung disease (Chronic) Sensorineural hearing loss (SNHL) of both ears (Acute) Medical History Alcohol abuse Atrial fibrillation with RVR Atrial flutter Atypical chest pain Carcinoid tumor of lung Cellulitis Chest wall pain Contusion Cough Decreased hearing Depressive disorder Diverticulitis of sigmoid colon Elevated LFTs Emphysematous bleb of lung Foot pain GERD without esophagitis Gout Hepatitis C antibody test positive Hypercholesterolemia Hypertensive disease Hyperuricemia Hyponatremia Impotence of organic origin Mixed hyperlipidemia Multiple joint pain Nicotine dependence Nicotine dependence, cigarettes, uncomplicated Obstructive sleep apnea Paroxysmal atrial fibrillation Pneumonia Reduced visual acuity RUQ pain Sighing respiration Supraventricular tachycardia Ventral incisional hernia Surgical History Hx of colonoscopy Hx of esophagogastroduodenoscopy S/P ablation of atrial fibrillation S/P cholecystectomy S/P hernia repair S/P partial lobectomy of lung Social History/Home Situation: Patient lives alone in a private split level home, with several steps to enter. He uses a single loftstrand crtuch at baseline due to right knee pain and instability. Denies history of falls. Equipment Owned/DME: single loftstrand crutch Subjective: Agreeable to new swing bed plan of care and exercise regimen that have been recommended to him. Okay with coming over to the therapy room Mondays through Fridays from 11:30 AM for his PT sessions. Objective: General Observation: Seated on bedside chair. No lines. Mental Status: Alert and oriented to person and place. Responses appropriate. Able to follow double-step commands. Pain: Denies ROM: Right Upper Extremity: Shoulder Flexion WFL. Shoulder abduction WFL. Elbow flexion WFL. Wrist flexion WFL. Functional opening and closing of hand WFL. Left Upper Extremity: Shoulder Flexion WFL. Shoulder abduction WFL. Elbow flexion WFL. Wrist flexion WFL. Functional opening and closing of hand WFL. Right Lower Extremity: Hip flexion WFL. Hip abduction WFL. Knee flexion WFL. Ankle dorsiflexion WFL. Ankle plantarflexion WFL. Left Lower Extremity: Hip flexion WFL. Hip abduction WFL. Knee flexion WFL. Ankle dorsiflexion WFL. Ankle plantarflexion WFL. Strength: Right Upper Extremity: Shoulder flexors 4/5. Shoulder abductors 4/5. Elbow flexors 4/5. Elbow extensors 4/5. Leather Production Machine Operator strong. Left Upper Extremity: Shoulder flexors 4/5. Shoulder abductors 4/5. Elbow flexors 4/5. Elbow extensors 4/5. Leather Production Machine Operator strong. Right Lower Extremity: Hip flexors 4-/5. Hip abductors 4-/5. Knee flexors 4/5. Knee extensors 4-/5. Ankle dorsiflexors 4-/5. Ankle plantarflexors 4/5. Left Lower Extremity: Hip flexors 4-/5. Hip abductors 4-/5. Knee flexors 4/5. Knee extensors 4-/5. Ankle dorsiflexors 4-/5. Ankle plantarflexors 4/5. Bed Mobility/Transfers: Rolling independent Supine to sit independent Sit to supine independent Sit to stand independent Stand to sit independent Bed to chair supervision with Loftsrand crutch on R Chair to bed supervision with Loftsrand crutch on R Gait: Able to ambulate up to 300 feet using Lofstrand crutch on the R with mild thoracic kyphosis observed. Step length and height asymmetric. Mild SOB noted that subsided with rest. Stairs: Up and down 18 x 4-inch steps and 12 x 6-inch steps while holding onto B rails with 3 LB AW with stand by assist. Mild shortness of breath noted that resolved with rest. Balance: Static Sitting: Normal Dynamic Sitting: Normal Static Standing: Good Dynamic Standing: Fair 4-Position Balance Test: Small EFFIE: 10 seconds Partial Tandem: 10 seconds Full Tandem: 0 seconds Single Leg Stance: 0 seconds Special Tests: Mobility Limitations Standardized Measure [facility] AM-PAC 6 clicks Basic Mobility Inpatient Short Form: Raw Score: 23 CMS Score: 11% impairment Informed Consent/Education: Patient instructed in purpose of PT consult and plan of care. ASSESSMENT: Converted to swing bed level I as of 12/19/2022 with referral for PT received today. Patient with diagnosis of EtOH withdrawal/delirium, EtOH use disorder, hepatic encephalopathy, chronic obstructive lung disease, SP lobectomy of lung, SP ablation atrial fibrillation, and mixed hyperlipidemia. Continued skilling will focus on functioanl mobility progression using single point cane, progressive strengthening, and balance retraining. Patient presents with clinical signs and symptoms consistent with current/admitting diagnoses that have resulted to mobility limitations, gait instability, generalized weakness, and overall ADL decline as demonstrated by the following impairment level findings: 1. Decreased strength to B UE/LE major muscle groups 2. Impaired standing balance 3. Impaired activity tolerance 4. Shortness of breath Impairments are contributing to the following functional limitations: 1. Difficulty with ambulation without assistive device 2. Increased completion time for mobility ADL performance 3. Increased risk for falls Patient is assessed as a 53479 moderate complexity based on the following: History: 57-year-old male with past medical history as indicated above Examination: Demonstrable impairment in strength, balance, and mobility level with underlying impairments and functional limitations as exhibited above as well as deficit score of 11% utilizing the [facility] Mobility Inpatient Short Form Presentation: Evolving Decision Makin moderate complexity Goals: Goals X1 week 1. Supine-Sit independent 2. Sit-Supine independent 3. Sit-Stand independent 4. Stand-Sit independent 5. Bed-Chair independent 6. Chair-Bed independent 7. Independent gait on level surface with use of SPC for at least 300 feet without report of pain nor dyspnea 8. Independent stair negotiation while holding onto bilateral rails for at least 10 steps without report of pain nor dyspnea 9. Independent with home exercise program 10. Good static and dynamic standing balance/tolerance PLAN OF CARE/TREATMENT PLAN : 1x/day, 5 days/week x 2 weeks. Patient to come to therapy around 11:30 AM for his sessions. Plan of care has been reviewed with the MECHANIC WELDER TRUCK DRIVER providing the service under Physical Therapy direction: 1. NuStep with resistance of 10 x 8 minutes 2. Rest for 1 minute 3. Stair navigation 6 x 4-inch steps and 4 x 6-inch steps therapy steps using 3 lb AW x 3 trips 4. Rest for 1 minute 5. Utilize intermediate balance exercises: sidestepping for 10 steps to L and R x 3 sets, progress to using 3 lb AW back up 10 steps x 3 sets, progress to using 3 lb AW Use 4-step balance exercise on therapy floor x 3 sets, progress to using 3 lb AW DISCHARGE RECOMMENDATIONS: SNF vs. PT based on progress towards goals TREATMENT CODE/TIME: 58381 X 20 minutes for 1 unit, 06677 x 11 minutes beginning at 10:51 AM. Thank you for the opportunity to participate in the care of this patient. Keiko Delgado PT, DPT, CLT [facility] [place], [place]
--- NOTE | 2022-12-20 14:48 | CHAPLAIN ---
When I visited with Christopher this morning, he said he's feeling odd, and isn't sure what's going on. Today he was dressed in a ric and had his jeans on underneath. He said he was given a computer at one point, but then it was taken away. He also said his nurse and had been using a computer, pointing to the standing computer used by nurses, and he wasn't sure what that was about. It's likely that she was recording medication or patient information. Christopher seemed interested in a conversation, and letting me know that he was feeling odd, although there were often long pauses between his comments. He asked me how I was doing today. I will continue to visit.
[2022-12-20 14:58] VITALS: BP 100/66; PULSE 73; RESP 18; TEMP 37; O2SAT 96
[2022-12-20 23:39] VITALS: BP 113/76; PULSE 96; RESP 16; TEMP 36.3; O2SAT 98
[2022-12-21 07:39] VITALS: BP 107/72; PULSE 92; RESP 18; TEMP 36.7; O2SAT 97
[2022-12-21] MEDS: Budesonide/Formoterol 160/4.5 6 GM 60 PUFF INH IH ×2 (08:24→19:28)
[2022-12-21] MEDS: Tiotropium Bromide-Respimat 10 PUFF INH 2 PUFF IH (08:24)
[2022-12-21] MEDS: Omeprazole 20 MG CAPCR 40 MG PO (08:41)
[2022-12-21] MEDS: Lactulose 20 GM/30 ML CUP PO ×2 (08:41→20:11)
[2022-12-21] MEDS: Protein Nutritional Supplement 16 GM 1 OUNCE PACKET PO ×3 (08:41→20:11)
[2022-12-21] MEDS: Acetaminophen 325 MG TAB PO ×3 (08:42→20:11)
[2022-12-21] MEDS: Folic Acid 1 MG TAB 5 MG PO (08:42)
[2022-12-21] MEDS: Gabapentin 300 MG CAP PO ×3 (08:42→20:12)
[2022-12-21] MEDS: Multivitamin TAB 1 TAB PO (08:42)
[2022-12-21] MEDS: Cyanocobalamin 500 MCG TAB 1000 MCG PO (08:42)
[2022-12-21] MEDS: Atorvastatin 20 MG TAB PO (08:42)
[2022-12-21] MEDS: Diclofenac 1% Gel 100 GM TUBE TP ×4 (08:43→20:12)
[2022-12-21] MEDS: Hydrocortisone 1% CR 30 GM TUBE TP ×2 (08:43→20:13)
[2022-12-21] MEDS: Apixaban 5 MG TAB PO ×2 (08:43→20:11)
[2022-12-21] MEDS: Metoprolol CR 50 MG TABCR 150 MG PO (08:44)
[2022-12-21] MEDS: Magnesium Chloride 64 MG TABCR PO ×2 (11:10→20:15)
--- NOTE | 2022-12-21 12:03 | PT.INTREAT ---
PT Notes Visit Reasons: Acute Confusion State, Alcohol Use Disorder Inpatient Physical Therapy Swing Bed Level I Treatment Note Date: 12/21/22 Precautions: Fall. Standard. Activity as tolerated. Subjective: No new complaints. Needed to be reminded about his appointment today several times. PT came in to make sure he did not forget. Agreeable to the workout planned as of yesterday. Patient continues to be cooperative with plan of care and activities provided for him. Hopeful that he could get is strength, balance, and mobility level back. Objective: General Observation: Seated on bedside chair. No lines. Mental Status: Alert and oriented to person and place. Responses appropriate. Able to follow double-step commands. Pain: Denies Bed Mobility/Transfers: Rolling independent Supine to sit independent Sit to supine independent Sit to stand independent Stand to sit independent Bed to chair supervision with Loftsrand crutch on R Chair to bed supervision with [place] crutch on R Gait: Able to ambulate up to 300 feet using Lofstrand crutch on the R with mild thoracic kyphosis observed. Step length and height asymmetric. Mild SOB noted that subsided with rest. Stairs: Up and down 18 x 4-inch steps and 12 x 6-inch steps while holding onto B rails with 3 LB AW with stand by assist. Mild shortness of breath noted that resolved with rest. Balance: Static Sitting: Normal Dynamic Sitting: Normal Static Standing: Good Dynamic Standing: Fair ASSESSMENT: No undue fatigue nor pain reported during and after session. Beginner level balance exercises were well tolerated with onatct guard to stand by assist provided. TREATMENT INTERVENTION TODAY: Facilitated safe and correct performance of session activities to improve strength, balance, and mobility level as follows: 1. NuStep with resistance of 10 x 8:47 minutes 2. Rest for 1 minute 3. Stair navigation 6 x 4-inch steps and 4 x 6-inch steps therapy steps using 3 lb AW x 3 trips 4. Rest for 1 minute 5. Utilize intermediate balance exercises: sidestepping for 10 steps to L and R x 3 sets, progress to using 3 lb AW back up 10 steps x 3 sets, progress to using 3 lb AW Use 4-step balance exercise on therapy floor x 3 sets, progress to using 3 lb AW PLAN: 1x/day from Mondays through Fridays at 11:30 AM to achive swing bed level goals. DISCHARGE RECOMMENDATIONS: SNF vs. PT based on progress towards goals TREATMENT CODE/TIME: 78800 x 33 minutes beginning at 11:43 AM.
[2022-12-21 15:27] VITALS: BP 108/72; PULSE 68; RESP 18; TEMP 36.8; O2SAT 98
[2022-12-22 07:28] VITALS: BP 105/68; PULSE 80; RESP 18; TEMP 37.2; O2SAT 95
[2022-12-22] MEDS: Budesonide/Formoterol 160/4.5 6 GM 60 PUFF INH IH ×2 (08:49→19:25)
[2022-12-22] MEDS: Tiotropium Bromide-Respimat 10 PUFF INH 2 PUFF IH (08:50)
[2022-12-22] MEDS: Protein Nutritional Supplement 16 GM 1 OUNCE PACKET PO ×3 (09:28→19:54)
[2022-12-22] MEDS: Cyanocobalamin 500 MCG TAB 1000 MCG PO (09:29)
[2022-12-22] MEDS: Folic Acid 1 MG TAB 5 MG PO (09:29)
[2022-12-22] MEDS: Nicotine 14 MG/24 HR PATCH TD (09:29)
[2022-12-22] MEDS: Magnesium Chloride 64 MG TABCR PO ×2 (09:29→22:30)
[2022-12-22] MEDS: Omeprazole 20 MG CAPCR 40 MG PO (09:29)
[2022-12-22] MEDS: Lactulose 20 GM/30 ML CUP PO ×2 (09:29→19:53)
[2022-12-22] MEDS: Multivitamin TAB 1 TAB PO (09:30)
[2022-12-22] MEDS: Metoprolol CR 50 MG TABCR 150 MG PO (09:30)
[2022-12-22] MEDS: Gabapentin 300 MG CAP PO ×3 (09:30→19:53)
[2022-12-22] MEDS: Apixaban 5 MG TAB PO ×2 (09:30→19:53)
[2022-12-22] MEDS: Acetaminophen 325 MG TAB PO ×3 (09:30→19:53)
[2022-12-22] MEDS: Atorvastatin 20 MG TAB PO (09:31)
[2022-12-22] MEDS: Diclofenac 1% Gel 100 GM TUBE TP ×3 (09:31→15:08)
[2022-12-22] MEDS: Hydrocortisone 1% CR 30 GM TUBE TP (09:31)
[2022-12-22 14:58] VITALS: BP 104/70; PULSE 76; RESP 18; TEMP 37.2; O2SAT 94
--- NOTE | 2022-12-22 22:19 | PT.INTREAT ---
Date of service: 12/22/22 Time of Service: 16:20 PT Notes Visit Reasons: Acute Confusion State, Alcohol Use Disorder Inpatient Physical Therapy Treatment Note [facility] Date: 12/22/22 PRECAUTIONS: Fall, standard, activity as tolerated. SUBJECTIVE: Patient arrives at gym with DPT Keiko Delgado, apologizes for keeping you waiting. OBJECTIVE: Patient arrives at gym independently, with no assistive device. ? PAIN: none reported VITALS: monitored by nursing staff. ? ? ? BED MOBILITY/TRANSFERS? Rolling L/R: independent Supine-sit: independent ? Sit-supine: independent ? Sit-stand: independent ? Stand-sit: independent ? Bed-Chair: independent ? Chair-bed: independent ? Therapeutic Exercises (52034d3): Direct one-on-one instruction in therapeutic exercises to develop strength, endurance, range of motion and flexibility. ? Exercises ? NuStep: resistance lvl 10, 8 minutes 18 seconds. 4 square balance activity x3. Ambulation ? Assistive Device: none ? Weight bearing: full Assist: SBA ? Distance:? Side steps 3x10 each side, walking backwards 10 steps x3. Negotiated 6 four inch steps and 4 six inch steps x3 with 3lb ankle weights. ? Deviation: When walking backwards, patient is noted to have an asymmetric gait with right leg advancing further back and left leg stepping to for 2 sets and then advancing approximately half the length of patients foot vs right leg which advances past the left heel by ~10. ? Provided skilled instruction in proper exercise performance Provided skilled manual cues to facilitate proper muscle recruitment and/or form. ASSESSMENT:? Patient tolerates therapy well, no SOB, no LOB, returns to his room after treatment session independently. PLAN: Continue treament per plan of care until patient achieves a safe discharge plan. TREATMENT CODE/TIME: 22 minutes beginning at 16:20
[2022-12-23 00:49] VITALS: BP 106/71; PULSE 73; RESP 18; TEMP 36.3; O2SAT 96
[2022-12-23] MEDS: Budesonide/Formoterol 160/4.5 6 GM 60 PUFF INH IH ×2 (07:50→19:13)
[2022-12-23] MEDS: Tiotropium Bromide-Respimat 10 PUFF INH 2 PUFF IH (07:50)
[2022-12-23] MEDS: Cyanocobalamin 500 MCG TAB 1000 MCG PO (08:09)
[2022-12-23] MEDS: Lactulose 20 GM/30 ML CUP PO (08:09)
[2022-12-23] MEDS: Protein Nutritional Supplement 16 GM 1 OUNCE PACKET PO ×2 (08:09→13:36)
[2022-12-23] MEDS: Metoprolol CR 50 MG TABCR 150 MG PO (08:10)
[2022-12-23] MEDS: Gabapentin 300 MG CAP PO ×2 (08:11→13:37)
[2022-12-23] MEDS: Folic Acid 1 MG TAB 5 MG PO (08:11)
[2022-12-23] MEDS: Apixaban 5 MG TAB PO (08:11)
[2022-12-23] MEDS: Acetaminophen 325 MG TAB PO ×3 (08:11→19:51)
[2022-12-23] MEDS: Omeprazole 20 MG CAPCR 40 MG PO (08:12)
[2022-12-23] MEDS: Atorvastatin 20 MG TAB PO (08:12)
[2022-12-23] MEDS: Multivitamin TAB 1 TAB PO (08:12)
[2022-12-23] MEDS: Nicotine 14 MG/24 HR PATCH TD (08:13)
[2022-12-23] MEDS: Diclofenac 1% Gel 100 GM TUBE TP ×3 (08:13→22:59)
[2022-12-23] MEDS: Hydrocortisone 1% CR 30 GM TUBE TP (08:14)
[2022-12-23 08:45] VITALS: BP 104/64; PULSE 80
[2022-12-23] MEDS: Magnesium Chloride 64 MG TABCR PO (10:50)
[2022-12-23 17:17] VITALS: BP 90/62; PULSE 72; RESP 16; TEMP 37.9; O2SAT 97
[2022-12-23 23:06] VITALS: BP 108/84
[2022-12-24] MEDS: Budesonide/Formoterol 160/4.5 6 GM 60 PUFF INH IH ×2 (08:01→19:21)
[2022-12-24] MEDS: Tiotropium Bromide-Respimat 10 PUFF INH 2 PUFF IH (08:01)
[2022-12-24 08:38] LABS: Abs Immature Grans 0.02 10^3/uL (0.0-0.06); Absolute Basophil Count 0.03 10^3/uL (0.0-0.2); Absolute Eosinophil Count 0.17 10^3/uL (0.0-0.7); Absolute Lymphocyte Count 1.84 10^3/uL (1.2-3.4); Absolute Monocyte Count 0.67 10^3/uL (0.1-0.8); Absolute Neutrophil Count 5.22 10^3/uL (1.2-6.7); Basophils % 0.4; Eosinophils % 2.1; HCT 35.6 % (40.0-50.0); HGB 11.9 g/dL (13.5-17.5); Immature Grans % 0.3; Lymphocytes % 23.1; MCH 32.6 pg (27.0-33.0); MCHC 33.4 % (32.0-36.0); MCV 98 fL (80-95); MPV 11.7 fL (8.0-11.0); Monocytes % 8.4; Neutrophils % 65.7; Platelet Count 181 10^3/uL (130-400); RBC 3.65 10^6/uL (4.36-5.78); RDW 14.8 % (11.8-14.1); RDW-SD 52.9 fL; WBC 7.95 10^3/uL (4.4-10.8)
[2022-12-24 08:50] LABS: Anion Gap 8.3 mmol/L (3-11); BUN 9 mg/dL (7-18); CO2 24.7 mmol/L (21.0-32.0); CREATININE 0.5 mg/dL (0.70-1.30); Calcium 9.5 mg/dL (8.5-10.1); Chloride 106 mmol/L (98-107); Estimated GFR 118.23 (mL/min/1.73m2); Glucose 104 mg/dL (74-106); Magnesium 1.9 mg/dL (1.8-2.4); Potassium 3.5 mmol/L (3.5-5.1); Sodium 139 mmol/L (136-145)
[2022-12-24 09:10] LABS: Procalcitonin < 0.1 ng/mL
[2022-12-24 09:19] VITALS: BP 98/60; PULSE 98; RESP 17; TEMP 36.7; O2SAT 92
[2022-12-24] MEDS: Protein Nutritional Supplement 16 GM 1 OUNCE PACKET PO ×3 (09:21→19:49)
[2022-12-24] MEDS: Lactulose 20 GM/30 ML CUP PO ×2 (09:21→19:49)
[2022-12-24] MEDS: Multivitamin TAB 1 TAB PO (09:22)
[2022-12-24] MEDS: Acetaminophen 325 MG TAB PO ×3 (09:22→19:50)
[2022-12-24] MEDS: Omeprazole 20 MG CAPCR 40 MG PO (09:22)
[2022-12-24] MEDS: Folic Acid 1 MG TAB 5 MG PO (09:23)
[2022-12-24] MEDS: Atorvastatin 20 MG TAB PO (09:23)
[2022-12-24] MEDS: Cyanocobalamin 500 MCG TAB 1000 MCG PO (09:23)
[2022-12-24] MEDS: Magnesium Chloride 64 MG TABCR PO ×2 (09:23→19:49)
[2022-12-24] MEDS: Diclofenac 1% Gel 100 GM TUBE TP ×4 (09:26→19:51)
[2022-12-24] MEDS: Hydrocortisone 1% CR 30 GM TUBE TP ×2 (09:27→19:50)
[2022-12-24] MEDS: Apixaban 5 MG TAB PO ×2 (09:47→19:50)
[2022-12-24] MEDS: Nicotine 14 MG/24 HR PATCH TD (09:47)
[2022-12-24] MEDS: Gabapentin 300 MG CAP PO ×3 (09:47→19:50)
[2022-12-24 09:56] LABS: Source Nasopharynx
[2022-12-24 10:32] LABS: COVID-19 PCR Negative (Negative)
[2022-12-24 11:13] VITALS: BP 100/72
[2022-12-24 15:46] VITALS: BP 107/70; TEMP 36.9
[2022-12-24] MEDS: Melatonin 3 MG TAB PO (19:50)
[2022-12-25 07:34] VITALS: BP 106/70; PULSE 94; RESP 18; TEMP 37.2; O2SAT 95
[2022-12-25] MEDS: Budesonide/Formoterol 160/4.5 6 GM 60 PUFF INH IH ×2 (08:10→19:15)
[2022-12-25] MEDS: Tiotropium Bromide-Respimat 10 PUFF INH 2 PUFF IH (08:13)
[2022-12-25] MEDS: Protein Nutritional Supplement 16 GM 1 OUNCE PACKET PO ×3 (08:20→22:23)
[2022-12-25] MEDS: Lactulose 20 GM/30 ML CUP PO ×2 (08:20→22:23)
[2022-12-25] MEDS: Acetaminophen 325 MG TAB PO ×2 (08:21→22:23)
[2022-12-25] MEDS: Omeprazole 20 MG CAPCR 40 MG PO (08:21)
[2022-12-25] MEDS: Nicotine 14 MG/24 HR PATCH TD (08:21)
[2022-12-25] MEDS: Folic Acid 1 MG TAB 5 MG PO (08:21)
[2022-12-25] MEDS: Multivitamin TAB 1 TAB PO (08:22)
[2022-12-25] MEDS: Apixaban 5 MG TAB PO ×2 (08:22→22:24)
[2022-12-25] MEDS: Thiamine 100 MG TAB PO (08:22)
[2022-12-25] MEDS: Atorvastatin 20 MG TAB PO (08:22)
[2022-12-25] MEDS: Metoprolol CR 50 MG TABCR 150 MG PO (08:22)
[2022-12-25] MEDS: Gabapentin 300 MG CAP PO ×3 (08:22→22:24)
[2022-12-25] MEDS: Magnesium Chloride 64 MG TABCR PO ×2 (10:09→22:23)
[2022-12-25] MEDS: Diclofenac 1% Gel 100 GM TUBE TP ×2 (11:20→22:25)
--- NOTE | 2022-12-25 15:14 | PT.INTREAT ---
PT Notes Visit Reasons: Acute Confusion State, Alcohol Use Disorder Pt dressed for going home, and is all packed when approached for session this afternoon, very agitated insisting that he is going home this afternoon, pt condition/intention brought to charge nurse attention.
[2022-12-25] MEDS: LORazepam 0.5 MG TAB PO ×2 (16:32→22:24)
[2022-12-25] MEDS: Melatonin 3 MG TAB PO (22:24)
[2022-12-25] MEDS: Hydrocortisone 1% CR 30 GM TUBE TP (22:25)
[2022-12-26] MEDS: Tiotropium Bromide-Respimat 10 PUFF INH 2 PUFF IH (08:09)
[2022-12-26] MEDS: Budesonide/Formoterol 160/4.5 6 GM 60 PUFF INH IH ×2 (08:09→19:19)
[2022-12-26] MEDS: Nicotine 14 MG/24 HR PATCH TD (08:37)
[2022-12-26] MEDS: Lactulose 20 GM/30 ML CUP PO ×2 (08:37→21:39)
[2022-12-26] MEDS: Protein Nutritional Supplement 16 GM 1 OUNCE PACKET PO ×3 (08:37→21:39)
[2022-12-26] MEDS: Atorvastatin 20 MG TAB PO (08:38)
[2022-12-26] MEDS: Thiamine 100 MG TAB PO (08:38)
[2022-12-26] MEDS: Apixaban 5 MG TAB PO ×2 (08:38→21:42)
[2022-12-26] MEDS: Folic Acid 1 MG TAB 5 MG PO (08:38)
[2022-12-26] MEDS: Multivitamin TAB 1 TAB PO (08:38)
[2022-12-26] MEDS: Cyanocobalamin 500 MCG TAB 1000 MCG PO (08:38)
[2022-12-26] MEDS: Gabapentin 300 MG CAP PO ×3 (08:38→21:42)
[2022-12-26] MEDS: Omeprazole 20 MG CAPCR 40 MG PO (08:38)
[2022-12-26] MEDS: Metoprolol CR 50 MG TABCR 150 MG PO (08:38)
[2022-12-26] MEDS: Diclofenac 1% Gel 100 GM TUBE TP ×2 (08:39→21:42)
[2022-12-26] MEDS: Hydrocortisone 1% CR 30 GM TUBE TP (08:39)
[2022-12-26] MEDS: Ketoconazole 2% CREAM 15 GM TUBE TP (08:40)
[2022-12-26 09:07] VITALS: BP 104/69; PULSE 78; RESP 18; TEMP 36.2; O2SAT 95
[2022-12-26] MEDS: LORazepam 0.5 MG TAB PO (09:10)
[2022-12-26] MEDS: Magnesium Chloride 64 MG TABCR PO ×2 (09:10→21:42)
--- NOTE | 2022-12-26 09:31 | W.PM.PROGNOT ---
Date of Service Date of service: 12/26/22 Time of Service: 09:31 Assessment and Plan Assessment and plan (1) Alcohol withdrawal delirium: Assessment and plan: Wiil continue plan as previuously discussed altered mental status most consistent with wernicke-korsakoff, continue thiamine and is on taper Neurology Consult: continuing thiamine, and on discharge have him take 100 mg thiamine daily and no drinking alcohol. Agrees with senior care care placement. Patient should not drive. FU with neuro post discharge in clinic currently on oral TID thiamine dosing, to be decreased to daily as outpatient During this hospitalization the brain MRI showed no acute findings (2) Alcohol use disorder: Assessment and plan: As above , Resolved ETOH withdrawal (3) Hepatic encephalopathy: Status: Resolved Assessment and plan: Same plan as previously established Will continue oral lactulose Liver US - Hepatic steatosis noted.? No discrete focal hepatic lesions. Will continue oral protein replacement (4) Pain: Status: Acute Assessment and plan: Continue neurontin as neuropathy is controlled on current dosing; periodically monitor LFT's repeated today Continue scheduled oral Acetaminophen and diclofenac topically (5) Chronic obstructive lung disease: Assessment and plan: No exacerbation signs and symptoms noticed, the patient remains stable Continue current regimen: home Trelegy and Spiriva with prn albuterol nebs. Qualifiers: COPD type: unspecified COPD Qualified Code(s): J44.9 - Chronic obstructive pulmonary disease, unspecified (6) Status post lobectomy of lung: Assessment and plan: As above (7) S/P ablation of atrial fibrillation: Assessment and plan: 68-96 HR in the past week, remains controlled Continue apixaban and metoprolol. (8) Personal history of nicotine dependence: Assessment and plan: Continue Nicotine Replacemnt Therapy (9) GERD without esophagitis: Assessment and plan: Continue Omeprazole (10) DVT prophylaxis: Assessment and plan: On Apixaban for Afib (11) Mixed hyperlipidemia: Assessment and plan: Continue Atorvastatin (12) Discharge planning issues: Assessment and plan: Case management following for discharge planning. Recommend private counseling - recent of spouse and ETOH abuse. Patient is medically clear and referrals have been sent for possible inpatient physical therapy, SWB 1 temporarly for now awaiting other referrals sister has declined his staying with her when discharged; she is applying for guardianship Plan discussed with Dr. Martines Subjective Subjective Patient reports: no new complaints, feels better (No further pain to toes with gabapentin treatment), tolerating liquids well, tolerating a regular diet, voiding w/o difficulty, bowel movement and afebrile; denies still having pain (The patient reports that pain is well managed with current pain medicine regimen), flatus, diarrhea, nausea, vomiting, shortness of breath or fever Interval history since last seen: Exam Narrative Exam Narrative: Constitutional The patient is standing sitting in chair/ lying in bed comfortable and cooperative during the interview. The patient is well groomed without acute distress and has average body habitus/is obese/ is thin. HENMT: Head is atraumatic, normocephalic, no lymphadenopathy. Facial structures with normal appearance Eyes: Well aligned, intact ROM Neck: Normal ROM, no meningeal signs Neuro:alert and oriented to self, person, place time and situation. No neurological focal deficit, PERRLA Chest:Chest is symmetrical and normal appearance Resp: Normal respiratory pattern, speaks in full sentences, unlabored breathing, clear lung bilaterally Cardio: regular rhythm, S1, S2, no murmur, capillary refill<3 sec., bilateral radial and dorsalis pedis pulses are positive, palpable GI: Abdomen is not distended, soft and non tender, bowel sounds are present : Negative Costovertebral angle tenderness, no bladder distension Back/spine/Pelvis: No back tenderness, normal alignment Integumentary: No skin lesions or rash Extremities: strength 5/5 to bilateral lower and upper extremities Psych: RASS 0, agitated initially, more focussed as the exam progressed, and normal to labile affect. Objective Last Vital Signs Temp 36.2 C L 12/26/22 09:07 Pulse 78 12/26/22 09:07 Resp 18 12/26/22 09:07 BP 104/69 12/26/22 09:07 Pulse Ox 95 12/26/22 09:07 Time Spent with Patient Time Spent with Patient: >50 minutes Time was spent: preparing to see the patient(eg.review tests), ordering medications,tests, procedures, referring, communicating with other health healthcare science specialist, indepentently interpreting results, counseling the patient and care coordination
[2022-12-26 11:45] LABS: ALT 22 U/L (16-63); AST 28 U/L (15-37); Albumin 3.2 g/dL (3.4-5.0); Alkaline Phosphatase 120 U/L (46-116); Bilirubin, Direct 0.1 mg/dL (0.0-0.2); Bilirubin, Total 0.3 mg/dL (0.2-1.0); Total Protein 8.1 g/dL (6.4-8.2)
--- NOTE | 2022-12-26 16:30 | PT.INTREAT ---
Date of service: 12/26/22 Time of Service: 16:20 PT Notes Visit Reasons: Acute Confusion State, Alcohol Use Disorder Inpatient Physical Therapy Treatment Note [facility] Date: 12/26/22 PRECAUTIONS: Fall, standard, activity as tolerated. SUBJECTIVE: Patient reports waiting for his son to arrive. Declines working out, then agrees to it to kill time. Mistakes RN Xu for his son. States that his son and his grandchildren were swimming, just got out of the water and are likely on their way here, although he is very agitated and states he does not know where they are. OBJECTIVE: Patient sitting up in chair. Eventually agrees to therapy. ? PAIN: none reported VITALS: monitored by nursing staff. ? BED MOBILITY/TRANSFERS? Rolling L/R: not assessed Supine-sit: not assessed ? Sit-supine: not assessed ? Sit-stand: independent ? Stand-sit: independent ? Bed-Chair: independent ? Chair-bed: independent ? Therapeutic Exercises (42725t7): Direct one-on-one instruction in therapeutic exercises to develop strength, endurance, range of motion and flexibility. Ambulation ? Assistive Device: none ? Weight bearing: full Assist: SBA ? Distance:? 150 feet, standing rest leaning on stair railing, 150 feet. ? Deviation: Shuffling gait pattern with reduced step height, adequate step length, kyphotic posture. No LOB noted. ? Provided skilled instruction in proper exercise performance Provided skilled manual cues to facilitate proper muscle recruitment and/or form. ASSESSMENT:? Patient ambulates to and from the rehab gym, but refuses to participate in therapy while he is in the rehab gym. Refuses exercises, refuses NuStep, refuses balance activity and becomes increasingly agitated over the course of the treatment session. PLAN: Continue progressing balance training per plan of care as patient will tolerate. TREATMENT CODE/TIME: 10 minutes beginning and 16:20
[2022-12-26] MEDS: Acetaminophen 325 MG TAB PO (21:42)
[2022-12-26] MEDS: Melatonin 3 MG TAB PO (21:42)
[2022-12-27] MEDS: Budesonide/Formoterol 160/4.5 6 GM 60 PUFF INH IH ×2 (08:09→19:04)
[2022-12-27] MEDS: Tiotropium Bromide-Respimat 10 PUFF INH 2 PUFF IH (08:10)
[2022-12-27] MEDS: Diclofenac 1% Gel 100 GM TUBE TP ×3 (08:12→19:57)
[2022-12-27] MEDS: Ketoconazole 2% CREAM 15 GM TUBE TP (08:12)
[2022-12-27] MEDS: Multivitamin TAB 1 TAB PO (08:13)
[2022-12-27] MEDS: Lactulose 20 GM/30 ML CUP PO ×2 (08:13→19:56)
[2022-12-27] MEDS: Thiamine 100 MG TAB PO (08:13)
[2022-12-27] MEDS: Omeprazole 20 MG CAPCR 40 MG PO (08:13)
[2022-12-27] MEDS: Atorvastatin 20 MG TAB PO (08:13)
[2022-12-27] MEDS: Gabapentin 300 MG CAP PO ×3 (08:13→19:57)
[2022-12-27] MEDS: Protein Nutritional Supplement 16 GM 1 OUNCE PACKET PO ×3 (08:13→19:56)
[2022-12-27] MEDS: Apixaban 5 MG TAB PO ×2 (08:14→19:57)
[2022-12-27] MEDS: Cyanocobalamin 500 MCG TAB 1000 MCG PO (08:14)
[2022-12-27] MEDS: Folic Acid 1 MG TAB 5 MG PO (08:14)
[2022-12-27] MEDS: Metoprolol CR 50 MG TABCR 150 MG PO (08:14)
[2022-12-27 08:17] VITALS: BP 95/62; PULSE 75; RESP 18; TEMP 36.6; O2SAT 95
--- NOTE | 2022-12-27 09:25 | CMPROGNOTE_ITS ---
Date of service: 12/27/22 Time of Service: 09:25 Care Management Progress Note Progress Note Text Progress Note Text: S/O: Christopher was dressed in his regular street clothes and is sitting in his chair when CM entered the room. He is talkative and pleasant. He remains confused about why he is still here and where his truck is? CM answers his questions and provides reassurance. Aileen filed Emergency Temporary Guardianship (with [facility], given he resides in [place]). Aileen has an appointment with LTM on 01/03/23. CM has reached out to Claudia Bullock from the Complex Care team and she has offered to have a virtual appointment with CM to discuss his placement challenges, beyond insurance. Christopher is progressing with PT. He requires a good amount of cueing but is otherwise independent. CM continues to follow. A: 57 year old admitted to [facility] 12/02/22 for acute confusional state P: Discharge options are SNF vs. community home vs. back to the community with increased services which will include 25/09 caregiver support. [facility] insurance is a barrier and his sister Aileen is applying for guardianship and LTM.
--- NOTE | 2022-12-27 09:25 | PDOC.CMACT ---
Date of service: 12/27/22 Time of Service: 09:26
[2022-12-27] MEDS: Magnesium Chloride 64 MG TABCR PO ×2 (10:43→19:56)
--- NOTE | 2022-12-27 14:04 | PTTR_ITS ---
Date of service: 12/27/22 Time of Service: 13:23 PT Notes Visit Reasons: Acute Confusion State, Alcohol Use Disorder Inpatient Physical Therapy Treatment Note [facility] Date: 12/27/22 PRECAUTIONS: Fall, standard, activity as tolerated. SUBJECTIVE: Patient appears to be in good spirits today, although he asserts that this clinician's dragged [him] out of bed this morning, and separately states that this clinician's boyfriend was here in the building to do exercise stuff. OBJECTIVE: Patient sitting up in chair. Sister Aileen sitting EOB. Both are agreeable to therapy. ? PAIN: none reported. VITALS: monitored by nursing staff. ? BED MOBILITY/TRANSFERS? Rolling L/R: independent Supine-sit: independent ? Sit-supine: independent ? Sit-stand: independent ? Stand-sit: independent ? Bed-Chair: independent ? Chair-bed: independent ? Therapeutic Exercises ([id number]): Direct one-on-one instruction in therapeutic exercises to develop strength, endurance, range of motion and flexibility. ? Exercises ? NuStep x 10m 12 s, lvl 10 resistance, 326 steps. Ambulation ? Assistive Device: none? Weight bearing: full Assist: SBA? Distance:? 200 feet ? Deviation: Kyphotic posture, tendency to look down at floor / feet while walking. Improved step length. Symmetrical gait. Stairs: Patient ascends and descends 8 six inch steps and 12 four inch steps while wearing 3 lb ankle weights, SBA, bilateral railings. ? Provided skilled instruction in proper exercise performance Provided skilled manual cues to facilitate proper muscle recruitment and/or form. Neuromuscular Re-education (83885m3): Activities that facilitate re-education of movement balance, posture, coordination, and proprioception or kinesthetic sense, requiring skilled tactile and verbal cues ? Exercises/techniques: Dynamic standing balance challenged in the following ways: * side stepping with 3 lb ankle weights, 10 steps each side x3 * walking backwards with 3 lb ankle weights, 10 steps x6 * 4 square stepping activity, no weights, 5 trips left and right. ASSESSMENT:? Patient tolerates therapy well. No c/o pain or dyspnea. PLAN: Per conversation with DPT Keiko Delgado, patient treatment frequency to be reduced to 3x/week. Patient and sister Aileen aware. TREATMENT CODE/TIME: 40 minutes beginning at 13:23
[2022-12-27] MEDS: Acetaminophen 325 MG TAB PO (19:57)
[2022-12-27] MEDS: Melatonin 3 MG TAB PO (19:57)
[2022-12-27] MEDS: Hydrocortisone 1% CR 30 GM TUBE TP (19:58)
[2022-12-28 07:14] VITALS: BP 107/72; PULSE 78; RESP 18; TEMP 36; O2SAT 97
[2022-12-28] MEDS: Budesonide/Formoterol 160/4.5 6 GM 60 PUFF INH IH ×2 (08:16→19:00)
[2022-12-28] MEDS: Tiotropium Bromide-Respimat 10 PUFF INH 2 PUFF IH (08:16)
[2022-12-28] MEDS: Nicotine 14 MG/24 HR PATCH TD (08:24)
[2022-12-28] MEDS: Protein Nutritional Supplement 16 GM 1 OUNCE PACKET PO ×3 (08:25→20:27)
[2022-12-28] MEDS: Lactulose 20 GM/30 ML CUP PO ×2 (08:25→20:27)
[2022-12-28] MEDS: Metoprolol CR 50 MG TABCR 150 MG PO (08:26)
[2022-12-28] MEDS: Folic Acid 1 MG TAB 5 MG PO (08:27)
[2022-12-28] MEDS: Omeprazole 20 MG CAPCR 40 MG PO (08:27)
[2022-12-28] MEDS: Acetaminophen 325 MG TAB PO ×3 (08:28→20:29)
[2022-12-28] MEDS: Apixaban 5 MG TAB PO ×2 (08:28→20:29)
[2022-12-28] MEDS: Atorvastatin 20 MG TAB PO (08:28)
[2022-12-28] MEDS: Thiamine 100 MG TAB PO (08:28)
[2022-12-28] MEDS: Cyanocobalamin 500 MCG TAB 1000 MCG PO (08:28)
[2022-12-28] MEDS: Hydrocortisone 1% CR 30 GM TUBE TP ×2 (08:29→20:30)
[2022-12-28] MEDS: Multivitamin TAB 1 TAB PO (08:29)
[2022-12-28] MEDS: Gabapentin 300 MG CAP PO ×3 (08:29→20:28)
[2022-12-28] MEDS: Diclofenac 1% Gel 100 GM TUBE TP ×3 (08:29→20:30)
[2022-12-28] MEDS: Ketoconazole 2% CREAM 15 GM TUBE TP (08:30)
[2022-12-28] MEDS: Magnesium Chloride 64 MG TABCR PO ×2 (09:43→20:29)
--- NOTE | 2022-12-28 14:08 | PDOC.CMACT ---
Date of service: 12/28/22 Time of Service: 14:08 Care Management Activity Note Activity Note Text Activity Note Text: Christopher is sitting in his recliner watching TV when CM met with him. He remains confused and shares with this hand sign writer that he is tired from running errands around town. He has been cooperative, pleasant and seems to enjoy his interaction with staff here at [facility]. He appears comfortable at [facility], although he wants to discharge soon he is agreeable to staying here until he has a safe discharge plan. He often asks about his truck and reassurance is provided that his truck is safely parked at his mothers. He watches TV in his room frequently and walks some in the halls. His family visit and call daily. He has a word search book at his bed side and is offered items from the activity cart. CM will follow.
--- NOTE | 2022-12-28 14:49 | CHAPLAIN ---
Christopher has changed rooms since I visited him last. He wasn't sure why the change was made. Today he was dressed in his own clothes and sitting up in the chair watching TV when I visited. He was pleasant and asked how I was doing. According to information from Care Management shared at morning meeting, Christopher's sister will be seeking to get guardianship. I will continue to visit.
--- NOTE | 2022-12-28 15:50 | PT.INPN ---
PT Notes Visit Reasons: Acute Confusion State, Alcohol Use Disorder Inpatient Physical Therapy Swing Bed Progress Note Date: 12/28/22 Dates of Service: 12/20/2022 through 12/28/2022 Referring Doctor: Korina Logan NP PT Orders: PT CONSULT: Eval/Treat Precautions: fall. Standard. Activity as tolerated. Patient Profile/Admitting Diagnosis: Converted to swing bed level I as of 12/19/2022. Patient with diagnosis of EtOH withdrawal/delirium, EtOH use disorder, hepatic encephalopathy, chronic obstructive lung disease, SP lobectomy of lung, SP ablation atrial fibrillation, and mixed hyperlipidemia. Subjective: Willing to do his work out today. Cheerful and looking forward to today's session. Objective: General Observation: Seated on bedside chair. No lines. Mental Status: Alert and oriented to person and place. Responses appropriate. Able to follow double-step commands. Pain: Denies ROM: Right Upper Extremity: Shoulder Flexion WFL. Shoulder abduction WFL. Elbow flexion WFL. Wrist flexion WFL. Functional opening and closing of hand WFL. Left Upper Extremity: Shoulder Flexion WFL. Shoulder abduction WFL. Elbow flexion WFL. Wrist flexion WFL. Functional opening and closing of hand WFL. Right Lower Extremity: Hip flexion WFL. Hip abduction WFL. Knee flexion WFL. Ankle dorsiflexion WFL. Ankle plantarflexion WFL. Left Lower Extremity: Hip flexion WFL. Hip abduction WFL. Knee flexion WFL. Ankle dorsiflexion WFL. Ankle plantarflexion WFL. Strength: Right Upper Extremity: Shoulder flexors 4/5. Shoulder abductors 4/5. Elbow flexors 4/5. Elbow extensors 4/5. Mine Exploration Engineer strong. Left Upper Extremity: Shoulder flexors 4/5. Shoulder abductors 4/5. Elbow flexors 4/5. Elbow extensors 4/5. Mine Exploration Engineer strong. Right Lower Extremity: Hip flexors 4/5. Hip abductors 4/5. Knee flexors 4/5. Knee extensors 4-/5. Ankle dorsiflexors 4/5. Ankle plantarflexors 4/5. Left Lower Extremity: Hip flexors 4/5. Hip abductors 4/5. Knee flexors 4/5. Knee extensors 4-/5. Ankle dorsiflexors 4/5. Ankle plantarflexors 4/5. Bed Mobility/Transfers: Rolling independent Supine to sit independent Sit to supine independent Sit to stand independent Stand to sit independent Bed to chair independent Chair to bed independent Gait: Able to ambulate up to 300 feet using no devices. Step length and height asymmetric. Stairs: Independent with stair negotiation. Balance: Static Sitting: Normal Dynamic Sitting: Normal Static Standing: Good Dynamic Standing: Good 4-Position Balance Test: Small EFFIE: 10 seconds Partial Tandem: 10 seconds Full Tandem: 5 seconds Single Leg Stance: 5 seconds Tinetti/MAGNOLIA test: Gait 12/14 Balance Total Special Tests: Mobility Limitations Standardized Measure [facility] AM-PAC 6 clicks Basic Mobility Inpatient Short Form: Raw Score: 24 CMS Score: 0% impairment Informed Consent/Education: Patient instructed in purpose of PT consult and plan of care. ASSESSMENT: Patient now modified independent inside room for all mobility ADl perofrmance. PT servies to continue to achive in the Tinetti/MAGNOLIA score to reduce fall risk and to support recommendation of independent withut device in the hallway. [place] 96168 low complexity based on the following: History: 57-year-old male with past medical history as indicated above Examination: As above Presentation: As above Decision Makin low complexity Goals: Goals X1 week 1. Supine-Sit independent MET, DISCONTINUE OF 12/28 2. Sit-Supine independent MET, DISCONTINUE OF 12/28 3. Sit-Stand independent MET, DISCONTINUE OF 12/28 4. Stand-Sit independent MET, DISCONTINUE OF 12/28 5. Bed-Chair independent MET, DISCONTINUE OF 12/28 6. Chair-Bed independent MET, DISCONTINUE OF 12/28 7. Independent gait on level surface with use of SPC for at least 300 feet without report of pain nor dyspnea NOT MET, CONITNUE 8. Independent stair negotiation while holding onto bilateral rails for at least 10 steps without report of pain nor dyspnea NOT MET, CONITNUE 9. Independent with home exercise program NOT MET, CONITNUE 10. Good static and dynamic standing balance/tolerance NOT MET, CONITNUE NEW PLAN OF CARE/TREATMENT PLAN : 1x/day, DOWN to 2 days/week x 2 weeks. Patient to come to therapy around 11:30 AM for his sessions. Plan of care has been reviewed with the SOFTBALL CORE MOLDER providing the service under Physical Therapy direction: 1. NuStep with resistance of 10 x 10 minutes 2. Rest for 1 minute 3. Wall sits x 1 minutes for 3 reps 4. Rest for 1 minute 5. Utilize intermediate balance exercises: sidestepping for 10 steps to L and R x 3 sets using 3 lb AW back up 10 steps x 3 sets using 3 lb AW Use 4-step balance exercise on therapy floor x 3 sets using 3 lb AW Ball throwing x 2 minutes 6. Walk to and from therapy room without AD as warm up/cool down TODAYS PT INTERVENTIONS: 1. NuStep with resistance of 10 x 10 minutes 2. Rest for 1 minute 3. Balance assessment utilizing Tinetti/MAGNOLIA 4. Walk to and from therapy room without AD as warm up/cool down DISCHARGE RECOMMENDATIONS: Supervised home setting/AFC vs PT based on stability of behavioral level/cognition. TREATMENT CODE/TIME: 71241 x 15 minutes for 1 unit, 00510 x 11 minutes for 1 unit beginning at 15;24 PM. Thank you for the opportunity to participate in the care of this patient. Keiko Delgado PT, DPT, CLT [facility] [place], [place]
[2022-12-28] MEDS: Melatonin 3 MG TAB PO (20:29)
[2022-12-29] MEDS: Acetaminophen 325 MG TAB PO ×3 (07:19→19:52)
[2022-12-29] MEDS: Omeprazole 20 MG CAPCR 40 MG PO (07:19)
[2022-12-29 07:21] VITALS: BP 118/71; PULSE 72; RESP 18; TEMP 36.6; O2SAT 95
[2022-12-29] MEDS: Lactulose 20 GM/30 ML CUP PO ×2 (07:50→19:52)
[2022-12-29] MEDS: Protein Nutritional Supplement 16 GM 1 OUNCE PACKET PO ×3 (07:50→19:52)
[2022-12-29] MEDS: Folic Acid 1 MG TAB 5 MG PO (07:51)
[2022-12-29] MEDS: Gabapentin 300 MG CAP PO ×3 (07:51→19:52)
[2022-12-29] MEDS: Metoprolol CR 50 MG TABCR 150 MG PO (07:51)
[2022-12-29] MEDS: Cyanocobalamin 500 MCG TAB 1000 MCG PO (07:51)
[2022-12-29] MEDS: Thiamine 100 MG TAB PO (07:52)
[2022-12-29] MEDS: Apixaban 5 MG TAB PO ×2 (07:52→19:52)
[2022-12-29] MEDS: Multivitamin TAB 1 TAB PO (07:52)
[2022-12-29] MEDS: Nicotine 14 MG/24 HR PATCH TD (07:52)
[2022-12-29] MEDS: Hydrocortisone 1% CR 30 GM TUBE TP ×2 (07:52→20:31)
[2022-12-29] MEDS: Atorvastatin 20 MG TAB PO (07:52)
[2022-12-29] MEDS: Ketoconazole 2% CREAM 15 GM TUBE TP (07:53)
[2022-12-29] MEDS: Diclofenac 1% Gel 100 GM TUBE TP ×3 (07:53→19:58)
[2022-12-29] MEDS: Budesonide/Formoterol 160/4.5 6 GM 60 PUFF INH IH ×2 (08:01→19:35)
[2022-12-29] MEDS: Tiotropium Bromide-Respimat 10 PUFF INH 2 PUFF IH (08:01)
[2022-12-29] MEDS: Magnesium Chloride 64 MG TABCR PO (20:03)
[2022-12-29] MEDS: Melatonin 3 MG TAB PO (20:04)
[2022-12-30 08:50] VITALS: BP 101/68; PULSE 70; RESP 16; TEMP 37; O2SAT 98
[2022-12-30] MEDS: Nicotine 14 MG/24 HR PATCH TD (08:51)
[2022-12-30] MEDS: Lactulose 20 GM/30 ML CUP PO ×2 (08:51→20:45)
[2022-12-30] MEDS: Gabapentin 300 MG CAP PO ×2 (08:52→20:46)
[2022-12-30] MEDS: Cyanocobalamin 500 MCG TAB 1000 MCG PO (08:52)
[2022-12-30] MEDS: Apixaban 5 MG TAB PO ×2 (08:52→20:46)
[2022-12-30] MEDS: Metoprolol CR 50 MG TABCR 150 MG PO (08:52)
[2022-12-30] MEDS: Protein Nutritional Supplement 16 GM 1 OUNCE PACKET PO ×3 (08:52→20:45)
[2022-12-30] MEDS: Omeprazole 20 MG CAPCR 40 MG PO (08:52)
[2022-12-30] MEDS: Folic Acid 1 MG TAB 5 MG PO (08:53)
[2022-12-30] MEDS: Thiamine 100 MG TAB PO (08:53)
[2022-12-30] MEDS: Diclofenac 1% Gel 100 GM TUBE TP ×3 (08:53→21:44)
[2022-12-30] MEDS: Multivitamin TAB 1 TAB PO (08:53)
[2022-12-30] MEDS: Acetaminophen 325 MG TAB PO ×2 (08:53→20:46)
[2022-12-30] MEDS: Atorvastatin 20 MG TAB PO (08:53)
[2022-12-30] MEDS: Hydrocortisone 1% CR 30 GM TUBE TP ×2 (08:54→21:44)
[2022-12-30] MEDS: Budesonide/Formoterol 160/4.5 6 GM 60 PUFF INH IH ×2 (09:54→21:32)
[2022-12-30] MEDS: Magnesium Chloride 64 MG TABCR PO ×2 (10:55→21:27)
[2022-12-30] MEDS: Melatonin 3 MG TAB PO (21:27)
[2022-12-31 06:58] LABS: Abs Immature Grans 0.01 10^3/uL (0.0-0.06); Absolute Basophil Count 0.03 10^3/uL (0.0-0.2); Absolute Eosinophil Count 0.16 10^3/uL (0.0-0.7); Absolute Lymphocyte Count 1.97 10^3/uL (1.2-3.4); Absolute Monocyte Count 0.75 10^3/uL (0.1-0.8); Absolute Neutrophil Count 4.02 10^3/uL (1.2-6.7); Basophils % 0.4; Eosinophils % 2.3; HCT 36.6 % (40.0-50.0); HGB 11.7 g/dL (13.5-17.5); Immature Grans % 0.1; Lymphocytes % 28.4; MCH 31.3 pg (27.0-33.0); MCV 98 fL (80-95); MPV 11.4 fL (8.0-11.0); Monocytes % 10.8; Platelet Count 189 10^3/uL (130-400); RBC 3.74 10^6/uL (4.36-5.78); RDW 14.2 % (11.8-14.1); RDW-SD 50.9 fL; WBC 6.94 10^3/uL (4.4-10.8)
[2022-12-31 07:15] LABS: Anion Gap 10.1 mmol/L (3-11); BUN 16 mg/dL (7-18); CO2 26.9 mmol/L (21.0-32.0); CREATININE 0.7 mg/dL (0.70-1.30); Calcium 9.2 mg/dL (8.5-10.1); Chloride 106 mmol/L (98-107); Glucose 102 mg/dL (74-106); Magnesium 2.1 mg/dL (1.8-2.4); Potassium 3.5 mmol/L (3.5-5.1); Sodium 143 mmol/L (136-145)
[2022-12-31 07:43] VITALS: BP 107/73; PULSE 82; RESP 18; TEMP 36.7; O2SAT 96
[2022-12-31] MEDS: Nicotine 14 MG/24 HR PATCH TD (08:15)
[2022-12-31] MEDS: Lactulose 20 GM/30 ML CUP PO (08:15)
[2022-12-31] MEDS: Protein Nutritional Supplement 16 GM 1 OUNCE PACKET PO ×2 (08:15→13:58)
[2022-12-31] MEDS: Cyanocobalamin 500 MCG TAB 1000 MCG PO (08:16)
[2022-12-31] MEDS: Multivitamin TAB 1 TAB PO (08:17)
[2022-12-31] MEDS: Gabapentin 300 MG CAP PO ×2 (08:17→13:58)
[2022-12-31] MEDS: Apixaban 5 MG TAB PO (08:17)
[2022-12-31] MEDS: Atorvastatin 20 MG TAB PO (08:17)
[2022-12-31] MEDS: Folic Acid 1 MG TAB 5 MG PO (08:17)
[2022-12-31] MEDS: Omeprazole 20 MG CAPCR 40 MG PO (08:17)
[2022-12-31] MEDS: Metoprolol CR 50 MG TABCR 150 MG PO (08:17)
[2022-12-31] MEDS: Thiamine 100 MG TAB PO (08:17)
[2022-12-31] MEDS: Budesonide/Formoterol 160/4.5 6 GM 60 PUFF INH IH ×2 (08:20→19:28)
[2022-12-31] MEDS: Tiotropium Bromide-Respimat 10 PUFF INH 2 PUFF IH (08:20)
[2022-12-31] MEDS: Magnesium Chloride 64 MG TABCR PO (10:32)
[2022-12-31] MEDS: Acetaminophen 325 MG TAB PO (13:58)
[2022-12-31] MEDS: Diclofenac 1% Gel 100 GM TUBE TP (15:51)
--- NOTE | 2022-12-31 20:34 | NUR.NOTE ---
Nursing Note:pt agitated tonight, stating that he doesnt want anyone else staying in or going in his room. pt also wandering hallways and going into other pts room. pt refusing medications of all kinds at this time. stating that he just got them, charting indicated he did not. pt stated that he will be resting for the night and wants to be left alone. wctm.
[2023-01-01] MEDS: Omeprazole 20 MG CAPCR 40 MG PO (07:07)
[2023-01-01] MEDS: Acetaminophen 325 MG TAB PO ×2 (07:07→14:06)
[2023-01-01 08:03] VITALS: BP 112/76; PULSE 77; RESP 18; TEMP 37; O2SAT 96
[2023-01-01] MEDS: Budesonide/Formoterol 160/4.5 6 GM 60 PUFF INH IH ×2 (08:05→19:09)
[2023-01-01] MEDS: Tiotropium Bromide-Respimat 10 PUFF INH 2 PUFF IH (08:05)
[2023-01-01] MEDS: Ketoconazole 2% CREAM 15 GM TUBE TP (08:07)
[2023-01-01] MEDS: Hydrocortisone 1% CR 30 GM TUBE TP (08:07)
[2023-01-01] MEDS: Diclofenac 1% Gel 100 GM TUBE TP ×3 (08:07→16:34)
[2023-01-01] MEDS: Apixaban 5 MG TAB PO ×2 (08:09→19:52)
[2023-01-01] MEDS: Multivitamin TAB 1 TAB PO (08:09)
[2023-01-01] MEDS: Gabapentin 300 MG CAP PO ×3 (08:09→19:52)
[2023-01-01] MEDS: Lactulose 20 GM/30 ML CUP PO ×2 (08:09→19:52)
[2023-01-01] MEDS: Folic Acid 1 MG TAB 5 MG PO (08:09)
[2023-01-01] MEDS: Protein Nutritional Supplement 16 GM 1 OUNCE PACKET PO ×3 (08:09→19:52)
[2023-01-01] MEDS: Metoprolol CR 50 MG TABCR 150 MG PO (08:10)
[2023-01-01] MEDS: Thiamine 100 MG TAB PO (08:10)
[2023-01-01] MEDS: Cyanocobalamin 500 MCG TAB 1000 MCG PO (08:10)
[2023-01-01] MEDS: Atorvastatin 20 MG TAB PO (08:10)
[2023-01-01] MEDS: Magnesium Chloride 64 MG TABCR PO ×2 (11:00→19:52)
[2023-01-01] MEDS: Melatonin 3 MG TAB PO (19:52)
[2023-01-02 07:25] VITALS: BP 100/64; PULSE 78; RESP 17; TEMP 36.8; O2SAT 98
[2023-01-02] MEDS: Folic Acid 1 MG TAB 5 MG PO (07:41)
[2023-01-02] MEDS: Apixaban 5 MG TAB PO ×2 (07:41→21:07)
[2023-01-02] MEDS: Lactulose 20 GM/30 ML CUP PO ×2 (07:41→21:07)
[2023-01-02] MEDS: Gabapentin 300 MG CAP PO ×3 (07:41→21:07)
[2023-01-02] MEDS: Omeprazole 20 MG CAPCR 40 MG PO (07:41)
[2023-01-02] MEDS: Cyanocobalamin 500 MCG TAB 1000 MCG PO (07:42)
[2023-01-02] MEDS: Atorvastatin 20 MG TAB PO (07:42)
[2023-01-02] MEDS: Metoprolol CR 50 MG TABCR 150 MG PO (07:42)
[2023-01-02] MEDS: Thiamine 100 MG TAB PO (07:42)
[2023-01-02] MEDS: Protein Nutritional Supplement 16 GM 1 OUNCE PACKET PO ×3 (07:43→21:07)
[2023-01-02] MEDS: Nicotine 14 MG/24 HR PATCH TD (07:43)
[2023-01-02] MEDS: Multivitamin TAB 1 TAB PO (07:43)
[2023-01-02] MEDS: Budesonide/Formoterol 160/4.5 6 GM 60 PUFF INH IH ×2 (08:01→19:17)
[2023-01-02] MEDS: Tiotropium Bromide-Respimat 10 PUFF INH 2 PUFF IH (08:01)
--- NOTE | 2023-01-02 09:45 | PGE_ITS ---
Date of Service Date of service: 01/01/23 Time of Service: 10:15 Assessment and Plan Assessment and plan (1) Alcohol withdrawal delirium: Assessment and plan: Will continue plan as previuously discussed altered mental status most consistent with wernicke-korsakoff, continue thiamine and inquire about taper, acute phase is resolved Neurology Consult: continuing thiamine, and on discharge have him take 100 mg thiamine daily and no drinking alcohol. Agrees with penitentiary care placement. Patient should not drive. FU with neuro post discharge in clinic. Will inquire about f/u as a swing bed. Was oral TID thiamine dosing as per neurology, decreased to daily During this hospitalization the brain MRI showed no acute findings (2) Hepatic encephalopathy: Status: Resolved Assessment and plan: Same plan as previously established Will continue oral lactulose, Liver US - Hepatic steatosis noted.? No discrete focal hepatic lesions. Will continue oral protein replacement (3) Pain: Status: Acute Assessment and plan: As previously discussed Continue neurontin as neuropathy is controlled on current dosing; periodically monitor LFT's AST 120 on 12/26 Will change scheduled oral Acetaminophen to PRN and diclofenac as well (4) Chronic obstructive lung disease: Assessment and plan: As discussed before No exacerbation signs and symptoms noticed, the patient remains stable Continue current regimen: home Trelegy and Spiriva with prn albuterol nebs. Qualifiers: COPD type: unspecified COPD Qualified Code(s): J44.9 - Chronic obstructive pulmonary disease, unspecified (5) Status post lobectomy of lung: Assessment and plan: As above (6) S/P ablation of atrial fibrillation: Assessment and plan: 68-96 HR in the past week, remains controlled Continue apixaban and metoprolol.Vital signs within normal limits (7) Personal history of nicotine dependence: Assessment and plan: Continue Nicotine Replacemnt Therapy (8) GERD without esophagitis: Assessment and plan: Continue Omeprazole (9) DVT prophylaxis: Assessment and plan: On Apixaban for Afib (10) Mixed hyperlipidemia: Assessment and plan: Continue Atorvastatin (11) Discharge planning issues: Assessment and plan: Case management following for discharge planning. Recommend private counseling - recent of spouse and ETOH abuse. Patient is medically clear and referrals have been sent for possible inpatient physical therapy, SWB 1 temporarly for now awaiting other referrals; still no offer sister has declined his staying with her when discharged; she is applying for guardianship Plan discussed with Dr. Esquivel Subjective Subjective Patient reports: no new complaints, feels better, pain is less (neuropathic pain to toes is well controlled ), tolerating liquids well, tolerating a regular diet, voiding w/o difficulty, flatus, bowel movement and afebrile; denies diarrhea, nausea, vomiting or shortness of breath Exam Narrative Exam Narrative: Constitutional The patient is standing sitting in chair, pleasant, comfortable and cooperative during the interview. The patient is well groomed without acute distress and has average body habitus HENMT: Head is atraumatic, normocephalic, . Facial structures with normal appearance Eyes: Well aligned, intact ROM Neck: Normal ROM, no meningeal signs Neuro:alert and oriented to self, person, place time and situation. No neurological focal deficit, Chest:Chest is symmetrical and normal appearance Resp: Normal respiratory pattern, speaks in full sentences, unlabored breathing, clear lung bilaterally Cardio: regular rhythm, S1, S2, no murmur, capillary refill<3 sec., bilateral radial and dorsalis pedis pulses are positive, palpable GI: Abdomen is not distended, soft and non tender, bowel sounds are present : Negative Costovertebral angle tenderness, no bladder distension Back/spine/Pelvis: No back tenderness, normal alignment Integumentary: No skin lesions or rash Extremities: strength 5/5 to bilateral lower and upper extremities Psych: RASS 0, agitated initially, more focussed as the exam progressed, and normal to labile affect. Objective Last Vital Signs Temp 37.0 C 01/01/23 08:03 Pulse 77 01/01/23 08:03 Resp 18 01/01/23 08:03 BP 112/76 01/01/23 08:03 Pulse Ox 96 01/01/23 08:03 Time Spent with Patient Time Spent with Patient: 35-49 minutes Time was spent: preparing to see the patient(eg.review tests), ordering medications,tests, procedures, referring, communicating with other health home health aide caregiver, indepentently interpreting results, counseling the patient and care coordination
[2023-01-02] MEDS: Hydrocortisone 1% CR 30 GM TUBE TP ×2 (09:49→21:11)
[2023-01-02] MEDS: Magnesium Chloride 64 MG TABCR PO ×2 (09:49→21:27)
[2023-01-02] MEDS: Ketoconazole 2% CREAM 15 GM TUBE TP (09:49)
--- NOTE | 2023-01-02 15:57 | PT.INNT ---
Date of service: 01/02/23 Time of Service: 15:52 PT Notes Visit Reasons: Acute Confusion State, Alcohol Use Disorder This clinician arrives at the tail end of a visit with patient, son, sister, and mother. As they leave, sister states He's a little upset with us right now. Patient then refuses therapy, stating If I get something heavy in my hands, it might very well go sailing across the room. Will resume tomorrow.
[2023-01-02] MEDS: Melatonin 3 MG TAB PO (21:27)
[2023-01-03] MEDS: Omeprazole 20 MG CAPCR 40 MG PO (07:34)
[2023-01-03] MEDS: Protein Nutritional Supplement 16 GM 1 OUNCE PACKET PO ×3 (07:34→21:07)
[2023-01-03] MEDS: Apixaban 5 MG TAB PO ×2 (07:34→21:08)
[2023-01-03] MEDS: Nicotine 14 MG/24 HR PATCH TD (07:34)
[2023-01-03] MEDS: Lactulose 20 GM/30 ML CUP PO ×2 (07:34→21:08)
[2023-01-03] MEDS: Thiamine 100 MG TAB PO (07:34)
[2023-01-03] MEDS: Cyanocobalamin 500 MCG TAB 1000 MCG PO (07:35)
[2023-01-03] MEDS: Atorvastatin 20 MG TAB PO (07:35)
[2023-01-03] MEDS: Folic Acid 1 MG TAB 5 MG PO (07:35)
[2023-01-03] MEDS: Gabapentin 300 MG CAP PO ×3 (07:35→21:08)
[2023-01-03] MEDS: Multivitamin TAB 1 TAB PO (07:35)
[2023-01-03] MEDS: Ketoconazole 2% CREAM 15 GM TUBE TP (07:36)
[2023-01-03] MEDS: Hydrocortisone 1% CR 30 GM TUBE TP (07:36)
[2023-01-03 07:45] VITALS: BP 106/71; PULSE 83; RESP 16; TEMP 37; O2SAT 97
[2023-01-03] MEDS: Metoprolol CR 50 MG TABCR 150 MG PO (07:45)
[2023-01-03] MEDS: Magnesium Chloride 64 MG TABCR PO ×2 (10:24→21:08)
--- NOTE | 2023-01-03 15:24 | PT.INTREAT ---
PT Notes Visit Reasons: Acute Confusion State, Alcohol Use Disorder Inpatient Physical Therapy Treatment Note [facility] Date: 01/03/23 SUBJECTIVE: Christopher states that he is doing good. Is agreeable to PT this am. OBJECTIVE: []? Neuromuscular Re-education ([id number]): Activities that facilitate re-education of movement balance, posture, coordination, and proprioception or kinesthetic sense, requiring skilled tactile and verbal cues ? Exercises/techniques: ?ambulated to PT room without use of AD with S. He performed Nutep x 10 min at L10. F/b lateral stepping 2x10 R/L. Sit to stand ex x10 without use of his hands. HR x 15. Head turns up down and side to side while in modified tandem stance, SBA. Up and down clinic steps, x5 with 1 railing and SBA ASSESSMENT:? tolerated session well. No LOB or fatigue noted. PLAN:continue to work his conditioning and functional mobility to tolerance. TREATMENT CODE/TIME:20min, [id number]
[2023-01-03] MEDS: Budesonide/Formoterol 160/4.5 6 GM 60 PUFF INH IH (19:20)
[2023-01-03] MEDS: Melatonin 3 MG TAB PO (21:08)
[2023-01-04] MEDS: Budesonide/Formoterol 160/4.5 6 GM 60 PUFF INH IH ×2 (07:37→18:59)
[2023-01-04] MEDS: Tiotropium Bromide-Respimat 10 PUFF INH 2 PUFF IH (07:38)
[2023-01-04 07:40] VITALS: O2SAT 96
[2023-01-04] MEDS: Lactulose 20 GM/30 ML CUP PO ×2 (08:03→19:44)
[2023-01-04] MEDS: Apixaban 5 MG TAB PO ×2 (08:03→19:44)
[2023-01-04] MEDS: Omeprazole 20 MG CAPCR 40 MG PO (08:03)
[2023-01-04] MEDS: Protein Nutritional Supplement 16 GM 1 OUNCE PACKET PO ×3 (08:03→19:44)
[2023-01-04] MEDS: Nicotine 14 MG/24 HR PATCH TD (08:03)
[2023-01-04] MEDS: Multivitamin TAB 1 TAB PO (08:04)
[2023-01-04] MEDS: Gabapentin 300 MG CAP PO ×3 (08:04→19:44)
[2023-01-04] MEDS: Atorvastatin 20 MG TAB PO (08:04)
[2023-01-04] MEDS: Folic Acid 1 MG TAB 5 MG PO (08:04)
[2023-01-04] MEDS: Cyanocobalamin 500 MCG TAB 1000 MCG PO (08:04)
[2023-01-04] MEDS: Thiamine 100 MG TAB PO (08:04)
[2023-01-04] MEDS: Metoprolol CR 50 MG TABCR 150 MG PO (08:04)
[2023-01-04 08:14] VITALS: BP 114/74; PULSE 79; RESP 18; TEMP 36; O2SAT 94
[2023-01-04] MEDS: Magnesium Chloride 64 MG TABCR PO ×2 (09:55→21:19)
--- NOTE | 2023-01-04 10:04 | PDOC.CMPRO ---
Date of service: 01/04/23 Time of Service: 10:05 Care Management Progress Note Progress Note Text Progress Note Text: S/O: CM met with Christopher on 01/03/23 to discuss discharge planning, as per PT, he will likely be discharged from services at the end of the week. He was discharged from OT services on 12/20/22 with a recommendation for HH PT and OT. Christopher expressed that he would like to return home, and does not want to be in the hospital anymore. CM discussed this with him, explaining that we are working on a plan for discharge which will include HH services and MOW to help better support him at home. He is agreeable to this plan. ROCÍO spoke to his sister, Aileen, and informed her that there will be a plan for discharge at the end of the week. If he remains on swingbed status, he will be on SWB2, which is halfway care, and is self pay. She stated that she is meeting with intermodal customer service [facility] to discuss his application and eligibility for penitentiary placement. CM provided resources for alternate levels of care, including level 3 assisted living facilities, at her request. Per MD, Christopher has the capacity to make the decision to leave, and he does not present as a harm to himself or others. He is independent with ADLs including dressing, toileting, personal hygiene, transferring, eating, and mobility. He has a cell phone which he utilizes independently. He will have MOW to help with meals, as well as HH RN for medication management. He will also have HH PT, OT, SAIL FINISHER HAND to help support his transition home, and for ongoing planning. He has family including his mother, sister, and son, who have been visiting during this extended admission. CM will continue to follow. A: A: 57 year old admitted to [facility] 12/02/22 for acute confusional state P: Christopher will return to the community with increased services including MOW and HH RN, PT, OT, SAIL FINISHER HAND. Per PT and OT, he has met his rehabilitation goals, and will likely be discharged from their service on 01/05/23. ROCÍO has provided resources to his sister, Aileen, who is helping to coordinate from the community, and she is meeting with penitentiary [facility] to support his intermodal customer service planning needs. He will likely transport via [facility] private vehicle. He will follow up with his PCP and discharge plan of care. CM will continue to follow.
[2023-01-04] MEDS: Melatonin 3 MG TAB PO (21:20)
[2023-01-05] MEDS: Budesonide/Formoterol 160/4.5 6 GM 60 PUFF INH IH ×2 (07:50→20:32)
[2023-01-05] MEDS: Tiotropium Bromide-Respimat 10 PUFF INH 2 PUFF IH (07:50)
[2023-01-05 08:40] VITALS: BP 107/69; PULSE 77; RESP 18; TEMP 36.8; O2SAT 96
[2023-01-05] MEDS: Protein Nutritional Supplement 16 GM 1 OUNCE PACKET PO ×2 (08:41→19:55)
[2023-01-05] MEDS: Folic Acid 1 MG TAB 5 MG PO (08:41)
[2023-01-05] MEDS: Lactulose 20 GM/30 ML CUP PO ×2 (08:41→19:55)
[2023-01-05] MEDS: Metoprolol CR 50 MG TABCR 150 MG PO (08:42)
[2023-01-05] MEDS: Gabapentin 300 MG CAP PO ×2 (08:42→19:54)
[2023-01-05] MEDS: Nicotine 14 MG/24 HR PATCH TD (08:42)
[2023-01-05] MEDS: Atorvastatin 20 MG TAB PO (08:43)
[2023-01-05] MEDS: Apixaban 5 MG TAB PO ×2 (08:43→19:54)
[2023-01-05] MEDS: Multivitamin TAB 1 TAB PO (08:43)
[2023-01-05] MEDS: Cyanocobalamin 500 MCG TAB 1000 MCG PO (08:43)
[2023-01-05] MEDS: Omeprazole 20 MG CAPCR 40 MG PO (08:44)
[2023-01-05] MEDS: Thiamine 100 MG TAB PO (08:44)
[2023-01-05] MEDS: Ketoconazole 2% CREAM 15 GM TUBE TP (08:46)
[2023-01-05] MEDS: Acetaminophen 325 MG TAB PO (08:46)
[2023-01-05] MEDS: Magnesium Chloride 64 MG TABCR PO ×2 (10:46→21:29)
--- NOTE | 2023-01-05 11:04 | W.PM.DS.N ---
Date of service: 01/05/23 Time of Service: 11:05 DS: Diagnosis Discharge Diagnosis (1) Alcohol withdrawal delirium: (2) Hepatic encephalopathy: Status: Resolved (3) Pain: Status: Acute (4) Chronic obstructive lung disease: (5) Status post lobectomy of lung: (6) S/P ablation of atrial fibrillation: (7) Personal history of nicotine dependence: (8) GERD without esophagitis: (9) Mixed hyperlipidemia: Discharge Plan Disposition Patient Disposition: Home W/Home Health Services Condition: Stable Discharge Details Reason For Visit: Acute Confusion State, Alcohol Use Disorder Admit Date/Time: 12/19/22 18:44 Admit Provider: Melvin Esquivel Attending Provider: Melvin Esquivel Primary Care Provider: Audrey Gaitan Hospital Course Hospital Course: This is a 58-year-old male patient who has been here under swing level rehab working with physical therapy following an acute hospitalization for alcohol withdrawal. During the acute admission, the patient received phenobarbital as per CIWA scoring. High-dose thiamine IV was given for the treatment of Wernicke, electrolytes corrected vitamin B12 and folate supplemented. Unfortunately the patient exhibited confusion, memory alterations well beyond the window for alcohol withdrawal. Neurology consult with Dr. Rogers to evaluate the patient and she agreed this is most likely secondary to Wernicke-Korsakov due to chronic alcohol abuse. He continued to work with physical therapy and has met his full inpatient rehabilitation abilities and is deemed safe for discharge with home health services. Medically he has remained stable. Cognition is reportedly not a baseline according to family but after a prolonged course here, it appears this is his new baseline. He has had no behavioral issues and is looking forward to discharge to home. He will require home health services while he transitions back to his home environment. We have encouraged family participation to help with this transition. His sister has graciously agreed to seek guardianship to assist with financial and future planning but we will include medical technologist generalist to home health nursing, physical therapy and occupational therapy. meals on wheels will also be ordered. Absence from alcohol and thiamine supplementation encouraged and continued at discharge. The care management team sent multiple referrals for ongoing inpatient rehabilitation and care placement but he has been doing well and is being discharged by inpatient PT at this point so inpatient rehabilitation is no longer needed. Again, medical technologist generalist will be helping family with pickle sorter care planning if needed. discharge discussed with Dr Adler Home Meds and New Rx's Prescriptions: New gabapentin 300 mg Capsule 300 mg PO TID Qty: 90 0RF thiamine mononitrate (vit B1) [Vitamin B-1 (mononitrate)] 100 mg Tablet 100 mg PO DAILY Qty: 30 0RF lactulose 20 gram/30 mL Solution 20 g PO BID Qty: 180 0RF Continued metoprolol succinate 200 mg tablet extended release 24 hr 150 mg PO DAILY Eliquis 5 mg tablet 5 mg PO BID acetaminophen [Tylenol Extra Strength] 500 mg tablet 1,000 mg PO Q6H PRN albuterol sulfate [ProAir HFA] 90 mcg/actuation HFA aerosol inhaler 2 puff inhalation Q4H PRN Trelegy Ellipta 100-62.5-25 mcg blister with device 1 inh INHALATION DAILY Patient Comments: INHALE 1 PUFF BY MOUTH ONCE DAILY atorvastatin 20 mg tablet 20 mg PO DAILY Patient Comments: TAKE 1 TABLET BY MOUTH EVERY DAY omeprazole 40 mg capsule,delayed release(DR/EC) 40 mg PO DAILY Spiriva Respimat 2.5 mcg/actuation Mist 2 puff inhalation DAILY Qty: 4 0RF Mag 64 64 mg tablet,delayed release (DR/EC) 64 mg PO BID Discharge Instructions Instructions: Abuse of Alcohol (DC) Stand Alone Forms: Nursing Discharge Form Referrals: Audrey Gaitan [Primary Care Provider] - 01/16/23 8:20 am Activity:: Activity as Tolerated Equipment/Supplies:: No Equipment Needed Diet:: As Tolerated Discharge Orders Discharge Orders: Discharge Order (Routine); Ordered 01/05/23 Ordered By: Korina Logan DS: Summary Time Spent with Patient providing and/or coordinating discharge services: Greater than 30 minutes Status at Discharge Functional status at discharge: independent ambulation Overall status at discharge: patient is not back to baseline Mental Status: other (poor historian, mild cognitive impairement) Speech and Movement: speech and movement normal Mood: other (poor historian, mild cognitive impairement) Affect: normal affect Exam Const General: cooperative and no acute distress Nutritional Appearance: average body habitus Orientation: alert and oriented to person HENAL Head: normal to inspection Eyes General: appearance normal, both eyes and all related structures Neck Neck: normal visual inspection Resp Effort & Inspection: normal respiratory effort and able to speak in complete sentences Auscultation: clear to auscultation bilaterally Cardio Rhythm: regular rhythm GI Inspection: normal to inspection Palpation: soft and nontender Skin Lesions: no lesions Neuro General: patient alert and no focal motor deficits Cranial Nerves: EOM intact bilaterally Extrem General: normal to inspection Psych Appearance: grossly normal Mental Status: other (poor historian, mild cognitive impairement) Speech and Movement: speech and movement normal Mood: other (poor historian, mild cognitive impairement) Affect: normal affect Attitude: cooperative Thought Content: no hallucinations Insight: poor Judgment: poor DS: Data Vitals/I&O Vitals and I&O: Vital Signs Temperature 36.8 C 01/05/23 08:40 Temperature Source Tympanic 01/05/23 08:40 Pulse 77 01/05/23 08:40 Pulse Rhythm Regular 01/05/23 08:50 Respiratory Rate 18 01/05/23 08:40 Respiratory Effort Normal, Non-Labored 01/05/23 08:50 Respiratory Depth Normal 01/05/23 08:50 Respiratory Pattern Normal 01/05/23 08:50 Blood Pressure 107/69 01/05/23 08:40 Pulse Oximetry 96 01/05/23 08:40 Oxygen Delivery Method Room Air 01/05/23 08:40 Oxygen Flow Rate 0 01/05/23 08:40 Pain Level 5 01/05/23 08:46 Comment Pt. asleep at this time. Pt. doesn't display any s/s of pain at this time. 12/31/22 12:17 Intake & Output 01/04/23 01/04/23 01/05/23 11:59 23:59 11:59 Intake Total 480 / 480 Balance 480 / 480 Intake: Oral 480 / 480 Other: Urine Appearance Clear Clear Clear Comment pt void independently. pt voiding up independently at this time PFSH All Active Problems (Updated 12/20/22 @ 00:06 by PILY LÓPEZ) Wernicke-Korsakoff syndrome (Acute) Pain (Acute) Altered mental status (Acute) Right upper lobe pulmonary nodule (Acute) Sensorineural hearing loss (SNHL) of both ears (Acute) Medical History Alcohol abuse Atrial fibrillation with RVR Atrial flutter Atypical chest pain Carcinoid tumor of lung Cellulitis Chest wall pain Contusion Cough Decreased hearing Depressive disorder Diverticulitis of sigmoid colon Elevated LFTs Emphysematous bleb of lung Foot pain GERD (gastroesophageal reflux disease) GERD without esophagitis Gout Hepatitis C antibody test positive Hypercholesterolemia Hypertensive disease Hyperuricemia Hyponatremia Impotence of organic origin Mixed hyperlipidemia Multiple joint pain Nicotine dependence Nicotine dependence, cigarettes, uncomplicated Obstructive sleep apnea Paroxysmal atrial fibrillation Pneumonia Reduced visual acuity RUQ pain Sighing respiration Supraventricular tachycardia Ventral incisional hernia Surgical History Hx of colonoscopy Hx of esophagogastroduodenoscopy S/P ablation of atrial fibrillation S/P cholecystectomy S/P hernia repair S/P partial lobectomy of lung Family History Mother Stroke Diabetes Father Cancer Social History Smoking/Tobacco Use Status: Former Tobacco Use tobacco type: cigarettes Quit Date: 03/05/14 Tobacco: How many years used: 34 Smoking risk assessment performed?: Yes Alcohol Intake: current Alcohol Intake frequency: a few times a week Alcohol type: beer and hard liquor Drug use: Occasionally Substance use type: marijuana Details: eats THC Household members: spouse Housing: house current occupation: disabled Pets and animals: Yes Pets and animals: cat(s) What is your relationship status?: Panel score (0-1 are the most socially isolated patients): 1 Do you feel safe at home: Yes Do you feel safe in your relationship?: Yes Time Spent with Patient Time Spent with Patient: 45-69 minutes Time was spent: preparing to see the patient(eg.review tests), ordering medications,tests, procedures, referring, communicating with other health career development counselor, indepentently interpreting results, counseling the patient and care coordination
--- NOTE | 2023-01-05 11:10 | PDOC.HHF2F_ITS ---
Home Health Referral Home Health Orders Clinical synopsis of why skilled professionals are needed: return home after prolonged hospitalization Medical diagnosis necessitation home health referral: wernicke korsakoff syndrome, medication changes, Registered Nurse: Check all that apply Instruct on new or changed medication(s)/assess compliance: Ordered Assess for exacerbation of medical condition, instruct patient/caregivers on signs and symptoms to report for early detection: Ordered Physical Therapist: Check all that apply Increase strength & endurance for safe mobility at home: Ordered To design/establish home maintenance program: Ordered Fall reduction therapy program for patient with history of frequent falls: Ordered Home safety evaluation and teaching/gait training including stair management (if applicable): Ordered Occupational Therapist: Evaluate and treat for patient unable to perform ADL/IADL/self-care: Ordered Blanket Binder: Assist with community resources: Ordered Assist with adjunct faculty for medical terminology care planning: Ordered Home Bound Status Describe why leaving home would require a considerable and taxing effort: Side effects from pain medication (sedation/drowsiness) and Confusion Encounter Date and Reason: I certify that a FTF encounter for this patient was performed on January 05, 2023 and that such encounter was related to the primary reason the patient requires home health services. The encounter was conducted in the following manner: * By me as the certifying physician, DOCTOR OF DENTAL SURGERY, PA or * By an inpatient physician, DOCTOR OF DENTAL SURGERY or PA during an inpatient stay who communicated findings to me, Certification And Authentication I certify that I composed the above information based on my clinical judgment relating to this patient's medical condition and, if applicable, clinical findings communicated to me by the NPP or inpatient physician who performed the FTF encounter. Name of Provider that will be monitoring home health services: Audrey Gaitan
--- NOTE | 2023-01-05 18:14 | CMPROGNOTE_ITS ---
Date of service: 01/05/23 Time of Service: 18:14 Care Management Progress Note Progress Note Text Progress Note Text: ROCÍO met with Christopher at 09:00 this morning, who was happy to discuss returning home. He has been consistently asking to return home for two weeks. He has met his goals with PT and is independent with ADLs. CM discussed his discharge plan, and he was agreeable to discharge. CM coordinated HH RN, PT, OT, LAMINATION TECHNICIAN as well as MOW and additional support from [facility]. ROCÍO set up [facility] transport by private vehicle at 13:30. ROCÍO called Christopher's sister, Aileen, to inform her of the discharge. CM spoke to her on 01/02/23 regarding the plan to discharge Christopher on Sunday, as he was discharged from PT. Aileen appealed his discharge through [employer], which dismissed the case, as [facility] was not being billed ([facility] replacement plan had denied his SWB request on 12/19/22). [employer] made this decision on 01/04/23. Aileen was upset that Christopher would be discharged, despite her being informed of the planned discharge earlier this week. She stated that she would talk to her about trying to make an alternate plan. CM met with Christopher again, at staff request, as his mother was on the phone. CM spoke to Christopher and his mother together, and discussed the details of his discharge. She expressed concern for his mental status changes, and stated that she feels he needs to be seen by a therapist. ROCÍO expressed agreement that he would benefit from a therapist, but this is not a service offered at [facility], nor is it a reason for Christopher to remain hospitalized, against his wishes. ROCÍO confirmed that he would be discharged today to his home in [place], to which she did not argue, although she stated that she would call her daughter and discuss this with her. ROCÍO received a call from Ulises, Christopher's brother in law (Aileen's ), who is not on the HIPAA. Ulises was verbally aggressive with the AA. CM did not return his call. ROCÍO received another call from Ulises, who was verbally aggressive and threatened to pierre [facility] if Christopher was discharged because he stated that he is his guardian, and he demanded that he remain hospitalized. CM transferred the call to Risk Management. There is no guardianship paperwork on file currently at [facility]. CM met with Christopher again, who appeared anxious and worried about his plan, and about leaving [facility] at this time, as his family had been calling him throughout the day telling him that he cannot return home. Ulises was on the phone with Christopher at that time, and CM again discussed the plan for discharge. At this time, Christopher was discharged and the RN was attempting to provide discharge instructions, and his ride was waiting. CM explained that even if Christopher has a guardian, [facility] cannot hold him against his will. He has been consistently asking to leave, and CM feels it is in everyone's best interest if this is a planned discharge, instead of a rushed discharge the next time Christopher tries to leave. Ulises expressed understanding, and stated that he and Aileen would like to be the ones to pick him up, if he is being discharged. ROCÍO stated that he is discharged, and asked when they would be able to pick him up. He stated that they live out of town, and would be able to pick him up tomorrow between noon- 1pm. CM confirmed this with Ulises, that he would be picking Christopher up at that time. CM asked the provider to delay the discharge until tomorrow. CM informed risk management of this development.
[2023-01-05] MEDS: Melatonin 3 MG TAB PO (21:29)
[2023-01-06] MEDS: Nicotine 14 MG/24 HR PATCH TD (09:36)
[2023-01-06] MEDS: Protein Nutritional Supplement 16 GM 1 OUNCE PACKET PO (09:36)
[2023-01-06] MEDS: Omeprazole 20 MG CAPCR 40 MG PO (09:36)
[2023-01-06] MEDS: Lactulose 20 GM/30 ML CUP PO (09:36)
[2023-01-06] MEDS: Folic Acid 1 MG TAB 5 MG PO (09:37)
[2023-01-06] MEDS: Magnesium Chloride 64 MG TABCR PO (09:37)
[2023-01-06] MEDS: Multivitamin TAB 1 TAB PO (09:38)
[2023-01-06] MEDS: Atorvastatin 20 MG TAB PO (09:38)
[2023-01-06] MEDS: Thiamine 100 MG TAB PO (09:38)
[2023-01-06] MEDS: Cyanocobalamin 500 MCG TAB 1000 MCG PO (09:38)
[2023-01-06] MEDS: Apixaban 5 MG TAB PO (09:38)
[2023-01-06] MEDS: Gabapentin 300 MG CAP PO (09:39)
[2023-01-06 09:40] VITALS: BP 103/67; PULSE 85; RESP 15; TEMP 36.9; O2SAT 94
[2023-01-06] MEDS: Metoprolol CR 50 MG TABCR 150 MG PO (09:40)
[2023-01-06] MEDS: Ketoconazole 2% CREAM 15 GM TUBE TP (09:41)
[2023-01-06] MEDS: Budesonide/Formoterol 160/4.5 6 GM 60 PUFF INH IH (11:42)
[2023-01-06] MEDS: Tiotropium Bromide-Respimat 10 PUFF INH 2 PUFF IH (11:42)
--- NOTE | 2023-01-06 13:29 | PDOC.CMDIS ---
Date of service: 01/06/23 Time of Service: 13:29 LACE Index Scoring Tool Questions: Length of Stay (in days): 14 or more Was the patient admitted via the E.D.?: Yes E.D. Visits: 1 Answers: Total Score: 11 Risk of Readmission: High Risk Care Management Discharge Plan Reason for Hospitalization: Acute confusion, alcohol use disorder Discharge Plan: Christopher was released in the care of his family; sister and brother in law. He has met his goals with PT and is independent with ADLs. CM coordinated RN, PT, OT, RETAIL SERVICE TECHNICIAN as well as MOW and additional support from [facility]. Christopher will follow up with PCP and plan of care as prescribed, he will transport via private vehicle with family. Patient/Family Education Needs: Review discharge instructions, discuss self care needs upon discharge, Ask Me Three. Services Needed at Discharge: Home Delivered Meals and Home Health Care Services
== END 2023-01-06 12:17 | disposition home health service (06) | DRG 641 ==
PROVIDERS: Internal Medicine; Nurse Practitioner Acute Care; Admitting Provider Family Medicine; PCP Physician Assistant Medical; Visit Provider Family Medicine
DX: E51.2 Wernicke's encephalopathy (principal); E87.1 Hypo-osmolality and hyponatremia; K86.1 Other chronic pancreatitis; I48.92 Unspecified atrial flutter; I47.10 Supraventricular tachycardia, unspecified; K76.82 Hepatic encephalopathy; I48.91 Unspecified atrial fibrillation; J44.9 Chronic obstructive pulmonary disease, unspecified; Z90.2 Acquired absence of lung [part of]; G31.9 Degenerative disease of nervous system, unspecified; R21 Rash and other nonspecific skin eruption; H90.3 Sensorineural hearing loss, bilateral; Z87.891 Personal history of nicotine dependence; F32.A Depression, unspecified; K21.9 Gastro-esophageal reflux disease without esophagitis; M10.9 Gout, unspecified; E78.00 Pure hypercholesterolemia, unspecified; I10 Essential (primary) hypertension; E78.2 Mixed hyperlipidemia; G47.33 Obstructive sleep apnea (adult) (pediatric); F10.10 Alcohol abuse, uncomplicated
CPT/HCPCS: 00123; 36415; 80048; 80076; 84145; 87635; 94640; 97110; 97112; 97162; 97530; 99306; 99309; 99316; 83735; 85025; 94664; J3490